=== PATIENT | female | born 1965 | race Caucasian/White ===

== ENCOUNTER 2020-06-07 08:11 | Emergency (ER) | payer OTHER, SELFPAY ==
[2020-06-07 08:18] VITALS: BP 163/93; PULSE 74; RESP 16; TEMP 36.6; O2SAT 97; BMI 28.4
--- NOTE | 2020-06-07 08:24 | ED_ITS ---
HPI - Back Pain/Injury General: Chief Complaint: Extremity Problem,Nontraumatic Stated Complaint: right leg, hip pain Time Seen by Provider: 06/07/20 08:18 History of Present Illness: HPI Narrative: Patient is a 54-year-old female comes to the ED with acute on chronic lower back pain with pain radiating down right leg. Patient says she has a history of chronic lower back pain and a lumbar disc bulge. Patient denies any acute injury or trauma to cause acute pain. Lower back pain started about 3 days ago. Pain got worse last night and she woke up this morning with more intense back pain with radiating pain down her right leg. Pain is rated a 10 out of 10. Associated symptoms: Deny abdominal pain, chills, dysuria, fatigue, fever(s), hematuria, nausea or vomiting Review of Systems Const: Denies: fever(s), chills or fatigue Eyes: Denies: change in vision or eye discomfort ENMT: Denies: throat pain, odynophagia, nasal discharge or nasal congestion Card: Denies: chest pain, palpitations, edema, swelling of feet/ankles, dyspnea on exertion or orthopnea Resp: Denies: dyspnea, productive cough or non-productive cough GI: Denies: abdominal pain, nausea, vomiting, diarrhea, constipation or hematochezia : Denies: flank pain, dysuria or hematuria Musc: Reports: back pain; Denies: neck pain or extremity swelling Skin/Breast: Denies: rash or new lesions Neuro: Denies: headache(s), numbness in extremities or weakness in extremities PFS ED PFSH: Social History Smoking and tobacco status: never smoked Alcohol intake: never Substance/Drug Use: current Substance/Drug use frequency: Special occassions/opportunity only Substance/Drug use type: Marijuana Physical Exam Const: COMMON NORMALS: patient oriented x3 and alert GENERAL APPEARANCE: cooperative and comfortable HENMT: COMMON NORMALS: normocephalic HEAD & SCALP: normocephalic MOUTH: Normal oral and palatal mucosa present THROAT: posterior oropharynx normal and uvula midline Neck/C-Spine: COMMON NORMALS: supple GENERAL: Yes normal visual inspection Resp: COMMON NORMALS: normal respiratory effort, No retractions, No use of accessory muscles and clear to auscultation bilaterally AUSCULTATION: clear to auscultation bilaterally Cardio: COMMON NORMALS: regular rate, regular rhythm, S1 normal heart sound present, S2 normal heart sound present, No gallops present (Cardio), No clicks present (Cardio), No murmurs present (Cardio) and Peripheral pulses 2+ throughout RATE: regular rate RHYTHM: regular rhythm HEART SOUNDS: S1 normal heart sound present and S2 normal heart sound present PERIPHERAL PULSES: Peripheral pulses 2+ throughout GI: COMMON NORMALS: Normal to inspection, nondistended, normoactive bowel sounds present, Soft to palpation, non-tender and no masses PALPATION: Yes Soft to palpation : COMMON NORMALS: Yes no CVA tenderness BLADDER/KIDNEY EXAM: Yes no CVA tenderness Back/Pelvis: COMMON NORMALS: no CVA tenderness LUMBAR SPINE/LOWER BACK: Yes pain with ROM, No lumbar spinal tenderness, Yes paraspinal muscle tenderness and Yes straight leg raise positive right Extremity: COMMON NORMALS: normal to inspection and no pedal edema Neuro: COMMON NORMALS: patient oriented x3 and moves all extremities SENSORIUM/ORIENTATION: Yes alert Skin: GENERAL SKIN EXAM: dry skin Course Vital Signs: Vital signs: Vital Signs Temperature 97.9 F 06/07/20 08:18 Pulse Rate 74 06/07/20 08:18 Respiratory Rate 20 H 06/07/20 09:24 Blood Pressure 163/93 06/07/20 08:18 Pulse Oximetry 97 06/07/20 08:18 MDM - Back Pain/Injury MDM Narrative: Medical decision making narrative: Patient is a 54-year-old f emale comes to the ED with acute on chronic lower back pain. Patient says pain is radiating down right leg. Patient was given a shot of Toradol while here in the ED along with solu-medrol. she was diagnosed with lumbar radiculopathy and sent home with a prescription for methocarbamol, ibuprofen 800 and Medrol Dosepak. Return to ED precautions given. Follow-up with PCP in 7 to 10 days. Patient understood and agreed with plan. Discharge Plan Discharge Patient Disposition: Home Clinical Impression: Lumbar radiculopathy Condition: Stable Prescriptions: New Medrol (Albert) 4 mg tablets,dose pack See Rx Instructions .ROUTE .COMPLEX Qty: 21 RF: 0 methocarbamol 750 mg tablet 750 mg PO Q8H Qty: 30 RF: 0 ibuprofen 800 mg tablet 800 mg PO Q8H PRN (Reason: pain) Qty: 30 RF: 0 No Action No Known Home Medications RF: 0 Discharge Orders: Discharge ED (Routine); Ordered 06/07/20 Ordered By: Fabrice Garcia Discharge Diet: Regular Discharge Activity: Increase activity as tolerated Patient Instructions: Lumbar Radiculopathy (ED) Activity Restrictions/Additional Instructions: Follow-up with medical provider as directed in 7-10 days. Take medications as prescribed. Methocarbamol is a muscle relaxer can cause drowsiness so take at night before bed. Use with caution during the day. Return to the ER or your medical provider if condition worsens. Please read and understand discharge instructions. If any questions, please ask. Coding Level of Care Code ED Bread Distributor for Alexandre Fwd Exam Comprehensive
[2020-06-07] MEDS: ketorolac 60 mg/2 mL INJ IM (08:59)
[2020-06-07 09:24] VITALS: RESP 20
== END 2020-06-07 09:24 | disposition home or self-care (01) ==
LOC: ER 09:37
PROVIDERS: Emergency Provider Physician Assistant
DX: M54.16 Radiculopathy, lumbar region (principal)
CPT/HCPCS: 12345; 96372; 99281; 99283; J1885; J2930

== ENCOUNTER 2020-07-12 13:02 | Outpatient (CLI) | payer OTHER, SELFPAY ==
--- NOTE | 2020-07-12 13:11 | MR_ITS ---
WS: [id number] MRI LUMBAR SPINE NONCONTRAST HISTORY: LUMBOSACRAL RADICULOPATHY COMPARISON: None available. TECHNIQUE: Sagittal and axial multisequence imaging is submitted. Mild S-shaped thoracolumbar scoliosis. No cord compression in the cervical and thoracic spine. Straightening and LEFT convex curvature the lumbar spine. Disc space narrowing and desiccation is mild. No vertebral body marrow edema or fracture. There is ma rrow edema noted within the L5 LEFT pedicle and lamina and facet joint. Conus terminates normally at L1. L1-L2: Very mild RIGHT foraminal narrowing due to scoliosis. L2-L3: Mild asymmetric disc bulging, greatest to the LEFT. No significant stenosis or disc protrusion s. L3-L4: Diffuse disc bulging. Small disc protrusion in the LEFT subarticular recess. There is mild kevon ateral foraminal narrowing. Slightly greater on the LEFT. L4-L5: Diffuse annular disc bulging and osteophytic ridging. There is a focal central disc protrusion contacting the ventral thecal sac. Mild facet joint arthritis. There is mild central and lateral rec ess stenosis and mild bilateral foraminal stenosis. Central disc protrusion is abutting but not signi ficantly displacing the L5 nerve root. L5-S1: Mild osteophytic ridging. Mild facet joint arthritis. No significant stenosis. Acute inflammat ory changes in the LEFT L5-S1 facet joint. There is marrow edema and a small amount of increased flui d. MR/MR lumbar spine wo con* [id number] IMPRESSION: 1. Acute inflammatory changes in the LEFT L5-S1 facet joint with marrow edema in the LEFT L5 pedicle and lamina. 2. Mild to moderate central and bilateral lateral recess and mild bilateral fo raminal stenosis at L4-5 due to combination of factors. There is an additional central disc protrusion with minimal encroachment upon the L5 nerve root on the LEFT. 3. Mild bilateral foraminal stenosis at L3-4 and a small LEFT subarticular dis c protrusion.
== END 2020-07-12 13:03 | disposition home or self-care (01) ==
LOC: RADSHAW 13:07
PROVIDERS: PCP Physician Assistant; Visit Provider Physician Assistant
DX: M54.17 Radiculopathy, lumbosacral region (principal); M48.061 Spinal stenosis, lumbar region without neurogenic claudication; M51.26 Other intervertebral disc displacement, lumbar region
CPT/HCPCS: 72148

== ENCOUNTER 2020-12-12 18:46 | Outpatient (CLI) | payer OTHER, SELFPAY ==
[2020-12-12 19:53] LABS: Basophils # 0.1 10^3/uL (0.0-0.1); Basophils % 0.4 %; Eosinophils # 0.2 10^3/uL (0.0-0.8); Eosinophils % 1.7 %; Hemoglobin 15.5 g/dL (11.5-15.3); Lymphocytes # 2.3 10^3/uL (0.8-4.8); Lymphocytes % 20.8 %; Mean Corpuscular HGB Conc 32.3 g/dL (30.0-36.0); Mean Corpuscular Hemoglobin 27.9 pg (28.0-34.0); Mean Corpuscular Volume 86.5 fL (81-99); Mean Platelet Volume 10.9 fL (7.4-10.4); Monocytes # 0.6 10^3/uL (0.2-0.9); Monocytes % 5.2 %; Neutrophils # 7.99 10^3/uL (1.8-7.7); Neutrophils % 71.5 %; Nucleated Red Blood Cells % 0 %; Platelet Count 264 10^3/cmm (130-400); Red Blood Count 5.55 10^6/uL (4.1-5.3); Red Cell Distribution Width 13.4 % (12.1-15.1); White Blood Count 11.2 10^3/uL (4.0-10.0)
[2020-12-12 20:19] LABS: Alanine Aminotransferase 14 U/L (0-33); Albumin Level 4.4 g/dL (3.5-5.2); Alkaline Phosphatase 112 IU/L (35-105); Aspartate Amino Transferase 16 U/L (0-32); Blood Urea Nitrogen 10 mg/dL (6-20); C Reactive Protein 3.5 mg/L (0.0-4.9); Calcium 9.1 mg/dL (8.5-10.5); Carbon Dioxide 27 mmol/L (22-29); Chloride 100 mmol/L (98-107); Globulin 2.4 g/dL (1.3-4.6); Glomerular Filtration Rate 104.2 mL/min (90-130); Glucose 87 mg/dL (65-115); Osmolality Calculated 288 mOsm/kg (285-295); Sodium 140 mmol/L (136-145); Total Bilirubin 0.3 mg/dL (0.15-1.2); Total Protein 6.8 g/dL (6.6-8.7)
== END 2020-12-12 18:47 | disposition home or self-care (01) ==
PROVIDERS: PCP Physician Assistant; Visit Provider General Practice
DX: M54.5 Low back pain (principal); M19.90 Unspecified osteoarthritis, unspecified site
CPT/HCPCS: 80053; 85025; 86140

== ENCOUNTER 2021-11-24 06:08 | Inpatient (IN) | payer BC, SELFPAY ==
[2021-11-24] VITALS (14 sets, daily range): BP systolic 105–147; BP diastolic 65–96; PULSE 53–96; RESP 16–22; TEMP 36.4–37.1; O2SAT 93–96; BMI 28.3; BMI 28.4
--- NOTE | 2021-11-24 06:11 | ECG_ITS ---
[facility] Test Date: 2021-11-24 Pat Name: Alberta Valdez Department: Room: Gender: Female Vp & General Counsel: : 1965 Requested By: Mc Briones Order Number: [id number] Hussein MD: Taiwo Rizo M.D. Measurements Intervals [place] Rate: 89 P: 24 ID: [id number] QRS: 63 QRSD: 165 T: 61 QT: 412 QTc: 503 Interpretive Statements SINUS RHYTHM Poor R wave progression, consider old anterior MA POSSIBLE LEFT ATRIAL ENLARGEMENT [-0.1mV P-WAVE IN V1/V2] INTRAVENTRICULAR CONDUCTION DELAY [130+ ms QRS DURATION] No previous ECG available for comparison Electronically Signed On 11-24-2021 16:23:09 CDT by Taiwo Rizo M.D. [email or web address]
--- NOTE | 2021-11-24 06:11 | XRR_ITS ---
PROCEDURE INFORMATION: Exam: XR Chest Exam date and time: 11/24/2021 6:31 AM Age: 56 years old Clinical indication: Shortness of breath; Additional info: Dyspnea/cough TECHNIQUE: Imaging protocol: XR of the chest. Views: 1 view. COMPARISON: No relevant prior studies available. FINDINGS: Lungs: Mildly increased ground-glass density in the peripheral right lower lung may be consistent with mild atelectasis versus pneumonia. The remainder of the lung parenchyma is clear. Pleural spaces: No pneumothorax. No pleural effusion. Heart/Mediastinum: The cardiomediastinal silhouette is within normal limits. Bones/joints: Unremarkable. XR/XR chest 1V portable [id number] IMPRESSION: Mildly increased ground-glass density in the peripheral right lower lung may be consistent with mild atelectasis versus pneumonia.
[2021-11-24 06:32] LABS: Basophils # 0.1 10^3/uL (0.0-0.1); Basophils % 0.6 %; Eosinophils # 0.4 10^3/uL (0.0-0.8); Eosinophils % 2.8 %; Hematocrit 48.7 % (37.0-47.0); Hemoglobin 14.9 g/dL (11.5-15.3); Lymphocytes # 3.9 10^3/uL (0.8-4.8); Lymphocytes % 29.5 %; Mean Corpuscular HGB Conc 30.6 g/dL (30.0-36.0); Mean Corpuscular Hemoglobin 28.3 pg (28.0-34.0); Mean Corpuscular Volume 92.6 fl (81-99); Mean Platelet Volume 10.9 fL (7.4-10.4); Monocytes # 0.8 10^3/uL (0.2-0.9); Neutrophils % 60.5 %; Nucleated Red Blood Cells % 0 %; Platelet Count 310 10^3/cmm (130-400); Red Blood Count 5.26 10^6/uL (4.1-5.3); Red Cell Distribution Width 14.7 % (12.1-15.1); White Blood Count 13.1 10^3/uL (4.0-10.0)
[2021-11-24 06:50] LABS: Alanine Aminotransferase 27 U/L (0-33); Albumin Level 4.4 g/dL (3.5-5.2); Alkaline Phosphatase 123 IU/L (35-105); Aspartate Amino Transferase 33 U/L (0-32); Blood Urea Nitrogen 14 mg/dL (6-20); Calcium 8.9 mg/dL (8.5-10.5); Carbon Dioxide 18 mmol/L (22-29); Chloride 102 mmol/L (98-107); Globulin 3.4 g/dL (1.3-4.6); Glomerular Filtration Rate 74.5 mL/min (90-130); Glucose 249 mg/dL (65-115); Osmolality Calculated 297 mOsm/kg (285-295); Sodium 139 mmol/L (136-145); Total Bilirubin 0.4 mg/dL (0.15-1.2); Total Protein 7.8 g/dL (6.6-8.7)
[2021-11-24 06:53] LABS: Anion Gap 22.9 (5-19); Potassium 3.9 mmol/L (3.5-5.1)
[2021-11-24 07:30] LABS: ABG PCO2 42.6 mmHg (35-45); Arterial Blood Gas Hematocrit 42.4 % (37-47); Base Excess ABG 0.9 mmol/L (-2.0-2.0); Blood Gas Operator Identificat AMH; Blood Gas Sample Site Brachial, right; Blood Gas Sample Type Arterial; Carboxyhemoglobin 1.2 %THgb (0.4-20.1); HCO3 ABG 26.1 mmol/L (22-26); HGB O2 Sat 92.3 % (95-100); Ionized Calcium Level - ABG 1.2 mmol/L (1.1-1.4); Methemoglobin 0.5 % (0.4-1.5); Oxygen Device NC; PO2 ABG 68.5 mmHg (80.0-100.0); Potassium Level - ABG 3.6 mmol/L (3.5-5.0); Total Hemoglobin 13.8 g/dL (12-16)
[2021-11-24] MEDS: ipratropium-albuterol 3 mL Neb INHALATION (07:45)
--- NOTE | 2021-11-24 07:48 | ED_ITS ---
HPI - SOB/Dyspnea General: Chief Complaint: Shortness of Breath/Dyspnea Stated Complaint: SOB Time Seen by Provider: 11/24/21 06:10 Source: patient Mode of arrival: ambulatory Limitations: no limitations History of Present Illness: HPI Narrative: 56-year-old female presents emergency room with complaints of shortness of breath and cough. She went to get up this morning became markedly short of breath. She has had this 2 other times this month. She denies any chest pain. No swelling lower extremities. Cough is minimally productive. She has not formally been diagnosed with COPD or asthma in the past she has been using albuterol inhaler she was given by a friend reports minimal relief of symptoms with that. MD elicited complaint: shortness of breath and cough Pertinent past history: COPD Onset (ago): minute(s) Timing: constant Severity: moderate Exacerbating factors: exertion and coughing Relieving factors: oxygen and rest Known history of: COPD Associated symptoms: Deny abdominal pain, chest congestion, chest pain, cough, diaphoresis, dizziness, extremity pain, fever(s), hemoptysis, lightheadedness, myalgias, nausea, orthopnea, palpitations, paresthesias, polydipsia, polyuria, rash, sense of impending doom, syncope or vomiting Treatment prior to arrival: bronchodilator Review of Systems Const: Denies: fever(s), chills, body aches, fatigue, malaise or diaphoresis Eyes: Denies: change in vision or blurry vision ENMT: Denies: throat pain, oral sores, dental pain, nasal discharge or nasal congestion Card: Denies: chest pain, palpitations, lightheadedness, syncope or orthopnea Resp: Reports: dyspnea, productive cough and wheezing; Denies: hemoptysis or chest congestion GI: Denies: abdominal pain, nausea or vomiting : Denies: flank pain, difficulty voiding, dysuria, urinary frequency or urinary urgency Musc: Denies: neck pain, back pain or extremity pain Skin/Breast: Denies: rash, pruritus or erythema Neuro: Denies: dizziness Psych: Denies: anxiety, depression, loss of interest, visual hallucinations, auditory hallucinations, suicidal ideation or homicidal ideation Endo: Denies: polyuria or polydipsia Sky/Lymph: Denies: easy bruising, easy bleeding, petechiae, enlarged lymph nodes or tender lymph nodes PFSH ED PFSH: Medical History (Updated 11/24/21 @ 08:22 by Mc Christensen DO) Chronic back pain Social History Smoking and tobacco status: former smoker Alcohol intake: never Physical Exam Const: GENERAL APPEARANCE: cooperative ORIENTATION/CONSCIOUSNESS: Yes awake, Yes oriented to person, Yes oriented to place and Yes oriented to time HENMT: COMMON NORMALS: normocephalic, atraumatic, hearing grossly normal bilaterally, external ears normal, EAC's normal, TM's normal bilaterally, Normal nasal mucous membranes and turbinates present, moist oral mucous membranes and oropharynx normal HEAD & SCALP: normocephalic and atraumatic NOSE: Normal nasal mucous membranes and turbinates present EXTERNAL EAR: Yes external ears normal EXTERNAL AUDITORY CANAL: EAC's normal TYMPANIC MEMBRANE: TM's normal bilaterally Resp: AUSCULTATION: rhonchi and wheezes Cardio: COMMON NORMALS: regular rate, regular rhythm and No murmurs present (Cardio) RATE: regular rate RHYTHM: regular rhythm GI: COMMON NORMALS: Soft to palpation and No hepatosplenomegaly present AUSCULTATION: Yes normoactive bowel sounds PALPATION: Yes Soft to palpation, No Tenderness to palpation present (GI), No Guarding due to palpation present (GI) and Yes No hepatosplenomegaly present Extremity: COMMON NORMALS: normal to inspection, capillary refill normal, no clubbing, cyanosis or edema, no calf tenderness and no pedal edema Neuro: SENSORIUM/ORIENTATION: Yes oriented to person, Yes oriented to place and Yes oriented to time Skin: COMMON NORMALS: no rashes or lesions noted GENERAL SKIN EXAM: no rash es or lesions noted Course Vital Signs: Vital signs: Vital Signs Temperature 98.8 F 11/24/21 06:11 Pulse Rate 90 11/24/21 07:52 Respiratory Rate 20 H 11/24/21 07:52 Blood Pressure 147/96 11/24/21 06:11 Pulse Oximetry 94 11/24/21 07:52 MDM - SOB/Dyspnea Medical Decision Making Right lower lobe pneumonia. Blood and sputum cultures ordered started on ceftriaxone and Zithromax. Also note patient has some hyperglycemia. No known history of diabetes mellitus. Discussed Dr. Lopez orders written. Medical Records I reviewed the patient's medical records. Lab Data I reviewed the patient's lab results. : 11/24/21 06:16 11/24/21 06:16 Labs/Radiology: Radiology Impressions Chest X-Ray 11/24/21 06:11 IMPRESSION: Mildly increased ground-glass density in the peripheral right lower lung may be consistent with mild atelectasis versus pneumonia. Laboratory Results WBC 13.1 10^3/uL (4.0-10.0) H 11/24/21 06:16 RBC 5.26 10^6/uL (4.1-5.3) 11/24/21 06:16 Hgb 14.9 g/dL (11.5-15.3) 11/24/21 06:16 Hct 48.7 % (37.0-47.0) H 11/24/21 06:16 MCV 92.6 fl (81-99) 11/24/21 06:16 MCH 28.3 pg (28.0-34.0) 11/24/21 06:16 MCHC 30.6 g/dL (30.0-36.0) 11/24/21 06:16 RDW 14.7 % (12.1-15.1) 11/24/21 06:16 Plt Count 310 10^3/cmm (130-400) 11/24/21 06:16 MPV 10.9 fL (7.4-10.4) H 11/24/21 06:16 Neut % (Auto) 60.5 % 11/24/21 06:16 Lymph % (Auto) 29.5 % 11/24/21 06:16 [place] % (Auto) 6.0 % 11/24/21 06:16 Eos % (Auto) 2.8 % 11/24/21 06:16 Baso % (Auto) 0.6 % 11/24/21 06:16 Neut # (Auto) 7.90 10^3/uL (1.8-7.7) H 11/24/21 06:16 Lymph # (Auto) 3.9 10^3/uL (0.8-4.8) 11/24/21 06:16 [place] # (Auto) 0.8 10^3/uL (0.2-0.9) 11/24/21 06:16 Eos # (Auto) 0.4 10^3/uL (0.0-0.8) 11/24/21 06:16 Baso # (Auto) 0.1 10^3/uL (0.0-0.1) 11/24/21 06:16 Nucleated RBC % (auto) 0 % 11/24/21 06:16 Nucleated RBCs # 0.0 /100WBC 11/24/21 06:16 Specimen Type Arterial 11/24/21 07:19 Sample Site Brachial, right 11/24/21 07:19 ABG pH 7.40 (7.35-7.45) 11/24/21 07:19 ABG pCO2 42.6 mmHg (35-45) 11/24/21 07:19 ABG pO2 68.5 mmHg (80.0-100.0) L 11/24/21 07:19 ABG HCO3 26.1 mmol/L (22-26) H 11/24/21 07:19 ABG O2 Saturation 94.0 11/24/21 07:19 ABG Base Excess 0.9 mmol/L (-2.0-2.0) 11/24/21 07:19 Joseph Test N/a 11/24/21 07:19 A-a O2 Gradient 10.0 mmHg (5-10) 11/24/21 07:19 Hematocrit 42.4 % (37-47) 11/24/21 07:19 Hgb O2 Saturation 92.3 % (95-100) L 11/24/21 07:19 Carboxyhemoglobin 1.2 %THgb (0.4-20.1) 11/24/21 07:19 Methemoglobin 0.5 % (0.4-1.5) 11/24/21 07:19 Total Hemoglobin 13.8 g/dL (12-16) 11/24/21 07:19 Sodium 144.0 mmol/L (131-143) H 11/24/21 07:19 Potassium 3.6 mmol/L (3.5-5.0) 11/24/21 07:19 Glucose 114.0 mg/dL (70-115) 11/24/21 07:19 Ionized Calcium 1.2 mmol/L (1.1-1.4) 11/24/21 07:19 O2 Delivery Device Nc 11/24/21 07:19 O2 Liters/Min 2.0 % 11/24/21 07:19 FiO2 28.0 % 11/24/21 07:19 Utility Sales Representative ID Amh 11/24/21 07:19 Sodium 139 mmol/L (136-145) 11/24/21 06:16 Potassium 3.9 mmol/L (3.5-5.1) 11/24/21 06:16 Chloride 102 mmol/L (98-107) 11/24/21 06:16 Carbon Dioxide 18 mmol/L (22-29) L 11/24/21 06:16 Anion Gap 22.9 (5-19) H 11/24/21 06:16 BUN 14 mg/dL (6-20) 11/24/21 06:16 Creatinine 0.8 mg/dL (0.5-0.9) 11/24/21 06:16 GFR Calculation 74.5 mL/min (90-130) L 11/24/21 06:16 Glucose 249 mg/dL (65-115) H 11/24/21 06:16 Calculated Osmolality 297 mOsm/kg (285-295) H 11/24/21 06:16 Calcium 8.9 mg/dL (8.5-10.5) 11/24/21 06:16 Total Bilirubin 0.4 mg/dL (0.15-1.2) 11/24/21 06:16 AST 33 U/L (0-32) H 11/24/21 06:16 ALT 27 U/L (0-33) 11/24/21 06:16 Alkaline Phosphatase 123 IU/L (35-105) H 11/24/21 06:16 Total Protein 7.8 g/dL (6.6-8.7) 11/24/21 06:16 Albumin 4.4 g/dL (3.5-5.2) 11/24/21 06:16 Globulin 3.4 g/dL (1.3-4.6) 11/24/21 06:16 Discharge Plan Discharge Patient Disposition: Admitted As Inpatient Clinical Impression: Community acquired pneumonia Condition: Stable Coding Level of Care Code ED Grounds Restoration Specialist for Alexandre Fwezequiel Exam Detailed
[2021-11-24] MEDS: cefTRIAXone 1,000 MG in sodium chloride 0.9% (plus) 50 ML 100 MG IV (08:20)
--- NOTE | 2021-11-24 08:26 | PC.PHAR ---
pt states she takes no rx or otc medications-ext med history shows no medications [facility] last filled meds in 2019
--- NOTE | 2021-11-24 08:43 | ECG_ITS ---
[facility] Test Date: 2021-11-24 Pat Name: Alberta Valdez Department: Room: Gender: Female Bit Tapper: MATT: 1965 Requested By: Daryl Hairston Order Number: [id number] Reading MD: Taiwo Rizo M.D. Measurements Intervals [place] Rate: 76 P: 30 OK: 152 QRS: 77 QRSD: 147 T: 72 QT: 427 QTc: 481 Interpretive Statements SINUS RHYTHM Poor R wave progression INTRAVENTRICULAR CONDUCTION DELAY [130+ ms QRS DURATION] Compared to ECG 11/24/2021 06:38:40 No significant changes Electronically Signed On 11-24-2021 16:23:36 CDT by Taiwo Rizo M.D. [id number]
[2021-11-24] MEDS: FUROsemide 10 mg/mL SDV 4mL 40 MG IVP ×2 (08:58→22:02)
[2021-11-24] MEDS: azithromycin 500 MG in sodium chloride 0.9% 250 ML 250 MG IV (08:58)
--- NOTE | 2021-11-24 08:59 | P.HP_ITS ---
Providers/Chief Complaint Primary Care Provider: [facility] Chief Complaint: SOB History of Present Illness Alberta Valdez is a 56 year old female who presented to the emergency department with complaints of shortness of breath. She reported it occurred when she got up this morning perhaps around 4 5 AM. She states she felt as if she was gurgling, and full of water. She reports over the last month she has had 2 of these episodes on previous occasions. She states they lasted just minutes, and went away. She denied any wheezing, cough, fever, vomiting, nausea, history of aspiration. She denied any chest discomfort but and when asked further she reported a squeezing sensation in her chest when the discomfort occurred. She denied any radiation of the discomfort. She denies any prior history of heart disease. She states she is already feeling better. In the emergency department oxygen was administered, and treatment for pneumonia was started with Rocephin and azithromycin. A blood culture was drawn. She received a dose of Solu-Medrol. She reports she does not have much family support in the area. She moved out here to be with her father, but then he . She has not sought any medical care in quite some time. Review of Systems General: Reports: 10 or more systems reviewed and unremarkable except in HPI and below Eyes: Denies: change in vision ENMT: Denies: throat pain Card: Denies: edema Resp: Reports: dyspnea; Denies: productive cough or non-productive cough GI: Denies: abdominal pain, nausea, vomiting, hematochezia or melena : Denies: flank pain Musc: Denies: neck pain Skin/Breast: Denies: rash Neuro: Denies: headache(s) Psych: Reports: depression; Denies: anxiety Endo: Denies: polyuria Sky/Lymph: Denies: easy bruising All/Imm: Denies: urticaria Medications/Allergies Home Medications Medication Instructions Recorded Confirmed Last Taken Type No Known Home Medications 06/07/20 11/24/21 Unknown History Allergies Allergy/AdvReac Type Severity Reaction Status Date / Time No Known Allergies Allergy Verified 11/24/21 08:27 PFSH Acute PFSH: Medical History (Updated 11/24/21 @ 09:08 by Daryl Lopez MD) Chronic back pain Surgical History (Updated 11/24/21 @ 09:03 by Daryl Lopez MD) History of hysterectomy Family History (Updated 11/24/21 @ 09:03 by Daryl Lopez MD) Other CAD (coronary artery disease) Diabetes Social History (Updated 11/24/21 @ 09:03 by Daryl Lopez MD) Smoking and tobacco status: former smoker Alcohol intake: never Substance/Drug Use: never Vitals/I&O/Wt Last Vital Signs Temp 98.8 F 11/24/21 06:11 Pulse 88 11/24/21 08:23 Resp 22 H 11/24/21 08:23 BP 128/90 11/24/21 08:23 Pulse Ox 94 11/24/21 08:23 Weight last 48 hrs Weight 77.196 kg Physical Exam Narrative: General exam demonstrates a white female, no distress, on 3 L of oxygen. HEENT: Pupils equally round. Oropharynx clear. Neck is supple no lymphadenopathy or thyromegaly Cardiovascular regular rate and rhythm without murmur, heart sounds distant. Lungs a few crackles right lower lobe. Otherwise clear without wheezing or crackles Abdomen is soft, positive bowel sounds. No obvious organomegaly. exam is deferred Extremities no cyanosis clubbing or edema, cap refill brisk Skin no rash Neuro no obvious focal deficits. Data : 11/24/21 06:16 11/24/21 06:16 Other Labs: EKG demonstrates sinus rhythm, normal axis, intraventricular conduction delay. Poor R wave progression is noted. ABG demonstrates a pH 7.4, PCO2 42, PO2 of 68 on 2 L Calcium 8.9, AST 33, ALT 27, alk phos 123 Troponin I have ordered and is pending Albumin 4.4 Coronavirus PCR pending I have ordered a hemoglobin A1c Chest x-ray with increased density right lung, question edema versus pneumonia A&P Assessment and plan (1) Dyspnea: Concern on admission was right lower lobe pneumonia. Patient complains of several up with her episodes of shortness of breath over the last month, bringing into question potential cardiac etiology. Her AST is slightly elevated, and EKG is abnormal. At this point we will proceed with treatment outlined by emergency department with Rocephin and azithromycin for potential pneumonia. White blood cell count is slightly elevated. Plan on checking sputum culture, nebs as needed, oxygen weaning as tolerated. Check procalcitonin. Coronavirus PCR pending. Secondary to concern of potential cardiac etiology of discomfort we will check serial troponin and EKG BNP. Check echocardiogram. Lasix 40 mg IV x1. If any significant positives will initiate appropriate treatment such as aspirin, anticoagulation, etc. Status: Acute Plan History of chronic back pain. Tylenol as needed Full code Lovenox will suffice for DVT prophylaxis Attestations Medical Necessity Statement*: Will need greater than 2 midnight stay for treatment of pneumonia with IV antibiotics, as well as exploration of dyspnea could be cardiac in etiology. Coding Level of Care Code Acute Roller Leveler Operator for Alexandre Webb Diagnoses Dyspnea R06.00
[2021-11-24 09:10] LABS: Estmated Average Glucose 105; Hemoglobin A1C 5.3 % (4.0-6.0)
[2021-11-24 09:13] LABS: Troponin(5th) Baseline 20 ng/L (0-10)
--- NOTE | 2021-11-24 09:18 | USCV_ITS ---
Alberta Valdez Age: 56 Gender: F : 1965 Exam Date: 11/24/2021 10:18 Ordering Phys: Daryl Lopez MD Technologist: Colette Reid [place] [facility] [place]: ELEVATED TROP BP: 123 / 87 HR: 84 Rhythm: Sinus Technical Quality: Adequate MEASUREMENTS (Male / Female) Normal Values 2D ECHO LV Diastolic Diameter PLAX 6.1 cm 4.2 - 5.9 / 3.9 - 5.3 cm LV Systolic Diameter PLAX 4.8 cm LV Chamber Size 4.5 cm IVS Diastolic Thickness 1.0 cm 0.6 - 1.0 / 0.6 - 0.9 cm IVS Systolic Thickness 1.3 cm LVPW Diastolic Thickness 1.3 cm 0.6 - 1.0 / 0.6 - 0.9 cm LVPW Systolic Thickness 1.6 cm RV Chamber Size 2.9 cm LVOT Diameter 2.0 cm LV Ejection Fraction 2D Teich 42.7 % LV Ejection Fraction MOD 2C 49.5 % LV Ejection Fraction 2C AL 48.3 % LA Diameter 3.2 cm LA Width 2.8 cm LA Height 3.8 cm RA Width 3.5 cm RA Height 4.2 cm Aorta at Sinotubular Diameter 2.5 cm IVC Diameter 1.5 cm M-MODE Aortic Annulus Diameter 3.4 cm LA Ao Ratio MM 1.0 MV E Point Septal Separation 2.4 cm DOPPLER AV Peak Velocity 120.0 cm/s LVOT Peak Velocity 63.0 cm/s AV Area Cont Eq vti 1.5 cm squared AV Area Cont Eq pk 1.7 cm squared MV Area PHT 5.6 cm squared Mitral E to A Ratio 1.2 MV E' Velocity 54.0 cm/s Mitral E to MV E' Ratio 22.4 Mitral E to LV E' Lateral Ratio 18.7 Mitral E to LV E' Septal Ratio 27.8 TV Peak E Velocity 59.0 cm/s PV Peak Velocity 70.0 cm/s RV Acceleration Time 0.1 s RV Ejection Time 0.2 s RV AcT/ET 0.5 FINDINGS Left Ventricle Left ventricle is moderately dilated. LV systolic function is mild to moderately reduced with EF of 40%. Moderate hypokinesis of apical, anterior, anteroseptal and inferoseptal sanchez are seen. Grade 2 diastolic dysfunction Right Ventricle The right ventricle is normal in size and function. Right Atrium The right atrium is normal in size. Left Atrium The left atrium is normal in size. Mitral Valve Structurally normal mitral valve without significant stenosis or prolapse. There is mild mitral regurgitation. Aortic Valve Structurally normal aortic valve without significant sclerosis or stenosis. There is no aortic regurgitation. Tricuspid Valve Structurally normal tricuspid valve without significant stenosis or regurgitation. Insufficient TR jet to calculate RVSP Pulmonic Valve Not well-visualized Pericardium Normal pericardium without effusion. Aorta Normal ascending aorta dimension. IVC CONCLUSIONS Left ventricle is moderately dilated. LV systolic function is mild to moderately reduced with EF of 40%. Regional wall motion abnormalities as mentioned above. Grade 2 diastolic dysfunction There is mild mitral regurgitation. No comparison studies are seen Niraj Bowman MD (Electronically Signed) Final Date: 24 November 2021 16:38 S
[2021-11-24 09:20] LABS: Troponin 5 2HR 34.48 ng/L (0-10)
[2021-11-24 09:20] LABS: NT Pro B Type Natriuretic Pept 2136 pg/mL (0-125)
[2021-11-24 09:32] LABS: Troponin 5 2HR Delta 14.48 ABS# (0-10)
[2021-11-24 10:14] LABS: Adenovirus Not Detected (NOT DETECT); Chlamydia Pneumoniae Not Detected (NOT DETECT); Coronavirus 229E,HKU1,NL63,OC4 Not Detected (NOT DETECT); Human Metapneumovirus Not Detected (NOT DETECT); Human Rhinovirus/Enterovirus Not Detected (NOT DETECT); Influenza A Not Detected (NOT DETECT); Influenza A H1 Not Detected (NOT DETECT); Influenza A H1-2009 Not Detected (NOT DETECT); Influenza A H3 Not Detected (NOT DETECT); Influenza B Not Detected (NOT DETECT); Mycoplasma Pneumoniae Not Detected (NOT DETECT); Parainfluenza Virus Type 1 Not Detected (NOT DETECT); Parainfluenza Virus Type 2 Not Detected (NOT DETECT); Parainfluenza Virus Type 3 Not Detected (NOT DETECT); Parainfluenza Virus Type 4 Not Detected (NOT DETECT); Respiratory Syncytial Virus A Not Detected (NOT DETECT); Respiratory Syncytial Virus B Not Detected (NOT DETECT); SARS-COV-2 Not Detected (NOT DETECT)
[2021-11-24] MEDS: aspirin 81 mg Chew Tablet 324 MG PO (10:14)
[2021-11-24] MEDS: enoxaparin 80 mg/0.8 mL Syringe SUBCUT ×2 (10:15→22:02)
[2021-11-24] MEDS: nitroglycerin 1 gm/inch oint Pkt 0.5 INCH TOPICAL ×3 (10:20→22:05)
[2021-11-24 10:21] LABS: Thyroid Stimulating Hormone 2.64 uIU/mL (0.27-4.20)
[2021-11-24 10:22] LABS: Procalcitonin 0.04 ng/mL (0-0.5)
--- NOTE | 2021-11-24 10:43 | ECG_ITS ---
[facility] Test Date: 2021-11-24 Pat Name: Alberta Valdez Department: Room: Gender: Female Frame Tender: MATT: 1965 Requested By: Daryl Hairston Order Number: [id number] Hussein MD: Taiwo Rizo M.D. Measurements Intervals [place] Rate: 71 P: 17 WV: 167 QRS: 93 QRSD: 158 T: 186 QT: 467 QTc: 510 Interpretive Statements SINUS RHYTHM Poor R wave progression POSSIBLE LEFT ATRIAL ENLARGEMENT [-0.1mV P-WAVE IN V1/V2] BORDERLINE RIGHT AXIS DEVIATION [QRS AXIS > 90] INTRAVENTRICULAR CONDUCTION DELAY [130+ ms QRS DURATION] Compared to ECG 11/24/2021 08:51:19 No significant changes Electronically Signed On 11-24-2021 16:34:06 CDT by Taiwo Rizo M.D. [id number]
[2021-11-24] MEDS: perflutren protein-a microsphr 0.22 mg/mL SDV 3 mL IV (11:01)
[2021-11-24 12:59] LABS: Troponin 5 6HR 29.79 ng/L (0-10)
[2021-11-24 13:11] LABS: Troponin 5 6HR Delta 9.79 ng/L (0-12)
--- NOTE | 2021-11-24 14:43 | ECG_ITS ---
[facility] Test Date: 2021-11-24 Pat Name: Alberta Valdez Department: Room: 277 Gender: Female Fitness Services Manager: MATT: 1965 Requested By: Daryl Hairston Order Number: [id number] Hussein MD: Taiwo Rizo M.D. Measurements Intervals [place] Rate: 59 P: 12 NE: 162 QRS: 69 QRSD: 152 T: 154 QT: 498 QTc: 495 Interpretive Statements SINUS BRADYCARDIA WITH MARKED SINUS ARRHYTHMIA POSSIBLE LEFT ATRIAL ENLARGEMENT [-0.1mV P-WAVE IN V1/V2] INDETERMINATE AXIS INTRAVENTRICULAR CONDUCTION DELAY [130+ ms QRS DURATION] Compared to ECG 11/24/2021 11:01:10 Indeterminate axis now present Sinus rhythm no longer present Electronically Signed On 11-24-2021 16:35:02 CDT by Taiwo Rizo M.D. [id number]
--- NOTE | 2021-11-24 15:06 | PM.CONSULT ---
Providers/Reason For Consult Consulting Physician/Specialty*: Niraj Bowman MD/ Cardiology Reason for Consult*: Pulmonary hypertension Requesting Physician: Dr Lopez Attending Physician: Daryl Lopez MD Primary Care Provider: [facility] History of Present Illness History of Present Illness Alberta Valdez is a 56 year old female with no significant prior cardiac history has been having on and off significant shortness of breath symptoms. Last 1 month she had 3 episodes when she woke up from sleep with a significant breathing difficulty. She felt like her lungs were filling with fluid. Denies chest pain however does have a squeezing sensation across her chest. Troponins were mildly elevated and went up from 20-34 and then trended down. Echocardiogram shows mild to moderately reduced LV systolic function with EF of 40% and moderate hypokinesis of anterior, anteroseptal, inferoseptal and apical sanchez. Patient also on antibiotics at this time. EKG shows intraventricular conduction delay. Review of Systems General: Reports: 10 or more systems reviewed and unremarkable except in HPI and below Eyes: Denies: change in vision ENMT: Denies: throat pain Card: Denies: edema Resp: Reports: dyspnea; Denies: productive cough or non-productive cough GI: Denies: abdominal pain, nausea, vomiting, hematochezia or melena : Denies: flank pain Musc: Denies: neck pain Skin/Breast: Denies: rash Neuro: Denies: headache(s) Psych: Reports: depression; Denies: anxiety Endo: Denies: polyuria Sky/Lymph: Denies: easy bruising All/Imm: Denies: urticaria Medications/Allergies Home Medications Medication Instructions Recorded Confirmed Last Taken Type No Known Home Medications 06/07/20 11/24/21 Unknown History Allergies Allergy/AdvReac Type Severity Reaction Status Date / Time No Known Allergies Allergy Verified 11/24/21 08:27 Current Medications Generic Name Dose Route Start Last Admin Trade Name Freq PRN Reason Stop Dose Admin Enoxaparin Sodium 80 mg 11/24/21 10:00 11/24/21 10:15 Enoxaparin 80 Mg/0.8 Ml Syringe SUBCUT 80 mg Q12H SHAUN Administration Nitroglycerin 0.5 inch 11/24/21 10:15 11/24/21 10:20 Nitroglycerin 1 Gm/Inch Oint Pkt TOPICAL 0.5 inch Q6H SHAUN Administration PFSH Acute PFSH: Medical History Chronic back pain Surgical History History of hysterectomy Family History Other CAD (coronary artery disease) Diabetes Social History Smoking and tobacco status: former smoker Alcohol intake: never Substance/Drug Use: never Vitals/I&O/Wt Last Vital Signs Temp 98 F 11/24/21 13:45 Pulse 79 11/24/21 14:56 Resp 17 11/24/21 14:56 BP 113/70 11/24/21 13:45 Pulse Ox 95 11/24/21 14:56 Weight last 48 hrs Weight 170 lb 14.4 oz Weight 170 lb 3 oz Physical Exam Narrative: GENERAL: Patient is alert, awake and oriented x3. [] NECK: No jugular vein distension. [] HEENT: No cyanosis. No icterus. No pallor. [] HEART: Regular S1 and S2. No murmur, rub or gallop. [] LUNGS: Clear to auscultate bilaterally. [] ABDOMEN: Soft, nontender and nondistended. Positive bowel sounds. No guarding, rebound or tenderness. [] CENTRAL NERVOUS SYSTEM: Grossly nonfocal. [] EXTREMITIES: Lower extremities with 1+ edema bilaterally. Pulses palpable in the lower extremities, both dorsalis pedis and posterior tibial. [] Data : 11/24/21 06:16 11/24/21 06:16 Micro: Microbiology 11/24/21 08:45 Blood Culture - Preliminary Blood SPECIMEN COLLECTED 11/24/21 08:45 Blood Culture - Preliminary Blood SPECIMEN COLLECTED A&P Assessment and plan (1) Congestive heart failure: Status: Acute (2) NSTEMI (non-ST elevated myocardial infarction): Status: Acute Plan Patient has presented with pulmonary edema. Her troponin also increased from 20-34 at 2 hours. She has LV dysfunction with regional wall motion normalities as mentioned before. We will plan on performing coronary angiogram with possible percutaneous coronary intervention. Risks and benefits of the procedure have been discussed with the patient who understands the risks and benefits and wants to proceed with the procedure. N.p.o. past midnight. Continue aspirin, Plavix and Lovenox. Thank you for involving us with care of this patient. We will continue to follow. Please call with questions. Consult Attestations Medical Necessity Statement: Care expected to cross 2 midnights Coding Level of Care Code Acute Staff Internist Office Based Only for Alexandre Webb Diagnoses Congestive heart failure I50.9 NSTEMI (non-ST elevated myocardial infarction) I21.4
[2021-11-24] MEDS: famotidine 20 mg/2 mL INJ IVP (15:26)
[2021-11-24] MEDS: clopidogrel 300 mg Tablet PO (17:54)
[2021-11-24] MEDS: metoprolol tartrate 25 mg Tablet 12.5 MG PO (20:30)
[2021-11-24] MEDS: atorvastatin 40 mg Tablet PO (20:30)
[2021-11-25] VITALS (53 sets, daily range): BP systolic 96–140; BP diastolic 67–95; PULSE 58–101; RESP 12–29; TEMP 36.3–36.9; O2SAT 85–99
[2021-11-25] MEDS: famotidine 20 mg/2 mL INJ IVP (01:25)
[2021-11-25 03:09] LABS: Basophils % 0.1 %; Hematocrit 39.4 % (37.0-47.0); Hemoglobin 12.7 g/dL (11.5-15.3); Lymphocytes # 1.1 10^3/uL (0.8-4.8); Lymphocytes % 6.9 %; Mean Corpuscular HGB Conc 32.2 g/dL (30.0-36.0); Mean Corpuscular Hemoglobin 27.7 pg (28.0-34.0); Monocytes # 0.9 10^3/uL (0.2-0.9); Monocytes % 5.7 %; Neutrophils # 14.13 10^3/uL (1.8-7.7); Neutrophils % 86.8 %; Nucleated Red Blood Cells % 0 %; Platelet Count 258 10^3/cmm (130-400); Red Blood Count 4.58 10^6/uL (4.1-5.3); Red Cell Distribution Width 14.4 % (12.1-15.1); White Blood Count 16.3 10^3/uL (4.0-10.0)
[2021-11-25 03:44] LABS: Anion Gap 13.6 (5-19); Blood Urea Nitrogen 18 mg/dL (6-20); Carbon Dioxide 27 mmol/L (22-29); Chloride 101 mmol/L (98-107); Chol HDL Ratio 3.65 mg/dL (0.0-4.40); Cholesterol 175 mg/dL (0-200); Glomerular Filtration Rate 103.8 mL/min (90-130); Glucose 126 mg/dL (65-115); HDL Cholesterol 48 mg/dL (60-100); LDL Cholesterol Calculated 103 mg/dL (50-129); LDL HDL Ratio 2.15 RATIO (0.00-3.22); Osmolality Calculated 289 mOsm/kg (285-295); Potassium 3.6 mmol/L (3.5-5.1); Sodium 138 mmol/L (136-145); Triglycerides 121 mg/dL (0-150)
[2021-11-25] MEDS: nitroglycerin 1 gm/inch oint Pkt 0.5 INCH TOPICAL (03:54)
[2021-11-25] MEDS: sodium chloride 0.9% 1,000 ML 50 ML IV (05:09)
[2021-11-25] MEDS: diphenhydrAMINE 50 mg Capsule PO (05:10)
--- NOTE | 2021-11-25 05:21 | XACV_ITS ---
Exam Room: 2 Ht: 165 cm Wt: 77 kg BSA: 1.90 m2 Gender: Female : 1965 Any Known Allergies: No known allergies Exam Priority: Routine Procedure(s): Procedure Description: Diagnostic procedure Procedure Description: Coronary Angiography Procedure Description: Left heart cath Procedure Description: LV ventriculogram Diagnostic Cath Status: Elective Diagnostic Findings * INDICATION: 56 year old female with no significant prior cardiac history has been having on and off significant shortness of breath symptoms. Last 1 month she had 3 episodes when she woke up from sleep with a significant breathing difficulty. She felt like her lungs were filling with fluid. Denies Troponins were mildly elevated and went up from 20-34 and then trended down. Echocardiogram shows mild to moderately reduced LV systolic function with EF of 40% and moderate hypokinesis of anterior, anteroseptal, inferoseptal and apical sanchez. * No disease noted in the Left Main, Left Anterior Descending, Right, or Circumflex coronary arteries. * Coronary angiography shows right dominance. Conclusions 1. Non ischemic cardiomyopathy. 2. No disease noted in the Left Main, Left Anterior Descending, Right, or Circumflex coronary arteries. 3. Moderate left ventricular systolic dysfunction. Ejection fraction of 35%. Recommendations * Aggressive risk factor modification. * Guideline directed heart failure medical therapy. * LV pressure is significantly elevated. Continue diuresis for now. * Outpatient cardiology follow up in 7-10 days. Interventional RX Recommendation: medical therapy and/or counseling Diagnostic RX Recommendation: medical therapy and/or counseling Ventriculography Ejection Fraction: 35.0 % Pressures Phase:Rest AO : 91 / 60 ( 72 ) @ 7:22:00 AM 134 / 84 ( 106 ) @ 7:36:00 AM 134 / 86 ( 107 ) @ 7:36:00 AM LV : 126 / 12 / 30 @ 7:34:00 AM 128 / 16 / 36 @ 7:36:00 AM 129 / 16 / 36 @ 7:36:00 AM Valves Phase:DefaultPhase AV : 0.0 @ 6:45:13 AM 0.0 @ 6:45:13 AM AV Mean Gradient: 0.0 @ 6:45:13 AM 0.0 @ 6:45:13 AM Clinical Evaluation EBL: 5mL-10mL Procedural Details Procedure Consent Obtained. Isis Garcia RN, VINICIO was relieved by Isis Garcia RN, VINICIO as monitoring person. Pre-Procedure Time Out. Identified patient by full name and date of as verbalized by the patient/guarantor. Does the consent match the physician's order: Yes. Accurate & Complete Informed Consent: Yes. Inpatient/Outpatient History & Physical on Chart: Yes. If H&P is completed, is and addenduem needed: No; If yes, is the addendum complete: N/A. Visualize and Verify Site with Patient/Guarantor: N/A. Relevant Radiology Images available: N/A. Pre-op teaching completed and patient verbalized understanding. The risks, benefits, and alternatives of sedation and/or procedure were discussed by physician. The patient agrees to continue. Procedure started. [facility] Clinical Fraility Score: 3: Managing Well. Fund Accounting Manager Indications: LV Dysfunction, NSTEMI. Chest Pain Symptom Assessment: Atypical Angina. Cardiovascular Instability: No. Correct patient, site and procedure confirmed by cath team. PERRLA. Strong, equal hand electric tape slitter bilaterally. Lungs clear x 5 lobes. IV Site on Arrival: 18 gauge in the left anticubital. IV Fluids: 0.9% NaCl at KVO. 0 mL infused prior to cheesemaking laborer. Oxygen started at 2liters/min via nasal canula. right groin was prepped with chloroprep then draped in the usual sterile fashion. right radial was prepped with chloroprep then draped in the usual sterile fashion. Baseline sample Acquired. HR: 63 BPM. Physician notified. Physician arrived. Equipment: 6F - Radial. Cardiac Cath Pack. ACIST Manifold Kit Model BT 2000. Heparinized Saline (2 units/mL), 1000 mL bag. Physician scrubbed in. Immediate Pre-Procedure Time Out. Correct Patient: Yes; Correct Procedure: Yes; Correct Site: Yes; Correct Patient Position: Yes; Correct Supplies: Yes; Dried Flammable Prep: Yes; Blood Products Available: N/A;. Lidocaine 1% infiltrated to the right radial. Arterial access obtained. A 5 urdu TIG catheter in over wire. Multiple views taken of left coronary artery. Catheter redirected to the RCA. Multiple views taken of right coronary artery. Catheter out. A 5 urdu Angled Pig catheter in over glidewire. EDP Sample taken: LV 126/12,30; HR: 81 BPM; SpO2: 96%. LV gram performed in ARGUELLO @ 10 mL/second for a total of 30 mL. EDP Sample taken: LV 128/16,36; HR: 76 BPM; SpO2: 96%. Pullback taken: LV 129/16,36; AO 134/84(106); Mean: 0mmHg, Peak to Peak: 0mmHg, SEP: 9sec/min; HR: 83 BPM; SpO2: 96%. Physician scrubbed out. A TR Band was successful obtaining hemostatsis at the Right Radial artery insertion site. TR band placed. Hemostasis obtained. Post Procedure: Pulses reassessed and unchanged. PERRLA. Strong, equal hand electric tape slitter bilaterally. No VTE prophylaxis required. Medication's Wasted: Nitro = 49.8 mg. Medication's Wasted: Heparin = 1000 mg. Medication's Wasted: Lidocaine 1% = 3 mL. Total IV fluids: 35 mL. Contrast type used: Omnipaque 300 mgI/mL, 500 mL bottle. Post-op diagnosis: non obstructive CAD. Complications: none. Estimated blood loss: 5mL-10mL. Responsiveness - Normal response to verbal stimuli; alert and oriented, PERRLA. Airway - Unaffected, no intervention required; spontaneous ventilation. Circulation: W/N/L, pulses unchanged. Nausea/Vomiting: No. Procedure completed. Patient transferred by wheelchair to 1st floor. Vital chart was stopped. Access Site Site: Right Radial artery Sheath Size: 6 Fr Hemostasis Method: TR Band Hemostasis Success: Successful Procedure Medications Start: 6:13 AM Stop: 6:13 AM Medication: Fentanyl Amount: 25 mcg Route: I.V. Start: 6:16 AM Stop: 6:16 AM Medication: Versed Amount: 1 mg Route: I.V. Start: 6:21 AM Stop: 6:21 AM Medication: Nitrogylcerin Amount: 200 mcg Route: I.A. Start: 6:22 AM Stop: 6:22 AM Medication: Heparin Amount: 5000 units Route: I.V. Start: 6:23 AM Stop: 6:23 AM Medication: Versed Amount: 1 mg Route: I.V. Start: 6:37 AM Stop: 6:37 AM Medication: Fentanyl Amount: 50 mcg Route: I.V. Start: 6:23 AM Stop: 6:23 AM Medication: Fentanyl Amount: 25 mcg Route: I.V. I, the attending physician, have reviewed and verified all procedure medications. Yes, all medications given per verbal order History/Risk Factors Hypertension: No Dyslipidemia: No Peripheral Arterial Disease (PAD): No Myocardial Infarction (MS): No Obesity: No Renal Disease: Yes Tobacco Use: Never Prior Interventions PCI: No CABG: No Valve Surgery: No Report Signatures Finalized by Niraj Bowman MD on 12/04/2021 10:14 AM
--- NOTE | 2021-11-25 06:16 | P.HPUD_ITS ---
Surgery/Procedure H&P Update DATE OF PROCEDURE: November 25, 2021 DATE H&P PERFORMED: 11/24/21 H&P UPDATE INFORMATION: I have reviewed H&P completed within last 30 days, I have examined patient prior to procedure and No changes to prior documentation PREOP DIAGNOSIS: LV dysfunction/NSTEMI PRIMARY INDICATION FOR PROCEDURE: LV dysfunction/ NSTEMI PLANNED PROCEDURE: Operation Date: 11/25/21 06:00 Proposed Procedures p Cardiac Catheterization(Not Applicable) - Niraj Bowman M.D Possible percutaneous coronary intervention PATIENT REASSESSED PRIOR TO SEDATION, WITH NO CHANGE NOTED: Yes PHYSICAL EXAM: alert, oriented x 3, clear to auscultation bilaterally and regul ar rate & rhythm AIRWAY EVAL/ANESTHESIA PLAN: ASA III, Local Anesthesia, Risks, benefits & alternatives of sedation and/or procedure discussed and Patient agrees to continue as planned ADDITIONAL INFORMATION: Moderate sedation
--- NOTE | 2021-11-25 07:12 | PM.PN ---
Subjective Subjective: Patient is doing well. No complaints of chest pain overnight. Coronary angiogram today showed non-obstructive CAD, EF is 35% on LV gram. Vitals/I&O/Wt Last Vital Signs Temp 97.4 F L 11/25/21 04:00 Pulse 72 11/25/21 06:45 Resp 18 11/25/21 06:45 BP 110/71 11/25/21 06:45 Pulse Ox 93 11/25/21 06:45 11/24/21 11/25/21 11/25/21 22:59 06:59 14:59 Intake Total 480 / 480 Output Total 1100 / 1100 Balance 480 / 480 -1100 / -620 Weight last 48 hrs Weight 170 lb 14.4 oz Weight 170 lb 3 oz Physical Exam Narrative: GENERAL: Patient is alert, awake and oriented x3. [] NECK: No jugular vein distension. [] HEENT: No cyanosis. No icterus. No pallor. [] HEART: Regular S1 and S2. No murmur, rub or gallop. [] LUNGS: Clear to auscultate bilaterally. [] ABDOMEN: Soft, nontender and nondistended. Positive bowel sounds. No guarding, rebound or tenderness. [] CENTRAL NERVOUS SYSTEM: Grossly nonfocal. [] EXTREMITIES: Lower extremities with 1+ edema bilaterally. Pulses palpable in the lower extremities, both dorsalis pedis and posterior tibial. [] Data : 11/25/21 02:27 11/25/21 02:27 Micro: Microbiology 11/24/21 08:45 Blood Culture - Preliminary Blood SPECIMEN COLLECTED 11/24/21 08:45 Blood Culture - Preliminary Blood SPECIMEN COLLECTED A&P Assessment and plan (1) Congestive heart failure: Status: Acute (2) NSTEMI (non-ST elevated myocardial infarction): Status: Acute Plan Patient presented with pulmonary edema and possible pneumonia. Her troponin also increased from 20-34 at 2 hours. She has LV dysfunction with regional wall motion normalities. Coronary angiogram demonstrated nonobstructive CAD and LV function of 35% on LV gram. She has nonischemic cardiomyopathy. Guideline directed medical therapy for heart failure. She is on low-dose metoprolol. Continue for now. Start lisinopril at low-dose. Will require lasix. LV pressure was elevated Antibiotic therapy for possible infection per primary team Thank you for involving us with care of this patient. We will continue to follow. Please call with questions. Attestations Medical Necessity Statement*: Care expected to cross 2 midnights. Coding Level of Care Code Acute Soil Conservation Teacher for Alexandre Webb Diagnoses Congestive heart failure I50.9 NSTEMI (non-ST elevated myocardial infarction) I21.4
--- NOTE | 2021-11-25 08:15 | PC.NURSE ---
received from cardiac laboratory administrative director at 0720 via w/c.report received.pt is alert and oriented x 4.sr on monitor.denies pain.right wrist with tr band on and inflated.the dorsal aspect of right hand has what appears to be an iv infiltrate (iv had been removed,prior to admission to this unit.)pressure drsg intact.right hand is warm to touch and with brisk capillary refill.no hematoma noted.palpable radial pulse noted distal to tr band.pt instructed in activity restrictions s/p radial artery procedure, and instructed to notify staff for any bleeding,pain,numbness,or for any concerns at all.pt verb understanding of instructions
--- NOTE | 2021-11-25 08:22 | PM.PN ---
Subjective Subjective: Alberta who reports she feels less short of breath. We discussed her angiogram results, showing nonobstructive coronary disease. She reports her cough is better. Medications: Reviewed: Yes Vitals/I&O/Wt Last Vital Signs Temp 97.4 F L 11/25/21 04:00 Pulse 72 11/25/21 06:45 Resp 18 11/25/21 06:45 BP 110/71 11/25/21 06:45 Pulse Ox 93 11/25/21 06:45 11/24/21 11/25/21 11/25/21 22:59 06:59 14:59 Intake Total 480 / 480 Output Total 1100 / 1100 Balance 480 / 480 -1100 / -620 Weight last 48 hrs Weight 77.519 kg Weight 77.196 kg Physical Exam Narrative: General exam demonstrates a white female, no distress Neck is supple no lymphadenopathy or thyromegaly Cardiovascular regular rate and rhythm without murmur, heart sounds distant. Lungs clear currently Abdomen is soft, positive bowel sounds. No obvious organomegaly. Extremities no cyanosis clubbing or edema, cap refill brisk. Band in place without bleeding Skin no rash Data : 11/25/21 02:27 11/25/21 02:27 Micro: Microbiology 11/24/21 08:45 Blood Culture - Preliminary Blood SPECIMEN COLLECTED 11/24/21 08:45 Blood Culture - Preliminary Blood SPECIMEN COLLECTED A&P Assessment and plan (1) Dyspnea: Concern on admission was right lower lobe pneumonia. Patient complains of several up with her episodes of shortness of breath over the last month, bringing into question potential cardiac etiology. Her AST is slightly elevated, and EKG is abnormal. At this point we will proceed with treatment outlined by emergency department with Rocephin and azithromycin for potential pneumonia. White blood cell count is slightly elevated. Plan on checking sputum culture, nebs as needed, oxygen weaning as tolerated. Check procalcitonin. Coronavirus PCR pending. Secondary to concern of potential cardiac etiology of discomfort we will check serial troponin and EKG BNP. Check echocardiogram. Lasix 40 mg IV x1. If any significant positives will initiate appropriate treatment such as aspirin, anticoagulation, etc. See below, problem has been clarified since admission. Status: Acute (2) Community acquired pneumonia: Concern of possible community-acquired pneumonia on admission. Continue Rocephin and azithromycin. No further steroids needed as was given in the emergency department. Expect white blood cell count to decrease by tomorrow. Will give short course of IV antibiotics. Status: Acute (3) Congestive heart failure: Presented with heart failure, systolic, acute. Found to have cardiomyopathy on echocardiogram as well as angiogram. Ejection fraction on angiogram 35%. Coronary disease was nonobstructive. Continue low-dose beta-gilson. Cardiology has intention on adding CATHY inhibitor, and diuretic at appropriate time. Likely can discharge tomorrow if remains stable, after medication adjustments. Status: Acute (4) NSTEMI (non-ST elevated myocardial infarction): Nonobstructive coronary disease noted, consistent with type II elevation. Continue aspirin, beta-gilson, statin Status: Acute Plan History of chronic back pain. Tylenol as needed Full code Lovenox will suffice for DVT prophylaxis Attestations Medical Necessity Statement*: Needs continued hospitalization for IV antibiotics secondary to pneumonia, adjustment of medicine secondary to cardiomyopathy Coding Level of Care Code Acute Microelectronics Engineer for [facility] Jon Diagnoses Dyspnea R06.00 Community acquired pneumonia J18.9 Congestive heart failure I50.9 NSTEMI (non-ST elevated myocardial infarction) I21.4
[2021-11-25] MEDS: cefTRIAXone 1,000 MG in sodium chloride 0.9% (plus) 50 ML 100 MG IV (09:12)
[2021-11-25] MEDS: azithromycin 500 MG in sodium chloride 0.9% 250 ML 250 MG IV (09:13)
[2021-11-25] MEDS: metoprolol tartrate 25 mg Tablet 12.5 MG PO ×2 (09:14→21:37)
[2021-11-25] MEDS: aspirin 325 mg EC Tablet PO (09:14)
[2021-11-25] MEDS: famotidine 20 mg Tablet PO ×2 (09:14→18:14)
--- NOTE | 2021-11-25 13:51 | PC.NURSE ---
air gradually removed from tr band and eventually removed at 1200.site dressed with 2x2 gauze.no hematoma formation noted.right hand remains warm to touch and with brisk capillary refill.palpable radial pulse noted.instructed in activity restrictions s/p tr band removal...and instructed to notify staff for any bleeding,pain,numbness,or for any concerns at all.pt verb understanding of instructions
[2021-11-25] MEDS: lisinopril 5 mg Tablet PO (16:25)
[2021-11-25] MEDS: FUROsemide 40 mg Tablet PO (16:25)
[2021-11-25] MEDS: enoxaparin 40 mg/0.4 mL Syringe SUBCUT (21:38)
[2021-11-25] MEDS: atorvastatin 40 mg Tablet PO (21:38)
[2021-11-26] VITALS: BP 117/69; PULSE 73; RESP 18; TEMP 36.6; O2SAT 96
[2021-11-26 04:00] VITALS: BP 114/77; PULSE 70; RESP 18; TEMP 36.7; O2SAT 93
[2021-11-26 06:00] VITALS: PULSE 70
[2021-11-26 07:36] LABS: Basophils # 0.1 10^3/uL (0.0-0.1); Basophils % 0.5 %; Eosinophils # 0.1 10^3/uL (0.0-0.8); Hematocrit 45.8 % (37.0-47.0); Lymphocytes # 2.3 10^3/uL (0.8-4.8); Lymphocytes % 23.4 %; Mean Corpuscular HGB Conc 30.6 g/dL (30.0-36.0); Mean Corpuscular Hemoglobin 28.1 pg (28.0-34.0); Mean Corpuscular Volume 91.8 fl (81-99); Mean Platelet Volume 10.5 fL (7.4-10.4); Monocytes # 0.5 10^3/uL (0.2-0.9); Monocytes % 5.6 %; Neutrophils # 6.72 10^3/uL (1.8-7.7); Neutrophils % 69.1 %; Nucleated Red Blood Cells % 0 %; Platelet Count 220 10^3/cmm (130-400); Red Blood Count 4.99 10^6/uL (4.1-5.3); Red Cell Distribution Width 14.9 % (12.1-15.1); White Blood Count 9.7 10^3/uL (4.0-10.0)
[2021-11-26 08:00] VITALS: BP 120/78; PULSE 81; RESP 16; TEMP 36.6; O2SAT 97
[2021-11-26 08:00] LABS: Anion Gap 12.5 (5-19); Blood Urea Nitrogen 16 mg/dL (6-20); Calcium 8.6 mg/dL (8.5-10.5); Carbon Dioxide 28 mmol/L (22-29); Chloride 102 mmol/L (98-107); Glomerular Filtration Rate 86.9 mL/min (90-130); Glucose 96 mg/dL (65-115); Osmolality Calculated 289 mOsm/kg (285-295); Potassium 3.5 mmol/L (3.5-5.1); Sodium 139 mmol/L (136-145)
[2021-11-26 08:45] VITALS: PULSE 79; RESP 17; O2SAT 98
--- NOTE | 2021-11-26 09:36 | P.PN_ITS ---
Subjective Subjective: Patient is doing better. No chest pain or shortness of breath at this time. Vitals/I&O/Wt Last Vital Signs Temp 97.9 F 11/26/21 08:00 Pulse 79 11/26/21 08:45 Resp 17 11/26/21 08:45 BP 120/78 11/26/21 08:00 Pulse Ox 98 11/26/21 08:45 11/25/21 11/26/21 11/26/21 22:59 06:59 14:59 Intake Total 832.5 / 1072.5 Balance 832.5 / 1072.5 Weight last 48 hrs Weight 170 lb 14.4 oz Physical Exam Narrative: GENERAL: Patient is alert, awake and oriented x3. [] NECK: No jugular vein distension. [] HEENT: No cyanosis. No icterus. No pallor. [] HEART: Regular S1 and S2. No murmur, rub or gallop. [] LUNGS: Clear to auscultate bilaterally. [] ABDOMEN: Soft, nontender and nondistended. Positive bowel sounds. No guarding, rebound or tenderness. [] CENTRAL NERVOUS SYSTEM: Grossly nonfocal. [] EXTREMITIES: Lower extremities with 1+ edema bilaterally. Pulses palpable in the lower extremities, both dorsalis pedis and posterior tibial. [] Data : 11/26/21 07:26 11/26/21 07:26 Micro: Microbiology 11/24/21 08:45 Blood Culture - Preliminary Blood NEGATIVE TO DATE 11/24/21 08:45 Blood Culture - Preliminary Blood NEGATIVE TO DATE A&P Assessment and plan (1) Congestive heart failure: Status: Acute (2) NSTEMI (non-ST elevated myocardial infarction): Plan Patient presented with pulmonary edema and possible pneumonia. Her troponin also increased from 20-34 at 2 hours. She has LV dysfunction. Coronary angiogram demonstrated non-obstructive CAD and LV function of 35% on LV gram. She has non-ischemic cardiomyopathy. Guideline directed medical therapy for heart failure. She is on low-dose metoprolol. Also started on Lisinopril Continue lasix 40mg BID Thank you for involving us with care of this patient. Patient is stable to be discharged from cardiology standpoint. Please call with questions. Attestations Medical Necessity Statement*: Care expected to cross 2 midnights. Coding Level of Care Code Acute [employer] for Alexandre Fwezequiel Diagnoses Congestive heart failure I50.9 NSTEMI (non-ST elevated myocardial infarction) I21.4
[2021-11-26] MEDS: FUROsemide 40 mg Tablet PO (09:59)
[2021-11-26] MEDS: famotidine 20 mg Tablet PO (09:59)
[2021-11-26] MEDS: lisinopril 5 mg Tablet PO (09:59)
[2021-11-26] MEDS: aspirin 325 mg EC Tablet PO (09:59)
[2021-11-26] MEDS: metoprolol tartrate 25 mg Tablet 12.5 MG PO (10:02)
[2021-11-26] MEDS: potassium chloride ER 20 mEq Tablet PO (10:03)
[2021-11-26 11:57] VITALS: BP 112/73; PULSE 75; RESP 16; TEMP 36.7; O2SAT 95
--- NOTE | 2021-11-26 12:23 | PM.DCS ---
Discharge Providers Date of Admission: 11/24/21 13:45 Date of Discharge: November 26, 2021 Attending Provider at Admission: Daryl Lopez MD Attending Provider at Discharge: Daryl Lopez MD Primary Care Provider: [facility] Diagnoses at Discharge Discharge Diagnosis (1) Dyspnea: Status: Acute (2) Community acquired pneumonia: Status: Acute (3) Congestive heart failure: Status: Acute (4) NSTEMI (non-ST elevated myocardial infarction): Status: Acute Reason for Visit Reason for Visit: SOB Hospital Course Hospital Course Alberta is a 56-year-old white female presenting to the emergency department with shortness of breath. She has had several episodes over the last month. There was concern of pneumonia, as well as pulmonary edema. Troponin was elevated consistent with non-ST elevation myocardial infarction. She was started on IV antibiotics, pulmonary toilet, diuresed. Full anticoagulation, low-dose beta-gilson, aspirin was initiated. She was loaded with Plavix. Cardiology was consulted and echocardiogram ordered. EKG demonstrated intraventricular conduction delay. Echo demonstrated moderately reduced ejection fraction at 40% with grade 2 diastolic dysfunction. Mild mitral regurgitation was noted. Angiogram was recommended and performed November 25. This demonstrated nonobstructive coronary disease with an EF of 35% on ventriculogram. Medical management was recommended. This was initiated with addition of CATHY inhibitor, oral Lasix. On November 26 it was thought she was stable to be discharged home. She will follow-up with cardiology clinic in 1 week with a BMP and her primary care provider 3 to 5 days. She will finish 7 days of Levaquin for pneumonia. Physical Exam Narrative: ExpiredGeneral exam no distress Neck is supple no lymphadenopathy or thyromegaly Cardiovascular regular in rhythm without murmur Lungs Tory wheeze heard on the left currently Abdomen is soft nontender positive bowel sounds Extremities no cyanosis clubbing or edema Discharge Data Studies Completed and Pending Completed Studies During Hospitalization Category Date Time Status XR chest 1V portable [id number] Stat Exams 11/24/21 06:11 Completed CV. 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 Laboratory Results WBC 9.7 10^3/uL (4.0-10.0) 11/26/21 07:26 RBC 4.99 10^6/uL (4.1-5.3) 11/26/21 07:26 Hgb 14.0 g/dL (11.5-15.3) 11/26/21 07:26 Hct 45.8 % (37.0-47.0) 11/26/21 07:26 MCV 91.8 fl (81-99) D 11/26/21 07:26 MCH 28.1 pg (28.0-34.0) 11/26/21 07:26 MCHC 30.6 g/dL (30.0-36.0) 11/26/21 07:26 RDW 14.9 % (12.1-15.1) 11/26/21 07:26 Plt Count 220 10^3/cmm (130-400) 11/26/21 07:26 MPV 10.5 fL (7.4-10.4) H 11/26/21 07:26 Neut % (Auto) 69.1 % 11/26/21 07:26 Lymph % (Auto) 23.4 % 11/26/21 07:26 Bates % (Auto) 5.6 % 11/26/21 07:26 Eos % (Auto) 1.0 % 11/26/21 07:26 Baso % (Auto) 0.5 % 11/26/21 07:26 Neut # (Auto) 6.72 10^3/uL (1.8-7.7) 11/26/21 07:26 Lymph # (Auto) 2.3 10^3/uL (0.8-4.8) 11/26/21 07:26 Bates # (Auto) 0.5 10^3/uL (0.2-0.9) 11/26/21 07:26 Eos # (Auto) 0.1 10^3/uL (0.0-0.8) 11/26/21 07:26 Baso # (Auto) 0.1 10^3/uL (0.0-0.1) 11/26/21 07:26 Nucleated RBC % (auto) 0 % 11/26/21 07:26 Nucleated RBCs # 0.0 /100WBC 11/26/21 07:26 Specimen Type Arterial 11/24/21 07:19 Sample Site Brachial, right 11/24/21 07:19 ABG pH 7.40 (7.35-7.45) 11/24/21 07:19 ABG pCO2 42.6 mmHg (35-45) 11/24/21 07:19 ABG pO2 68.5 mmHg (80.0-100.0) L 11/24/21 07:19 ABG HCO3 26.1 mmol/L (22-26) H 11/24/21 07:19 ABG O2 Saturation 94.0 11/24/21 07:19 ABG Base Excess 0.9 mmol/L (-2.0-2.0) 11/24/21 07:19 Joseph Test N/a 11/24/21 07:19 A-a O2 Gradient 10.0 mmHg (5-10) 11/24/21 07:19 Hematocrit 42.4 % (37-47) 11/24/21 07:19 Hgb O2 Saturation 92.3 % (95-100) L 11/24/21 07:19 Carboxyhemoglobin 1.2 %THgb (0.4-20.1) 11/24/21 07:19 Methemoglobin 0.5 % (0.4-1.5) 11/24/21 07:19 Total Hemoglobin 13.8 g/dL (12-16) 11/24/21 07:19 Sodium 144.0 mmol/L (131-143) H 11/24/21 07:19 Potassium 3.6 mmol/L (3.5-5.0) 11/24/21 07:19 Glucose 114.0 mg/dL (70-115) 11/24/21 07:19 Ionized Calcium 1.2 mmol/L (1.1-1.4) 11/24/21 07:19 O2 Delivery Device Nc 11/24/21 07:19 O2 Liters/Min 2.0 % 11/24/21 07:19 FiO2 28.0 % 11/24/21 07:19 [employer] Principal ID Amh 11/24/21 07:19 Sodium 139 mmol/L (136-145) 11/26/21 07:26 Potassium 3.5 mmol/L (3.5-5.1) 11/26/21 07:26 Chloride 102 mmol/L (98-107) 11/26/21 07:26 Carbon Dioxide 28 mmol/L (22-29) 11/26/21 07:26 Anion Gap 12.5 (5-19) 11/26/21 07:26 BUN 16 mg/dL (6-20) 11/26/21 07:26 Creatinine 0.7 mg/dL (0.5-0.9) 11/26/21 07:26 GFR Calculation 86.9 mL/min (90-130) L 11/26/21 07:26 Glucose 96 mg/dL (65-115) 11/26/21 07:26 Estimat Average Glucose 105 11/24/21 06:16 Hemoglobin A1c 5.3 % (4.0-6.0) 11/24/21 06:16 Calculated Osmolality 289 mOsm/kg (285-295) 11/26/21 07:26 Calcium 8.6 mg/dL (8.5-10.5) 11/26/21 07:26 Total Bilirubin 0.4 mg/dL (0.15-1.2) 11/24/21 06:16 AST 33 U/L (0-32) H 11/24/21 06:16 ALT 27 U/L (0-33) 11/24/21 06:16 Alkaline Phosphatase 123 IU/L (35-105) H 11/24/21 06:16 Troponin T Baseline 20 ng/L (0-10) H 11/24/21 06:16 Troponin T 120 Minute 34.48 ng/L (0-10) H 11/24/21 08:45 Delta Troponin T 14.48 ABS# (0-10) H* 11/24/21 08:45 Troponin T Hi Sens 6Hr 29.79 ng/L (0-10) H 11/24/21 12:19 Troponin T Hi Sens 6Hr Delta 9.79 ng/L (0-12) 11/24/21 12:19 NT-Pro-B Natriuret Pep 2136 pg/mL (0-125) H 11/24/21 06:16 Total Protein 7.8 g/dL (6.6-8.7) 11/24/21 06:16 Albumin 4.4 g/dL (3.5-5.2) 11/24/21 06:16 Globulin 3.4 g/dL (1.3-4.6) 11/24/21 06:16 Triglycerides 121 mg/dL (0-150) 11/25/21 02:27 Cholesterol 175 mg/dL (0-200) 11/25/21 02:27 LDL Cholesterol, Calc 103 mg/dL (50-129) 11/25/21 02:27 HDL Cholesterol 48 mg/dL (60-100) L 11/25/21 02:27 LDL/HDL Ratio 2.15 RATIO (0.00-3.22) 11/25/21 02:27 Cholesterol/HDL Ratio 3.65 mg/dL (0.0-4.40) 11/25/21 02:27 Procalcitonin 0.04 ng/mL (0-0.5) 11/24/21 06:16 TSH 2.64 uIU/mL (0.27-4.20) 11/24/21 06:16 Coronavirus 229E (PCR) Not detected (NOT DETECT) 11/24/21 08:26 SARS-CoV-2 (PCR) Not detected (NOT DETECT) 11/24/21 08:26 Vitals Last Vital Signs Temp 98.1 F 11/26/21 11:57 Pulse 75 11/26/21 11:57 Resp 16 11/26/21 11:57 BP 112/73 11/26/21 11:57 Pulse Ox 95 11/26/21 11:57 Discharge Plan Discharge Patient Disposition: Home Condition: Stable Prescriptions: New atorvastatin 40 mg Tablet 40 mg PO BEDTIME Qty: 30 0RF metoprolol tartrate 25 mg Tablet 12.5 mg PO BID@0900,2100 Qty: 30 0RF potassium chloride [Klor-Con M20] 20 mEq Tablet,Er Particles/Crystals 20 meq PO BID Qty: 60 0RF levofloxacin 750 mg Tablet 750 mg PO DAILY@0600 Qty: 6 0RF aspirin 325 mg Tablet,Delayed Release (Dr/Ec) 325 mg PO DAILY Qty: 30 0RF lisinopril 5 mg Tablet 5 mg PO DAILY Qty: 30 0RF furosemide 40 mg Tablet 40 mg PO BID Qty: 60 0RF albuterol sulfate 90 mcg/actuation HFA aerosol inhaler 1 inh inhalation Q6H PRN (Reason: shortness of breath or wheezing) Qty: 6.7 0RF No Action No Known Home Medications 0RF Discharge Orders: Discharge Order (Routine); Ordered 11/26/21 Ordered By: Daryl Lopez Referrals: Niraj Bowman M.D [Physician] - 1 week (BMP on follow-up) [facility] [Primary Care Provider] - 4-7 days Discharge Diet: Cardiac Discharge Activity: Increase activity as tolerated Patient Instructions: Opioid Safety Activity Restrictions/Additional Instructions: Take all medicine as prescribed. Follow-up with cardiology in 1 week, primary care provider 3 to 5 days. BMP in 1 week. Return for any concerns. Discharge Attestations Time Spent in Discharge Care*: greater than 30 min Quality Metrics Clinical Quality Measures [ Acute Myocardial Infaction { Clinical Trial Participant: No; Contraindication to aspirin: None; Aspirin prescribed; Contraindication to statin: None; Statin prescribed; Contraindication to PCI: Intervention not indicated;}] Coding Level of Care Code Acute [facility] FW DC note Diagnoses Dyspnea R06.00 Community acquired pneumonia J18.9 Congestive heart failure I50.9 NSTEMI (non-ST elevated myocardial infarction) I21.4
== END 2021-11-26 13:41 | disposition home or self-care (01) | DRG 280 ==
LOC: ER 08:41 → MEDSURG 15:03 → CSU 11-25 07:38 → MEDSURG 11-25 18:32
PROVIDERS: Internal Medicine; Admitting Provider Internal Medicine; Emergency Provider Family Medicine; PCP Physician Assistant; Visit Provider Internal Medicine
PROC: 4A023N7 Measurement of Cardiac Sampling and Pressure, Left Heart, Percutaneous Approach (ICD-10-PCS; principal; 2021-11-25 06:00)
DX: I21.4 Non-ST elevation (NSTEMI) myocardial infarction (principal); J18.9 Pneumonia, unspecified organism; I50.41 Acute combined systolic (congestive) and diastolic (congestive) heart failure; I42.8 Other cardiomyopathies; G89.29 Other chronic pain; M54.9 Dorsalgia, unspecified; Z87.891 Personal history of nicotine dependence; R73.9 Hyperglycemia, unspecified; I25.10 Atherosclerotic heart disease of native coronary artery without angina pectoris; I34.0 Nonrheumatic mitral (valve) insufficiency
CPT/HCPCS: 36415; 36600; 71045; 80048; 80051; 80053; 80061; 82330; 82805; 83036; 83880; 84145; 84443; 84484; 85025; 87040; 87635; 93005; 93452; 93458; 94640; 96360; 96365; 96367; 96372; 96375; 99152; 99153; 99285; C1769; C1887; C1894; C8929; J0456; J0696; J1644; J1650; J1940; J2250; J2930; J3010; J3490; J7030; J7050; Q0163; Q9956; Q9967

== ENCOUNTER → 2021-12-03 12:35 | Outpatient (BNVA) | payer BC, MEDICAID, SELFPAY | PROVIDERS: PCP Physician Assistant; Visit Provider Nurse Practitioner Family | DX: Z09 Encounter for follow-up examination after completed treatment for conditions other than malignant neoplasm (principal); I25.10 Atherosclerotic heart disease of native coronary artery without angina pectoris | CPT/HCPCS: 80048; 99214 ==

== ENCOUNTER 2021-12-09 14:04 | Outpatient (RCR) | payer BC, MEDICAID, SELFPAY | END 2021-12-18 23:59 | disposition home or self-care (01) | LOC: CR 14:04 | PROVIDERS: PCP Physician Assistant; Referring Provider Internal Medicine; Visit Provider Internal Medicine | DX: I50.9 Heart failure, unspecified (principal) | CPT/HCPCS: 93798 ==

== ENCOUNTER 2021-12-19 09:00 | Outpatient (RCR) | payer BC, MEDICAID, SELFPAY | END 2022-01-18 23:59 | disposition home or self-care (01) | LOC: CR 09:00 | PROVIDERS: PCP Physician Assistant; Referring Provider Internal Medicine; Visit Provider Internal Medicine | DX: I50.9 Heart failure, unspecified (principal) | CPT/HCPCS: 93798 ==

== ENCOUNTER 2022-01-04 05:35 | Emergency (ER) | payer BC, MEDICAID, SELFPAY ==
[2022-01-04 05:38] VITALS: BP 174/116; PULSE 113; RESP 30; TEMP 36.2; O2SAT 95; BMI 29.1
--- NOTE | 2022-01-04 06:03 | ECG_ITS ---
[facility] Test Date: 2022-01-04 Pat Name: Alberta Valdez Department: Room: Gender: Female Rn Wound: MATT: 1965 Requested By: Minh Middleton Order Number: [id number] Savage MD: Niraj oBwman M.D. Measurements Intervals [place] Rate: 103 P: 38 [place]: 144 QRS: 118 QRSD: 145 T: 47 QT: 364 QTc: 478 Interpretive Statements SINUS TACHYCARDIA RIGHT AXIS DEVIATION [QRS AXIS > 100] INTRAVENTRICULAR CONDUCTION DELAY [130+ ms QRS DURATION] Compared to ECG 11/24/2021 14:52:41 Right-axis deviation now present Sinus bradycardia no longer present Sinus arrhythmia no longer present Indeterminate axis no longer present Electronically Signed On 01-05-2022 18:14:55 CDT by Niraj Bowman M.D. [email or web address]
--- NOTE | 2022-01-04 06:03 | XRR_ITS ---
PROCEDURE INFORMATION: Exam: XR Chest Exam date and time: 01/04/2022 6:53 AM Age: 56 years old Clinical indication: Shortness of breath; TECHNIQUE: Imaging protocol: Radiologic exam of the chest. Views: 1 view. COMPARISON: CR (CHEST, ) 11/24/2021 6:31 AM FINDINGS: Lungs: There are normal lung volumes without confluent interstitial or airspace opacities. Unchanged minimal interstitial prominence is seen in bilateral peripheral lower lung zones. This may represent scarring. Pleural spaces: There are no pleural effusions or pneumothorax. Heart/Mediastinum: The heart size is normal. The mediastinal contour is normal. The trachea is in the midline. Bones/joints: No acute abnormalities. XR/XR chest 1V portable [id number] IMPRESSION: No confluent infiltrates in the lungs.
[2022-01-04 06:59] LABS: Basophils % 0.3 %; Eosinophils # 0.1 10^3/uL (0.0-0.8); Eosinophils % 0.9 %; Hematocrit 44.5 % (37.0-47.0); Hemoglobin 13.9 g/dL (11.5-15.3); Lymphocytes # 1.5 10^3/uL (0.8-4.8); Lymphocytes % 13.9 %; Mean Corpuscular HGB Conc 31.2 g/dL (30.0-36.0); Mean Corpuscular Hemoglobin 27.5 pg (28.0-34.0); Mean Corpuscular Volume 88.1 fl (81-99); Mean Platelet Volume 10.5 fL (7.4-10.4); Monocytes # 0.5 10^3/uL (0.2-0.9); Monocytes % 4.4 %; Neutrophils # 8.36 10^3/uL (1.8-7.7); Neutrophils % 79.9 %; Nucleated Red Blood Cells % 0 %; Platelet Count 209 10^3/cmm (130-400); Red Blood Count 5.05 10^6/uL (4.1-5.3); Red Cell Distribution Width 14.8 % (12.1-15.1); White Blood Count 10.5 10^3/uL (4.0-10.0)
--- NOTE | 2022-01-04 07:02 | W.ED.SOB ---
HPI - SOB/Dyspnea General: Chief Complaint: Shortness of Breath/Dyspnea Stated Complaint: SOB Time Seen by Provider: 01/04/22 06:41 Source: patient Mode of arrival: ambulatory Limitations: no limitations History of Present Illness: HPI Narrative: This patient presents to the emergency department by private vehicle from her home. She states that she has had episodes where she is felt short of breath last night. She states she did not sleep well last night because she felt those symptoms. She states they are episodic in nature and they seem to worsen if she gets up out of bed and ambulates about her home. She states she occasionally feels some tightness in her chest when these episodes occur. She was recently hospitalized at this facility last month for community-acquired pneumonia. She also relates that she was told she had a very minimal heart attack at the time. She states that prior to last month she really did not have any episodes of breathlessness or difficulty breathing that she is aware. She is a former smoker but has not smoked for 25 years. She lives alone here in [place] having moved here from [place] approximately 3 years ago to live with her father who apparently shortly after her arrival to this area. She denies fevers. She has not been exposed to any infectious disease that she is aware. She is taking medications prescribed for her and has had follow-up appointments since her hospitalization. She states that she feels anxious during these episodes but she is not sure that she has any underlying anxiety or that she is anxious because she feels breathless. elicited complaint: shortness of breath Timing: intermittent Exacerbating factors: exertion Associated symptoms: Deny abdominal pain, extremity pain, fever(s), hemoptysis, palpitations, polydipsia, polyuria, syncope or vomiting Related Data: Home oxygen amount: none Review of Systems Const: Denies: fever(s) or chills Eyes: Denies: change in vision ENMT: Denies: throat pain, odynophagia, nasal congestion or nasal obstruction Card: Reports: dyspnea on exertion; Denies: palpitations or syncope Resp: Reports: dyspnea and non-productive cough; Denies: hemoptysis GI: Denies: abdominal pain, vomiting or diarrhea : Denies: flank pain, urinary frequency, urinary urgency or urinary hesitancy Musc: Denies: neck pain, back pain, extremity pain or extremity swelling Skin/Breast: Denies: rash Neuro: Denies: headache(s), numbness in extremities or weakness in extremities Psych: Reports: anxiety and sleeping less; Denies: depression, mood swings or panic attacks Endo: Denies: polyuria or polydipsia Sky/Lymph: Denies: easy bruising or easy bleeding PFSH ED PFSH: Medical History Atherosclerosis of coronary artery Chronic back pain NSTEMI (non-ST elevated myocardial infarction) Surgical History History of hysterectomy Family History Other CAD (coronary artery disease) Diabetes Social History Smoking and tobacco status: former smoker (15 years ago) Alcohol intake: never Physical Exam Narrative: EXAM NARRATIVE: She appears comfortable. She answers questions in a goal-directed fashion. She talks in complete sentences. She makes good eye contact. Const: COMMON NORMALS: no acute distress, average body habitus, patient oriented x3, healthy appearing and alert GENERAL APPEARANCE: cooperative and comfortable HENMT: COMMON NORMALS: normocephalic, external ears normal, Normal external nose present, Normal nasal mucous membranes and turbinates present and moist oral mucous membranes HEAD & SCALP: normocephalic FACE & SINUS: normal facial exam NOSE: Normal external nose present and Normal nasal mucous membranes and turbinates present EXTERNAL EAR: Yes external ears normal Eye: COMMON NORMALS: Equal, round and reactive pupils present, EOMs intact bilaterally and no scleral icterus PUPIL: Yes Equal, round and reactive pupils present Neck/C-Spine: COMMON NORMALS: full ROM, no lymphadenopathy, no JVD, Thyroid normal and No carotid bruits THYROID: Thyroid normal Chest: COMMONS NORMALS: normal inspection of the chest and normal palpation of entire chest wall Resp: COMMON NORMALS: normal respiratory effort, No retractions and No use of accessory muscles EFFORT & INSPECTION: Yes able to speak in complete sentences AUSCULTATION: crackles (A few few scattered faint crackles at bases bilaterally), no rales, no rhonchi and no wheezes Cardio: COMMON NORMALS: no JVD, regular rate, regular rhythm, No murmurs present (Cardio) and Peripheral pulses 2+ throughout RATE: regular rate RHYTHM: regular rhythm PERIPHERAL PULSES: Peripheral pulses 2+ throughout GI: COMMON NORMALS: Normal to inspection, nondistended, normoactive bowel sounds present and Soft to palpation PALPATION: Yes Soft to palpation : COMMON NORMALS: Yes no CVA tenderness BLADDER/KIDNEY EXAM: Yes no CVA tenderness Back/Pelvis: COMMON NORMALS: no CVA tenderness, thoracic and lumbar spine normal to inspection, no thoracic nor lumbar tenderness, thoraco-lumbar ROM normal and straight leg raise negative bilaterally Extremity: COMMON NORMALS: normal to inspection, full ROM, capillary refill normal, no clubbing, cyanosis or edema, no calf tenderness and no pedal edema Neuro: COMMON NORMALS: patient oriented x3, moves all extremities, no focal motor deficits and no sensory deficits noted SENSORIUM/ORIENTATION: Yes alert Psych: COMMON NORMALS: mental status grossly normal and cooperative Skin: COMMON NORMALS: no rashes or lesions noted, turgor normal and no jaundice GENERAL SKIN EXAM: no rashes or lesions noted and turgor normal Course Reevaluation(s): Reevaluation #1: D-dimer is elevated over cut off. CXR clear. Because of her symptoms I think is reasonable for her to proceed with a CTPA. Time: 07:29 Reevaluation #2: Patient reexamined. Vital signs are noted. She is very comfortable. Repeat auscultation reveals clear lungs without any crackles wheezes or other adventitious sounds. Cardiovascular is regular without murmur. Peripheral pulses are palpable and equal. I reviewed current findings with her. Her repeat troponin while still elevated is not significantly elevated did not concerning in light of her current presentation. Certainly suggest that she is having some increased fluid retention contributing to her subjective symptoms. I also believe that there is some underlying anxiety as a contributing factor as well which she readily acknowledges. No evidence at this time of ongoing ischemia, thromboembolic issues, infection etc. Her COVID-19 antigen is negative and she does not have evidence of hypoxia or other concerning findings on evaluation today. Discussed treatment options to include increasing her Lasix to twice daily following her response versus continued observation in the hospital. She apparently was on twice daily Lasix before which was discontinued. We will ensure that she takes it earlier in the day to mitigate interruption in sleep. She acknowledges the risks and benefits but prefers the former rather than the latter. She has a follow-up appointment this coming week and notes ideal to reassess her response. We also discussed return for any worsening symptoms, sustained chest pain or any concerns. She acknowledged our discussion. Stable for discharge at this time. Time: 11:13 Vital Signs: Vital signs: Vital Signs Temperature 97.1 F L 01/04/22 05:38 Pulse Rate 92 01/04/22 10:00 Respiratory Rate 18 01/04/22 10:00 Blood Pressure 139/97 01/04/22 09:00 Pulse Oximetry 94 01/04/22 10:00 MDM - SOB/Dyspnea Medical Decision Making Patient with known decreased ejection fraction and nonobstructive coronary disease presents with episodes of dyspnea with exertion. Her work-up today is reassuring and that there is low risk for ongoing ACS, thromboembolic disease, infection etc. Feel that she would benefit from increased fluid mobilization with increased Lasix at least for the next several days and perhaps on a regular basis. He was offered prolonged observation versus home therapy and she is chosen home treatment. She has intact decision-making capacity and is acknowledges that risks and benefits and limitations of such course. Stable at this time. Medical Records I reviewed the patient's medical records. Previous echocardiogram and angiogram noted. Lab Data I reviewed the patient's lab results. : 01/04/22 06:55 01/04/22 06:55 Labs/Radiology: Radiology Impressions Chest X-Ray 01/04/22 06:03 IMPRESSION: No confluent infiltrates in the lungs. Chest CTA 01/04/22 07:29 IMPRESSION: 1. No segmental pulmonary embolism or thoracic aortic dissection. 2. Minimal bilateral upper lobe, right middle lobe and lower lobe peripheral small regions of scattered ground-glass opacity. These are nonspecific findings that can be seen with viral/COVID-19 pneumonia, nonspecific interstitial pneumonitis and other etiologies. Recommend correlation with clinical history and follow-up. 3. Enlarged right hilar and prevascular lymph nodes. Laboratory Results WBC 10.5 10^3/uL (4.0-10.0) H 01/04/22 06:55 RBC 5.05 10^6/uL (4.1-5.3) 01/04/22 06:55 Hgb 13.9 g/dL (11.5-15.3) 01/04/22 06:55 Hct 44.5 % (37.0-47.0) 01/04/22 06:55 MCV 88.1 fl (81-99) 01/04/22 06:55 MCH 27.5 pg (28.0-34.0) L 01/04/22 06:55 MCHC 31.2 g/dL (30.0-36.0) 01/04/22 06:55 RDW 14.8 % (12.1-15.1) 01/04/22 06:55 Plt Count 209 10^3/cmm (130-400) 01/04/22 06:55 MPV 10.5 fL (7.4-10.4) H 01/04/22 06:55 Neut % (Auto) 79.9 % 01/04/22 06:55 Lymph % (Auto) 13.9 % 01/04/22 06:55 [place] % (Auto) 4.4 % 01/04/22 06:55 Eos % (Auto) 0.9 % 01/04/22 06:55 Baso % (Auto) 0.3 % 01/04/22 06:55 Neut # (Auto) 8.36 10^3/uL (1.8-7.7) H 01/04/22 06:55 Lymph # (Auto) 1.5 10^3/uL (0.8-4.8) 01/04/22 06:55 [place] # (Auto) 0.5 10^3/uL (0.2-0.9) 01/04/22 06:55 Eos # (Auto) 0.1 10^3/uL (0.0-0.8) 01/04/22 06:55 Baso # (Auto) 0.0 10^3/uL (0.0-0.1) 01/04/22 06:55 Nucleated RBC % (auto) 0 % 01/04/22 06:55 Nucleated RBCs # 0.0 /100WBC 01/04/22 06:55 D-Dimer 0.76 ug/mIFEU (0-0.59) H 01/04/22 06:59 Sodium 139 mmol/L (136-145) 01/04/22 06:55 Potassium 3.8 mmol/L (3.5-5.1) 01/04/22 06:55 Chloride 102 mmol/L (98-107) 01/04/22 06:55 Carbon Dioxide 27 mmol/L (22-29) 01/04/22 06:55 Anion Gap 13.8 (5-19) 01/04/22 06:55 BUN 13 mg/dL (6-20) 01/04/22 06:55 Creatinine 0.6 mg/dL (0.5-0.9) 01/04/22 06:55 GFR Calculation 103.8 mL/min (90-130) 01/04/22 06:55 Glucose 127 mg/dL (65-115) H 01/04/22 06:55 Calculated Osmolality 290 mOsm/kg (285-295) 01/04/22 06:55 Calcium 9.4 mg/dL (8.5-10.5) 01/04/22 06:55 Total Bilirubin 0.5 mg/dL (0.15-1.2) 01/04/22 06:55 AST 16 U/L (0-32) 01/04/22 06:55 ALT 20 U/L (0-33) 01/04/22 06:55 Alkaline Phosphatase 98 IU/L (35-105) 01/04/22 06:55 Troponin T Gen 5 ng/L 18 ng/L (0-10) H 01/04/22 06:55 Troponin T Baseline 24 ng/L (0-10) H 01/04/22 09:48 NT-Pro-B Natriuret Pep 2624 pg/mL (0-125) H 01/04/22 06:55 Total Protein 7.1 g/dL (6.6-8.7) 01/04/22 06:55 Albumin 4.2 g/dL (3.5-5.2) 01/04/22 06:55 Globulin 2.9 g/dL (1.3-4.6) 01/04/22 06:55 SARS-CoV-2 Ag (Rapid) Negative (Negative) 01/04/22 09:05 EKG Data EKG 1: I personally reviewed and interpreted this EKG as follows: Interpretation: Patient's EKG shows a baseline sinus tachycardia 103 bpm. Is a widened QRS but no acute ST-T wave changes either concordant or discordant. She has evidence suggestive of left atrial enlargement. No acute changes and no change from prior tracings within the system. EKG 2: I personally reviewed and interpreted this EKG as follows: EKG interpretation time: 09:30 Interpretation: EKG shows a sinus rhythm 95 bpm. With normal intervals. Normal axis. Does have a widened QRS consistent with possible left bundle branch block. No acute ST-T wave changes or discordant or concordant changes noted at this time. Unchanged from prior tracing this date. Discharge Plan Discharge Patient Disposition: Home Clinical Impression: Congestive heart failure Condition: Stable Prescriptions: No Action losartan 25 mg tablet 25 mg PO DAILY Qty: 90 3RF aspirin 325 mg tablet,delayed release (DR/EC) 325 mg PO DAILY Qty: 90 3RF atorvastatin 40 mg tablet 40 mg PO BEDTIME Qty: 90 3RF furosemide 40 mg tablet 40 mg PO DAILY Qty: 90 3RF metoprolol tartrate 25 mg tablet 12.5 mg PO BID@0900,2100 Qty: 90 3RF Klor-Con M20 20 mEq tablet,ER particles/crystals 20 meq PO BID Qty: 180 3RF albuterol sulfate 90 mcg/actuation HFA aerosol inhaler 1 inh inhalation Q6H PRN (Reason: shortness of breath or wheezing) Qty: 6.7 0RF Discharge Orders: Discharge ED (Routine); Ordered 01/04/22 Ordered By: Minh Middleton Referrals: [facility] [Primary Care Provider] - Discharge Diet: Cardiac and Low Salt Discharge Activity: Increase activity as tolerated Patient Instructions: Opioid Safety Activity Restrictions/Additional Instructions: As we discussed we would like for you to increase your Lasix to 2 doses daily. We recommend taking her first dose in the morning as you usually do and the second dose in the early afternoon approximately 2?3 PM to get the benefit of the diuretic without interrupting her sleep. Follow-up with your regular clinician this week as scheduled. If you develop any increasing symptoms such as prolonged chest pain, increasing shortness of breath or other concerns at any time return to this emergency department. Coding Level of Care Code ED Professor Of Special Education for Alexandre Webb Exam Comprehensive
[2022-01-04 07:17] LABS: D Dimer 0.76 ug/mIFEU (0-0.59)
[2022-01-04 07:28] LABS: Troponin T (5th) Once 18 ng/L (0-10)
--- NOTE | 2022-01-04 07:29 | CTR_ITS ---
PROCEDURE INFORMATION: Exam: CTA Chest With Contrast Exam date and time: 01/04/2022 8:00 AM Age: 56 years old Clinical indication: Abnormal findings; Abnormal diagnostic tests; Elevated d-dimer; Shortness of breath; Additional info: SOB, elevated d-dimer TECHNIQUE: Imaging protocol: Computed tomographic angiography of the chest with contrast. 3D rendering (Not supervised by radiologist): MIP and/or 3D reconstructed images were created by the technologist. Radiation optimization: All CT scans at this facility use at least one of these dose optimization techniques: automated exposure control; mA and/or kV adjustment per patient size (includes targeted exams where dose is matched to clinical indication); or iterative reconstruction. Contrast material: OMNI 350; Contrast volume: 95 ml; Contrast route: INTRAVENOUS (IV); COMPARISON: CR (CHEST, ) 01/04/2022 6:53 AM RADIATION DOSE METRICS: Total DLP (mGy-cm): 584.95 FINDINGS: Pulmonary arteries: No CT evidence for segmental pulmonary emboli. The main pulmonary arteries and outflow trunk are unremarkable. Aorta: No thoracic aortic aneurysm. No thoracic aortic dissection. Trachea: The central airway is normal. Lungs: Minimal bilateral upper lobe, right middle lobe and lower lobe peripheral small regions of scattered ground-glass opacity are seen. These are nonspecific findings that can be seen with viral/COVID-19 pneumonia, nonspecific interstitial pneumonitis and other etiologies. Recommend correlation with clinical history and follow-up. There are no areas of consolidation or interlobular septal thickening seen. Pleural spaces: No pneumothorax. No pleural effusion. Heart: The heart size is within normal limits. The RV/LV ratio is normal (no CT evidence of RV strain). There is no pericardial effusion. Minimal left coronary arterial atherosclerotic vascular calcifications. Lymph nodes: Enlarged prevascular lymph nodes are seen, the largest measuring 0.9 x 1 cm. Enlarged right hilar 1 x 1.3 cm the lymph node is seen. Nonspecific subcentimeter right paratracheal, subcarinal and left hilar lymph nodes are seen. Bones/joints: No acute osseous abnormalities. Soft tissues: Unremarkable. CT/CT angio chest PE protcl [id number] IMPRESSION: 1. No segmental pulmonary embolism or thoracic aortic dissection. 2. Minimal bilateral upper lobe, right middle lobe and lower lobe peripheral small regions of scattered ground-glass opacity. These are nonspecific findings that can be seen with viral/COVID-19 pneumonia, nonspecific interstitial pneumonitis and other etiologies. Recommend correlation with clinical history and follow-up. 3. Enlarged right hilar and prevascular lymph nodes.
[2022-01-04 07:37] LABS: Alanine Aminotransferase 20 U/L (0-33); Albumin Level 4.2 g/dL (3.5-5.2); Alkaline Phosphatase 98 IU/L (35-105); Anion Gap 13.8 (5-19); Aspartate Amino Transferase 16 U/L (0-32); Blood Urea Nitrogen 13 mg/dL (6-20); Calcium 9.4 mg/dL (8.5-10.5); Carbon Dioxide 27 mmol/L (22-29); Chloride 102 mmol/L (98-107); Globulin 2.9 g/dL (1.3-4.6); Glomerular Filtration Rate 103.8 mL/min (90-130); Glucose 127 mg/dL (65-115); NT Pro B Type Natriuretic Pept 2624 pg/mL (0-125); Osmolality Calculated 290 mOsm/kg (285-295); Potassium 3.8 mmol/L (3.5-5.1); Sodium 139 mmol/L (136-145); Total Bilirubin 0.5 mg/dL (0.15-1.2); Total Protein 7.1 g/dL (6.6-8.7)
[2022-01-04 07:43] VITALS: BP 135/94; PULSE 91; RESP 20; O2SAT 96
[2022-01-04 08:00] VITALS: BP 138/98; PULSE 90; RESP 18; O2SAT 96
[2022-01-04] MEDS: iohexol 350 mg/mL 100 mL Btl 95 ML IV (08:06)
[2022-01-04 09:00] VITALS: BP 139/97; PULSE 90; O2SAT 95
[2022-01-04] MEDS: FUROsemide 10 mg/mL SDV 4mL 40 MG IVP (09:10)
[2022-01-04 10:00] VITALS: PULSE 92; RESP 18; O2SAT 94
[2022-01-04 10:06] LABS: SARS Covid-2 Antigen Negative (Negative)
[2022-01-04 10:49] LABS: Troponin(5th) Baseline 24 ng/L (0-10)
--- NOTE | 2022-01-04 11:17 | ECG_ITS ---
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 Measurements Intervals [place] Rate: 95 P: 31 MD: 146 QRS: 67 QRSD: 146 T: 48 QT: 372 QTc: 469 Interpretive Statements SINUS RHYTHM POSSIBLE LEFT ATRIAL ENLARGEMENT [-0.1mV P-WAVE IN V1/V2] INTRAVENTRICULAR CONDUCTION DELAY [130+ ms QRS DURATION] Compared to ECG 01/04/2022 05:43:07 Sinus tachycardia no longer present Right-axis deviation no longer present Electronically Signed On 01-05-2022 18:14:46 CDT by Niraj Bowman M.D. [id number]
[2022-01-04 11:34] VITALS: BP 118/82; PULSE 88; O2SAT 92
== END 2022-01-04 11:36 | disposition home or self-care (01) ==
PROVIDERS: Emergency Provider Emergency Medicine; PCP Physician Assistant
DX: I11.0 Hypertensive heart disease with heart failure (principal); I50.9 Heart failure, unspecified; Z79.82 Long term (current) use of aspirin; I25.10 Atherosclerotic heart disease of native coronary artery without angina pectoris; I25.2 Old myocardial infarction; Z87.891 Personal history of nicotine dependence; Z20.822 Contact with and (suspected) exposure to COVID-19
CPT/HCPCS: 71045; 71275; 80053; 83880; 84484; 85025; 85378; 87426; 93005; 96374; 99285; J1940; Q9967

== ENCOUNTER → 2022-01-13 11:15 | Outpatient (BNVA) | payer BC, MEDICAID, SELFPAY | PROVIDERS: PCP Physician Assistant; Visit Provider Internal Medicine Cardiovascular Disease | DX: I50.9 Heart failure, unspecified (principal); I42.9 Cardiomyopathy, unspecified | CPT/HCPCS: 99213 ==

== ENCOUNTER 2022-01-21 08:00 | Outpatient (RCR) | payer BC, MEDICAID, SELFPAY | END 2022-02-18 23:59 | disposition home or self-care (01) | LOC: CR 08:00 | PROVIDERS: PCP Physician Assistant; Referring Provider Internal Medicine; Visit Provider Internal Medicine | DX: I50.9 Heart failure, unspecified (principal) | CPT/HCPCS: 93798 ==

== ENCOUNTER 2022-02-12 14:54 | Outpatient (CLI) | payer BC, MEDICAID, SELFPAY ==
--- NOTE | 2022-02-12 15:15 | USCV_ITS ---
Alberta Valdez Age: 56 Gender: F : 1965 Exam Date: 02/12/2022 15:24 Ordering Phys: Taiwo Rizo MD ([email or web address]) Technologist: [employer] Exam Location: [facility] [place] Indication: cardiomyopathy BP: 126 / 82 HR: 54 Rhythm: Sinus Technical Quality: Adequate MEASUREMENTS (Male / Female) Normal Values 2D ECHO LV Diastolic Diameter PLAX 6.0 cm 4.2 - 5.9 / 3.9 - 5.3 cm LV Systolic Diameter PLAX 5.0 cm IVS Diastolic Thickness 0.7 cm 0.6 - 1.0 / 0.6 - 0.9 cm IVS Systolic Thickness 0.9 cm LVPW Diastolic Thickness 1.3 cm 0.6 - 1.0 / 0.6 - 0.9 cm LVPW Systolic Thickness 1.6 cm LVOT Diameter 2.0 cm LV Ejection Fraction 2D Teich 34.5 % LV Ejection Fraction MOD 2C 28.7 % LV Ejection Fraction 2C AL 27.8 % LA Diameter 3.4 cm LA Width 3.4 cm LA Height 4.6 cm RA Width 3.1 cm RA Height 4.0 cm Aorta at Sinotubular Diameter 2.7 cm IVC Diameter 1.8 cm M-MODE Aortic Annulus Diameter 2.9 cm LA Ao Ratio MM 1.1 MV E Point Septal Separation 2.1 cm DOPPLER AV Peak Velocity 141.8 cm/s LVOT Peak Velocity 69.0 cm/s AV Area Cont Eq vti 1.4 cm squared AV Area Cont Eq pk 1.5 cm squared MV Peak Velocity 150.0 cm/s MV Area PHT 5.6 cm squared Mitral E to A Ratio 1.5 MV E' Velocity 64.5 cm/s Mitral E to MV E' Ratio 14.1 Mitral E to LV E' Lateral Ratio 11.6 Mitral E to LV E' Septal Ratio 18.2 TR Peak Velocity 287.4 cm/s TR Peak Gradient 33.1 mmHg TR Mean Velocity 229.8 cm/s TR Mean Gradient 21.8 mmHg TR Velocity Time Integral 87.6 cm Right Atrial Pressure 3.0 mmHg Pulmonary Artery Systolic Pressu 36.1 mmHg RV Acceleration Time 0.1 s RV Ejection Time 0.3 s RV AcT/ET 0.3 FINDINGS Left Ventricle Moderately increased left ventricular cavity size. Normal left ventricular wall thickness. Severely decreased left ventricular systolic function. Global left ventricular hypokinesis. Grade I/IV diastolic dysfunction (abnormal relaxation filling pattern), normal to mildly elevated filling pressures. Left ventricular ejection fraction is estimated at 25-30 %. Right Ventricle Normal right ventricular size and systolic function. Normal right ventricular systolic pressure. Right Atrium The right atrium is normal in size. Left Atrium The left atrium is normal in size. Mitral Valve Structurally normal mitral valve. Moderate mitral valve regurgitation. Aortic Valve Structurally normal trileaflet aortic valve. Mild aortic valve calcification. Mild aortic valve stenosis, mean gradient 4.7 mmHg, TAY 1.4 cm squared. Tricuspid Valve Structurally normal tricuspid valve. Mild tricuspid valve regurgitation. Pulmonic Valve Pulmonic valve not well visualized. Pericardium Normal pericardium without effusion. Aorta Normal ascending aorta dimension. IVC The inferior vena cava pulmonary and hepatic veins appear normal. CONCLUSIONS Moderately increased left ventricular cavity size. Normal left ventricular wall thickness. Severely decreased left ventricular systolic function. Global left ventricular hypokinesis. Grade I/IV diastolic dysfunction (abnormal relaxation filling pattern), normal to mildly elevated filling pressures. Left ventricular ejection fraction is estimated at 25-30 %. Structurally normal mitral valve. Moderate mitral valve regurgitation. Structurally normal trileaflet aortic valve. Mild aortic valve calcification. Mild aortic valve stenosis, mean gradient 4.7 mmHg, TAY 1.4 cm squared. Study compared to prior echocardiogram of 11/24/21, LV unchanged to slightly worse. Dr. Taiwo Rizo MD (Electronically Signed) Final Date: 13 February 2022 13:23 S
== END 2022-02-12 14:55 | disposition home or self-care (01) ==
PROVIDERS: PCP Physician Assistant; Visit Provider Internal Medicine Cardiovascular Disease
DX: I25.10 Atherosclerotic heart disease of native coronary artery without angina pectoris (principal); I42.9 Cardiomyopathy, unspecified; I50.9 Heart failure, unspecified; I35.0 Nonrheumatic aortic (valve) stenosis; I34.0 Nonrheumatic mitral (valve) insufficiency
CPT/HCPCS: 93306

== ENCOUNTER 2022-02-16 09:10 | Emergency (ER) | payer OTHER, BC, MEDICAID, SELFPAY ==
[2022-02-16 09:11] VITALS: BP 139/85; PULSE 92; RESP 17; TEMP 36.6; O2SAT 96; BMI 29.6
--- NOTE | 2022-02-16 09:31 | PC.PHAR ---
pt state she takes care of her own medications-rx written for zoloft 50mg daily on 02/06/22-pt states filled but not started taking yet-ext med history doesnt show when filled-pt states she takes trazodone 100mg hs prn rx written 02/06/22 ext med history doesnt show when last filled-pt states she takes kcl 20meq qam rx filled on 02/01/22 30d/s for 20meq bid-notes are made in the pharmacy comments
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
[2022-02-16 09:48] LABS: Basophils % 0.5 %; Eosinophils # 0.1 10^3/uL (0.0-0.8); Eosinophils % 1.6 %; Hematocrit 41.6 % (37.0-47.0); Hemoglobin 13.1 g/dL (11.5-15.3); Lymphocytes # 1.9 10^3/uL (0.8-4.8); Lymphocytes % 22.1 %; Mean Corpuscular HGB Conc 31.5 g/dL (30.0-36.0); Mean Corpuscular Hemoglobin 26.8 pg (28.0-34.0); Mean Corpuscular Volume 85.2 fl (81-99); Mean Platelet Volume 10.9 fL (7.4-10.4); Monocytes # 0.7 10^3/uL (0.2-0.9); Monocytes % 8.7 %; Neutrophils % 66.9 %; Nucleated Red Blood Cells % 0 %; Platelet Count 228 10^3/cmm (130-400); Red Blood Count 4.88 10^6/uL (4.1-5.3); Red Cell Distribution Width 15.2 % (12.1-15.1); White Blood Count 8.4 10^3/uL (4.0-10.0)
[2022-02-16] MEDS: iohexol 350 mg/mL 100 mL Btl IV (10:00)
[2022-02-16 10:15] VITALS: BP 132/90; PULSE 80
[2022-02-16 10:16] LABS: Blood Urea Nitrogen 9 mg/dL (6-20); Calcium 9.1 mg/dL (8.5-10.5); Carbon Dioxide 24 mmol/L (22-29); Chloride 105 mmol/L (98-107); Glomerular Filtration Rate 103.8 mL/min (90-130); Glucose 111 mg/dL (65-115); Osmolality Calculated 293 mOsm/kg (285-295); Sodium 142 mmol/L (136-145)
--- NOTE | 2022-02-16 10:29 | CT_ITS ---
WS: [id number] CT CERVICAL SPINE HISTORY: Radiographic evaluation C3 lamina suspicious finding. Post trauma. TECHNIQUE: Contiguous 2.5 mm axial imaging performed through the entire cervical spine. Sagittal and coronal reformats also performed. All CT scans at [facility] use at least one of these dose o ptimization techniques: automated exposure control; mA and/or kV adjustment per patient size (include s targeted exams where dose is matched to clinical indication); or iterative reconstruction. DLP: 220.83 mGy.cm COMPARISON: Radiographs 02/16/2022 Normal cervical alignment. Craniocervical junction, atlantodental interval and C1-C2 alignment is nor mal. Moderate degenerative disc disease at C6-7. Facet joints are normally aligned. C2-C3: Small central disc protrusion. C3-C4: No fractures. No destructive bone process. Mild facet joint arthritis. C4-C5: Osteophytic ridging and small central disc protrusion. Mild central and foraminal stenosis. C5-C6: Moderate osteophytic ridging encroaching upon the ventral thecal sac. Moderate to severe dewayne inal stenosis. Small central disc protrusion. C6-C7: Osteophytic ridging. Facet joint arthritis and mild foraminal stenosis. Mild asymmetric wideni ng of the RIGHT facet joint. C7-T1: Normal. Lung apices are clear. Soft tissues are normal. CT/CT cervical spin wo con* [id number] IMPRESSION: 1. No acute cervical spine fractures are identified. No abnormality involving the lamina of C3. 2. Very slight asymmetry involving the facet joint on the RIGHT at C6-7. This may be normal variation for this patient. If patient is experiencing neck pain consider follow-up by MRI.
[2022-02-16 10:51] LABS: Anion Gap 17.1 (5-19); Potassium 4.1 mmol/L (3.5-5.1)
[2022-02-16 11:30] VITALS: BP 138/99; PULSE 80
[2022-02-16 12:30] VITALS: BP 133/87; PULSE 84
== END 2022-02-16 12:38 | disposition home or self-care (01) ==
PROVIDERS: Emergency Provider Family Medicine; PCP Physician Assistant
DX: Z04.1 Encounter for examination and observation following transport accident (principal); Z79.82 Long term (current) use of aspirin; I25.10 Atherosclerotic heart disease of native coronary artery without angina pectoris; I25.2 Old myocardial infarction; Z87.891 Personal history of nicotine dependence; V89.2XXA Person injured in unspecified motor-vehicle accident, traffic, initial encounter
CPT/HCPCS: 70450; 72040; 72125; 74177; 80048; 85025; 99285; Q9967

== ENCOUNTER 2022-03-04 02:19 | Inpatient (IN) | payer BC, SELFPAY ==
[2022-03-04] VITALS (151 sets, daily range): BP systolic 98–160; BP diastolic 58–135; PULSE 65–138; RESP 12–33; TEMP 36.7–37.1; O2SAT 84–100; BMI 29.9; BMI 31.9
--- NOTE | 2022-03-04 02:20 | W.ED.SOB ---
HPI - SOB/Dyspnea General: Chief Complaint: Shortness of Breath/Dyspnea Stated Complaint: Shortness of Breath Time Seen by Provider: 03/04/22 02:19 Limitations: other (Respiratory distress) History of Present Illness: HPI Narrative: Ms. 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 The onset of symptoms is somewhat unclear though has been worsening lately. EMS noted the patient to be tachypneic though did have an adequate oxygen saturation. Overall intensity symptoms is moderate to severe. History is otherwise limited by degree of respiratory distress. Severity: severe Exacerbating factors: exertion Known history of: congestive heart failure Review of Systems General: Reports: ROS unobtainable due to medical condition (Severe respiratory distress) [facility] ED PFSH: Medical History Atherosclerosis of coronary artery Cardiomyopathy Chronic back pain NSTEMI (non-ST elevated myocardial infarction) Psychiatric care Surgical History History of hysterectomy Family History Other CAD (coronary artery disease) Diabetes Social History Smoking and tobacco status: former smoker (15 years ago) Quit status (tobacco): has quit using tobacco Year quit tobacco: 1993 Second hand smoke exposure: No Smoking risk assessment/counseling performed?: No Alcohol intake: former Year of sobriety/quit date alcohol: 2001 Desire information about alcohol rehabilitation?: No Counseling given: No Desire information about substance/drug rehabilitation?: No Counseling given: No Physical Exam Const: COMMON NORMALS: alert GENERAL APPEARANCE: well developed, in distress and ill appearing HENMT: COMMON NORMALS: normocephalic and atraumatic HEAD & SCALP: normocephalic and atraumatic Eye: COMMON NORMALS: conjunctivae normal CONJUNCTIVA: Yes conjunctivae normal SCLERA: sclerae normal Neck/C-Spine: COMMON NORMALS: supple GENERAL: Yes trachea midline Resp: EFFORT & INSPECTION: Yes tachypneic, Yes respiratory distress and Yes labored Cardio: COMMON NORMALS: regular rhythm RATE: tachycardic RHYTHM: regular rhythm GI: COMMON NORMALS: Soft to palpation PALPATION: Yes Soft to palpation and No Tenderness to palpation present (GI) Extremity: GENERAL: Yes normal exam except as noted and No edema Neuro: COMMON NORMALS: moves all extremities SENSORIUM/ORIENTATION: Yes alert and No Orientation impaired Psych: COMMON NORMALS: mental status grossly normal and Normal thought process present THOUGHT PROCESS: Normal thought process present Skin: NARRATIVE SKIN EXAM: Mildly mottled appearance Course ED course: - Patient was seen and evaluated by me at bedside - Patient placed on cardiac monitors, IV access obtained - Initial evaluation notable for ill appearance, respiratory distress, mottled - BiPAP ordered, RT treatment and ABG ordered. - ABG 7.19/46.5/198. - Labs and xrays personally interpreted by me - Labs notable for leukocytosis, normal hemoglobin. Metabolic panel with some evidence of intravascular dehydration compared to prior. Lactic acid is markedly elevated. BNP similar to prior though is elevated. Ketones negative. COVID pending. - Imaging notable for bibasilar opacities noted on chest x-ray concerning for pneumonia. Given severity of illness and somewhat atypical infectious appearance on x-ray with other infectious etiologies as a consideration given patient's reported history of abdominal pain CT imaging felt to be warranted. Radiology report pending at time of admission. - Vancomycin, Zosyn, and 30 cc/kg ideal body weight fluid bolus ordered. Patient serially reexamined after 500 cc aliquots given history of heart failure with reduced ejection fraction. - Upon serial reexamination after treatment the patient was somewhat improved though remains significantly ill. - Based on patient history, evaluation, and testing as interpreted the most likely cause of the patient's condition is severe sepsis likely secondary to pneumonia - The results of ED evaluation were discussed with the patient including plan for admission due to requirement for level of care not available if discharged to prevent significant worsening/deterioration. - Admitting service was contacted and Dr Michelle with the hospitalist service agreed to admit the patient - Patient was admitted without further deterioration or significant events. Note: Click bubbles or prepopulated dee in note writing are used for assistance with data collection and billing and are inherently more limited than narrative and other text portions of this note. Please use narrative for additional clinical history and defer to narrative/free test for any case of contradictory information. If information appears in only free text or click bubble it should be considered present or absent as reported. Please contact note documentation writer for clarifications of clinical information or contradictory information. MDM is a brief summary, contradictory or erroneous seeming information should be clarified and full note should be reviewed. Vital Signs: Vital signs: Vital Signs Temperature 98.8 F 03/04/22 02:23 Pulse Rate 85 03/04/22 04:45 Respiratory Rate 17 03/04/22 04:45 Blood Pressure 121/82 03/04/22 04:45 Pulse Oximetry 100 03/04/22 04:45 Oxygen Delivery Me thod 03/04/22 04:45 Oxygen Flow Rate 5 03/04/22 02:31 Fraction of Inspir ed Oxygen 40 03/04/22 02:47 MDM - SOB/Dyspnea Medical Decision Making 56-year-old lady with complex past medical history presenting with respiratory distress. Patient placed on BiPAP and has evidence of severe sepsis with likely etiology of pneumonia. Admitted for further management. Medical Records I reviewed the patient's medical records. Lab Data I reviewed the patient's lab results. : 03/04/22 02:28 03/04/22 02:57 Labs/Radiology: Radiology Impressions Chest/Abdomen/Pelvis CT 03/04/22 03:16 IMPRESSION: Findings consistent with pulmonary edema. IMPRESSION: 1. No acute abdominopelvic abnormality identified. 2. Colonic diverticulosis without signs of acute diverticulitis. Laboratory Results WBC 22.0 10^3/uL (4.0-10.0) H 03/04/22 02:28 RBC 4.79 10^6/uL (4.1-5.3) 03/04/22 02:28 Hgb 13.0 g/dL (11.5-15.3) 03/04/22 02:28 Hct 43.6 % (37.0-47.0) 03/04/22 02:28 MCV 91.0 fl (81-99) 03/04/22 02:28 MCH 27.1 pg (28.0-34.0) L 03/04/22 02:28 MCHC 29.8 g/dL (30.0-36.0) L 03/04/22 02:28 RDW 16.0 % (12.1-15.1) H 03/04/22 02:28 Plt Count 391 10^3/cmm (130-400) 03/04/22 02:28 MPV 10.0 fL (7.4-10.4) 03/04/22 02:28 Neut % (Auto) 58.1 % 03/04/22 02:28 Lymph % (Auto) 31.8 % 03/04/22 02:28 [place] % (Auto) 4.9 % 03/04/22 02:28 Eos % (Auto) 2.1 % 03/04/22 02:28 Baso % (Auto) 0.7 % 03/04/22 02:28 Neut # (Auto) 12.76 10^3/uL (1.8-7.7) H 03/04/22 02:28 Lymph # (Auto) 7.0 10^3/uL (0.8-4.8) H 03/04/22 02:28 [place] # (Auto) 1.1 10^3/uL (0.2-0.9) H 03/04/22 02:28 Eos # (Auto) 0.5 10^3/uL (0.0-0.8) 03/04/22 02:28 Baso # (Auto) 0.2 10^3/uL (0.0-0.1) H 03/04/22 02:28 Nucleated RBC % (auto) 0 % 03/04/22 02:28 Nucleated RBCs # 0.0 /100WBC 03/04/22 02:28 Specimen Type Arterial 03/04/22 02:24 Sample Site Radial, left 03/04/22 02:24 ABG pH 7.19 (7.35-7.45) L 03/04/22 02:24 ABG pCO2 46.5 mmHg (35-45) H 03/04/22 02:24 ABG pO2 198.0 mmHg (80.0-100.0) H 03/04/22 02:24 ABG HCO3 17.8 mmol/L (22-26) L 03/04/22 02:24 ABG O2 Saturation > 100.0 03/04/22 02:24 ABG Base Excess -10.2 mmol/L (-2.0-2.0) L 03/04/22 02:24 Joseph Test Pos 03/04/22 02:24 A-a O2 Gradient Not Reportable 03/04/22 02:24 Hematocrit 39.9 % (37-47) 03/04/22 02:24 Hgb O2 Saturation 98.1 % (95-100) 03/04/22 02:24 Carboxyhemoglobin 1.5 %THgb (0.4-20.1) 03/04/22 02:24 Methemoglobin 0.6 % (0.4-1.5) 03/04/22 02:24 Total Hemoglobin 13.0 g/dL (12-16) 03/04/22 02:24 Sodium 139.0 mmol/L (131-143) 03/04/22 02:24 Potassium 4.3 mmol/L (3.5-5.0) 03/04/22 02:24 Glucose 330.0 mg/dL (70-115) H 03/04/22 02:24 Ionized Calcium 1.3 mmol/L (1.1-1.4) 03/04/22 02:24 O2 Delivery Device Nc 03/04/22 02:24 O2 Liters/Min 6.0 % 03/04/22 02:24 Cardiopulmonary Technologist ID [place] 03/04/22 02:24 Sodium 137 mmol/L (136-145) 03/04/22 02:57 Potassium 3.9 mmol/L (3.5-5.1) 03/04/22 02:57 Chloride 103 mmol/L (98-107) 03/04/22 02:57 Carbon Dioxide 19 mmol/L (22-29) L 03/04/22 02:57 Anion Gap 18.9 (5-19) 03/04/22 02:57 BUN 17 mg/dL (6-20) 03/04/22 02:57 Creatinine 1.0 mg/dL (0.5-0.9) H 03/04/22 02:57 GFR Calculation 57.6 mL/min (90-130) L 03/04/22 02:57 Glucose 287 mg/dL (65-115) H 03/04/22 02:57 Calculated Osmolality 296 mOsm/kg (285-295) H 03/04/22 02:57 Lactic Acid 7.8 mmol/L (0.5-2.2) H* 03/04/22 02:28 Calcium 9.2 mg/dL (8.5-10.5) 03/04/22 02:57 Total Bilirubin 0.3 mg/dL (0.15-1.2) 03/04/22 02:57 AST 35 U/L (0-32) H 03/04/22 02:57 ALT 26 U/L (0-33) 03/04/22 02:57 Alkaline Phosphatase 110 U/L (35-105) H 03/04/22 02:57 Troponin T Baseline 17 ng/L (0-10) H 03/04/22 02:28 NT-Pro-B Natriuret Pep 2587 pg/mL (0-125) H 03/04/22 02:57 Total Protein 6.5 g/dL (6.6-8.7) L 03/04/22 02:57 Albumin 3.7 g/dL (3.5-5.2) 03/04/22 02:57 Globulin 2.8 g/dL (1.3-4.6) 03/04/22 02:57 Serum Ketones Negative (Negative) 03/04/22 02:57 Critical Care Time Critical Care Time: Critical Care Time: Yes Total Critical Care Time: 60 Attestation: Due to a high probability of clinically significant, possibly life threatening deterioration, the patient required my highest level of attention and preparedness to intervene emergently and I personally spent this critical care time directly and personally managing the patient. This critical care time included obtaining a history; examining the patient; pulse oximetry; ordering and review of laboratory and imaging studies; arranging urgent treatment with development of a management plan; evaluation of patient's response to treatment; frequent reassessment; and, discussions with other providers as applicable. It was exclusive of separately billable procedures. System is involved include cardiopulmonary and infectious Discharge Plan Discharge Patient Disposition: Admitted As Inpatient Clinical Impression: Acute respiratory distress, Acute on chronic respiratory failure with hypoxia and hypercapnia, Acidosis, lactic, Pneumonia, Severe sepsis Condition: Stable Coding Level of Care Code ED Change Management Specialist for Alexandre Webb Exam Comprehensive
--- NOTE | 2022-03-04 02:23 | XRR_ITS ---
PROCEDURE INFORMATION: Exam: XR Chest Exam date and time: 03/04/2022 2:34 AM Age: 56 years old Clinical indication: Dyspnea and shortness of breath; Patient HX: SOB with dyspnea. On bipap. TECHNIQUE: Imaging protocol: Radiologic exam of the chest. Views: 1 view. COMPARISON: CR XR chest 1V portable [id number] 01/04/2022 6:53 AM FINDINGS: Lungs: The lung parenchyma is clear. Pleural spaces: No pneumothorax. No pleural effusion. Heart/Mediastinum: The cardiac silhouette is at the upper limits of normal. Bones/joints: Unremarkable. XR/XR chest 1V portable [id number] IMPRESSION: 1. The cardiac silhouette is at the upper limits of normal. 2. No significant airspace consolidation.
--- NOTE | 2022-03-04 02:24 | ECG_ITS ---
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 Measurements Intervals Odin Rate: 136 P: 60 MS: 130 QRS: 100 QRSD: 146 T: 10 QT: 314 QTc: 473 Interpretive Statements SINUS TACHYCARDIA BORDERLINE RIGHT AXIS DEVIATION [QRS AXIS > 90] INTRAVENTRICULAR CONDUCTION DELAY [130+ ms QRS DURATION] Compared to ECG 01/04/2022 09:25:12 Sinus rhythm no longer present Electronically Signed On 03-05-2022 10:36:55 CDT by Niraj Bowman M.D. [id number] f
[2022-03-04] MEDS: ipratropium-albuterol 3 mL Neb INHALATION ×5 (02:30→20:47)
[2022-03-04 02:36] LABS: ABG PCO2 46.5 mmHg (35-45); ABG PH Result 7.19 (7.35-7.45); Arterial Blood Gas Hematocrit 39.9 % (37-47); Base Excess ABG -10.2 mmol/L (-2.0-2.0); Blood Gas Allen Test Pos; Blood Gas Operator Identificat WALCI; Blood Gas Sample Site Radial, left; Blood Gas Sample Type Arterial; Carboxyhemoglobin 1.5 %THgb (0.4-20.1); HCO3 ABG 17.8 mmol/L (22-26); HGB O2 Sat 98.1 % (95-100); Ionized Calcium Level - ABG 1.3 mmol/L (1.1-1.4); Methemoglobin 0.6 % (0.4-1.5); Oxygen Device NC; Oxygen Saturation ABG > 100.0; Potassium Level - ABG 4.3 mmol/L (3.5-5.0)
[2022-03-04] MEDS: morphine 4 mg/mL SDV 1 mL 2 MG IVP (02:36)
[2022-03-04] MEDS: ondansetron 2 mg/ML SDV 2 mL 4 MG IVP (02:36)
[2022-03-04 02:41] LABS: Basophils # 0.2 10^3/uL (0.0-0.1); Basophils % 0.7 %; Eosinophils # 0.5 10^3/uL (0.0-0.8); Eosinophils % 2.1 %; Hematocrit 43.6 % (37.0-47.0); Lymphocytes % 31.8 %; Mean Corpuscular HGB Conc 29.8 g/dL (30.0-36.0); Mean Corpuscular Hemoglobin 27.1 pg (28.0-34.0); Monocytes # 1.1 10^3/uL (0.2-0.9); Monocytes % 4.9 %; Neutrophils # 12.76 10^3/uL (1.8-7.7); Neutrophils % 58.1 %; Nucleated Red Blood Cells % 0 %; Platelet Count 391 10^3/cmm (130-400); Red Blood Count 4.79 10^6/uL (4.1-5.3)
[2022-03-04 03:08] LABS: Troponin(5th) Baseline 17 ng/L (0-10)
--- NOTE | 2022-03-04 03:09 | PC.RESP ---
all critical abg values reported to dr. sidhu at 0225.
[2022-03-04 03:14] LABS: Lactic Sepsis W/Reflex 7.8 mmol/L (0.5-2.2)
[2022-03-04 03:14] LABS: Ketone (Acetest) Serum Negative (Negative)
--- NOTE | 2022-03-04 03:16 | CTR_ITS ---
PROCEDURE INFORMATION: Exam: CTA Chest With Contrast Exam date and time: 03/04/2022 3:49 AM Age: 56 years old Clinical indication: Abnormal findings; Abnormal lab test; Elevated wbc; Abnormal diagnostic tests; Abnormal ekg; Dyspnea and shortness of breath; Prior surgery; Surgery type: Hysterectomy; Patient HX: SOB with dyspnea. Wbc of 22k with lactic acid of 7.8. History of chf. On bipap. ; Additional info: SOB, sepsis, abd pain TECHNIQUE: Imaging protocol: Computed tomographic angiography of the chest with contrast. 3D rendering (Not supervised by radiologist): MIP and/or 3D reconstructed images were created by the technologist. Radiation optimization: All CT scans at this facility use at least one of these dose optimization techniques: automated exposure control; mA and/or kV adjustment per patient size (includes targeted exams where dose is matched to clinical indication); or iterative reconstruction. Contrast material: OMNI 350; Contrast volume: 95 ml; Contrast route: INTRAVENOUS (IV); COMPARISON: CT angio chest PE protcl [id number] 01/04/2022 8:00 AM RADIATION DOSE METRICS: Total DLP (mGy-cm): 1373.37 FINDINGS: Pulmonary arteries: No central or segmental filling pulmonary artery filling defects are identified. Aorta: The aorta is normal in course and caliber. Lungs: Smooth interlobular septal thickening. Mild peribronchial thickening noted. Minimal ground-glass densities in the in the dependent portion of the lower lobes. Pleural spaces: No pneumothorax. No pleural effusion. Heart: Coronary artery calcifications noted. Lymph nodes: The visualized supraclavicular region appears normal. No mediastinal or hilar adenopathy is identified. Bones/joints: Multilevel degenerative changes in the spine. Soft tissues: Unremarkable. PROCEDURE INFORMATION: Exam: CT Abdomen And Pelvis With Contrast Exam date and time: 03/04/2022 3:49 AM Age: 56 years old Clinical indication: Abnormal findings; Abnormal lab test; Elevated wbc; Abnormal diagnostic tests; Abnormal ekg; Dyspnea and shortness of breath; Prior surgery; Surgery type: Hysterectomy; Patient HX: SOB with dyspnea. Wbc of 22k with lactic acid of 7.8. History of chf. On bipap. ; Additional info: SOB, sepsis, abd pain TECHNIQUE: Imaging protocol: Computed tomography of the abdomen and pelvis with contrast. Radiation optimization: All CT scans at this facility use at least one of these dose optimization techniques: automated exposure control; mA and/or kV adjustment per patient size (includes targeted exams where dose is matched to clinical indication); or iterative reconstruction. Contrast material: OMNI 350; Contrast volume: 95 ml; Contrast route: INTRAVENOUS (IV); COMPARISON: CT abdomen pelvis w con* [id number] 02/16/2022 9:54 AM RADIATION DOSE METRICS: Total DLP (mGy-cm): 1373.37 FINDINGS: Liver: The liver is normal in size and contour. Gallbladder and bile ducts: The gallbladder is distended with normal wall thickness and does not demonstrate calcified gallstones. No intra- or extra-hepatic biliary ductal dilatation. Pancreas: The pancreas appears normal. Spleen: The spleen appears normal. Adrenal glands: The adrenals appear normal. Kidneys and ureters: The kidneys enhance symmetrically and empty into non-dilated ureters. Stomach and bowel: The stomach appears unremarkable. The small bowel loops are not abnormally dilated. The large bowel loops are not abnormally dilated. Colonic diverticulosis without signs of acute diverticulitis. Appendix: The appendix appears normal. Intraperitoneal space: No ascites or significant fluid collection. Vasculature: The aorta is nonaneurysmal. The IVC appears normal. Lymph nodes: There are no enlarged lymph nodes. Urinary bladder: The bladder is distended and demonstrates no focal contour abnormality. Reproductive: The uterus is surgically absent. Bones/joints: Prominent degenerative changes in the hip joints. Soft tissues: Unremarkable. CT/CT angio chest w abd pel w con IMPRESSION: Findings consistent with pulmonary edema. IMPRESSION: 1. No acute abdominopelvic abnormality identified. 2. Colonic diverticulosis without signs of acute diverticulitis.
[2022-03-04 03:28] LABS: Reflex Lactate Order REFLEX LACTIC ORDERD
[2022-03-04 03:31] LABS: Alanine Aminotransferase 26 U/L (0-33); Albumin Level 3.7 g/dL (3.5-5.2); Anion Gap 18.9 (5-19); Blood Urea Nitrogen 17 mg/dL (6-20); Calcium 9.2 mg/dL (8.5-10.5); Chloride 103 mmol/L (98-107); Globulin 2.8 g/dL (1.3-4.6); Potassium 3.9 mmol/L (3.5-5.1); Sodium 137 mmol/L (136-145); Total Bilirubin 0.3 mg/dL (0.15-1.2)
[2022-03-04 03:32] LABS: Alkaline Phosphatase 110 U/L (35-105); Aspartate Amino Transferase 35 U/L (0-32); Carbon Dioxide 19 mmol/L (22-29); Creatinine Clr Calc Pharmacy 67.0909; Glomerular Filtration Rate 57.6 mL/min (90-130); Glucose 287 mg/dL (65-115); NT Pro B Type Natriuretic Pept 2587 pg/mL (0-125); Osmolality Calculated 296 mOsm/kg (285-295); Total Protein 6.5 g/dL (6.6-8.7)
[2022-03-04] MEDS: sodium chloride 0.9% 1,710 ML 1710 ML IV (03:33)
[2022-03-04] MEDS: piperacillin-tazobactam 4.5 GM in sodium chloride 0.9% (plus) 50 ML IV (03:33)
[2022-03-04] MEDS: iohexol 350 mg/mL 100 mL Btl IV (03:50)
--- NOTE | 2022-03-04 04:52 | PM.HP ---
Providers/Chief Complaint Primary Care Provider: [facility] Chief Complaint: Shortness of Breath History of Present Illness Alberta Valdez is a 56 year old female with a past medical history of nonischemic cardiomyopathy, EF of 40%, nonobstructive CAD, depression, chronic back pain, who presents [facility] for shortness of breath. Currently patient is on BiPAP, she is resting comfortably, she tells me she feels a lot better after being placed on BiPAP. She tells me that she been feeling increasingly short of breath for the last few days, no fevers, no chills, but has had increased productive cough, yellow sputum. Denies any chest pain, no palpitations. Denies any sick contacts, has not received COVID-19 vaccinations. Denies any COVID-19 exposure. Does report right calf pain, no calf swelling, no tenderness. Denies denies lower extremity edema. Review of Systems Const: Reports: fatigue and malaise; Denies: fever(s) or chills Eyes: Denies: change in vision ENMT: Denies: throat pain Card: Denies: chest pain Resp: Reports: dyspnea and non-productive cough GI: Denies: abdominal pain, nausea or vomiting : Denies: flank pain, difficulty voiding or dysuria Musc: Reports: extremity swelling Skin/Breast: Denies: rash Neuro: Denies: headache(s) Medications/Allergies Home Medications Medication Instructions Recorded Confirmed Last Taken Type atorvastatin 40 mg tablet 40 mg PO BEDTIME #90 tabs 12/12/21 02/16/22 02/15/22 Rx metoprolol tartrate 25 mg tablet 12.5 mg PO BID@0900,2100 #90 tabs 12/12/21 02/16/22 02/15/22 Rx sertraline 50 mg tablet (Zoloft) 50 mg PO DAILY #30 tabs 02/06/22 02/16/22 Unknown Rx albuterol sulfate 90 mcg/actuation 1 puff inhalation Q6H PRN 02/16/22 02/16/22 Unknown History aerosol inhaler shortness of breath or wheezing aspirin 325 mg tablet,delayed 325 mg PO DAILY@10 02/16/22 02/16/22 02/15/22 History release diclofenac sodium 75 mg 75 mg PO Q12H PRN pain #20 tabs 02/16/22 Unknown Rx tablet,delayed release furosemide 40 mg tablet 40 mg PO QAM 02/16/22 02/16/22 02/15/22 History losartan 25 mg tablet 25 mg PO QAM 02/16/22 02/16/22 02/15/22 History potassium chloride 20 mEq 20 meq PO QAM 02/16/22 02/16/22 02/15/22 History tablet,extended release(part/cryst) (Klor-Con M) tizanidine 4 mg capsule 4 mg PO Q6H PRN muscle spasticity 02/16/22 Unknown Rx #20 caps trazodone 50 mg tablet 100 mg PO BEDTIME PRN insomnia 02/16/22 02/16/22 02/13/22 History Allergies Allergy/AdvReac Type Severity Reaction Status Date / Time No Known Allergies Allergy Verified 02/16/22 09:26 PFSH Acute PFSH: Medical History Atherosclerosis of coronary artery Cardiomyopathy Chronic back pain NSTEMI (non-ST elevated myocardial infarction) Psychiatric care Surgical History History of hysterectomy Family History Other CAD (coronary artery disease) Diabetes Social History Smoking and tobacco status: former smoker (15 years ago) Quit status (tobacco): has quit using tobacco Year quit tobacco: 1993 Second hand smoke exposure: No Smoking risk assessment/counseling performed?: No Alcohol intake: former Year of sobriety/quit date alcohol: 2001 Desire information about alcohol rehabilitation?: No Counseling given: No Desire information about substance/drug rehabilitation?: No Counseling given: No Vitals/I&O/Wt Last Vital Signs Temp 98.8 F 03/04/22 02:23 Pulse 85 03/04/22 04:45 Resp 17 03/04/22 04:45 BP 121/82 03/04/22 04:45 Pulse Ox 100 03/04/22 04:45 O2 Del Method 03/04/22 04:45 O2 Flow Rate 5 03/04/22 02:31 FiO2 40 03/04/22 02:47 03/03/22 03/03/22 03/04/22 14:59 22:59 06:59 Intake Total 187.5 / 187.5 Balance 187.5 / 187.5 Weight last 48 hrs Weight 81.647 kg Physical Exam Const: COMMON NORMALS: no acute distress and patient oriented x3 HENMT: COMMON NORMALS: normocephalic HEAD & SCALP: normocephalic Eye: COMMON NORMALS: Equal, round and reactive pupils present and EOMs intact bilaterally Lymph: LYMPHATIC: no lymphadenopathy noted Resp: COMMON NORMALS: normal respiratory effort, No retractions and No use of accessory muscles AUSCULTATION: wheezes Cardio: COMMON NORMALS: no JVD, regular rate, regular rhythm, S1 normal heart sound present and S2 normal heart sound present RATE: regular rate RHYTHM: regular rhythm HEART SOUNDS: S1 normal heart sound present and S2 normal heart sound present GI: COMMON NORMALS: Normal to inspection, nondistended, normoactive bowel sounds present, Soft to palpation, non-tender, No hepatosplenomegaly present, no masses and no bruits PALPATION: Yes Soft to palpation and Yes No hepatosplenomegaly present Extremity: COMMON NORMALS: capillary refill normal, no clubbing, cyanosis or edema, no calf tenderness and no pedal edema Neuro: COMMON NORMALS: patient oriented x3, CN's II-XII intact bilaterally and moves all extremities Psych: COMMON NORMALS: mental status grossly normal Urinary Catheter Management: Conway: Cath Placed During This Visit: yes Urinary Catheter Date of Insertion: 03/04/22 Urinary Catheter Time of Insertion: 04:44 Data : 03/04/22 02:28 03/04/22 02:57 A&P Assessment and plan (1) Acute respiratory distress: Status: Acute (2) Acute on chronic respiratory failure with hypoxia and hypercapnia: Status: Acute (3) Acidosis, lactic: Status: Acute (4) Pneumonia: Status: Acute (5) Severe sepsis: Status: Acute (6) Cardiomyopathy: Status: Acute Plan Acute hypoxic respiratory failure, lactic acidosis, pneumonia, sepsis Plan -Will admit to ICU -Awaiting official CT of the chest read, but does have bilateral basilar infiltrates, less likely pneumonia -COVID PCR pending -Continue broad-spectrum antibiotic therapy vancomycin, Zosyn -Blood cultures, sputum cultures -Monitor respiratory status closely, continue BiPAP -Repeat lactic acid -Has received fluid, avoid further fluid therapy given history of cardiomyopathy -Creatinine 1.0, Place Conway catheter monitor urine output -TSH, cortisol ordered -Pro-Jhonny, CRP ordered -Blood sugar elevated to 287, prior A1c was 5.5, monitor blood sugars 3 times daily, repeat A1c -We will hold off on Lasix therapy, no lower extremity edema -Does complain of right calf pain, will do venous ultrasound -Continue aspirin, statin, serial EKGs, serial troponins, telemetry monitoring -Full code -Lovenox for DVT prophylaxis Attestations Medical Necessity Statement*: Patient requires hospitalization, inpatient, greater than 2 midnights, for acute hypoxic respiratory failure, lactic acidosis Coding Level of Care Code Acute Province Archivist for [facility] Fwd Diagnoses Acute respiratory distress R06.03 Acute on chronic respiratory failure with hypoxia and hypercapnia J96.21; J96.22 Acidosis, lactic E87.2 Pneumonia J18.9 Severe sepsis A41.9; R65.20 Cardiomyopathy I42.9
--- NOTE | 2022-03-04 04:59 | USCV_ITS ---
Alberta Valdez Age: 56 Gender: F : 1965 Exam Date: 03/04/2022 07:43 Ordering Phys: Hammad Michelle MD Technologist: Shahbaz Herman Exam Location: [facility] [place]_ Indication: Rt leg swelling PROCEDURES: Venous duplex imaging was performed in only the right lower extremity. The following venous structures were evaluated: common femoral vein, profunda vein, proximal portion of the greater saphenous vein, superficial femoral vein, and the popliteal vein. In addition, the posterior tibial and peroneal trunk were evaluated. FINDINGS: Normal 2-D Doppler and augmentation and compressibility throughout the lower extremity venous structures. Additional imaging through the proximal calf veins also reveals no thrombus. Limited evaluation of the greater saphenous vein is patent with no thrombus. CONCLUSIONS No DVT right lower extremity. Dr. Kimberly Gusman DO (Electronically Signed) Final Date: 04 March 2022 11:48 S
[2022-03-04 05:30] LABS: Erythrocyte Sedimentation Rate 20 mm/hr (0-15)
[2022-03-04 05:31] LABS: Adenovirus Not Detected (NOT DETECT); Chlamydia Pneumoniae Not Detected (NOT DETECT); Coronavirus 229E,HKU1,NL63,OC4 Not Detected (NOT DETECT); Human Metapneumovirus Not Detected (NOT DETECT); Human Rhinovirus/Enterovirus Not Detected (NOT DETECT); Influenza A Not Detected (NOT DETECT); Influenza A H1 Not Detected (NOT DETECT); Influenza A H1-2009 Not Detected (NOT DETECT); Influenza A H3 Not Detected (NOT DETECT); Influenza B Not Detected (NOT DETECT); Mycoplasma Pneumoniae Not Detected (NOT DETECT); Parainfluenza Virus Type 1 Not Detected (NOT DETECT); Parainfluenza Virus Type 2 Not Detected (NOT DETECT); Parainfluenza Virus Type 3 Not Detected (NOT DETECT); Parainfluenza Virus Type 4 Not Detected (NOT DETECT); Respiratory Syncytial Virus A Not Detected (NOT DETECT); Respiratory Syncytial Virus B Not Detected (NOT DETECT); SARS-COV-2 Not Detected (NOT DETECT)
[2022-03-04 06:00] LABS: Estmated Average Glucose 105; Hemoglobin A1C 5.3 % (4.0-6.0)
[2022-03-04 06:03] LABS: Lactic Acid level (Lactate) 1.8 mmol/L (0.5-2.2)
[2022-03-04 06:08] LABS: Troponin 5 2HR 73.09 ng/L (0-10)
[2022-03-04 06:09] LABS: Procalcitonin 0.04 ng/mL (0-0.5); Thyroid Stimulating Hormone 2.84 uIU/mL (0.27-4.20)
[2022-03-04 06:15] LABS: Troponin 5 2HR Delta 56.09 ABS# (0-10)
--- NOTE | 2022-03-04 06:16 | ECG_ITS ---
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 Measurements Intervals [place] Rate: 76 P: 25 NE: 158 QRS: 64 QRSD: 158 T: 27 QT: 431 QTc: 488 Interpretive Statements SINUS RHYTHM INTRAVENTRICULAR CONDUCTION DELAY [130+ ms QRS DURATION] Compared to ECG 03/04/2022 02:24:03 Sinus tachycardia no longer present Electronically Signed On 03-05-2022 10:43:44 CDT by Niraj Bowman M.D. [id number]
[2022-03-04 06:20] LABS: C Reactive Protein 7.4 mg/L (0.0-4.9); Magnesium 2.1 mg/dL (1.7-2.3); Phosphorus 7.3 mg/dL (2.5-4.5)
[2022-03-04 07:15] LABS: Cortisol Random 50.41 ug/dL (2.47-19.5)
--- NOTE | 2022-03-04 07:43 | PC.PHAR ---
pt states she takes care of her own medications-pt states she filled the zoloft 50mg daily and takes prn rx written 02/06/22 but ext med history doesnt show when last filled-pt states she filled tizanidine 4mg q6h prn max 3 tabs per day (written 02/16/22)and diclofenac sodium 75mg q12h prn (written 01/27/22) ext med history doesnt show when last filled-pt states her kcl was decreased to 20meq qam ext med history shows filled 02/01/22 30d/s for 20meq bid-
[2022-03-04] MEDS: metoprolol tartrate 25 mg Tablet 12.5 MG PO ×2 (08:24→20:44)
[2022-03-04] MEDS: enoxaparin 40 mg/0.4 mL Syringe SUBCUT (08:24)
[2022-03-04] MEDS: pantoprazole 40 mg SDV IVP (08:24)
[2022-03-04] MEDS: sertraline 50 mg Tablet PO (08:25)
[2022-03-04] MEDS: piperacillin-tazobactam 3.375 GM in sodium chloride 0.9% (plus) 50 ML IV ×2 (08:30→16:55)
[2022-03-04 08:32] LABS: Add Urine Culture? No; Add Urine Microscopic? YES; Bacteria Urine TRACE /hpf; Bilirubin Urine Neg (Negative); Blood Urine Neg (Negative); Glucose Urine UA Norm (Normal); Ketones Urine Negative (Negative); Leukocyte Esterase Urine Negative (Negative); Nitrate Urine Negative (Negative); Protein Urine Trace (Negative); RBC Urine 0-4 /hpf (0-2); Squamous Epithelial Cell Urine 0-4 /hpf (0-5); Urine Appearance Clear (CLEAR); Urine Color Yellow (Yellow); Urobilinogen Urine Norm (Negative); WBC Urine 0-4 /hpf (0-5); pH Urine 5 (5-7)
[2022-03-04 08:54] LABS: Troponin 5 6HR 59.26 ng/L (0-10)
[2022-03-04 08:55] LABS: Lactic Sepsis W/Reflex 1.6 mmol/L (0.5-2.2)
[2022-03-04 08:56] LABS: Troponin 5 6HR Delta 42.26 ng/L (0-12)
[2022-03-04] MEDS: aspirin 325 mg EC Tablet PO (09:06)
--- NOTE | 2022-03-04 09:10 | ECG_ITS ---
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 Measurements Intervals [place] Rate: 76 P: 13 VA: 161 QRS: 73 QRSD: 151 T: 29 QT: 434 QTc: 490 Interpretive Statements SINUS RHYTHM INTRAVENTRICULAR CONDUCTION DELAY [130+ ms QRS DURATION] INTERPRETATION BASED ON A DEFAULT AGE OF 40 YEARS Compared to ECG 03/04/2022 06:16:10 No significant changes Electronically Signed On 03-05-2022 10:43:31 CDT by Niraj Bowman M.D. [id number] f
--- NOTE | 2022-03-04 10:34 | PC.CHAP ---
Pastoral Care Encounter/Spiritual Assessment Type of Contact [] Declined poultry vaccinator visit [] Patient/Family/Request visit [] Outpatient visit [] Follow-up visit [] Physician referral [] Code/Alert [x] Routine visit [] Staff referral [] Actively dying [x] Patient sleeping [] Family support [] [] Out of room [] Palliative care [] [] Receiving care in room [] Pre-surgical visit [] Trauma [] Long length of stay [x] ICU visit [] Other: Relational/Emotional Strength [] Patient feels connected with others/family/visitors/staff [] Distress [] Loneliness/isolation [] Abandonment Spirituality of Patient [] Person of Shirin [] Attends Mandaeism of their Shirin [] Believes in Prayer [] Reads Bible or Moravian materials [] There are Spiritual issues to be addressed Shipyard Painter Interventions [x] Prayer [] Active listening [] Non-anxious presence [] Spiritual/emotional support [] Crisis/trauma care [] Spiritual counseling [] Bereavement support [] Provided bereavement packet [] Provided Bible/devotional materials [] Provided toy/stuffed animal, coloring book to patient or family member [] Provided Communion [] Anointing/[place] [] Salvation [x] Completed spiritual assessment [] Other: Impact on Illness or Injury [] Angry [] Fearful [] Anxious [] Often cries [] Exhaustion [] Unable to work [] Unable to attend christian [] Unable to walk/stand [] Unable to read [] Unable to drive [] Unable to eat/drink [] Unable to sleep [] Unable to be with family [] Patient intubated [] Other: Summary Time spent with patient
--- NOTE | 2022-03-04 10:42 | PC.NURSE ---
Dr. Cooney rounddeyvi discussing POC with patient. Plans to transfer to [facility] if all needs are met and patients stable.
--- NOTE | 2022-03-04 12:28 | PM.MISC ---
Miscellaneous Note Note: Seen today Troponin elevation most likely 2/2 to demand ischemia in setting of sepsis. Most recent echo jan 2022, most recent cath 12/10. Asymptomatic at this time.. Pt currently on 2L NC doing a lot better. Did discuss with Dr. Bowman however and he will see pt in consult due to delta trop being quite high. Will check limited echo. Continue planned mgmt as per HnP document. Will re-assess in AM or sooner if needed.
--- NOTE | 2022-03-04 12:36 | USCV_ITS ---
Alberta Valdez Age: 56 Gender: F : 1965 Exam Date: 03/04/2022 13:32 Ordering Phys: Estefania Seals MD Technologist: SOWMYA [place] [facility] [place]ication: ASSESS EF ONLY BP: 122 / 72 HR: 82 Rhythm: Sinus Technical Quality: Adequate MEASUREMENTS (Male / Female) Normal Values 2D ECHO LV Diastolic Diameter PLAX 6.2 cm 4.2 - 5.9 / 3.9 - 5.3 cm LV Systolic Diameter PLAX 5.0 cm IVS Diastolic Thickness 1.0 cm 0.6 - 1.0 / 0.6 - 0.9 cm IVS Systolic Thickness 1.3 cm LVPW Diastolic Thickness 1.3 cm 0.6 - 1.0 / 0.6 - 0.9 cm LVPW Systolic Thickness 1.7 cm LV Ejection Fraction 2D Teich 40.1 % LV Ejection Fraction MOD 2C 40.5 % LV Ejection Fraction 2C AL 40.6 % LA Diameter 3.3 cm LA Width 4.0 cm LA Height 4.7 cm RA Width 2.7 cm RA Height 4.8 cm IVC Diameter 1.2 cm M-MODE Aortic Annulus Diameter 3.7 cm LA Ao Ratio MM 0.9 MV E Point Septal Separation 2.6 cm DOPPLER Right Atrial Pressure 3.0 mmHg FINDINGS Left Ventricle Right Ventricle Right Atrium Left Atrium Mitral Valve Aortic Valve Tricuspid Valve Pulmonic Valve Pericardium Aorta IVC CONCLUSIONS This is a limited echocardiogram performed to assess LV systolic function. Left ventricle is dilated. LV systolic function is severely reduced with EF 25 to 30%. Severe global hypokinesis seen. This is unchanged from prior echocardiogram from 02/12/2022 Niraj Bowman MD (Electronically Signed) Final Date: 04 March 2022 19:04 S
[2022-03-04] MEDS: perflutren protein-a microsphr 0.22 mg/mL SDV 3 mL IV (14:26)
--- NOTE | 2022-03-04 16:46 | PM.CONSULT ---
Providers/Reason For Consult Consulting Physician/Specialty*: Niraj Bowman MD/Cardiology Reason for Consult*: Troponin elevation Attending Physician: Estefania Seals MD Primary Care Provider: [facility] History of Present Illness History of Present Illness Alberta Valdez is a 56 year old female with past medical history of nonischemic cardiomyopathy, EF of 25 to 30% who presented to the hospital with shortness of breath. Her WBC count was also elevated. She is not able to lay down flat recently. Cardiology was consulted as her troponins trended up significantly. She denies any chest pain. EKG shows sinus rhythm with intraventricular conduction delay. Review of Systems Const: Reports: fatigue and malaise; Denies: fever(s) or chills Eyes: Denies: change in vision ENMT: Denies: throat pain Card: Denies: chest pain Resp: Reports: dyspnea and non-productive cough GI: Denies: abdominal pain, nausea or vomiting : Denies: flank pain, difficulty voiding or dysuria Musc: Reports: extremity swelling Skin/Breast: Denies: rash Neuro: Denies: headache(s) Medications/Allergies Home Medications Medication Instructions Recorded Confirmed Last Taken Type atorvastatin 40 mg tablet 40 mg PO BEDTIME #90 tabs 12/12/21 03/04/22 02/15/22 Rx metoprolol tartrate 25 mg tablet 12.5 mg PO BID@0900,2100 #90 tabs 12/12/21 03/04/22 02/15/22 Rx albuterol sulfate 90 mcg/actuation 1 puff inhalation Q6H PRN 02/16/22 03/04/22 Unknown History aerosol inhaler shortness of breath or wheezing aspirin 325 mg tablet,delayed 325 mg PO DAILY@10 02/16/22 03/04/22 02/15/22 History release diclofenac sodium 75 mg 75 mg PO Q12H PRN pain #20 tabs 02/16/22 03/04/22 Unknown Rx tablet,delayed release furosemide 40 mg tablet 40 mg PO QAM 02/16/22 03/04/22 02/15/22 History losartan 25 mg tablet 25 mg PO QAM 02/16/22 03/04/22 02/15/22 History potassium chloride 20 mEq 20 meq PO QAM 02/16/22 03/04/22 02/15/22 History tablet,extended release(part/cryst) (Klor-Con M) tizanidine 4 mg capsule 4 mg PO Q6H PRN muscle spasticity 02/16/22 03/04/22 Unknown Rx #20 caps trazodone 50 mg tablet 100 mg PO BEDTIME PRN insomnia 02/16/22 03/04/22 02/13/22 History sertraline 50 mg tablet (Zoloft) 50 mg PO DAILY PRN unknown 03/04/22 03/04/22 Unknown History Allergies Allergy/AdvReac Type Severity Reaction Status Date / Time No Known Allergies Allergy Verified 03/04/22 07:38 Current Medications Generic Name Dose Route Start Last Admin Trade Name Freq PRN Reason Stop Dose Admin Albuterol/Ipratropium 3 ml 03/04/22 08:00 03/04/22 16:42 Ipratropium-Albuterol 3 Ml Neb INHALATION 3 ml QID.RESPIRATORY SHAUN Administration Aspirin 325 mg 03/04/22 10:00 03/04/22 09:06 Aspirin 325 Mg Ec Tablet PO 325 mg DAILY@10 SHAUN Administration Enoxaparin Sodium 40 mg 03/04/22 08:00 03/04/22 08:24 Enoxaparin 40 Mg/0.4 Ml Syringe SUBCUT 40 mg Q24H SHAUN Administration Piperacillin Sod/Tazobactam 50 mls @ 12.5 mls/hr 03/04/22 09:30 03/04/22 12:44 Sod 3.375 gm/ Sodium Chloride IV Infused Q8H SHAUN Infusion Protocol As Directed Metoprolol Tartrate 12.5 mg 03/04/22 09:00 03/04/22 08:24 Metoprolol Tartrate 25 Mg Tablet PO 12.5 mg BID@0900,2100 SHAUN Administration Pantoprazole Sodium 40 mg 03/04/22 08:00 03/04/22 08:24 Pantoprazole 40 Mg Sdv IVP 40 mg Q24H SHAUN Administration Sertraline HCl 50 mg 03/04/22 09:00 03/04/22 08:25 Sertraline 50 Mg Tablet PO 50 mg DAILY SHAUN Administration PFSH Acute PFSH: Medical History Atherosclerosis of coronary artery Cardiomyopathy Chronic back pain NSTEMI (non-ST elevated myocardial infarction) Psychiatric care Surgical History History of hysterectomy Family History Other CAD (coronary artery disease) Diabetes Social History Smoking and tobacco status: former smoker (15 years ago) Quit status (tobacco): has quit using tobacco Year quit tobacco: 1993 Second hand smoke exposure: No Smoking risk assessment/counseling performed?: No Alcohol intake: former Year of sobriety/quit date alcohol: 2001 Desire information about alcohol rehabilitation?: No Counseling given: No Desire information about substance/drug rehabilitation?: No Counseling given: No Vitals/I&O/Wt Last Vital Signs Temp 98.1 F 03/04/22 06:00 Pulse 75 03/04/22 16:43 Resp 18 03/04/22 16:43 BP 122/72 03/04/22 13:30 Pulse Ox 97 03/04/22 16:43 O2 Del Method 03/04/22 16:43 O2 Flow Rate 2 03/04/22 16:43 FiO2 40 03/04/22 02:47 03/04/22 03/04/22 03/04/22 06:59 14:59 22:59 Intake Total 1897.5 / 1897.5 772.5 / 772.5 Balance 1897.5 / 1897.5 772.5 / 772.5 Weight last 48 hrs Weight 192 lb Weight 180 lb Physical Exam Narrative: GENERAL: Patient is alert, awake and oriented x3. [] NECK: No jugular vein distension. [] HEENT: No cyanosis. No icterus. No pallor. [] HEART: Regular S1 and S2. No murmur, rub or gallop. [] LUNGS: Clear to auscultate bilaterally. [] ABDOMEN: Soft, nontender and nondistended. Positive bowel sounds. No guarding, rebound or tenderness. [] CENTRAL NERVOUS SYSTEM: Grossly nonfocal. [] EXTREMITIES: Lower extremities with 1+ edema bilaterally. Pulses palpable in the lower extremities, both dorsalis pedis and posterior tibial. [] Urinary Catheter Management: Conway: Cath Placed During This Visit: yes, but has since been removed by the nurse Reason for Continuing Indwelling Catheter: Accurate Measurement of Urinary Output in Critically Ill Patients Urinary Catheter Date of Insertion: 03/04/22 Urinary Catheter Time of Insertion: 04:44 Date Urinary Catheter Removed: 03/04/22 Time Urinary Catheter Discontinued: 13:31 Data : 03/05/22 03:00 03/05/22 03:00 Micro: Microbiology 03/04/22 05:18 Blood Culture - Preliminary Blood SPECIMEN COLLECTED 03/04/22 05:08 Blood Culture - Preliminary Blood SPECIMEN COLLECTED A&P Assessment and plan (1) Acute on chronic respiratory failure with hypoxia and hypercapnia: Status: Acute (2) Severe sepsis: Status: Acute (3) Congestive heart failure: Status: Acute Plan Patient's respiratory failure is multifactorial. She is volume overloaded. Will recommend initiating IV Lasix 40 mg twice daily. Troponin elevation is secondary to demand ischemia. Recent cardiac catheter did not show significant CAD. Repeat echocardiogram now shows systolic function is low with EF of 25 to 30%. Antibiotics per primary team. Given her EF is staying low, we will need to arrange for LifeVest before her discharge. Thank you for involving us with care of this patient. We will continue to follow. Please call with questions. Consult Attestations Medical Necessity Statement: Care expected to cross 2 midnights. Coding Level of Care Code Acute Transfer And Pumphouse Operator for Alexandre Webb Diagnoses Acute on chronic respiratory failure with hypoxia and hypercapnia J96.21; J96.22 Severe sepsis A41.9; R65.20 Congestive heart failure I50.9
[2022-03-04] MEDS: FUROsemide 10 mg/mL SDV 4mL 40 MG IVP (20:37)
[2022-03-04] MEDS: atorvastatin 40 mg Tablet PO (20:37)
[2022-03-04] MEDS: acetaminophen 325 mg Tablet 650 MG PO (20:43)
[2022-03-04 22:01] LABS: Influenza A by IFA Negative (Negative); Influenza B by IFA Negative (Negative)
[2022-03-04] MEDS: vancomycin 1,250 MG/250 ML PIGGYBACK 200 MG IV (22:13)
[2022-03-04 22:22] LABS: Glucose Point of Care 157 mg/dL (70-110)
[2022-03-05] VITALS (27 sets, daily range): BP systolic 98–127; BP diastolic 58–93; PULSE 68–93; RESP 14–31; TEMP 36.8; O2SAT 93–100
[2022-03-05] MEDS: piperacillin-tazobactam 3.375 GM in sodium chloride 0.9% (plus) 50 ML IV ×3 (01:08→17:03)
[2022-03-05 03:52] LABS: Basophils % 0.2 %; Eosinophils % 0.1 %; Hematocrit 36.7 % (37.0-47.0); Hemoglobin 10.8 g/dL (11.5-15.3); Lymphocytes # 1.5 10^3/uL (0.8-4.8); Lymphocytes % 9.2 %; Mean Corpuscular HGB Conc 29.4 g/dL (30.0-36.0); Mean Corpuscular Hemoglobin 27.2 pg (28.0-34.0); Mean Corpuscular Volume 92.4 fl (81-99); Mean Platelet Volume 10.6 fL (7.4-10.4); Monocytes # 0.7 10^3/uL (0.2-0.9); Monocytes % 4.6 %; Neutrophils # 13.68 10^3/uL (1.8-7.7); Neutrophils % 85.1 %; Nucleated Red Blood Cells % 0 %; Platelet Count 228 10^3/cmm (130-400); Red Blood Count 3.97 10^6/uL (4.1-5.3); Red Cell Distribution Width 15.9 % (12.1-15.1); White Blood Count 16.1 10^3/uL (4.0-10.0)
[2022-03-05 04:27] LABS: Alanine Aminotransferase 21 U/L (0-33); Albumin Level 3.6 g/dL (3.5-5.2); Alkaline Phosphatase 84 U/L (35-105); Aspartate Amino Transferase 19 U/L (0-32); Blood Urea Nitrogen 17 mg/dL (6-20); Calcium 8.9 mg/dL (8.5-10.5); Carbon Dioxide 23 mmol/L (22-29); Chloride 103 mmol/L (98-107); Globulin 2.5 g/dL (1.3-4.6); Glomerular Filtration Rate 74.5 mL/min (90-130); Glucose 116 mg/dL (65-115); Magnesium 2.1 mg/dL (1.7-2.3); Osmolality Calculated 289 mOsm/kg (285-295); Sodium 138 mmol/L (136-145); Total Bilirubin 0.3 mg/dL (0.15-1.2); Total Protein 6.1 g/dL (6.6-8.7)
--- NOTE | 2022-03-05 07:52 | PM.PN ---
Subjective Subjective: Patient is doing better. Vitals/I&O/Wt Last Vital Signs Temp 98.2 F 03/04/22 20:44 Pulse 79 03/05/22 05:47 Resp 14 03/05/22 03:00 BP 127/80 03/05/22 05:00 Pulse Ox 98 03/05/22 05:00 O2 Del Method 03/04/22 20:44 O2 Flow Rate 2 03/04/22 20:44 FiO2 40 03/04/22 02:47 03/04/22 03/05/22 03/05/22 22:59 06:59 14:59 Intake Total 410 / 1182.5 780 / 1962.5 Output Total 775 / 775 1200 / 1975 Balance -365 / 407.5 -420 / -12.5 Weight last 48 hrs Weight 192 lb Weight 180 lb Physical Exam Narrative: GENERAL: Patient is alert, awake and oriented x3. [] NECK: No jugular vein distension. [] HEENT: No cyanosis. No icterus. No pallor. [] HEART: Regular S1 and S2. No murmur, rub or gallop. [] LUNGS:Has expiratory wheezing ABDOMEN: Soft, nontender and nondistended. Positive bowel sounds. No guarding, rebound or tenderness. [] CENTRAL NERVOUS SYSTEM: Grossly nonfocal. [] EXTREMITIES: Lower extremities with 1+ edema bilaterally. Pulses palpable in the lower extremities, both dorsalis pedis and posterior tibial. [] Urinary Catheter Management: Conway: Cath Placed During This Visit: yes, but has since been removed by the nurse Reason for Continuing Indwelling Catheter: Decision to DC Catheter Urinary Catheter Date of Insertion: 03/04/22 Urinary Catheter Time of Insertion: 04:44 Date Urinary Catheter Removed: 03/04/22 Time Urinary Catheter Discontinued: 13:31 Data : 03/05/22 03:00 03/05/22 03:00 Micro: Microbiology 03/04/22 05:18 Blood Culture - Preliminary Blood NEGATIVE TO DATE 03/04/22 05:08 Blood Culture - Preliminary Blood NEGATIVE TO DATE A&P Assessment and plan (1) Acute on chronic respiratory failure with hypoxia and hypercapnia: Status: Acute (2) Severe sepsis: Status: Acute (3) Congestive heart failure: Status: Acute Plan Continue IV diuretics. We have ordered to 40 mg IV twice daily. Monitor renal function. Given her EF is staying low, we will need to arrange for LifeVest before her discharge. Thank you for involving us with care of this patient. Please call with questions. Attestations Medical Necessity Statement*: Care expected to cross 2 midnights. Coding Level of Care Code Acute Pig Machine Operator Helper for Alexandre Fwd Diagnoses Acute on chronic respiratory failure with hypoxia and hypercapnia J96.21; J96.22 Severe sepsis A41.9; R65.20 Congestive heart failure I50.9
[2022-03-05 08:23] LABS: Glucose Point of Care 115 mg/dL (70-110)
[2022-03-05] MEDS: enoxaparin 40 mg/0.4 mL Syringe SUBCUT (08:56)
[2022-03-05] MEDS: pantoprazole 40 mg SDV IVP (08:57)
[2022-03-05] MEDS: FUROsemide 10 mg/mL SDV 4mL 40 MG IVP ×2 (08:57→20:05)
[2022-03-05] MEDS: metoprolol tartrate 25 mg Tablet 12.5 MG PO ×2 (08:57→20:05)
[2022-03-05] MEDS: sertraline 50 mg Tablet PO (09:00)
[2022-03-05] MEDS: aspirin 325 mg EC Tablet PO (09:01)
[2022-03-05] MEDS: ipratropium-albuterol 3 mL Neb INHALATION ×4 (09:12→20:56)
--- NOTE | 2022-03-05 13:26 | P.PN_ITS ---
Subjective Subjective: Seen this morning. She is experiencing diarrhea. She states she is going every hour to the bedside commode and having completely watery diarrhea. She is also experiencing a little bit of abdominal cramping. She is now on 2 L nasal cannula. Negative balance 135 cc. Urine output 1400 overnight . WBC count trending down Vitals/I&O/Wt Last Vital Signs Temp 98.2 F 03/04/22 20:44 Pulse 78 03/05/22 13:22 Resp 16 03/05/22 13:22 BP 120/79 03/05/22 12:00 Pulse Ox 96 03/05/22 13:22 O2 Del Method 03/05/22 13:22 O2 Flow Rate 2 03/05/22 13:22 FiO2 40 03/04/22 02:47 03/04/22 03/05/22 03/05/22 22:59 06:59 14:59 Intake Total 410 / 1182.5 780 / 1962.5 650 / 650 Output Total 775 / 775 1200 / 1975 Balance -365 / 407.5 -420 / -12.5 650 / 650 Weight last 48 hrs Weight 87.09 kg Weight 81.647 kg Physical Exam Narrative: General: Alert oriented x3, patient seen sitting up in bed getting ready to head to the bedside commode. HEENT: Normocephalic, atraumatic, EOMI, breathing comfortably on 2 L nasal cannula. Saturating 96%. Cardio: Regular rate rhythm, normal S1-S2, Respiratory: Clear to auscultation bilaterally, no wheezes no rhonchi today, very mild bibasilar crackles GI: Abdomen soft, nontender, nondistended, bowel sounds + Behavior: Appropriate and cooperative Extremities: 1+ edema bilateral lower extremities up to thighs Urinary Catheter Management: [place]: Cath Placed During This Visit: yes, but has since been removed by the nurse Reason for Continuing Indwelling Catheter: Decision to DC Catheter Urinary Catheter Date of Insertion: 03/04/22 Urinary Catheter Time of Insertion: 04:44 Date Urinary Catheter Removed: 03/04/22 Time Urinary Catheter Discontinued: 13:31 Data : 03/05/22 03:00 03/05/22 03:00 Micro: Microbiology 03/04/22 05:18 Blood Culture - Preliminary Blood NEGATIVE TO DATE 03/04/22 05:08 Blood Culture - Preliminary Blood NEGATIVE TO DATE A&P Assessment and plan (1) Acute respiratory distress: Status: Acute (2) Acute on chronic respiratory failure with hypoxia and hypercapnia: Status: Acute (3) Acidosis, lactic: Status: Acute (4) Pneumonia: Status: Acute (5) Severe sepsis: Status: Acute (6) Cardiomyopathy: Status: Acute Plan #Acute hypoxic respiratory failure, lactic acidosis, pneumonia, sepsis #Watery diarrhea #History of nonobstructive CAD #Acute on chronic congestive systolic heart failure, reduced EF 25% #Type II NSTEMI -CT chest abdomen pelvis done on admission showed pulmonary edema. No clear pneumonia. -COVID PCR negative -Continue broad-spectrum antibiotic therapy vancomycin, Zosyn -blood culture negative to date, sputum culture pending -Monitor respiratory status closely, continue nasal cannula. Wean down as able. -Lactic acid normalized. -Creatinine normalized. Continue Conway catheter for now. Monitor urine output. -TSH 2.84. Cortisol 50 -Procalcitonin negative -Blood sugar elevated to 287, prior A1c was 5.5, monitor blood sugars 3 times daily, repeat A1c -Continue on Lasix 40 IV twice daily -Venous ultrasound lower extremity negative for DVT -Continue aspirin, statin, serial EKGs, serial troponins, telemetry monitoring ? Cardiology evaluated patient. We will continue to diurese. We will set up patient with LifeVest at discharge as per their recommendations. -Trop elevation most likely secondary to demand ischemia at this time in setting of sepsis -Overall patient is better and improving. White count also trending down. 16,000 today. However now having diarrhea. -We will check stool culture for bacteria ova parasite screen, C. difficile ? Continue to monitor electrolytes and replete as needed -Full code -Lovenox for DVT prophylaxis Patient may be able to move to the floor today out of the ICU. Attestations Medical Necessity Statement*: Patient requires continued hospitalization for IV diuresis and IV antibiotics at this time. Coding Level of Care Code Acute Marine Electronics Repairer for Alexandre Webb Diagnoses Acute respiratory distress R06.03 Acute on chronic respiratory failure with hypoxia and hypercapnia J96.21; J96.22 Acidosis, lactic E87.2 Pneumonia J18.9 Severe sepsis A41.9; R65.20 Cardiomyopathy I42.9
[2022-03-05] MEDS: vancomycin 1,250 MG/250 ML PIGGYBACK 200 MG IV (16:01)
[2022-03-05 16:57] LABS: Procalcitonin 0.23 ng/mL (0-0.5)
[2022-03-05] MEDS: atorvastatin 40 mg Tablet PO (20:05)
[2022-03-05 20:50] LABS: Glucose Point of Care 118 mg/dL (70-110)
[2022-03-06] VITALS (17 sets, daily range): BP systolic 112–117; BP diastolic 75–80; PULSE 69–83; RESP 17–25; TEMP 36.5–36.8; O2SAT 93–99
[2022-03-06] MEDS: piperacillin-tazobactam 3.375 GM in sodium chloride 0.9% (plus) 50 ML IV ×2 (01:09→09:05)
[2022-03-06 04:12] LABS: Basophils % 0.4 %; Eosinophils # 0.1 10^3/uL (0.0-0.8); Eosinophils % 1.2 %; Hematocrit 39.1 % (37.0-47.0); Hemoglobin 11.9 g/dL (11.5-15.3); Lymphocytes % 18.8 %; Mean Corpuscular HGB Conc 30.4 g/dL (30.0-36.0); Mean Corpuscular Hemoglobin 27.2 pg (28.0-34.0); Mean Corpuscular Volume 89.5 fl (81-99); Mean Platelet Volume 10.1 fL (7.4-10.4); Monocytes # 0.6 10^3/uL (0.2-0.9); Monocytes % 5.3 %; Neutrophils % 73.7 %; Nucleated Red Blood Cells % 0 %; Platelet Count 236 10^3/cmm (130-400); Red Blood Count 4.37 10^6/uL (4.1-5.3); Red Cell Distribution Width 16.5 % (12.1-15.1); White Blood Count 10.6 10^3/uL (4.0-10.0)
[2022-03-06 04:41] LABS: Anion Gap 13.2 (5-19); Blood Urea Nitrogen 19 mg/dL (6-20); Calcium 8.9 mg/dL (8.5-10.5); Carbon Dioxide 27 mmol/L (22-29); Chloride 100 mmol/L (98-107); Glomerular Filtration Rate 86.9 mL/min (90-130); Glucose 108 mg/dL (65-115); Magnesium 2.1 mg/dL (1.7-2.3); Osmolality Calculated 285 mOsm/kg (285-295); Potassium 4.2 mmol/L (3.5-5.1); Sodium 136 mmol/L (136-145)
[2022-03-06] MEDS: ipratropium-albuterol 3 mL Neb INHALATION ×2 (07:53→12:14)
[2022-03-06 08:06] LABS: Glucose Point of Care 116 mg/dL (70-110)
[2022-03-06] MEDS: aspirin 325 mg EC Tablet PO (09:02)
[2022-03-06] MEDS: sertraline 50 mg Tablet PO (09:02)
[2022-03-06] MEDS: metoprolol tartrate 25 mg Tablet 12.5 MG PO (09:02)
[2022-03-06] MEDS: pantoprazole 40 mg SDV IVP (09:03)
[2022-03-06] MEDS: FUROsemide 10 mg/mL SDV 4mL 40 MG IVP (09:04)
[2022-03-06] MEDS: enoxaparin 40 mg/0.4 mL Syringe SUBCUT (09:05)
[2022-03-06] MEDS: vancomycin 1,250 MG/250 ML PIGGYBACK 200 MG IV (09:05)
[2022-03-06 11:04] LABS: Glucose Point of Care 105 mg/dL (70-110)
--- NOTE | 2022-03-06 13:17 | PC.CHAP ---
Pastoral Care Encounter/Spiritual Assessment Type of Contact [] Declined transportation dispatch manager visit [] Patient/Family/Request visit [] Outpatient visit [] Follow-up visit [] Physician referral [] Code/Alert [x] Routine visit [] Staff referral [] Actively dying [x] Patient sleeping [] Family support [] [] Out of room [] Palliative care [] [] Receiving care in room [] Pre-surgical visit [] Trauma [] Long length of stay [x] ICU visit [] Other: Relational/Emotional Strength [] Patient feels connected with others/family/visitors/staff [] Distress [] Loneliness/isolation [] Abandonment Spirituality of Patient [] Person of Shirin [] Attends Rastafarian of their Shirin [] Believes in Prayer [] Reads Bible or Islam materials [] There are Spiritual issues to be addressed Information Services Manager Interventions [x] Prayer [] Active listening [] Non-anxious presence [] Spiritual/emotional support [] Crisis/trauma care [] Spiritual counseling [] Bereavement support [] Provided bereavement packet [] Provided Bible/devotional materials [] Provided toy/stuffed animal, coloring book to patient or family member [] Provided Communion [] Anointing/[place] [] Salvation [x] Completed spiritual assessment [] Other: Impact on Illness or Injury [] Angry [] Fearful [] Anxious [] Often cries [] Exhaustion [] Unable to work [] Unable to attend evangelical [] Unable to walk/stand [] Unable to read [] Unable to drive [] Unable to eat/drink [] Unable to sleep [] Unable to be with family [] Patient intubated [] Other: Summary Time spent with patient
--- NOTE | 2022-03-06 15:00 | P.DS_ITS ---
Discharge Providers Date of Admission: 03/04/22 06:00 Date of Discharge: March 06, 2022 Attending Provider at Admission: Hammad Michelle MD Attending Provider at Discharge: Estefania Seals MD Primary Care Provider: [facility] Diagnoses at Discharge Discharge Diagnosis (1) Acute on chronic respiratory failure with hypoxia and hypercapnia: Status: Acute (2) Severe sepsis: Status: Acute (3) Congestive heart failure: Status: Acute Reason for Visit Reason for Visit: Shortness of Breath Brief History: Alberta Valdez is a 56 year old female with a past medical history of nonischemic cardiomyopathy, EF of 40%, nonobstructive CAD, depression, chronic back pain, who presents [facility] for shortness of breath.? Currently patient is on BiPAP, she is resting comfortably, she tells me she feels a lot better after being placed on BiPAP.? She tells me that she been feeling increasingly short of breath for the last few days, no fevers, no chills, but has had increased productive cough, yellow sputum.? Denies any chest pain, no palpitations.? Denies any sick contacts, has not received COVID-19 vaccinations.? Denies any COVID-19 exposure.? Does report right calf pain, no calf swelling, no tenderness.? Denies denies lower extremity edema. Hospital Course Hospital Course Patient was admitted with shortness of breath. She was also noted to be fluid overloaded and had a troponin elevation with delta +50. Cardiology was consulted. Patient was diuresed aggressively with Lasix 40 IV twice daily. Eventually she was also able to come off of oxygen. During hospital stay she was also treated for abscess secondary to pneumonia. She was also given sepsis normal saline bolus initially on admission. Lactic acid was also positive on admission. It was 7.8 and resolved after fluids. Her troponin elevation was attributed to demand ischemia secondary to sepsis. Patient's limited echo was repeated which showed an EF of 25 to 30%. Cardiology advised to start her on a LifeVest at discharge. LifeVest was set up. From pneumonia aspect patient is better and did not qualify for home oxygen. Her cough also resolved. During hospitalization she also had a few episodes of diarrhea. C. difficile was negative, diarrhea improved on its own. Count has trended down as well. She was kept on IV antibiotics Vanco Zosyn during hospital stay. At discharge I placed her on Augmentin for 8 more days along with Levaquin for 8 more days. She is to follow-up with her primary care doctor and cardiology after discharge. She will be discharged on Lasix 40 twice daily and follow-up with cardiology within 2 weeks. All questions were answered to patient satisfaction and she is being discharged home in very stable condition. I did stop her losartan 50 mg daily that she was on at home due to blood pressures being normal and on the softer side. Of note patient did tell me that she has had pneumonia before but never completed her antibiotic course after she left the hospital. Physical Exam Narrative: General: Alert oriented x3, patient seen sitting up in bed. Comfortable and in no acute distress. HEENT: Normocephalic, atraumatic, EOMI, breathing comfortably on 2 L nasal cannula. Saturating 99% on room air. Cardio: Regular rate rhythm, normal S1-S2, Respiratory: Clear to auscultation bilaterally, no wheezes no rhonchi today, GI: Abdomen soft, nontender, nondistended, bowel sounds + Behavior: Appropriate and cooperative Extremities: Trace edema bilateral lower extremities up to thighs Urinary Catheter Management: [place]: Cath Placed During This Visit: yes, but has since been removed by the nurse Reason for Continuing Indwelling Catheter: Decision to DC Catheter Urinary Catheter Date of Insertion: 03/04/22 Urinary Catheter Time of Insertion: 04:44 Date Urinary Catheter Removed: 03/04/22 Time Urinary Catheter Discontinued: 13:31 Discharge Data Studies Completed and Pending Completed Studies During Hospitalization Category Date Time Status CTA chest CT abdomen pelvis [CT angio chest w abd pel w Cat Scan 03/04/22 03:16 Completed con] Stat XR chest 1V portable [id number] Stat Exams 03/04/22 02:23 Completed CV. echo lmt w/w contras [id number] Routine Ultrasound 03/04/22 12:36 Completed US venous duplex lower extremity RT [CV venous duplex Ultrasound 03/04/22 04:59 [place] [id number]] Stat Pending at discharge Category Date Time Status Blood Culture Stat Lab 03/04/22 05:18 Results Sputum Culture and Gram Stain Stat Lab 03/04/22 04:48 Results Urine Culture Stat Lab 03/04/22 05:10 Results Vancomycin Trough Timed Lab 03/07/22 03:00 Ordered Radiology Impressions Chest X-Ray 03/04/22 02:23 IMPRESSION: 1. The cardiac silhouette is at the upper limits of normal. 2. No significant airspace consolidation. Chest/Abdomen/Pelvis CT 03/04/22 03:16 IMPRESSION: Findings consistent with pulmonary edema. IMPRESSION: 1. No acute abdominopelvic abnormality identified. 2. Colonic diverticulosis without signs of acute diverticulitis. Laboratory Results WBC 10.6 10^3/uL (4.0-10.0) H 03/06/22 03:55 RBC 4.37 10^6/uL (4.1-5.3) 03/06/22 03:55 Hgb 11.9 g/dL (11.5-15.3) 03/06/22 03:55 Hct 39.1 % (37.0-47.0) 03/06/22 03:55 MCV 89.5 fl (81-99) 03/06/22 03:55 MCH 27.2 pg (28.0-34.0) L 03/06/22 03:55 MCHC 30.4 g/dL (30.0-36.0) 03/06/22 03:55 RDW 16.5 % (12.1-15.1) H 03/06/22 03:55 Plt Count 236 10^3/cmm (130-400) 03/06/22 03:55 MPV 10.1 fL (7.4-10.4) 03/06/22 03:55 Neut % (Auto) 73.7 % 03/06/22 03:55 Lymph % (Auto) 18.8 % 03/06/22 03:55 [place] % (Auto) 5.3 % 03/06/22 03:55 Eos % (Auto) 1.2 % 03/06/22 03:55 Baso % (Auto) 0.4 % 03/06/22 03:55 Neut # (Auto) 7.80 10^3/uL (1.8-7.7) H 03/06/22 03:55 Lymph # (Auto) 2.0 10^3/uL (0.8-4.8) 03/06/22 03:55 Valencia # (Auto) 0.6 10^3/uL (0.2-0.9) 03/06/22 03:55 Eos # (Auto) 0.1 10^3/uL (0.0-0.8) 03/06/22 03:55 Baso # (Auto) 0.0 10^3/uL (0.0-0.1) 03/06/22 03:55 Nucleated RBC % (auto) 0 % 03/06/22 03:55 Nucleated RBCs # 0.0 /100WBC 03/06/22 03:55 ESR 20 mm/hr (0-15) H 03/04/22 02:48 Specimen Type Arterial 03/04/22 02:24 Sample Site Radial, left 03/04/22 02:24 ABG pH 7.19 (7.35-7.45) L 03/04/22 02:24 ABG pCO2 46.5 mmHg (35-45) H 03/04/22 02:24 ABG pO2 198.0 mmHg (80.0-100.0) H 03/04/22 02:24 ABG HCO3 17.8 mmol/L (22-26) L 03/04/22 02:24 ABG O2 Saturation > 100.0 03/04/22 02:24 ABG Base Excess -10.2 mmol/L (-2.0-2.0) L 03/04/22 02:24 Joseph Test Pos 03/04/22 02:24 A-a O2 Gradient Not Reportable 03/04/22 02:24 Hematocrit 39.9 % (37-47) 03/04/22 02:24 Hgb O2 Saturation 98.1 % (95-100) 03/04/22 02:24 Carboxyhemoglobin 1.5 %THgb (0.4-20.1) 03/04/22 02:24 Methemoglobin 0.6 % (0.4-1.5) 03/04/22 02:24 Total Hemoglobin 13.0 g/dL (12-16) 03/04/22 02:24 Sodium 139.0 mmol/L (131-143) 03/04/22 02:24 Potassium 4.3 mmol/L (3.5-5.0) 03/04/22 02:24 Glucose 330.0 mg/dL (70-115) H 03/04/22 02:24 Ionized Calcium 1.3 mmol/L (1.1-1.4) 03/04/22 02:24 O2 Delivery Device Nc 03/04/22 02:24 O2 Liters/Min 6.0 % 03/04/22 02:24 Foster Care Therapist ID Rafael 03/04/22 02:24 Sodium 136 mmol/L (136-145) 03/06/22 03:55 Potassium 4.2 mmol/L (3.5-5.1) 03/06/22 03:55 Chloride 100 mmol/L (98-107) 03/06/22 03:55 Carbon Dioxide 27 mmol/L (22-29) 03/06/22 03:55 Anion Gap 13.2 (5-19) 03/06/22 03:55 BUN 19 mg/dL (6-20) 03/06/22 03:55 Creatinine 0.7 mg/dL (0.5-0.9) 03/06/22 03:55 GFR Calculation 86.9 mL/min (90-130) L 03/06/22 03:55 Glucose 108 mg/dL (65-115) 03/06/22 03:55 POC Glucose 105 mg/dL (70-110) 03/06/22 11:00 Estimat Average Glucose 105 03/04/22 02:48 Hemoglobin A1c 5.3 % (4.0-6.0) 03/04/22 02:48 Calculated Osmolality 285 mOsm/kg (285-295) 03/06/22 03:55 Lactic Acid 1.6 mmol/L (0.5-2.2) 03/04/22 08:25 Lactic Acid (Sepsis) 1.8 mmol/L (0.5-2.2) 03/04/22 05:29 Calcium 8.9 mg/dL (8.5-10.5) 03/06/22 03:55 Phosphorus 7.3 mg/dL (2.5-4.5) H 03/04/22 02:48 Magnesium 2.1 mg/dL (1.7-2.3) 03/06/22 03:55 Total Bilirubin 0.3 mg/dL (0.15-1.2) 03/05/22 03:00 AST 19 U/L (0-32) 03/05/22 03:00 ALT 21 U/L (0-33) 03/05/22 03:00 Alkaline Phosphatase 84 U/L (35-105) 03/05/22 03:00 Troponin T Baseline 17 ng/L (0-10) H 03/04/22 02:28 Troponin T 120 Minute 73.09 ng/L (0-10) H 03/04/22 05:29 Delta Troponin T 56.09 ABS# (0-10) H* 03/04/22 05:29 Troponin T Hi Sens 6Hr 59.26 ng/L (0-10) H 03/04/22 08:16 Troponin T Hi Sens 6Hr Delta 42.26 ng/L (0-12) H* 03/04/22 08:16 C-Reactive Protein 7.4 mg/L (0.0-4.9) H 03/04/22 02:48 NT-Pro-B Natriuret Pep 2587 pg/mL (0-125) H 03/04/22 02:57 Total Protein 6.1 g/dL (6.6-8.7) L 03/05/22 03:00 Albumin 3.6 g/dL (3.5-5.2) 03/05/22 03:00 Globulin 2.5 g/dL (1.3-4.6) 03/05/22 03:00 Procalcitonin 0.23 ng/mL (0-0.5) 03/05/22 16:05 TSH 2.84 uIU/mL (0.27-4.20) 03/04/22 02:48 Random Cortisol 50.41 ug/dL (2.47-19.5) H 03/04/22 02:48 Urine Color Yellow (Yellow) 03/04/22 05:10 Urine Appearance Clear (CLEAR) 03/04/22 05:10 Urine pH 5 (5-7) 03/04/22 05:10 Ur Specific [place] 1.010 (1.005-1.030) 03/04/22 05:10 Urine Protein Trace (Negative) 03/04/22 05:10 Urine Glucose (UA) Norm (Normal) 03/04/22 05:10 Urine Ketones Negative (Negative) 03/04/22 05:10 Urine Blood Neg (Negative) 03/04/22 05:10 Urine Nitrate Negative (Negative) 03/04/22 05:10 Urine Bilirubin Neg (Negative) 03/04/22 05:10 Urine Urobilinogen Norm mg/dL (Negative) 03/04/22 05:10 Ur Leukocyte Esterase Negative (Negative) 03/04/22 05:10 Urine RBC 0-4 /hpf (0-2) H 03/04/22 05:10 Urine WBC 0-4 /hpf (0-5) H 03/04/22 05:10 Ur Squamous Epith Cells 0-4 /hpf (0-5) H 03/04/22 05:10 Amorphous Sediment Not Reportable 03/04/22 05:10 Urine Bacteria Trace /hpf (NONE) 03/04/22 05:10 Serum Ketones Negative (Negative) 03/04/22 02:57 Coronavirus 229E (PCR) Not detected (NOT DETECT) 03/04/22 03:30 Influenza Type A Ag Negative (Negative) 03/04/22 19:09 Influenza Type B Ag Negative (Negative) 03/04/22 19:09 SARS-CoV-2 (PCR) Not detected (NOT DETECT) 03/04/22 03:30 Vitals Last Vital Signs Temp 98.1 F 03/06/22 10:00 Pulse 69 03/06/22 12:21 Resp 17 03/06/22 12:14 BP 117/80 03/06/22 12:00 Pulse Ox 97 03/06/22 12:14 O2 Del Method 03/06/22 12:14 O2 Flow Rate 2 03/06/22 00:14 FiO2 40 03/04/22 02:47 Discharge Plan Discharge Patient Disposition: Home Condition: Stable Prescriptions: New sertraline 50 mg Tablet 50 mg PO DAILY 30 Days Qty: 30 0RF amoxicillin-pot clavulanate 875-125 mg tablet 1 tab PO BID 8 Days Qty: 16 0RF levofloxacin 750 mg tablet 750 mg PO DAILY 7 Days Qty: 7 0RF Continued atorvastatin 40 mg tablet 40 mg PO BEDTIME Qty: 90 3RF metoprolol tartrate 25 mg tablet 12.5 mg PO BID@0900,2100 Qty: 90 3RF trazodone 50 mg tablet 100 mg PO BEDTIME PRN (Reason: insomnia) potassium chloride [Klor-Con M20] 20 mEq tablet,ER particles/crystals 20 meq PO QAM aspirin 325 mg tablet,delayed release (DR/EC) 325 mg PO DAILY@10 albuterol sulfate 90 mcg/actuation HFA aerosol inhaler 1 puff inhalation Q6H PRN (Reason: shortness of breath or wheezing) diclofenac sodium 75 mg tablet,delayed release (DR/EC) 75 mg PO Q12H PRN (Reason: pain) Qty: 20 0RF tizanidine 4 mg capsule 4 mg PO Q6H PRN (Reason: muscle spasticity) Qty: 20 0RF Rx Instructions: do not exceed 3 doses per 24 hrs Zoloft 50 mg Tablet 50 mg PO DAILY PRN (Reason: unknown) Changed furosemide 40 mg tablet 40 mg PO BID 30 Days Qty: 60 0RF Discontinued losartan 25 mg tablet 25 mg PO QAM Discharge Orders: Discharge Order (Routine); Ordered 03/06/22 Ordered By: Estefania Seals Other Ambulatory Orders: Basic Metabolic Panel (Routine) Timeframe: 10 Day Facility: [facility] - Location: Lab - Main Lab Ordered By: Estefania Seals Referrals: Niraj Bowman M.D [Physician] - 2 weeks (you will need to call [facility] [phone] to scheduled this appointment. please) [facility] PA [Primary Care Provider] - 4-7 days (February at time of 2:45 pm ) Discharge Diet: Cardiac and Low Salt Discharge Activity: Increase activity as tolerated Patient Instructions: Furosemide (By mouth) (Lasix), Amoxicillin/Clavulanate Potassium (By mouth) (Augmentin, Augmentin..., Amoxicillin (By mouth), Sertraline (By mouth) (Zoloft), Sertraline (By mouth), Levofloxacin (By mouth), Restrictive Cardiomyopathy (DC), Sepsis (DC), Low-Sodium Diet (DC), Fluid Restriction (DC), Wearable Cardioverter Defibrillator (DC), CHF Stoplight, Opioid Safety Activity Restrictions/Additional Instructions: Please ensure you wear your LifeVest as directed Ensure you complete your antibiotics as prescribed Please have your labs rechecked in 10 days Please follow-up with the interactive web developer as advised as an outpatient Please follow-up with your primary care doctor within 4 to 7 days of discharge Please return to the ER should he have any worsening of your symptoms or development of any new symptoms. Discharge Attestations Time Spent in Discharge Care*: greater than 30 min Quality Metrics Clinical Quality Measures [ No reported AMI, CVA or VTE this stay] Coding Level of Care Code Acute Chg FW DC note Diagnoses Acute on chronic respiratory failure with hypoxia and hypercapnia J96.21; J96.22 Severe sepsis A41.9; R65.20 Congestive heart failure I50.9
== END 2022-03-06 16:00 | disposition home or self-care (01) | DRG 871 ==
LOC: ER 05:17 → ICU 05:19
PROVIDERS: Admitting Provider Family Medicine; Emergency Provider Emergency Medicine; PCP Physician Assistant; Visit Provider Internal Medicine
DX: A41.9 Sepsis, unspecified organism (principal); I50.23 Acute on chronic systolic (congestive) heart failure; J18.9 Pneumonia, unspecified organism; J96.21 Acute and chronic respiratory failure with hypoxia; J96.22 Acute and chronic respiratory failure with hypercapnia; I42.8 Other cardiomyopathies; E87.2 Acidosis; I24.8 Other forms of acute ischemic heart disease; Z87.891 Personal history of nicotine dependence; I25.10 Atherosclerotic heart disease of native coronary artery without angina pectoris; Z79.52 Long term (current) use of systemic steroids; R19.7 Diarrhea, unspecified; R65.20 Severe sepsis without septic shock
CPT/HCPCS: 36415; 36416; 36600; 51702; 71045; 71275; 74177; 80048; 80051; 80053; 81001; 82009; 82330; 82533; 82805; 82962; 83036; 83605; 83735; 83880; 84100; 84145; 84443; 84484; 85025; 85651; 86140; 86403; 87040; 87070; 87086; 87205; 87449; 87493; 87506; 87635; 87641; 87804; 93005; 93971; 94640; 94660; 94760; 96365; 96367; 96372; 96375; 99291; C8924; C9113; J1650; J1940; J2270; J2405; J2543; J2930; J3370; J7030; J7040; Q9956; Q9967

== ENCOUNTER → 2022-04-16 11:15 | Outpatient (BNVA) | payer BC, MEDICAID, SELFPAY | PROVIDERS: PCP Physician Assistant; Visit Provider Nurse Practitioner Family | DX: I42.8 Other cardiomyopathies (principal) | CPT/HCPCS: 80048; 83880 ==

== ENCOUNTER 2022-06-03 07:24 | Day surgery (SDC) | payer MEDICARE, BC, MEDICAID, SELFPAY ==
[2022-06-01 13:42] VITALS: BMI 28.6
[2022-06-03 07:39] VITALS: BP 136/83; PULSE 76; RESP 18; TEMP 36.2; O2SAT 96
[2022-06-03] MEDS: sodium chloride 0.9% 1,000 ML 30 ML IV (07:49)
--- NOTE | 2022-06-03 07:52 | ANES.PREANE2 ---
Pre-Anesthetic Assessment Height/Weight: Height 1.65 m Weight 78.018 kg Temp Pulse Resp BP Pulse Ox O2 Del Method 97.2 F L 76 18 136/83 96 06/03/22 07:39 06/03/22 07:39 06/03/22 07:39 06/03/22 07:39 06/03/22 07:39 06/03/22 07:39 Preop Diagnosis: Nausea and vomiting, history of colon cancer and change in bowel habit Operation Date: 06/03/22 09:00 Proposed Procedures p 08079 EGD 70443 Colonoscopy R11.2(Not Applicable) - Milton Trujillo MD s Colonoscopy(Not Applicable) - Milton Trujillo MD Familial anesthetic complications: None Was Beta Elizabeth taken within 24 hours: Yes Was Clonidine taken within 24 hours: N/A Last intake: Intake Last Liquid Date 06/02/22 Last Liquid Time 21:00 Last Solid Date 06/01/22 Last Solid Time 22:00 Social No alcohol and No tobacco Exam alert, oriented x 3, clear to auscultation bilaterally and regular rate & rhythm Airway Mallampati: Class II Dentition: caps Pulmonary hx pneumonia CV/HEM Coronary Artery Disease, Congestive Heart Failure (EF 25-305, hypokinesis, dilated LV) and Hypertension Anesthetic Plan ASA status: 4 Anesthesia: MAC Risk of > 500 ml blood loss (7ml/kg in children): No Medications/Allergies Home Medications Medication Instructions Recorded Confirmed Last Taken Type atorvastatin 40 mg tablet 40 mg PO BEDTIME #90 tabs 12/12/21 06/03/22 06/01/22 Rx metoprolol tartrate 25 mg tablet 12.5 mg PO BID@0900,2100 #90 tabs 12/12/21 06/03/22 06/01/22 Rx albuterol sulfate 90 mcg/actuation 1 puff inhalation Q6H PRN 02/16/22 06/03/22 Unknown History aerosol inhaler shortness of breath or wheezing aspirin 325 mg tablet,delayed 325 mg PO DAILY@10 02/16/22 06/03/22 06/01/22 History release potassium chloride 20 mEq 20 meq PO QAM 02/16/22 06/03/22 06/01/22 History tablet,extended release(part/cryst) (Klor-Con M) trazodone 50 mg tablet 100 mg PO BEDTIME PRN insomnia 02/16/22 06/03/22 02/13/22 History sertraline 50 mg tablet (Zoloft) 50 mg PO DAILY PRN unknown 03/04/22 06/03/22 Unknown History furosemide 40 mg tablet 40 mg PO BID #90 tabs 04/16/22 06/03/22 06/01/22 Rx Allergies Allergy/AdvReac Type Severity Reaction Status Date / Time No Known Allergies Allergy Verified 06/03/22 07:37 Current Medications Generic Name Dose Route Start Last Admin Trade Name Fifi PRN Reason Stop Dose Admin Sodium Chloride 1,000 mls @ 30 mls/hr 06/03/22 07:30 06/03/22 07:49 Sodium Chloride 0.9% IV 30 mls/hr .Q24H SHAUN Administration PFSH Anesthesia Medical History Atherosclerosis of coronary artery Avascular necrosis of femur Cardiomyopathy Chronic back pain NSTEMI (non-ST elevated myocardial infarction) Psychiatric care Radiculopathy, site unspecified Surgical History History of hysterectomy Family History Other CAD (coronary artery disease) Diabetes Social History Smoking and tobacco status: former smoker Quit status (tobacco): has quit using tobacco Year quit tobacco: 1993 Second hand smoke exposure: No Smoking risk assessment/counseling performed?: No Alcohol intake: former Year of sobriety/quit date alcohol: 2001 Desire information about alcohol rehabilitation?: No Counseling given: No Desire information about substance/drug rehabilitation?: No Counseling given: No Data Anesthesia Cardiac Studies: Echocardiogram 03/04/22
--- NOTE | 2022-06-03 08:17 | W.PM.OPSFHP ---
Same Day Surgery H&P Indication for Procedure/HPI DATE OF PROCEDURE: June 03, 2022 CHIEF COMPLAINT/INDICATIONFOR SURGICAL PROCEDURE: Nausea and vomiting and diarrhea PREOP DIAGNOSIS: Nausea and vomiting, history of colon cancer and change in bowel habit PLANNED PROCEDURE: Operation Date: 06/03/22 09:00 Proposed Procedures p 51122 EGD 36756 Colonoscopy R11.2(Not Applicable) - Milton Trujillo MD s Colonoscopy(Not Applicable) - Milton Trujillo MD 04/16/2022 This is a pleasant 56 years old female patient reports history of getting full easily associated nausea and vomiting and diarrhea since November 2021. Patient reports history of diarrhea, nonbloody in nature, has been going on for quite some time.? Patient denies history of recent travels, antibiotics, change in medications, questionable source of water, no history of sick contacts, no history of thyroid disorder. Patient reports that her sister at age of 54 developed colon cancer.? Patient still have her gallbladder. Recent CT of the chest abdomen pelvis did show no acute findings and patient does have colonic diverticulosis without signs of diverticulitis. 06/03/2022 Patient comes today for EGD and colonoscopy and she did undergo ultrasound of the liver and gallbladder that showed 1.? Very tiny gallbladder polyps versus adherent stones. No evidence for acute cholecystitis. 2.? No bile duct dilatation. 3.? Normal liver. ? ROS All systems have been reviewed negative except as for the above or per problem list. Medications/Allergies* Home Medications Medication Instructions Recorded Confirmed Type albuterol sulfate 90 mcg/actuation 1 puff inhalation Q6H PRN 02/16/22 06/03/22 History aerosol inhaler shortness of breath or wheezing aspirin 325 mg tablet,delayed 325 mg PO DAILY@10 02/16/22 06/03/22 History release potassium chloride 20 mEq 20 meq PO QAM 02/16/22 06/03/22 History tablet,extended release(part/cryst) (Klor-Con M) trazodone 50 mg tablet 100 mg PO BEDTIME PRN insomnia 02/16/22 06/03/22 History sertraline 50 mg tablet (Zoloft) 50 mg PO DAILY PRN unknown 03/04/22 06/03/22 History Allergies/Adverse Reactions Allergy/AdvReac Type Severity Reaction Status Date / Time No Known Allergies Allergy Verified 06/03/22 08:18 Current Medications: Generic Name Dose Route Start Last Admin Trade Name Fifi PRN Reason Stop Dose Admin Sodium Chloride 1,000 mls @ 30 mls/hr 06/03/22 07:30 06/03/22 07:49 Sodium Chloride 0.9% IV 30 mls/hr .Q24H SHAUN Administration Pertinent History/Comorbid Conditions* Medical History (Updated 04/19/22 @ 08:11 by Milton Trujillo MD) Atherosclerosis of coronary artery Avascular necrosis of femur Cardiomyopathy Chronic back pain NSTEMI (non-ST elevated myocardial infarction) Psychiatric care Radiculopathy, site unspecified Surgical History (Updated 11/24/21 @ 09:03 by Daryl Lopez MD) History of hysterectomy Family History (Updated 11/24/21 @ 09:03 by Daryl Lopez MD) Diabetes CAD (coronary artery disease) Social History Smoking and tobacco status: former smoker Quit status (tobacco): has quit using tobacco Year quit tobacco: 1993 Second hand smoke exposure: No Smoking risk assessment/counseling performed?: No Alcohol intake: former Year of sobriety/quit date alcohol: 2001 Desire information about alcohol rehabilitation?: No Counseling given: No Desire information about substance/drug rehabilitation?: No Counseling given: No Pertinent Exam Findings alert, oriented x 3, regular rate & rhythm and procedure specific exam findings (Abdominal exam nontender nondistended soft) Recommendations Surgery/Procedure today (EGD and colonoscopy with possible biopsy) Other Plans: On the other hand patient decided to proceed with gallbladder surgery on elective basis Coding Level of Care Code Acute Database Programmer Analyst for Alexandre Webb
[2022-06-03 09:43] VITALS: BP 115/79; PULSE 71; RESP 18; TEMP 36.1; O2SAT 97
[2022-06-03 09:48] VITALS: BP 90/51; PULSE 68; RESP 18; O2SAT 95
--- NOTE | 2022-06-03 09:53 | PC.NURSE ---
patient scheduled to have left hip surgery in july. c/o left hip pain, rates 10, states she hasn't found anything to help with the pain. repositioned to get patient off of left hip. states that helped some
[2022-06-03 10:10] VITALS: BP 99/60; PULSE 63; RESP 18; O2SAT 98
--- NOTE | 2022-06-03 10:12 | PC.NURSE ---
1005 patient appears to not be grimacing as much, still rates left hip pain at a 10, states it's throbbing but always throbs. 1010 cmp drawn as ordered per dr day, lab taken to lab by norberto, labeled with date, time and neumonic
--- NOTE | 2022-06-03 10:25 | PC.NURSE ---
assisted patient up to bathroom, states she uses a rolling walker at home. patient very unsteady on her feet and assistance needed.
[2022-06-03 10:41] LABS: Alanine Aminotransferase 17 U/L (0-33); Albumin Level 3.5 g/dL (3.5-5.2); Alkaline Phosphatase 86 U/L (35-105); Anion Gap 10.7 (5-19); Blood Urea Nitrogen 8 mg/dL (6-20); Calcium 8.1 mg/dL (8.5-10.5); Carbon Dioxide 27 mmol/L (22-29); Chloride 106 mmol/L (98-107); Globulin 1.8 g/dL (1.3-4.6); Glomerular Filtration Rate 165.7 mL/min (90-130); Glucose 105 mg/dL (65-115); Osmolality Calculated 289 mOsm/kg (285-295); Potassium 3.7 mmol/L (3.5-5.1); Sodium 140 mmol/L (136-145); Total Bilirubin 0.5 mg/dL (0.15-1.2); Total Protein 5.3 g/dL (6.6-8.7)
[2022-06-03 10:51] LABS: Aspartate Amino Transferase 16 U/L (0-32)
--- NOTE | 2022-06-03 15:57 | ANE.PACU2 ---
Inpatient post-anesthesia follow up: Airway intact: Yes Vital signs: Temperature 97.0 F Pulse Rate 63 Respiratory Rate 18 Blood Pressure 99/60 Pulse Oximetry 98 Oxygen Delivery Me thod Room Air Oxygen Flow Rate Fraction of Inspir ed Oxygen Hydration adequate: Yes Nausea and vomiting: No Pain level: 1 Mental status: Baseline
== END 2022-06-03 10:45 | disposition home or self-care (01) ==
PROVIDERS: PCP Physician Assistant; Visit Provider Surgery
PROC: 0DJ08ZZ Inspection of Upper Intestinal Tract, Via Natural or Artificial Opening Endoscopic (ICD-10-PCS; CPT 43235; principal; 2022-06-03 09:00)
PROC: 0DJD8ZZ Inspection of Lower Intestinal Tract, Via Natural or Artificial Opening Endoscopic (ICD-10-PCS; CPT 45378; 2022-06-03 09:00)
DX: R11.2 Nausea with vomiting, unspecified (principal); K21.00 Gastro-esophageal reflux disease with esophagitis, without bleeding; K29.80 Duodenitis without bleeding; D12.8 Benign neoplasm of rectum; K29.70 Gastritis, unspecified, without bleeding; Z80.0 Family history of malignant neoplasm of digestive organs; R19.7 Diarrhea, unspecified; I25.10 Atherosclerotic heart disease of native coronary artery without angina pectoris; I11.0 Hypertensive heart disease with heart failure; I50.9 Heart failure, unspecified; Z79.82 Long term (current) use of aspirin; I25.2 Old myocardial infarction; Z87.891 Personal history of nicotine dependence
CPT/HCPCS: 43239; 45385; 80053; 82274; 83630; 87493; 87506; 88305; 88342; J2704; J7030

== ENCOUNTER 2022-06-09 08:18 | Day surgery (SDC) | payer MEDICARE, BC, MEDICAID, SELFPAY ==
[2022-06-08 11:40] VITALS: BMI 28.3
[2022-06-09] VITALS (17 sets, daily range): BP systolic 108–139; BP diastolic 65–93; PULSE 63–82; RESP 16–25; TEMP 36.2–36.7; O2SAT 92–98
--- NOTE | 2022-06-09 08:47 | W.PM.OPSUD ---
Surgery/Procedure H&P Update DATE OF PROCEDURE: June 09, 2022 DATE H&P PERFORMED: 06/03/22 H&P UPDATE INFORMATION: I have reviewed H&P completed within last 30 days, I have examined patient prior to procedure and No changes to prior documentation PREOP DIAGNOSIS: Gallbladder polyps/stones PRIMARY INDICATION FOR PROCEDURE: The same PLANNED PROCEDURE: Operation Date: 06/09/22 10:15 Pro[place] Procedures p 78520 lap jorge possible open K82.4(Not Applicable) - Milton Trujillo MD
[2022-06-09] MEDS: sodium chloride 0.9% 1,000 ML 30 ML IV (08:52)
[2022-06-09] MEDS: acetaminophen 1,000 MG/100 ML PIGGYBACK 400 MG IV (08:52)
[2022-06-09] MEDS: heparin 5,000 unit/mL INJ 1 mL 2000 UNIT SUBCUT (08:53)
[2022-06-09] MEDS: ampicillin-sulbactam 3 GM in sodium chloride 0.9% (plus) 50 ML IV (09:05)
--- NOTE | 2022-06-09 09:26 | ANES.PREANE2 ---
Pre-Anesthetic Assessment Height/Weight: Height 1.65 m Weight 77.111 kg Temp Pulse Resp BP Pulse Ox O2 Del Method 98.1 F 82 18 119/76 98 06/09/22 08:37 06/09/22 08:37 06/09/22 08:37 06/09/22 08:37 06/09/22 08:37 06/09/22 08:37 Preop Diagnosis: Gallbladder polyps/stones Operation Date: 06/09/22 10:15 [place] Procedures [place] 62654 lap jorge possible open K82.4(Not Applicable) - Milton Trujillo MD Familial anesthetic complications: none Was Beta Elizabeth taken within 24 hours: Yes Was Clonidine taken within 24 hours: N/A Last intake: Intake Last Liquid Date 06/08/22 Last Liquid Time 22:00 Last Solid Date 06/08/22 Last Solid Time 22:00 Social No alcohol and No tobacco Exam alert, oriented x 3, clear to auscultation bilaterally and regular rate & rhythm Airway Submandibular: within normal limits Cervical ROM: within normal limits Mallampati: Class II Dentition: full CV/HEM Coronary Artery Disease, Congestive Heart Failure (EF 25%) and Hypertension Suggested to wear Life Vest b/c of low EF, no arrhythmias of note GI Gastroesophageal Reflux Disease Metabolic Hyperlipidemia Neuropsych Anxiety and Depression Anesthetic Plan ASA status: 3 Anesthesia: General Medications/Allergies Home Medications Medication Instructions Recorded Confirmed Last Taken Type atorvastatin 40 mg tablet 40 mg PO BEDTIME #90 tabs 12/12/21 06/08/22 06/08/22 Rx metoprolol tartrate 25 mg tablet 12.5 mg PO BID@0900,2100 #90 tabs 12/12/21 06/08/22 06/08/22 Rx albuterol sulfate 90 mcg/actuation 1 puff inhalation Q6H PRN 02/16/22 06/08/22 03/10/22 History aerosol inhaler shortness of breath or wheezing aspirin 325 mg tablet,delayed 325 mg PO DAILY@10 02/16/22 06/08/22 06/02/22 History release potassium chloride 20 mEq 20 meq PO QAM 02/16/22 06/08/22 06/08/22 History tablet,extended release(part/cryst) (Klor-Con M) pantoprazole 40 mg tablet,delayed 40 mg PO DAILY 30 days #30 tabs 1206/08/22 06/08/22 Rx release (Protonix) furosemide 40 mg tablet 40 mg PO DAILY 06/08/22 06/08/22 06/08/22 History losartan 25 mg tablet 25 mg PO DAILY 06/08/22 06/08/22 06/08/22 History Allergies Allergy/AdvReac Type Severity Reaction Status Date / Time No Known Allergies Allergy Verified 06/03/22 08:18 Current Medications Generic Name Dose Route Start Last Admin Trade Name Fifi PRN Reason Stop Dose Admin Sodium Chloride 1,000 mls @ 30 mls/hr 06/09/22 08:45 06/09/22 08:52 Sodium Chloride 0.9% IV 06/10/22 08:44 30 mls/hr .Q24H SHAUN Administration PFSH Anesthesia Medical History Atherosclerosis of coronary artery Avascular necrosis of femur Cardiomyopathy Chronic back pain NSTEMI (non-ST elevated myocardial infarction) Psychiatric care Radiculopathy, site unspecified Surgical History History of hysterectomy Family History Other CAD (coronary artery disease) Diabetes Social History Smoking and tobacco status: former smoker Quit status (tobacco): has quit using tobacco Year quit tobacco: 1993 Second hand smoke exposure: No Smoking risk assessment/counseling performed?: No Alcohol intake: former Year of sobriety/quit date alcohol: 2001 Desire information about alcohol rehabilitation?: No Counseling given: No Desire information about substance/drug rehabilitation?: No Counseling given: No Data Anesthesia Cardiac Studies: Echocardiogram 03/04/22
[2022-06-09] MEDS: lidocaine 2% INJ 20 mL INJECTION (09:28)
--- NOTE | 2022-06-09 10:00 | P.OP_ITS ---
Operative Report Date of procedure: June 09, 2022 Pre-op diagnosis: Preop Diagnosis Gallbladder polyps/stones Procedure done: Laparoscopic cholecystectomy Specimens removed/disposition: Gallbladder and contents Surgeon: Milton Trujillo MD Sleeping Bag Filler: Surgical kelly San and Zahida Circulating nurses Lynette and Raquel Anesthesia: General (DIRECT RESPONSE CONSULTANT Sobeida) Estimated blood loss (mL): 5 IV fluids (mL): 200 Procedure: Patient was identified in the holding area and taken back to the operative suite, placed in supine position intubated by anesthesia . Time-out was done verifying the patient's name/date of /planned procedure and destination after the procedure, all were in agreement. SCDs confirmed to be functioning, preoperative antibiotics administered per protocol, and beta gilson protocol was confirmed. Patient was appropriately secured to the table, footboard was applied to the OR table, before prep and drape anesthesia was asked to tilt the table back and forth to make sure that the patient is appropriately secured and she was. Prep and drape of the abdomen was done under the usual sterile technique, followed by that umbilical skin incision,skin incision was done by a 15 blade knife, and stay sutures were applied to the fascia and Styles trocar technique was used to enter the abdominal without injuring any abdominal viscera, started by low flow gas insufflation followed by a high flow, started with a 10 mm laparoscope and under direct vision there was no evidence of any injuries, the scope then switched to a 30? ,10 millimeter scope and under direct visualization 5 millimeter trocar was inserted in the epigastric region followed by two 5 mm trocars were inserted in the right upper quadrant that was done after injection of local lidocaine 2% at all incision sites. We started with low flow gas followed by higher flow, it all the way to 30 L/min and pressure was maintained at 12 mmHg. Gallbladder showed chronic cholecystitis and Fatty Liver. Patient was then positioned in the head up and tilted to the left. Ratcheted forceps were introduced into the lateral most 5mm port and was applied unto the fundus of the gallbladder cephalad and using Bullet forceps the infundibulum of the gallbladder was retracted laterally. Using [place] forceps then L-hook cautery to dissect the peritoneum overlying the Calot's triangle which was then opened medially and laterally until the cystic duct and the cystic artery were skeletonized. Dissection was carried along the body of the gallbladder and after ensuring critical view of safety was identfied. Cystic duct and cystic artery where seen connected to the gallbladder. Clips were applied on the cystic duct towards the common bile duct 1 towards the gallbladder then divided is in sharp scissors, 2 clips were then applied onto the cystic artery and 1 towards the gallbladder and divided by sharp scissors. Dissection was then carried along of the gallbladder from the gallbladder fossa using cautery as well as sharp dissection with heat energy. The gallbladder then was dissected out from the gallbladder fossa totally , cholecystectomy was then achieved and was placed in an Endo Catch bag and then retrieved from the Styles trocar site under direct visualization using a 5 mm 30? scope through the epigastric trocar, specimen was then passed to the circulating nurse to go for permanent pathology,irrigation and hemostasis was done to the gallbladder fossa after hemostasis was secured, final survey laparoscopy was done that showed no injuries. Suction irrigation was obtained The umbilical fascial defect was then closed using interrupted number one PDS sutures using a fascial closure device ;Rashaun Solomon under direct visualization following that Gas was allowed to deflate,Trocars were then taken out under direct vision there was no evidence of bleeding. Specimen was passed to the circulating nurse for permanent pathology. No drains were placed and the umbilical incision as well as all trocar sites were closed by 3/0 Vicryl followed by 4-0 Monocryl to approximate the skin edges of the incisions , dressing was applied in the form of surical glue and the patient patient got extubated and was taken to recovery area in a stable condition. Count of sponges,needles and instruments were completed at the end of the procedure I was present for the whole entire procedure.
[2022-06-09] MEDS: fentaNYL 50 mcg/mL INJ 2mL IVP (10:43)
[2022-06-09] MEDS: HYDROcodone-acetaminophen 5-325 mg Tablet 1 TAB PO (12:12)
--- NOTE | 2022-06-09 14:42 | ANE.PACU2 ---
Inpatient post-anesthesia follow up: Airway intact: Yes Vital signs: Temperature 98.0 F Pulse Rate 73 Respiratory Rate 16 Blood Pressure 116/89 Pulse Oximetry 95 Oxygen Delivery Me thod Room Air Oxygen Flow Rate 3 Fraction of Inspir ed Oxygen Hydration adequate: Yes Nausea and vomiting: No Pain level: 3 Mental status: Baseline
== END 2022-06-09 14:50 | disposition home or self-care (01) ==
PROVIDERS: PCP Physician Assistant; Visit Provider Surgery
PROC: 0FT44ZZ Resection of Gallbladder, Percutaneous Endoscopic Approach (ICD-10-PCS; CPT 47562; principal; 2022-06-09 10:05)
DX: K80.10 Calculus of gallbladder with chronic cholecystitis without obstruction (principal); I25.10 Atherosclerotic heart disease of native coronary artery without angina pectoris; I11.0 Hypertensive heart disease with heart failure; I50.9 Heart failure, unspecified; K21.9 Gastro-esophageal reflux disease without esophagitis; E78.5 Hyperlipidemia, unspecified; F41.9 Anxiety disorder, unspecified; F32.A Depression, unspecified; Z79.82 Long term (current) use of aspirin; I25.2 Old myocardial infarction; Z87.891 Personal history of nicotine dependence
CPT/HCPCS: 47562; 88304; J0131; J0295; J1100; J1200; J1644; J2370; J2405; J2704; J2710; J3010; J3490; J7030

== ENCOUNTER → 2022-06-18 08:04 | Outpatient (BNVA) | payer MEDICARE, BC, MEDICAID, SELFPAY | PROVIDERS: PCP Physician Assistant; Visit Provider Surgery | DX: Z09 Encounter for follow-up examination after completed treatment for conditions other than malignant neoplasm (principal); K21.9 Gastro-esophageal reflux disease without esophagitis; K63.5 Polyp of colon | CPT/HCPCS: 99024 ==

== ENCOUNTER → 2022-07-06 08:48 | Outpatient (BNVA) | payer MEDICARE, BC, MEDICAID, SELFPAY | PROVIDERS: PCP Physician Assistant; Visit Provider Specialist | DX: M87.052 Idiopathic aseptic necrosis of left femur (principal); M25.552 Pain in left hip; M79.605 Pain in left leg | CPT/HCPCS: 72170; 73552; 99204 ==

== ENCOUNTER 2022-10-13 06:02 | Outpatient (CLI) | payer MEDICARE, BC, MEDICAID, SELFPAY ==
--- NOTE | 2022-10-13 06:15 | USCV_ITS ---
Alberta Valdez Age: 56 Gender: F : 1965 Exam Date: 10/13/2022 06:30 Ordering Phys: Niraj Bowman M.D ([email or web address]) Technologist: Exam Location: [facility] [place] Indication: LOW EF BP: 122 / 72 HR: 72 Rhythm: Sinus Technical Quality: Adequate MEASUREMENTS (Male / Female) Normal Values 2D ECHO LV Diastolic Diameter PLAX 6.7 cm 4.2 - 5.9 / 3.9 - 5.3 cm LV Systolic Diameter PLAX 6.2 cm IVS Diastolic Thickness 0.9 cm 0.6 - 1.0 / 0.6 - 0.9 cm IVS Systolic Thickness 0.9 cm LVPW Diastolic Thickness 1.0 cm 0.6 - 1.0 / 0.6 - 0.9 cm LVPW Systolic Thickness 1.2 cm LVOT Diameter 2.0 cm LV Ejection Fraction 2D Teich 14.4 % LV Ejection Fraction MOD 2C 40.4 % LV Ejection Fraction 2C AL 38.9 % LA Diameter 3.5 cm Aorta at Sinotubular Diameter 2.9 cm M-MODE Aortic Annulus Diameter 3.9 cm LA Ao Ratio MM 0.9 MV E Point Septal Separation 3.7 cm FINDINGS Left Ventricle Right Ventricle Right Atrium Left Atrium Mitral Valve Aortic Valve Tricuspid Valve Pulmonic Valve Pericardium Aorta IVC CONCLUSIONS There is a limited echocardiogram performed to assess LV systolic function. LV systolic function is moderately reduced with EF of 35 to 40%. Moderate global hypokinesis seen. Compared to prior echocardiogram with normal 03/04/2022, LV systolic function has improved. Niraj Bowman MD (Electronically Signed) Final Date: 23 Oct 2022 14:23 S
[2022-10-13] MEDS: perflutren protein-a microsphr 0.22 mg/mL SDV 3 mL IV (06:48)
== END 2022-10-13 06:03 | disposition home or self-care (01) ==
LOC: RAD 06:04
PROVIDERS: PCP Physician Assistant; Visit Provider Internal Medicine
DX: I42.8 Other cardiomyopathies (principal); I42.9 Cardiomyopathy, unspecified; I50.9 Heart failure, unspecified
CPT/HCPCS: 99214; C8924; Q9956

== ENCOUNTER 2023-02-05 17:46 | Emergency (ER) | payer MEDICARE, MEDICAID, SELFPAY ==
[2023-02-05 18:06] VITALS: BP 138/87; PULSE 81; RESP 16; TEMP 36.8; O2SAT 96; BMI 33.3
--- NOTE | 2023-02-05 18:15 | ECG_ITS ---
[facility] Test Date: 2023-02-05 Pat Name: Alberta Valdez Department: Room: Gender: Female Tower Hand: MATT: 1965 Requested By: Mc Briones Order Number: [id number] Hussein MD: Niraj Bowman M.D. Measurements Intervals [place] Rate: 72 P: 21 NC: 156 QRS: 74 QRSD: 170 T: -53 QT: 428 QTc: 469 Interpretive Statements SINUS RHYTHM INTRAVENTRICULAR CONDUCTION DELAY [130+ ms QRS DURATION] Compared to ECG 03/04/2022 09:10:16 No significant changes Electronically Signed On 02-05-2023 22:43:13 CDT by Niraj Bowman M.D. [id number]
--- NOTE | 2023-02-05 18:21 | XRR_ITS ---
PROCEDURE INFORMATION: Exam: XR Chest Exam date and time: 02/05/2023 6:41 PM Age: 57 years old Clinical indication: Cough and shortness of breath and wheezing; Additional info: Dyspnea TECHNIQUE: Imaging protocol: Radiologic exam of the chest. Views: 1 view. COMPARISON: CR XR chest 1V portable [id number] 03/04/2022 2:34 AM FINDINGS: Lungs: Unremarkable. No consolidation. Pleural spaces: Unremarkable. No pleural effusion. No pneumothorax. Heart/Mediastinum: Unremarkable. No cardiomegaly. Bones/joints: Unremarkable. XR/XR chest 1V portable [id number] IMPRESSION: No acute findings.
[2023-02-05 18:46] LABS: Basophils % 0.3 %; Eosinophils # 0.2 10^3/uL (0.0-0.8); Eosinophils % 2.5 %; Hematocrit 37.4 % (37.0-47.0); Hemoglobin 11.9 g/dL (11.5-15.3); Lymphocytes # 2.1 10^3/uL (0.8-4.8); Lymphocytes % 22.6 %; Mean Corpuscular HGB Conc 31.8 g/dL (30.0-36.0); Mean Corpuscular Hemoglobin 27.7 pg (28.0-34.0); Mean Platelet Volume 9.9 fL (7.4-10.4); Monocytes # 0.6 10^3/uL (0.2-0.9); Monocytes % 5.9 %; Neutrophils # 6.45 10^3/uL (1.8-7.7); Nucleated Red Blood Cells % 0 %; Platelet Count 229 10^3/cmm (130-400); Red Cell Distribution Width 15.3 % (12.1-15.1); White Blood Count 9.5 10^3/uL (4.0-10.0)
[2023-02-05 19:04] LABS: Alanine Aminotransferase 19 U/L (0-33); Albumin Level 3.7 g/dL (3.5-5.2); Alkaline Phosphatase 100 U/L (35-105); Aspartate Amino Transferase 14 U/L (0-32); Blood Urea Nitrogen 10 mg/dL (6-20); Calcium 8.5 mg/dL (8.5-10.5); Carbon Dioxide 27 mmol/L (22-29); Chloride 104 mmol/L (98-107); Creatinine Clr Calc Pharmacy 99.8569; Globulin 2.8 g/dL (1.3-4.6); Glomerular Filtration Rate 86.6 mL/min (90-130); Glucose 127 mg/dL (65-115); Magnesium 2.2 mg/dL (1.7-2.3); Osmolality Calculated 289 mOsm/kg (285-295); Sodium 139 mmol/L (136-145); Total Bilirubin 0.2 mg/dL (0.15-1.2); Total Protein 6.5 g/dL (6.6-8.7)
[2023-02-05 19:06] LABS: Lactic Sepsis W/Reflex 1.7 mmol/L (0.5-2.2)
[2023-02-05] MEDS: FUROsemide 10 mg/mL SDV 10mL 80 MG IVP (19:29)
[2023-02-05 19:30] VITALS: BP 124/80; PULSE 78
[2023-02-05] MEDS: nitroglycerin 1 gm/inch oint Pkt 1 INCH TOPICAL (19:30)
[2023-02-05 19:37] LABS: NT Pro B Type Natriuretic Pept 1052 pg/mL (0-125)
--- NOTE | 2023-02-05 20:20 | ED_ITS ---
HPI - SOB/Dyspnea General: Chief Complaint: Shortness of Breath/Dyspnea Stated Complaint: sob, swelling bilatetal ankle and hands Time Seen by Provider: 02/05/23 18:21 History of Present Illness: HPI Narrative: 57-year-old female with a history of nonischemic cardiomyopathy. She presents with increasing shortness of breath, water weight gain, and lower extremity swelling. She has a mild nonproductive cough. No fever. She feels wheezy at times. No significant chest pain. Associated symptoms: Reports nausea; Deny abdominal pain, chest pain, fever(s), palpitations or vomiting Review of Systems Const: Denies: fever(s) Eyes: Denies: change in vision ENMT: Denies: throat pain Card: Denies: chest pain or palpitations Resp: Reports: dyspnea and non-productive cough GI: Reports: nausea; Denies: abdominal pain or vomiting Skin/Breast: Denies: rash Neuro: Reports: headache(s) PFSH ED PFSH: Medical History Atherosclerosis of coronary artery Avascular necrosis of femur Cardiomyopathy Chronic back pain Diarrhea NSTEMI (non-ST elevated myocardial infarction) Psychiatric care Radiculopathy, site unspecified Surgical History History of hysterectomy Family History Other CAD (coronary artery disease) Diabetes Social History Smoking and tobacco status: former smoker Quit status (tobacco): has quit using tobacco Year quit tobacco: 1993 Second hand smoke exposure: No Smoking risk assessment/counseling performed?: No Alcohol intake: former Year of sobriety/quit date alcohol: 2001 Desire information about alcohol rehabilitation?: No Counseling given: No Substance/Drug Use: current Substance/Drug use frequency: daily Desire information about substance/drug rehabilitation?: No Counseling given: No Physical Exam Const: COMMON NORMALS: no acute distress GENERAL APPEARANCE: cooperative; not ill appearing and not frail appearing HENMT: COMMON NORMALS: normocephalic, atraumatic and Normal external nose present HEAD & SCALP: normocephalic and atraumatic FACE & SINUS: normal facial exam and face symmetric NOSE: Normal external nose present Eye: COMMON NORMALS: Equal, round and reactive pupils present and EOMs intact bilaterally PUPIL: Yes Equal, round and reactive pupils present Neck/C-Spine: GENERAL: Yes trachea midline Chest: CHEST: Yes Symmetrical chest wall rise Resp: COMMON NORMALS: normal respiratory effort, No retractions, No use of accessory muscles and clear to auscultation bilaterally AUSCULTATION: clear to auscultation bilaterally Cardio: COMMON NORMALS: regular rate and regular rhythm RATE: regular rate RHYTHM: regular rhythm GI: COMMON NORMALS: Normal to inspection, nondistended, normoactive bowel sounds present Extremity: GENERAL: Yes edema (1-2+) Neuro: OLI COMA SCALE: document GCS findings [place] coma scale eye opening: Spontaneous [place] coma scale verbal response: Orientated [place] coma scale motor response: Obey commands [place] coma scale total score: 15 SENSORY EXAM: Yes extremities (intact) Psych: COMMON NORMALS: speech normal SPEECH: Yes normal speech Skin: COMMON NORMALS: no rashes or lesions noted GENERAL SKIN EXAM: no rashes or lesions noted Course Vital Signs: Vital signs: Vital Signs Temperature 98.2 F 02/05/23 18:06 Pulse Rate 86 02/05/23 21:53 Respiratory Rate 18 02/05/23 21:53 Blood Pressure 146/75 02/05/23 21:53 Pulse Oximetry 96 02/05/23 21:53 Oxygen Delivery Me thod Room Air 02/05/23 18:06 MDM - SOB/Dyspnea Medical Decision Making The patient was given 80 mg of Lasix IV. She is urinated several times. Chest x-ray is nonacute. She is breathing room air, saturations are 96%. CBC is normal. BMP is not remarkable. Urinalysis is negative. BNP is elevated, but significantly lower than in prior episodes. She will double her diuretic dosage for the next 3 days. She will be placed on isosorbide for afterload reduction. Close outpatient follow-up. Return for any worsening symptoms. Lab Data 02/05/23 18:36 02/05/23 18:36 Labs/Radiology: Radiology Impressions Chest X-Ray 02/05/23 18:21 IMPRESSION: No acute findings. Laboratory Results WBC 9.5 10^3/uL (4.0-10.0) 02/05/23 18:36 RBC 4.30 10^6/uL (4.1-5.3) 02/05/23 18:36 Hgb 11.9 g/dL (11.5-15.3) 02/05/23 18:36 Hct 37.4 % (37.0-47.0) 02/05/23 18:36 MCV 87.0 fl (81-99) 02/05/23 18:36 MCH 27.7 pg (28.0-34.0) L 02/05/23 18:36 MCHC 31.8 g/dL (30.0-36.0) 02/05/23 18:36 RDW 15.3 % (12.1-15.1) H 02/05/23 18:36 Plt Count 229 10^3/cmm (130-400) 02/05/23 18:36 MPV 9.9 fL (7.4-10.4) 02/05/23 18:36 Neut % (Auto) 68.0 % 02/05/23 18:36 Lymph % (Auto) 22.6 % 02/05/23 18:36 [place] % (Auto) 5.9 % 02/05/23 18:36 Eos % (Auto) 2.5 % 02/05/23 18:36 Baso % (Auto) 0.3 % 02/05/23 18:36 Neut # (Auto) 6.45 10^3/uL (1.8-7.7) 02/05/23 18:36 Lymph # (Auto) 2.1 10^3/uL (0.8-4.8) 02/05/23 18:36 [place] # (Auto) 0.6 10^3/uL (0.2-0.9) 02/05/23 18:36 Eos # (Auto) 0.2 10^3/uL (0.0-0.8) 02/05/23 18:36 Baso # (Auto) 0.0 10^3/uL (0.0-0.1) 02/05/23 18:36 Nucleated RBC % (auto) 0 % 02/05/23 18:36 Nucleated RBCs # 0.0 /100WBC 02/05/23 18:36 Sodium 139 mmol/L (136-145) 02/05/23 18:36 Potassium 4.0 mmol/L (3.5-5.1) 02/05/23 18:36 Chloride 104 mmol/L (98-107) 02/05/23 18:36 Carbon Dioxide 27 mmol/L (22-29) 02/05/23 18:36 Anion Gap 12.0 (5-19) 02/05/23 18:36 BUN 10 mg/dL (6-20) 02/05/23 18:36 Creatinine 0.7 mg/dL (0.5-0.9) 02/05/23 18:36 GFR Calculation 86.6 mL/min (90-130) L 02/05/23 18:36 Glucose 127 mg/dL (65-115) H 02/05/23 18:36 Calculated Osmolality 289 mOsm/kg (285-295) 02/05/23 18:36 Lactic Acid 1.7 mmol/L (0.5-2.2) 02/05/23 18:36 Calcium 8.5 mg/dL (8.5-10.5) 02/05/23 18:36 Magnesium 2.2 mg/dL (1.7-2.3) 02/05/23 18:36 Total Bilirubin 0.2 mg/dL (0.15-1.2) 02/05/23 18:36 AST 14 U/L (0-32) 02/05/23 18:36 ALT 19 U/L (0-33) 02/05/23 18:36 Alkaline Phosphatase 100 U/L (35-105) 02/05/23 18:36 NT-Pro-B Natriuret Pep 1052 pg/mL (0-125) H 02/05/23 18:36 Total Protein 6.5 g/dL (6.6-8.7) L 02/05/23 18:36 Albumin 3.7 g/dL (3.5-5.2) 02/05/23 18:36 Globulin 2.8 g/dL (1.3-4.6) 02/05/23 18:36 Urine Color Colorless (Yellow) 02/05/23 19:43 Urine Appearance Clear (CLEAR) 02/05/23 19:43 Urine pH 6 (5-7) 02/05/23 19:43 Ur Specific [place] 1.015 (1.005-1.030) 02/05/23 19:43 Urine Protein Neg (Negative) 02/05/23 19:43 Urine Glucose (UA) Norm (Normal) 02/05/23 19:43 Urine Ketones Negative (Negative) 02/05/23 19:43 Urine Blood Neg (Negative) 02/05/23 19:43 Urine Nitrate Negative (Negative) 02/05/23 19:43 Urine Bilirubin Neg (Negative) 02/05/23 19:43 Urine Urobilinogen Norm mg/dL (Negative) 02/05/23 19:43 Ur Leukocyte Esterase Negative (Negative) 02/05/23 19:43 Discharge Plan Discharge Patient Disposition: Home Clinical Impression: Congestive heart failure Condition: Stable Prescriptions: New isosorbide mononitrate 30 mg tablet extended release 24 hr 30 mg PO DAILY Qty: 30 0RF No Action atorvastatin 40 mg tablet 40 mg PO BEDTIME Qty: 90 3RF furosemide 40 mg tablet 40 mg PO DAILY Qty: 90 3RF losartan 25 mg tablet 25 mg PO DAILY Qty: 90 3RF metoprolol tartrate 25 mg tablet 12.5 mg PO BID@0900,2100 Qty: 90 3RF potassium chloride [Klor-Con M20] 20 mEq tablet,ER particles/crystals 20 meq PO QAM Qty: 90 3RF aspirin 325 mg tablet,delayed release (DR/EC) 325 mg PO DAILY@10 Hold Instructions: Resume on 06/10/22. albuterol sulfate 90 mcg/actuation HFA aerosol inhaler 1 puff inhalation Q6H PRN (Reason: shortness of breath or wheezing) Discharge Orders: Discharge ED (Routine); Ordered 02/05/23 Ordered By: Bruno Oreilly Referrals: [facility] [Primary Care Provider] - 1-3 days Patient Instructions: Heart Failure (ED) Activity Restrictions/Additional Instructions: Increase your Lasix dosage to 80 mg daily (2 pills) for the next 3 days, then back to your normal dosage. Other medication as prescribed. Return for worsening chest discomfort or shortness of breath despite treatment, any other concerning symptoms. Coding Level of Care Code ED Travel Money Advisor for Alexandre Webb
[2023-02-05 21:05] LABS: Add Urine Microscopic? NO; Charge for UA Resulting for Rev
[2023-02-05 21:10] LABS: Bilirubin Urine Neg (Negative); Blood Urine Neg (Negative); Glucose Urine UA Norm (Normal); Ketones Urine Negative (Negative); Leukocyte Esterase Urine Negative (Negative); Nitrate Urine Negative (Negative); Protein Urine Neg (Negative); Specific Gravity, Urine 1.015 (1.005-1.030); Urine Appearance Clear (CLEAR); Urine Color Colorless (Yellow); Urobilinogen Urine Norm (Negative); pH Urine 6 (5-7)
--- NOTE | 2023-02-05 21:26 | PC.NURSE ---
ASSUMED CARE OF PATIENT AT 2124 FROM KRISTY ABDULLAHI.
[2023-02-05 21:53] VITALS: BP 146/75; PULSE 86; RESP 18; O2SAT 96
== END 2023-02-05 21:59 | disposition home or self-care (01) ==
PROVIDERS: Emergency Medicine; Emergency Provider Emergency Medicine; PCP Physician Assistant
DX: I50.9 Heart failure, unspecified (principal); I25.10 Atherosclerotic heart disease of native coronary artery without angina pectoris; I25.2 Old myocardial infarction
CPT/HCPCS: 71045; 80053; 81003; 83605; 83735; 83880; 85025; 87040; 93005; 96374; 99285; J1940

== ENCOUNTER 2023-02-24 11:25 | Outpatient (CLI) | payer MEDICARE, MEDICAID, SELFPAY ==
--- NOTE | 2023-02-24 11:37 | MR_ITS ---
WS: [id number] MRI RIGHT WRIST WITHOUT CONTRAST. COMPARISON: RIGHT wrist radiograph 10/02/2022. Multiplanar, multisequence imaging is performed with out contrast. Large amount of T2 signal surrounding the wrist. Increased T2 signal consistent with edema. Widening of the scapholunate distance to 8 mm. Consistent with scapholunate ligament tear. There is i ncreased fluid within the distal radial ulnar joint which is seen with triquetral tear. There is incr eased signal in the ulnar attachment of the TFCC. Marked narrowing of the radial ulnar articulation w ith the carpal rows. There is bone upon bone. Mild proximal displacement of the capitate through the scapholunate interval widening. Increased T2 signal and soft tissue thickening adjacent to the scaphoid. There is a 5 mm cystic area which is probably a ganglion distal to the radial styloid. Edema throughout the scaphoid with loss of the normal cortical surface distally. There is increased T2 signal adjacent to the extensor pollicis brevis tendon and the abductor pollicis longus tendon along the lateral wrist but the tendons themse lves appear to be intact. Marrow edema in the distal radius extending greatest into the ulnar styloid . Loss of the normal articular surface of the distal radius with loss of cartilage. IMPRESSION: 1. Multiple abnormalities associated with the RIGHT wrist. 2. Widening of the scapholunate distance to 8 mm. Torn scapholunate ligament. 3. Fluid in the distal radial ulnar joint which is often seen with TFCC tear. Increased T2 signal in the ulnar portion of the TFCC, most suspicious for tear. 4. Moderate narrowing of the radiocarpal and ulnocarpal joints with near bone upon bone and marrow ed ace. Loss of the normal cartilage along the articular surface of the radius. 5. Increased marrow edema signal throughout the scaphoid with an adjacent cyst which is probably a ga nglion. Evaluation for possible osteonecrosis of the scaphoid should be considered. There is a large amount of edema adjacent to the scaphoid also. 6. Tenosynovitis along the lateral wrist but no tendon tear. 7. Slight proximal migration of the capitate. Patient should be evaluated for instability of the carp al bones.
== END 2023-02-24 11:26 | disposition home or self-care (01) ==
PROVIDERS: PCP Physician Assistant; Visit Provider Physician Assistant
DX: S63.8X1A Sprain of other part of right wrist and hand, initial encounter (principal); X58.XXXA Exposure to other specified factors, initial encounter; M65.9 Synovitis and tenosynovitis, unspecified
CPT/HCPCS: 73221

== ENCOUNTER → 2023-03-01 15:22 | Outpatient (BNVA) | payer MEDICARE, MEDICAID, SELFPAY | PROVIDERS: PCP Physician Assistant; Visit Provider Nurse Practitioner Family | DX: L81.4 Other melanin hyperpigmentation (principal); D22.5 Melanocytic nevi of trunk; L85.3 Xerosis cutis; L57.8 Other skin changes due to chronic exposure to nonionizing radiation; L57.0 Actinic keratosis; L82.1 Other seborrheic keratosis; Z80.8 Family history of malignant neoplasm of other organs or systems; Z85.828 Personal history of other malignant neoplasm of skin; Z87.891 Personal history of nicotine dependence | CPT/HCPCS: 17000; 99203 ==

== ENCOUNTER → 2023-03-15 09:50 | Outpatient (BNVA) | payer MEDICARE, MEDICAID, SELFPAY | PROVIDERS: PCP Physician Assistant; Visit Provider Nurse Practitioner Family | DX: I50.9 Heart failure, unspecified (principal); Z87.891 Personal history of nicotine dependence | CPT/HCPCS: 99214 ==

== ENCOUNTER 2023-04-07 03:11 | Emergency (ER) | payer MEDICARE, MEDICAID, SELFPAY ==
[2023-04-07 03:12] VITALS: BP 144/80; PULSE 87; RESP 24; TEMP 36.8; O2SAT 95
--- NOTE | 2023-04-07 03:15 | XRR_ITS ---
PROCEDURE INFORMATION: Exam: XR Chest Exam date and time: 04/07/2023 3:19 AM Age: 57 years old Clinical indication: Shortness of breath; Additional info: SOB TECHNIQUE: Imaging protocol: Radiologic exam of the chest. Views: 1 view. COMPARISON: CR XR chest 1V portable [id number] 02/05/2023 6:41 PM FINDINGS: Lungs: Unremarkable. No consolidation. Pleural spaces: Unremarkable. No pleural effusion. No pneumothorax. Heart/Mediastinum: Mild cardiomegaly. Bones/joints: Unremarkable. XR/XR chest 1V portable [id number] IMPRESSION: 1. No acute findings. 2. Mild cardiomegaly.
--- NOTE | 2023-04-07 03:15 | ECG_ITS ---
[facility] Test Date: 2023-04-07 Pat Name: Alberta Valdez Department: Room: Gender: Female Intelligent Systems Engineer: MATT: 1965 Requested By: Maria E Murray Order Number: [id number] Hussein MD: Marvin Newby M.D. Measurements Intervals [place] Rate: 61 P: 21 WI: 157 QRS: 35 QRSD: 184 T: 49 QT: 447 QTc: 450 Interpretive Statements SINUS RHYTHM WITH SINUS ARRHYTHMIA INTRAVENTRICULAR CONDUCTION DELAY [130+ ms QRS DURATION] Compared to ECG 02/05/2023 18:15:04 No significant changes Electronically Signed On 04-07-2023 19:35:27 CDT by Marvin Newby M.D. [id number]
--- NOTE | 2023-04-07 03:16 | ED_ITS ---
HPI - Chest Pain General: Chief Complaint: Shortness of Breath/Dyspnea Stated Complaint: respiratory distress Time Seen by Provider: 04/07/23 03:15 Source: patient and EMS Mode of arrival: EMS Limitations: no limitations History of Present Illness: 57-year-old female has a history of CHF states that tonight started having increasing shortness of breath along with chest pain EMS arrived states she was in respiratory distress placed on oxygen gave an albuterol treatment along with nitro aspirin and 80 of Lasix states she is feeling improved but still feels short of breath no cough no fever Associated symptoms: Reports dyspnea; Deny abdominal pain, fever(s), nausea or vomiting Review of Systems Const: Denies: fever(s), chills, body aches or change in appetite Eyes: Denies: blurry vision or eye discomfort ENMT: Denies: throat pain or dental pain Card: Reports: chest pain Resp: Reports: dyspnea GI: Denies: abdominal pain, nausea, vomiting or diarrhea : Denies: dysuria Musc: Denies: neck pain or back pain Skin/Breast: Denies: rash Neuro: Denies: headache(s) PFSH ED PFSH: Medical History Atherosclerosis of coronary artery Avascular necrosis of femur Cardiomyopathy Chronic back pain Diarrhea NSTEMI (non-ST elevated myocardial infarction) Radiculopathy, site unspecified Surgical History History of hysterectomy Family History Other CAD (coronary artery disease) Diabetes Social History Smoking and tobacco/nicotine status: former use of tobacco/nicotine Quit status (tobacco/nicotine): has quit using Year quit tobacco: 1993 Second hand smoke exposure: No Alcohol intake: former Year of sobriety/quit date alcohol: 2001 Substance/Drug Use: current Substance/Drug use frequency: daily Physical Exam Const: COMMON NORMALS: patient oriented x3 HENMT: COMMON NORMALS: normocephalic and atraumatic HEAD & SCALP: normocephalic and atraumatic Eye: COMMON NORMALS: Equal, round and reactive pupils present and EOMs intact bilaterally PUPIL: Yes Equal, round and reactive pupils present Neck/C-Spine: COMMON NORMALS: full ROM and supple Chest: COMMONS NORMALS: normal inspection of the chest and normal palpation of entire chest wall Resp: COMMON NORMALS: normal respiratory effort, No retractions, No use of accessory muscles and clear to auscultation bilaterally AUSCULTATION: clear to auscultation bilaterally Cardio: COMMON NORMALS: regular rate, regular rhythm and No murmurs present (Cardio) RATE: regular rate RHYTHM: regular rhythm GI: COMMON NORMALS: Normal to inspection, nondistended, normoactive bowel sounds present, Soft to palpation, non-tender and no masses PALPATION: Yes Soft to palpation Extremity: COMMON NORMALS: normal to inspection and full ROM Neuro: COMMON NORMALS: patient oriented x3, moves all extremities and no focal motor deficits Psych: COMMON NORMALS: mental status grossly normal, Normal thought process present and cooperative THOUGHT PROCESS: Normal thought process present Skin: COMMON NORMALS: no rashes or lesions noted and no wounds GENERAL SKIN EXAM: no rashes or lesions noted Course Vital Signs: Vital signs: Vital Signs Temperature 98.3 F 04/07/23 03:12 Pulse Rate 73 04/07/23 05:01 Respiratory Rate 16 04/07/23 05:01 Blood Pressure 142/71 04/07/23 05:01 Pulse Oximetry 94 04/07/23 05:01 Oxygen Delivery Me thod Room Air 04/07/23 03:12 MDM - Chest Pain Medical Decision Making Patient presents here with dyspnea likely her CHF she did have some anxiety when she arrived as well she is much improved currently she is 95% here on room air no signs of pulmonary edema CTA is normal she is stable for discharge she is follow-up with PCP and return if worsening. Medical Records I reviewed the patient's medical records. Lab Data I reviewed the patient's lab results. 04/07/23 03:27 04/07/23 03:27 Radiology Impressions Chest X-Ray 04/07/23 03:15 IMPRESSION: 1. No acute findings. 2. Mild cardiomegaly. Chest CTA 04/07/23 03:57 IMPRESSION: 1. No PE. No focal pneumonia or evidence of CHF. 2. Large heart and a few other chronic findings above. Laboratory Results WBC 10.92 10^3/uL (3.29-11.43) 04/07/23 03:27 RBC 3.61 10^6/uL (3.85-5.65) L 04/07/23 03:27 Hgb 9.80 g/dL (11.27-16.99) L 04/07/23 03:27 Hct 32.1 % (36-47) L 04/07/23 03:27 MCV 88.9 fl (85-98) 04/07/23 03:27 MCH 27.1 pg (27-33) 04/07/23 03:27 MCHC 30.5 g/dL (30-55) 04/07/23 03:27 RDW 17.8 % (12.1-15.1) H 04/07/23 03:27 Plt Count 360 10^3/cmm (157-399) 04/07/23 03:27 MPV 9.0 fL (7.4-10.4) 04/07/23 03:27 Neut % (Auto) 80.5 % 04/07/23 03:27 Lymph % (Auto) 12.2 % 04/07/23 03:27 [place] % (Auto) 4.9 % 04/07/23 03:27 Eos % (Auto) 1.1 % 04/07/23 03:27 Baso % (Auto) 0.4 % 04/07/23 03:27 Neut # (Auto) 8.79 10^3/uL (1.8-7.7) H 04/07/23 03:27 Lymph # (Auto) 1.3 10^3/uL (0.8-4.8) 04/07/23 03:27 [place] # (Auto) 0.5 10^3/uL (0.2-0.9) 04/07/23 03:27 Eos # (Auto) 0.1 10^3/uL (0.0-0.8) 04/07/23 03:27 Baso # (Auto) 0.0 10^3/uL (0.0-0.1) 04/07/23 03:27 Nucleated RBC % (auto) 0 % 04/07/23 03:27 Nucleated RBCs # 0.0 /100WBC 04/07/23 03:27 D-Dimer 5.08 ug/mLFEU (0-0.59) H 04/07/23 03:27 Sodium 139 mmol/L (136-145) 04/07/23 03:27 Potassium 3.9 mmol/L (3.5-5.1) 04/07/23 03:27 Chloride 99 mmol/L (98-107) 04/07/23 03:27 Carbon Dioxide 29 mmol/L (22-29) 04/07/23 03:27 Anion Gap 14.9 (5-19) 04/07/23 03:27 BUN 9 mg/dL (6-20) 04/07/23 03:27 Creatinine 0.8 mg/dL (0.5-0.9) 04/07/23 03:27 GFR Calculation 74.2 mL/min (90-130) L 04/07/23 03:27 Glucose 146 mg/dL (65-115) H 04/07/23 03:27 Calculated Osmolality 289 mOsm/kg (285-295) 04/07/23 03:27 Calcium 8.9 mg/dL (8.5-10.5) 04/07/23 03:27 Total Bilirubin 0.4 mg/dL (0.15-1.2) 04/07/23 03:27 AST 14 U/L (0-32) 04/07/23 03:27 ALT 11 U/L (0-33) 04/07/23 03:27 Alkaline Phosphatase 104 U/L (35-105) 04/07/23 03:27 Troponin T Baseline 19 ng/L (0-10) H 04/07/23 03:27 Troponin T 120 Minute 21.71 ng/L (0-10) H 04/07/23 04:57 Delta Troponin T 2.71 ABS# (0-10) 04/07/23 04:57 NT-Pro-B Natriuret Pep 1325 pg/mL (0-125) H 04/07/23 03:27 Total Protein 7.0 g/dL (6.6-8.7) 04/07/23 03:27 Albumin 4.2 g/dL (3.5-5.2) 04/07/23 03:27 Globulin 2.8 g/dL (1.3-4.6) 04/07/23 03:27 SARS-CoV-2 Ag (Rapid) negative (Negative) 04/07/23 03:27 All radiology interpretation(s) finalized by discharge Discharge Plan Discharge Patient Disposition: Home Clinical Impression: CHF (congestive heart failure), Dyspnea Condition: Stable Prescriptions: No Action isosorbide mononitrate 30 mg tablet extended release 24 hr 30 mg PO DAILY Qty: 90 3RF metoprolol tartrate 25 mg tablet 12.5 mg PO BID@0900,2100 Qty: 90 3RF potassium chloride [Klor-Con M20] 20 mEq tablet,ER particles/crystals 20 meq PO QAM Qty: 90 3RF furosemide 40 mg tablet 40 mg PO DAILY Qty: 90 3RF atorvastatin 40 mg tablet 40 mg PO BEDTIME Qty: 90 3RF losartan 25 mg tablet 25 mg PO DAILY Qty: 90 3RF aspirin 325 mg tablet,delayed release (DR/EC) 325 mg PO DAILY@10 Hold Instructions: Resume on 06/11/22. albuterol sulfate 90 mcg/actuation HFA aerosol inhaler 1 puff inhalation Q6H PRN (Reason: shortness of breath or wheezing) Discharge Orders: Discharge ED (Routine); Ordered 04/07/23 Ordered By: Maria E Murray Referrals: [facility] [Primary Care Provider] - 1-3 days Discharge Diet: Advance as tolerated Discharge Activity: Resume usual activity Patient Instructions: Heart Failure (ED) Coding Level of Care Code ED Posting Machine Operator for Alexandre Webb
[2023-04-07 03:30] LABS: Basophils % 0.4 %; Eosinophils # 0.1 10^3/uL (0.0-0.8); Eosinophils % 1.1 %; Hematocrit 32.1 % (36-47); Lymphocytes # 1.3 10^3/uL (0.8-4.8); Lymphocytes % 12.2 %; Mean Corpuscular HGB Conc 30.5 g/dL (30-55); Mean Corpuscular Hemoglobin 27.1 pg (27-33); Mean Corpuscular Volume 88.9 fl (85-98); Monocytes # 0.5 10^3/uL (0.2-0.9); Monocytes % 4.9 %; Neutrophils # 8.79 10^3/uL (1.8-7.7); Neutrophils % 80.5 %; Nucleated Red Blood Cells % 0 %; Platelet Count 360 10^3/cmm (157-399); Red Blood Count 3.61 10^6/uL (3.85-5.65); Red Cell Distribution Width 17.8 % (12.1-15.1); White Blood Count 10.92 10^3/uL (3.29-11.43)
--- NOTE | 2023-04-07 03:42 | PC.NURSE ---
pt up to [facility]SC at this time
[2023-04-07 03:46] LABS: SARS Covid-2 Antigen negative (Negative)
[2023-04-07 03:53] LABS: D Dimer 5.08 ug/mLFEU (0-0.59); Troponin(5th) Baseline 19 ng/L (0-10)
--- NOTE | 2023-04-07 03:57 | CTR_ITS ---
PROCEDURE INFORMATION: Exam: CTA Chest With Contrast Exam date and time: 04/07/2023 4:19 AM Age: 57 years old Clinical indication: Shortness of breath; Patient HX: Recent hip surgery 2 weeks ago; Additional info: SOB TECHNIQUE: Imaging protocol: Computed tomographic angiography of the chest with contrast. Exam focused on the arteries. 3D rendering (Not supervised by radiologist): MIP and/or 3D reconstructed images were created by the technologist. Radiation optimization: All CT scans at this facility use at least one of these dose optimization techniques: automated exposure control; mA and/or kV adjustment per patient size (includes targeted exams where dose is matched to clinical indication); or iterative reconstruction. Contrast material: OMNI 350; Contrast volume: 100 ml; Contrast route: INTRAVENOUS (IV); REPORTING DATA: Count of CT and Cardiac NM exams in prior 12 months: This patient has received 0 known CTs and 0 known cardiac nuclear medicine studies in the 12 months prior to the current study. COMPARISON: CT angio chest w abd pel w con 03/04/2022 3:49 AM RADIATION DOSE METRICS: Total DLP (mGy-cm): 550.42 FINDINGS: Pulmonary arteries: No main, lobar, or segmental PE identified. Aorta: Unremarkable. No aortic aneurysm. No aortic dissection. Lungs: Minimal lung base atelectasis or scarring. No consolidation. No dominant lung mass or spiculated nodule. Pleural spaces: No pneumothorax. No pleural effusion noted. Heart: The heart is large. No pericardial effusion. Lymph nodes: No bulky hilar or mediastinal lymphadenopathy noted. Diaphragm: Tiny hiatal hernia. Gallbladder and bile ducts: Absent gallbladder. Bones/joints: Mild spine DJD. Soft tissues: Unremarkable. Other findings: Partially assessed hepatosplenomegaly. CT/CT angio chest PE protcl [id number] IMPRESSION: 1. No PE. No focal pneumonia or evidence of CHF. 2. Large heart and a few other chronic findings above.
[2023-04-07 04:02] VITALS: PULSE 104; RESP 16; O2SAT 95
[2023-04-07 04:05] LABS: Alanine Aminotransferase 11 U/L (0-33); Albumin Level 4.2 g/dL (3.5-5.2); Alkaline Phosphatase 104 U/L (35-105); Anion Gap 14.9 (5-19); Aspartate Amino Transferase 14 U/L (0-32); Blood Urea Nitrogen 9 mg/dL (6-20); Calcium 8.9 mg/dL (8.5-10.5); Carbon Dioxide 29 mmol/L (22-29); Chloride 99 mmol/L (98-107); Globulin 2.8 g/dL (1.3-4.6); Glomerular Filtration Rate 74.2 mL/min (90-130); Glucose 146 mg/dL (65-115); NT Pro B Type Natriuretic Pept 1325 pg/mL (0-125); Osmolality Calculated 289 mOsm/kg (285-295); Potassium 3.9 mmol/L (3.5-5.1); Sodium 139 mmol/L (136-145); Total Bilirubin 0.4 mg/dL (0.15-1.2)
[2023-04-07 04:33] VITALS: BP 148/77; PULSE 78; RESP 16; O2SAT 96
[2023-04-07 05:01] VITALS: BP 142/71; PULSE 73; RESP 16; O2SAT 94
--- NOTE | 2023-04-07 05:15 | ECG_ITS ---
[facility] Test Date: 2023-04-07 Pat Name: Alberta Valdez Department: Room: Gender: Female Disabilities Services Officer: MATT: 1965 Requested By: Maria E Murray Order Number: [id number] Hussein MD: Marvin Newby M.D. Measurements Intervals [place] Rate: 84 P: 62 [place]: 161 QRS: 84 QRSD: 165 T: 58 QT: 408 QTc: 485 Interpretive Statements SINUS RHYTHM WITH OCCASIONAL VENTRICULAR PREMATURE COMPLEXES INTRAVENTRICULAR CONDUCTION DELAY [130+ ms QRS DURATION] Compared to ECG 02/05/2023 18:15:04 Ventricular premature complex(es) now present Electronically Signed On 04-07-2023 19:44:09 CDT by Marvin Newby M.D. [id number] f
[2023-04-07 05:20] LABS: Troponin 5 2HR 21.71 ng/L (0-10)
[2023-04-07 05:21] LABS: Troponin 5 2HR Delta 2.71 ABS# (0-10)
[2023-04-07 05:44] VITALS: BP 142/71; PULSE 73; RESP 16; TEMP 36.8; O2SAT 94
[2023-04-07] MEDS: iohexol 350 mg/mL 500 mL Btl (per mL) IV (08:15)
== END 2023-04-07 05:46 | disposition home or self-care (01) ==
PROVIDERS: Emergency Provider Emergency Medicine; PCP Physician Assistant
DX: I50.9 Heart failure, unspecified (principal); R06.00 Dyspnea, unspecified; Z79.82 Long term (current) use of aspirin; Z11.52 Encounter for screening for COVID-19; Z87.891 Personal history of nicotine dependence; I25.10 Atherosclerotic heart disease of native coronary artery without angina pectoris; I25.2 Old myocardial infarction
CPT/HCPCS: 71045; 71275; 80053; 83880; 84484; 85025; 85378; 87426; 93005; 99285; Q9967

== ENCOUNTER 2023-08-11 11:40 | Emergency (ER) | payer MEDICARE, MEDICAID, SELFPAY ==
[2023-08-11 11:43] VITALS: BP 149/92; PULSE 96; RESP 16; TEMP 36.9; O2SAT 98; BMI 29.4
--- NOTE | 2023-08-11 11:53 | ED_ITS ---
HPI - Anxiety 2 General: Chief Complaint: Anxiety Stated Complaint: MHE Time Seen by Provider: 08/11/23 11:51 Source: patient Mode of arrival: ambulatory History of Present Illness: 57-year-old female presents emergency ro om with complaint of anxiety rapid heart rate generalized unwell feeling some extremely anxious she recently had some friends that had come to see her they left after they left she found herself increasingly anxious having difficult time sleeping she denies any homicidal or suicidal ideation. She is extremely restless and fidgety when seen to have difficult time making eye contact. MD complaint: anxiety Associated symptoms: Deny chest pain, chills or fever(s) Review of Systems 2 Const: Denies: fever(s) or chills Card: Denies: chest pain Resp: Denies: dyspnea GI: Denies: abdominal pain : Denies: dysuria, urinary frequency or urinary urgency Musc: Denies: neck pain or back pain Skin/Breast: Denies: rash PFSH ED 2 PFSH: Medical History Diarrhea Avascular necrosis of femur Radiculopathy, site unspecified Cardiomyopathy Atherosclerosis of coronary artery NSTEMI (non-ST elevated myocardial infarction) Chronic back pain Surgical History History of hysterectomy Family History Other CAD (coronary artery disease) Diabetes Social History Smoking and tobacco/nicotine status: former use of tobacco/nicotine Quit status (tobacco/nicotine): has quit using Year quit tobacco: 1993 Second hand smoke exposure: No Alcohol intake: former Year of sobriety/quit date alcohol: 2001 Substance/Drug Use: current Substance/Drug use frequency: daily Physical Exam 2 Const: COMMON NORMALS: no acute distress GENERAL APPEARANCE: cooperative and comfortable ORIENTATION/CONSCIOUSNESS: Yes awake, Yes oriented to person, Yes oriented to place and Yes oriented to time HENMT: COMMON NORMALS: normocephalic, atraumatic and hearing grossly normal bilaterally HEAD & SCALP: normocephalic and atraumatic Resp: COMMON NORMALS: normal respiratory effort, No retractions, No use of accessory muscles and clear to auscultation bilaterally AUSCULTATION: clear to auscultation bilaterally Cardio: COMMON NORMALS: regular rate, regular rhythm and No murmurs present (Cardio) RATE: regular rate RHYTHM: regular rhythm GI: COMMON NORMALS: Soft to palpation and No hepatosplenomegaly present A USCULTATION: Yes normoactive bowel sounds PALPATION: Yes Soft to palpation, No Tenderness to palpation present (GI), No Guarding due to palpation present (GI) and Yes No hepatosplenomegaly present Extremity: COMMON NORMALS: normal to inspection, capillary refill normal, no clubbing, cyanosis or edema, no calf tenderness and no pedal edema Neuro: SENSORIUM/ORIENTATION: Yes oriented to person, Yes oriented to place and Yes oriented to time Skin: COMMON NORMALS: no rashes or lesions noted GENERAL SKIN EXAM: no rashes or lesions noted Course 2 Vital Signs: Vital signs: Vital Signs Temperature 98.5 F 08/11/23 11:43 Pulse Rate 96 08/11/23 11:43 Respiratory Rate 16 08/11/23 11:43 Blood Pressure 149/92 08/11/23 11:43 Pulse Oximetry 98 08/11/23 11:43 Oxygen Delivery Me thod Room Air 08/11/23 11:43 MDM - Anxiety Medical Decision Making EKG shows normal sinus rhythm no acute ST changes. Cardiac enzymes negative. Patient improved with Ativan. Will discharge patient home started on Wellbutrin 150 mg 1 p.o. twice daily recommend she follow-up with her primary care for further adjustments. Medical Records I reviewed the patient's medical records. Lab Data I reviewed the patient's lab results. 08/11/23 12:14 08/11/23 12:14 Laboratory Results WBC 9.85 10^3/uL (3.29-11.43) 08/11/23 12:14 RBC 5.28 10^6/uL (3.85-5.65) 08/11/23 12:14 Hgb 14.00 g/dL (11.27-16.99) 08/11/23 12:14 Hct 43.4 % (36-47) 08/11/23 12:14 MCV 82.2 fl (85-98) L 08/11/23 12:14 MCH 26.5 pg (27-33) L 08/11/23 12:14 MCHC 32.3 g/dL (30-55) 08/11/23 12:14 RDW 16.3 % (12.1-15.1) H 08/11/23 12:14 Plt Count 250 10^3/cmm (157-399) 08/11/23 12:14 MPV 10.0 fL (7.4-10.4) 08/11/23 12:14 Neut % (Auto) 83.4 % 08/11/23 12:14 Lymph % (Auto) 10.2 % 08/11/23 12:14 [place] % (Auto) 5.6 % 08/11/23 12:14 Eos % (Auto) 0.2 % 08/11/23 12:14 Baso % (Auto) 0.3 % 08/11/23 12:14 Neut # (Auto) 8.22 10^3/uL (1.8-7.7) H 08/11/23 12:14 Lymph # (Auto) 1.0 10^3/uL (0.8-4.8) 08/11/23 12:14 [place] # (Auto) 0.6 10^3/uL (0.2-0.9) 08/11/23 12:14 Eos # (Auto) 0.0 10^3/uL (0.0-0.8) 08/11/23 12:14 Baso # (Auto) 0.0 10^3/uL (0.0-0.1) 08/11/23 12:14 Nucleated RBC % (auto) 0 % 08/11/23 12:14 Nucleated RBCs # 0.0 /100WBC 08/11/23 12:14 Sodium 135 mmol/L (136-145) L 08/11/23 12:14 Potassium 3.1 mmol/L (3.5-5.1) L 08/11/23 12:14 Chloride 98 mmol/L (98-107) 08/11/23 12:14 Carbon Dioxide 23 mmol/L (22-29) 08/11/23 12:14 Anion Gap 17.1 (5-19) 08/11/23 12:14 BUN 9 mg/dL (6-20) 08/11/23 12:14 Creatinine 0.7 mg/dL (0.5-0.9) 08/11/23 12:14 GFR Calculation 86.6 mL/min (90-130) L 08/11/23 12:14 Glucose 128 mg/dL (65-115) H 08/11/23 12:14 Calculated Osmolality 280 mOsm/kg (285-295) L 08/11/23 12:14 Calcium 9.0 mg/dL (8.5-10.5) 08/11/23 12:14 Total Bilirubin 0.9 mg/dL (0.15-1.2) 08/11/23 12:14 AST 16 U/L (0-32) 08/11/23 12:14 ALT 19 U/L (0-33) 08/11/23 12:14 Alkaline Phosphatase 101 U/L (35-105) 08/11/23 12:14 Troponin T Baseline 29 ng/L (0-10) H 08/11/23 12:14 Troponin T 120 Minute 29.84 ng/L (0-10) H 08/11/23 14:05 Delta Troponin T 0.84 ABS# (0-10) 08/11/23 14:05 Total Protein 7.1 g/dL (6.6-8.7) 08/11/23 12:14 Albumin 4.4 g/dL (3.5-5.2) 08/11/23 12:14 Globulin 2.7 g/dL (1.3-4.6) 08/11/23 12:14 Urine Color Yellow (Yellow) 08/11/23 12:38 Urine Appearance Sl hazy (CLEAR) A 08/11/23 12:38 Urine pH 6 (5-7) 08/11/23 12:38 Ur Specific [place] 1.015 (1.005-1.030) 08/11/23 12:38 Urine Protein 1+ (Negative) H 08/11/23 12:38 Urine Glucose (UA) Norm (Normal) 08/11/23 12:38 Urine Ketones 2+ (Negative) H 08/11/23 12:38 Urine Blood Neg (Negative) 08/11/23 12:38 Urine Nitrate Negative (Negative) 08/11/23 12:38 Urine Bilirubin 1+ (Negative) H 08/11/23 12:38 Urine Urobilinogen 4 mg/dL (Negative) H 08/11/23 12:38 Ur Leukocyte Esterase 1+ (Negative) H 08/11/23 12:38 Urine RBC 0-4 /hpf (0-2) H 08/11/23 12:38 Urine WBC 5-10 /hpf (0-5) H 08/11/23 12:38 Ur Squamous Epith Cells 5-10 /hpf (0-5) H 08/11/23 12:38 Ur Transition Epith Cell 0-4 /hpf 08/11/23 12:38 Ur Renal Epithelial Cell 0-4 /hpf 08/11/23 12:38 Amorphous Sediment Not Reportable 08/11/23 12:38 Urine Bacteria Trace /hpf (NONE) 08/11/23 12:38 Urine Mucus 3+ /hpf 08/11/23 12:38 All radiology interpretation(s) finalized by discharge Discharge Plan Discharge Patient Disposition: Home Clinical Impression: Acute anxiety, Atypical chest pain Condition: Stable Prescriptions: New bupropion HCl 150 mg tablet sustained-release 12 hr 150 mg PO BID Qty: 60 0RF No Action metoprolol tartrate 25 mg tablet 12.5 mg PO BID@0900,2100 Qty: 90 3RF potassium chloride [Klor-Con M20] 20 mEq tablet,ER particles/crystals 20 meq PO QAM Qty: 90 3RF atorvastatin 40 mg tablet 40 mg PO BEDTIME Qty: 90 3RF losartan 25 mg tablet 25 mg PO DAILY Qty: 90 3RF furosemide 40 mg tablet 40 mg PO QAM Discharge Orders: Discharge ED (Routine); Ordered 08/11/23 Ordered By: Mc Christensen Referrals: [facility] [Primary Care Provider] - Discharge Diet: Usual diet Discharge Activity: Increase activity as tolerated Patient Instructions: Anxiety (ED), Opioid Safety, Pain Management Activity Restrictions/Additional Instructions: Thank you for choosing [facility] for your healthcare needs today. Please realize this is an emergency room and that we are providing you with a medical screening exam and this may not be complete and all inclusive of all the testing and or work up that you may need to determine your ailment or severity of your illness. It is very important that you follow up as instructed or that you return to the Emergency Department should you have concerns or if your condition changes or worsens in any way. Coding Level of Care Code ED Bar Pilot for Alexandre Webb
--- NOTE | 2023-08-11 12:02 | XR_ITS ---
WS: [id number] EXAM: Chest 1 view. INDICATION: Shortness of breath. Exam date: 08/11/2023. COMPARISON: 04/07/2023. FINDINGS: The cardiomediastinal silhouette is within normal limits. There is no edema or effusion. There is no consolidation. IMPRESSION: No acute lung process is seen.
--- NOTE | 2023-08-11 12:07 | ECG_ITS ---
[facility] Test Date: 2023-08-11 Pat Name: Alberta Valdez Department: Room: Gender: Female Maintenance Fitter: MATT: 1965 Requested By: Mc Briones Order Number: [id number] Hussein MD: Mavrin Newby M.D. Measurements Intervals [place] Rate: 73 P: 27 ME: 162 QRS: 20 QRSD: 180 T: 44 QT: 432 QTc: 479 Interpretive Statements SINUS RHYTHM WITH SINUS ARRHYTHMIA LEFT BUNDLE BRANCH BLOCK [120+ ms QRS DURATION, 80+ ms Q/S IN V1/V2, 85+ ms R IN I/aVL/V5/V6] Compared to ECG 04/07/2023 03:24:03 Left bundle-branch block now present Intraventricular conduction delay no longer present Electronically Signed On 08-12-2023 10:48:35 PRINCIPAL SCIENTIST by Marvin Newby M.D. [email or web address] [email or web address]/store/OM/[id number]
[2023-08-11] MEDS: LORazepam 2 mg Tablet PO (12:17)
[2023-08-11 12:19] LABS: Basophils % 0.3 %; Eosinophils % 0.2 %; Hematocrit 43.4 % (36-47); Lymphocytes % 10.2 %; Mean Corpuscular HGB Conc 32.3 g/dL (30-55); Mean Corpuscular Hemoglobin 26.5 pg (27-33); Mean Corpuscular Volume 82.2 fl (85-98); Monocytes # 0.6 10^3/uL (0.2-0.9); Monocytes % 5.6 %; Neutrophils # 8.22 10^3/uL (1.8-7.7); Neutrophils % 83.4 %; Nucleated Red Blood Cells % 0 %; Platelet Count 250 10^3/cmm (157-399); Red Blood Count 5.28 10^6/uL (3.85-5.65); Red Cell Distribution Width 16.3 % (12.1-15.1); White Blood Count 9.85 10^3/uL (3.29-11.43)
[2023-08-11 12:35] LABS: Troponin(5th) Baseline 29 ng/L (0-10)
[2023-08-11 12:40] LABS: Alanine Aminotransferase 19 U/L (0-33); Albumin Level 4.4 g/dL (3.5-5.2); Alkaline Phosphatase 101 U/L (35-105); Anion Gap 17.1 (5-19); Aspartate Amino Transferase 16 U/L (0-32); Blood Urea Nitrogen 9 mg/dL (6-20); Carbon Dioxide 23 mmol/L (22-29); Chloride 98 mmol/L (98-107); Globulin 2.7 g/dL (1.3-4.6); Glomerular Filtration Rate 86.6 mL/min (90-130); Glucose 128 mg/dL (65-115); Osmolality Calculated 280 mOsm/kg (285-295); Potassium 3.1 mmol/L (3.5-5.1); Sodium 135 mmol/L (136-145); Total Bilirubin 0.9 mg/dL (0.15-1.2); Total Protein 7.1 g/dL (6.6-8.7)
[2023-08-11 12:56] LABS: Bilirubin Urine 1+ (Negative); Blood Urine Neg (Negative); Glucose Urine UA Norm (Normal); Ketones Urine 2+ (Negative); Nitrate Urine Negative (Negative); Protein Urine 1+ (Negative); Specific Gravity, Urine 1.015 (1.005-1.030); Urine Appearance SL Hazy (CLEAR); Urine Color Yellow (Yellow); pH Urine 6 (5-7)
[2023-08-11 12:57] LABS: Add Urine Microscopic? YES; Leukocyte Esterase Urine 1+ (Negative); Urobilinogen Urine 4 mg/dL (Negative)
[2023-08-11 13:04] LABS: Add Urine Culture? No; Bacteria Urine TRACE /hpf; Mucus Urine 3+ /hpf; RBC Urine 0-4 /hpf (0-2); Renal Epithelial Cells Urine 0-4 /hpf; Transitional Epi Cells Urine 0-4 /hpf
--- NOTE | 2023-08-11 14:01 | ECG_ITS ---
[facility] Test Date: 2023-08-11 Pat Name: Alberta Valdez Department: Room: Gender: Female Event Sales Manager: : 1965 Requested By: Mc Briones Order Number: [id number] Hussein MD: Marvin Newby M.D. Measurements Intervals [place] Rate: 88 P: 8 [place]: 150 QRS: -10 QRSD: 178 T: 5 QT: 409 QTc: 495 Interpretive Statements SINUS RHYTHM LEFT BUNDLE BRANCH BLOCK [120+ ms QRS DURATION, 80+ ms Q/S IN V1/V2, 85+ ms R IN I/aVL/V5/V6] Compared to ECG 08/11/2023 12:07:21 Sinus arrhythmia no longer present Electronically Signed On 08-12-2023 20:10:06 MICROMATIC HONE OPERATOR by Marvin Newby M.D. [id number]
[2023-08-11 14:26] LABS: Troponin 5 2HR 29.84 ng/L (0-10); Troponin 5 2HR Delta 0.84 ABS# (0-10)
--- NOTE | 2023-08-11 14:26 | PC.PHAR ---
PT STATES NOT TAKING ISOSORBIDE MONITRATE 30 MG.
== END 2023-08-11 14:57 | disposition home or self-care (01) ==
PROVIDERS: Emergency Provider Family Medicine; PCP Physician Assistant
DX: F41.9 Anxiety disorder, unspecified (principal); R07.89 Other chest pain; I42.9 Cardiomyopathy, unspecified; I25.10 Atherosclerotic heart disease of native coronary artery without angina pectoris; I25.2 Old myocardial infarction; Z87.891 Personal history of nicotine dependence
CPT/HCPCS: 36415; 71045; 80053; 81001; 84484; 85025; 93005; 99285

== ENCOUNTER 2023-12-14 08:39 | Emergency (ER) | payer MEDICARE, MEDICAID, SELFPAY ==
[2023-12-14] VITALS (10 sets, daily range): BP systolic 106–137; BP diastolic 65–93; PULSE 82–99; RESP 16–26; TEMP 36.6; O2SAT 91–99; BMI 31.4
--- NOTE | 2023-12-14 08:43 | XR_ITS ---
WS: [id number] Exam: XR chest 1V portable [id number] Date/Time of Exam: 12/14/2023 8:46 AM Reason For Exam: Shortness of breath Comparison 08/11/2023. The lungs are fully expanded. Prominent septal lines in the lateral lung zones noted. Cardiomediastin al structures are unremarkable. No pleural effusions. Bony structures are intact. XR/XR chest 1V portable [id number] IMPRESSION: 1. Prominent septal lines in the lateral lung zones. This might indicate some d egree of mild vascular congestion. This is a change since the last study. 2. The chest is otherwise unremarkable.
[2023-12-14] MEDS: albuterol 2.5 mg/3 mL Neb INHALATION (08:57)
[2023-12-14] MEDS: ipratropium-albuterol 3 mL Neb INHALATION (08:58)
--- NOTE | 2023-12-14 08:58 | ED_ITS ---
HPI - SOB/Dyspnea 2 General: Chief Complaint: Shortness of Breath/Dyspnea Stated Complaint: Resp Distress Time Seen by Provider: 12/14/23 08:39 History of Present Illness: HPI Narrative: 58-year-old female with history of COPD, coronary artery disease, hypertension and hyperlipidemia who presents to the emergency room with shortness of breath. She says she woke up this morning feeling very short of breath. She has known COPD but does not require oxygen. And route she received breathing treatment and Solu-Medrol. She denies chest pain. No fevers. She has had some cough. No abdominal pain. No nausea or vomiting. Review of Systems 2 Narrative: Constitutional symptoms: Negative except as documented in HPI. Skin symptoms: Negative except as documented in HPI. Eye symptoms: Negative except as documented in HPI. ENMT symptoms: Negative except as documented in HPI. Respiratory symptoms: Negative except as documented in HPI. Cardiovascular symptoms: Negative except as documented in HPI. Gastrointestinal symptoms: Negative except as documented in HPI. Genitourinary symptoms: Negative except as documented in HPI. Musculoskeletal symptoms: Negative except as documented in HPI. Neurologic symptoms: Negative except as documented in HPI. Psychiatric symptoms: Negative except as documented in HPI. Endocrine symptoms: Negative except as documented in HPI. PFSH ED 2 PFSH: Medical History (Updated 12/14/23 @ 11:52 by Ysabel Vo MD) Psychiatric care Diarrhea Avascular necrosis of femur Radiculopathy, site unspecified Cardiomyopathy Atherosclerosis of coronary artery NSTEMI (non-ST elevated myocardial infarction) Chronic back pain Surgical History History of hysterectomy Family History Other CAD (coronary artery disease) Diabetes Social History Smoking and tobacco/nicotine status: former use of tobacco/nicotine Quit status (tobacco/nicotine): has quit using Year quit tobacco: 1993 Second hand smoke exposure: No Alcohol intake: former Year of sobriety/quit date alcohol: 2001 Substance/Drug Use: current Substance/Drug use frequency: daily Physical Exam 2 Narrative: EXAM NARRATIVE: General: Alert, moderate distress. Skin: Warm, dry. Head: Normocephalic, atraumatic. Neck: Supple, trachea midline. Eye: Extraocular movements are intact. Ears, nose, mouth and throat: Oral mucosa moist. Cardiovascular: Regular rate and rhythm, Normal peripheral perfusion. Respiratory: coarse, scattered wheeze, moderate increased wob. tachypnea, prolonged expiratory phase. breath sounds are equal, Symmetrical chest wall expansion. Gastrointestinal: Soft, Nontender, Non distended, Normal bowel sounds. Musculoskeletal: Normal ROM, no deformity. Neurological: Alert and oriented to person, place, time, and situation, No focal neurological deficit observed. Psychiatric: Cooperative, appropriate mood & affect. Course 2 Vital Signs: Vital signs: Vital Signs Temperature 97.8 F 12/14/23 08:42 Pulse Rate 85 12/14/23 12:19 Respiratory Rate 26 H 12/14/23 12:19 Blood Pressure 123/73 12/14/23 12:19 Pulse Oximetry 97 12/14/23 12:19 Oxygen Delivery Me thod Room Air 12/14/23 08:58 MDM - SOB/Dyspnea Medical Decision Making Differential diagnosis for patient with shortness of breath includes but is not limited to and based on the above HPI, review of systems and physical exam: Pneumonia. Bronchitis. Asthma or COPD with acute exacerbation. Acute coronary syndrome / AK. Pulmonary embolism. Anxiety. Congestive heart failure. Viral infections including influenza and Covid-19. Atrial fibrillation. Anxiety. Pleural effusion. Pneumothorax. Workup: Lab work, chest X-ray and EKG ordered to evaluate, rule in and rule out above pathologies EKG: Time 8:40 AM. Rate 85. Wide-complex, normal sinus rhythm, No ST-T changes, no ectopy, normal IA & QRS intervals, This was reviewed and interpreted by myself the ER physician at 8:45 AM Chest x-ray: Pulmonary congestion suggestive of early congestive heart failure. No infiltrate. No pneumothorax. This was reviewed and interpreted by myself the ER physician. Lab Review: Laboratory results were reviewed and interpreted by myself the emergency room physician. White count is 12. Hemoglobin is 11. BUN and creatinine are 15 and 0.8. Her proBNP is around 2500 which is [address] for what her previous has been it has been higher but it has been lower. Chest x-ray showed some mild early heart failure some chronic treat her with some diuretic. She also reports improvement with inhalers someone to treat her for COPD exacerbation as well I reviewed the patient's medical record. Reexamination: Wheezing has basically resolved. No increased work of breathing. She is not requiring oxygen any longer. No altered mental status. No focal motor deficits. The patient is excited to go home Assessment and plan: Asthma exacerbation Congestive heart failure with acute exacerbation ?40 mg IV Lasix, IV Solu-Medrol, updrafts. Patient much improved. - Discharged home - Discussed findings and plan with patient. Answered any questions. - All laboratory values were reviewed and interpreted personally by myself, the ER physician - All imaging was reviewed and interpreted personally by myself, the ER physician. - Evaluation and treatment of this problem were appropriate in the emergency setting Lab Data 12/14/23 09:15 12/14/23 09:15 Labs/Radiology: Radiology Impressions Chest X-Ray 12/14/23 08:43 IMPRESSION: 1. Prominent septal lines in the lateral lung zones. This might indicate some degree of mild vascular congestion. This is a change since the last study. 2. The chest is otherwise unremarkable. Laboratory Results WBC 12.08 10^3/uL (3.29-11.43) H 12/14/23 09:15 RBC 4.38 10^6/uL (3.85-5.65) 12/14/23 09:15 Hgb 11.00 g/dL (11.27-16.99) L 12/14/23 09:15 Hct 36.7 % (36-47) 12/14/23 09:15 MCV 83.8 fl (85-98) L 12/14/23 09:15 MCH 25.1 pg (27-33) L 12/14/23 09:15 MCHC 30.0 g/dL (30-55) 12/14/23 09:15 RDW 16.6 % (12.1-15.1) H 12/14/23 09:15 Plt Count 249 10^3/cmm (157-399) 12/14/23 09:15 MPV 10.2 fL (7.4-10.4) 12/14/23 09:15 Neut % (Auto) 86.6 % 12/14/23 09:15 Lymph % (Auto) 8.4 % 12/14/23 09:15 [place] % (Auto) 2.8 % 12/14/23 09:15 Eos % (Auto) 1.3 % 12/14/23 09:15 Baso % (Auto) 0.3 % 12/14/23 09:15 Neut # (Auto) 10.46 10^3/uL (1.8-7.7) H 12/14/23 09:15 Lymph # (Auto) 1.0 10^3/uL (0.8-4.8) 12/14/23 09:15 [place] # (Auto) 0.3 10^3/uL (0.2-0.9) 12/14/23 09:15 Eos # (Auto) 0.2 10^3/uL (0.0-0.8) 12/14/23 09:15 Baso # (Auto) 0.0 10^3/uL (0.0-0.1) 12/14/23 09:15 Nucleated RBC % (auto) 0 % 12/14/23 09:15 Nucleated RBCs # 0.0 /100WBC 12/14/23 09:15 Specimen Type Arterial 12/14/23 08:58 Sample Site Radial, left 12/14/23 08:58 ABG pH 7.40 (7.35-7.45) 12/14/23 08:58 ABG pCO2 44.5 mmHg (35-45) 12/14/23 08:58 ABG pO2 56.3 mmHg (80.0-100.0) L 12/14/23 08:58 ABG PO2/FiO2 Ratio 0 12/14/23 08:58 ABG HCO3 27.4 mmol/L (22-26) H 12/14/23 08:58 ABG O2 Saturation 89.0 12/14/23 08:58 ABG Base Excess 2.1 mmol/L (-2.0-2.0) H 12/14/23 08:58 Joseph Test Pos 12/14/23 08:58 A-a O2 Gradient 5.0 mmHg (5-10) 12/14/23 08:58 Hematocrit 33.4 % (37-47) L 12/14/23 08:58 Hgb O2 Saturation 86.8 % (95-100) L 12/14/23 08:58 Carboxyhemoglobin 2.1 %THgb (0.4-20.1) 12/14/23 08:58 Methemoglobin 0.3 % (0.4-1.5) L 12/14/23 08:58 Total Hemoglobin 10.9 g/dL (12-16) L 12/14/23 08:58 Sodium 143.0 mmol/L (131-143) 12/14/23 08:58 Potassium 3.7 mmol/L (3.5-5.0) 12/14/23 08:58 Glucose 186.0 mg/dL (70-115) H 12/14/23 08:58 Ionized Calcium 1.2 mmol/L (1.1-1.4) 12/14/23 08:58 O2 Delivery Device Room air 12/14/23 08:58 FiO2 21.0 % 12/14/23 08:58 Corporate Real Estate Manager ID Cak 12/14/23 08:58 Sodium 141 mmol/L (136-145) 12/14/23 09:15 Potassium 3.7 mmol/L (3.5-5.1) 12/14/23 09:15 Chloride 102 mmol/L (98-107) 12/14/23 09:15 Carbon Dioxide 26 mmol/L (22-29) 12/14/23 09:15 Anion Gap 16.7 (5-19) 12/14/23 09:15 BUN 15 mg/dL (6-20) 12/14/23 09:15 Creatinine 0.8 mg/dL (0.5-0.9) 12/14/23 09:15 GFR Calculation 73.9 mL/min (90-130) L 12/14/23 09:15 Glucose 188 mg/dL (65-115) H 12/14/23 09:15 Calculated Osmolality 298 mOsm/kg (285-295) H 12/14/23 09:15 Calcium 8.9 mg/dL (8.5-10.5) 12/14/23 09:15 Total Bilirubin 0.4 mg/dL (0.15-1.2) 12/14/23 09:15 AST 16 U/L (0-32) 12/14/23 09:15 ALT 13 U/L (0-33) 12/14/23 09:15 Alkaline Phosphatase 118 U/L (35-105) H 12/14/23 09:15 Troponin T Baseline 24 ng/L (0-10) H 12/14/23 09:15 C-Reactive Protein 9.1 mg/L (0.0-4.9) H 12/14/23 09:15 NT-Pro-B Natriuret Pep 2317 pg/mL (0-125) H 12/14/23 09:15 Total Protein 6.7 g/dL (6.6-8.7) 12/14/23 09:15 Albumin 3.8 g/dL (3.5-5.2) 12/14/23 09:15 Globulin 2.9 g/dL (1.3-4.6) 12/14/23 09:15 All radiology interpretation(s) finalized by discharge Discharge Plan Discharge Patient Disposition: Home Clinical Impression: Asthma with exacerbation Qualifiers: Asthma severity: mild Asthma persistence: intermittent Qualified Code(s): J 45.21 - Mild intermittent asthma with (acute) exacerbation Congestive heart failure Qualifiers: Heart failure type: unspecified Heart failure chronicity: acute on chronic Q ualified Code(s): I50.9 - Heart failure, unspecified Condition: Stable Prescriptions: New dexamethasone 6 mg tablet 6 mg PO DAILY 5 Days Qty: 5 0RF albuterol sulfate 90 mcg/actuation HFA aerosol inhaler 2 inh inhalation Q4H PRN (Reason: shortness of breath or wheezing) Qty: 6.7 0RF Rx Instructions: Please provide patient with a spacer Lasix 40 mg tablet 40 mg PO QAM 5 Days Qty: 5 0RF No Action metoprolol tartrate 25 mg tablet 12.5 mg PO BID@0900,2100 Qty: 90 3RF potassium chloride [Klor-Con M20] 20 mEq tablet,ER particles/crystals 20 meq PO QAM Qty: 90 3RF atorvastatin 40 mg tablet 40 mg PO BEDTIME Qty: 90 3RF losartan 25 mg tablet 25 mg PO DAILY Qty: 90 3RF furosemide 40 mg tablet 40 mg PO QAM Wellbutrin SR 150 mg tablet sustained-release 12 hr 150 mg PO QPM Qty: 60 0RF Discharge Orders: Discharge ED (Routine); Ordered 12/14/23 Ordered By: Ysabel Vo Referrals: [facility] [Primary Care Provider] - 4-7 days Discharge Diet: Usual diet Discharge Activity: Increase activity as tolerated Patient Instructions: How to Use a Metered-Dose Inhaler and a Spacer (ED) Activity Restrictions/Additional Instructions: Thank you for choosing [facility] for your healthcare needs today. Please realize this is an emergency room and that we are providing you with a medical screening exam and this may not be complete and all inclusive of all the testing and or work up that you may need to determine your ailment or severity of your illness. You have been screened and evaluated and felt safe for discharge. Health conditions do change or evolve sometimes and as such it is important that you follow up with your Primary Doctor to be re checked, 3-5 days is a general good time frame for follow up. You are always welcome to return to the ED for re assessment if your symptoms are worsening or you have new concerns Coding Level of Care Code ED Hospital Product Specialist for Alexandre Webb
[2023-12-14 09:11] LABS: ABG PCO2 44.5 mmHg (35-45); Arterial Blood Gas Hematocrit 33.4 % (37-47); Base Excess ABG 2.1 mmol/L (-2.0-2.0); Blood Gas Allen Test Pos; Blood Gas Operator Identificat CAK; Blood Gas Sample Site Radial, left; Blood Gas Sample Type Arterial; Carboxyhemoglobin 2.1 %THgb (0.4-20.1); HCO3 ABG 27.4 mmol/L (22-26); HGB O2 Sat 86.8 % (95-100); Ionized Calcium Level - ABG 1.2 mmol/L (1.1-1.4); Methemoglobin 0.3 % (0.4-1.5); Oxygen Device ROOM AIR; PO2 ABG 56.3 mmHg (80.0-100.0); PO2 FiO2 Ratio Arterial Blood 0; Potassium Level - ABG 3.7 mmol/L (3.5-5.0); Total Hemoglobin 10.9 g/dL (12-16)
[2023-12-14 09:41] LABS: Basophils % 0.3 %; Eosinophils # 0.2 10^3/uL (0.0-0.8); Eosinophils % 1.3 %; Hematocrit 36.7 % (36-47); Lymphocytes % 8.4 %; Mean Corpuscular Hemoglobin 25.1 pg (27-33); Mean Corpuscular Volume 83.8 fl (85-98); Mean Platelet Volume 10.2 fL (7.4-10.4); Monocytes # 0.3 10^3/uL (0.2-0.9); Monocytes % 2.8 %; Neutrophils # 10.46 10^3/uL (1.8-7.7); Neutrophils % 86.6 %; Nucleated Red Blood Cells % 0 %; Platelet Count 249 10^3/cmm (157-399); Red Blood Count 4.38 10^6/uL (3.85-5.65); Red Cell Distribution Width 16.6 % (12.1-15.1); White Blood Count 12.08 10^3/uL (3.29-11.43)
[2023-12-14 10:10] LABS: Alanine Aminotransferase 13 U/L (0-33); Albumin Level 3.8 g/dL (3.5-5.2); Alkaline Phosphatase 118 U/L (35-105); Anion Gap 16.7 (5-19); Aspartate Amino Transferase 16 U/L (0-32); Blood Urea Nitrogen 15 mg/dL (6-20); C Reactive Protein 9.1 mg/L (0.0-4.9); Calcium 8.9 mg/dL (8.5-10.5); Carbon Dioxide 26 mmol/L (22-29); Chloride 102 mmol/L (98-107); Creatinine Clr Calc Pharmacy 69.2164; Globulin 2.9 g/dL (1.3-4.6); Glomerular Filtration Rate 73.9 mL/min (90-130); Glucose 188 mg/dL (65-115); NT Pro B Type Natriuretic Pept 2317 pg/mL (0-125); Osmolality Calculated 298 mOsm/kg (285-295); Potassium 3.7 mmol/L (3.5-5.1); Sodium 141 mmol/L (136-145); Total Bilirubin 0.4 mg/dL (0.15-1.2); Total Protein 6.7 g/dL (6.6-8.7)
[2023-12-14] MEDS: FUROsemide 10 mg/mL SDV 4mL 40 MG IVP (11:55)
--- NOTE | 2023-12-14 11:57 | ECG_ITS ---
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 Measurements Intervals [place] Rate: 85 P: 27 FL: 159 QRS: 37 QRSD: 170 T: 55 QT: 427 QTc: 508 Interpretive Statements SINUS RHYTHM with occasional aberrantly conducted beats POSSIBLE LEFT ATRIAL ENLARGEMENT [-0.1mV P-WAVE IN V1/V2] INDETERMINATE AXIS INTRAVENTRICULAR CONDUCTION DELAY [130+ ms QRS DURATION] Compared to ECG 08/11/2023 13:45:02 Indeterminate axis now present Intraventricular conduction delay now present Left bundle-branch block no longer present Electronically Signed On 12-14-2023 23:46:07 CDT by Marvin Newby M.D. [id number]
[2023-12-14 12:37] LABS: Troponin(5th) Baseline 24 ng/L (0-10)
== END 2023-12-14 12:20 | disposition home or self-care (01) ==
PROVIDERS: Emergency Provider Emergency Medicine; PCP Physician Assistant
DX: J45.21 Mild intermittent asthma with (acute) exacerbation (principal); I50.9 Heart failure, unspecified; I42.9 Cardiomyopathy, unspecified; I25.10 Atherosclerotic heart disease of native coronary artery without angina pectoris; I25.2 Old myocardial infarction; Z87.891 Personal history of nicotine dependence
CPT/HCPCS: 36415; 36600; 71045; 80051; 80053; 82330; 82805; 83880; 84484; 85025; 86140; 87040; 93005; 94640; 96374; 99285; J1940; J7613

== ENCOUNTER 2023-12-26 02:08 | Inpatient (IN) | payer MEDICARE, MEDICAID, SELFPAY ==
[2023-12-26] VITALS (110 sets, daily range): BP systolic 100–154; BP diastolic 58–112; PULSE 68–110; RESP 14–33; TEMP 36.4–36.8; O2SAT 80–100; BMI 31.2; BMI 26.2
--- NOTE | 2023-12-26 02:13 | XRR_ITS ---
PROCEDURE INFORMATION: Exam: XR Chest Exam date and time: 12/26/2023 2:14 AM Age: 58 years old Clinical indication: Shortness of breath; Patient HX: C/O SOB. History of chf. TECHNIQUE: Imaging protocol: Radiologic exam of the chest. Views: 1 view. COMPARISON: CR XR chest 1V portable [id number] 12/14/2023 8:49 AM FINDINGS: Lungs: There linear opacities again seen in the right lower hemithorax and, to a lesser extent, within the left lower hemithorax, findings may represent mild pulmonary edema. Pleural spaces: Unremarkable. No pleural effusion. No pneumothorax. Heart/Mediastinum: The cardiac silhouette is mildly prominent. Bones/joints: Unremarkable. XR/XR chest 1V portable [id number] IMPRESSION: Linear opacities are again seen in the lower annette thoraces bilaterally, findings that could represent mild pulmonary edema.
[2023-12-26] MEDS: ipratropium-albuterol 3 mL Neb INHALATION ×5 (02:20→21:07)
[2023-12-26 02:26] LABS: ABG PCO2 46.3 mmHg (35-45); ABG PH Result 7.38 (7.35-7.45); Arterial Blood Gas Hematocrit 33.9 % (37-47); Base Excess ABG 1.5 mmol/L (-2.0-2.0); Blood Gas Allen Test Pos; Blood Gas Sample Site Radial, right; Blood Gas Sample Type Arterial; Carboxyhemoglobin 1.7 %THgb (0.4-20.1); HCO3 ABG 27.1 mmol/L (22-26); Methemoglobin 0.3 % (0.4-1.5); Oxygen Device NC; Total Hemoglobin 11.1 g/dL (12-16)
[2023-12-26 02:26] LABS: Basophils # 0.1 10^3/uL (0.0-0.1); Basophils % 0.5 %; Eosinophils # 0.2 10^3/uL (0.0-0.8); Eosinophils % 1.9 %; Hematocrit 42.5 % (36-47); Lymphocytes # 2.3 10^3/uL (0.8-4.8); Lymphocytes % 18.2 %; Mean Corpuscular HGB Conc 29.6 g/dL (30-55); Mean Corpuscular Hemoglobin 24.5 pg (27-33); Mean Corpuscular Volume 82.7 fl (85-98); Mean Platelet Volume 10.4 fL (7.4-10.4); Monocytes # 0.5 10^3/uL (0.2-0.9); Monocytes % 4.1 %; Neutrophils # 9.21 10^3/uL (1.8-7.7); Neutrophils % 74.6 %; Nucleated Red Blood Cells % 0 %; Platelet Count 313 10^3/cmm (157-399); Red Blood Count 5.14 10^6/uL (3.85-5.65); Red Cell Distribution Width 17.2 % (12.1-15.1); White Blood Count 12.34 10^3/uL (3.29-11.43)
[2023-12-26 02:46] LABS: Troponin(5th) Baseline 19 ng/L (0-10)
[2023-12-26 02:55] LABS: Anion Gap 13.1 (5-19); Blood Urea Nitrogen 14 mg/dL (6-20); Calcium 8.8 mg/dL (8.5-10.5); Carbon Dioxide 27 mmol/L (22-29); Chloride 102 mmol/L (98-107); Creatinine Clr Calc Pharmacy 91.9926; Glucose 127 mg/dL (65-115); NT Pro B Type Natriuretic Pept 3368 pg/mL (0-125); Osmolality Calculated 288 mOsm/kg (285-295); Potassium 4.1 mmol/L (3.5-5.1); Sodium 138 mmol/L (136-145)
[2023-12-26] MEDS: FUROsemide 10 mg/mL SDV 10mL 60 MG IVP (03:40)
--- NOTE | 2023-12-26 03:56 | W.ED.SOB ---
HPI - SOB/Dyspnea General: Chief Complaint: Shortness of Breath/Dyspnea Stated Complaint: CHF, SOB Time Seen by Provider: 12/26/23 02:12 History of Present Illness: HPI Narrative: 58-year-old female with a history of significant heart failure. She had a prior EF of 25 to 30% noted on echo a couple of years ago. She presents with worsening shortness of breath over several days. She was seen last week for similar symptoms. She has a mild cough, with no sputum production. No fever. No increase in leg swelling. No significant chest pain. She does not use oxygen at home. Associated symptoms: Reports chest pain; Deny fever(s), palpitations or vomiting Review of Systems Const: Denies: fever(s) ENMT: Denies: throat pain Card: Reports: chest pain; Denies: palpitations Resp: Reports: dyspnea and non-productive cough GI: Denies: vomiting Neuro: Reports: confusion and behavioral changes PFSH ED PFSH: Medical History Psychiatric care Diarrhea Avascular necrosis of femur Radiculopathy, site unspecified Cardiomyopathy Atherosclerosis of coronary artery NSTEMI (non-ST elevated myocardial infarction) Chronic back pain Surgical History History of hysterectomy Family History Other CAD (coronary artery disease) Diabetes Social History Smoking and tobacco/nicotine status: former use of tobacco/nicotine Quit status (tobacco/nicotine): has quit using Year quit tobacco: 1993 Second hand smoke exposure: No Alcohol intake: former Year of sobriety/quit date alcohol: 2001 Substance/Drug Use: current Substance/Drug use frequency: daily Physical Exam Const: EXAM LIMITATIONS: altered mental status GENERAL APPEARANCE: cooperative and ill appearing HENMT: COMMON NORMALS: normocephalic, atraumatic and Normal external nose present HEAD & SCALP: normocephalic and atraumatic FACE & SINUS: normal facial exam and face symmetric NOSE: Normal external nose present Eye: COMMON NORMALS: Equal, round and reactive pupils present and EOMs intact bilaterally PUPIL: Yes Equal, round and reactive pupils present Neck/C-Spine: GENERAL: Yes trachea midline Chest: CHEST: Yes Symmetrical chest wall rise Resp: EFFORT & INSPECTION: Yes tachypneic and Yes labored AUSCULTATION: diminished lung sounds Cardio: COMMON NORMALS: regular rate and regular rhythm RATE: regular rate RHYTHM: regular rhythm GI: COMMON NORMALS: Soft to palpation PALPATION: Yes Soft to palpation Extremity: COMMON NORMALS: no pedal edema Neuro: DEBI COMA SCALE: document GCS findings Deib coma scale eye opening: Spontaneous Debi coma scale verbal response: Confused Debi coma scale motor response: Obey commands [place] coma scale total score: 14 Course Vital Signs: Vital signs: Vital Signs Temperature 98.2 F 12/26/23 12:00 Pulse Rate 83 12/26/23 15:27 Respiratory Rate 16 12/26/23 15:20 Blood Pressure 131/84 12/26/23 14:25 Pulse Oximetry 94 12/26/23 15:20 Oxygen Delivery Me thod Room Air 12/26/23 15:20 Oxygen Flow Rate 2 12/26/23 07:42 MDM - SOB/Dyspnea Medical Decision Making 58-year-old female with a history of CHF. She presents with shortness of breath, that is significant. She does not use oxygen at home. She is struggling with increased work of breathing on arrival. Improved after breathing treatment and oxygen here. She was given 60 mg of IV Lasix with some improvement as well. Her mental status seems to be affected, likely by hypoxia. It was noticed that she is on hydrocodone, and was given 2 doses of Narcan with minimal improvement in her mental status. Original pH is 7.38 with a pCO2 of 46. This is being repeated currently. Troponin did not change at 2 hours, but BNP is significantly elevated at 3400. She has pulmonary vascular congestion/edema on chest x-ray. She was treated for heart failure. She will go to the [facility]. Lab Data 12/26/23 10:03 12/26/23 02:00 Labs/Radiology: Radiology Impressions Chest X-Ray 12/26/23 02:13 IMPRESSION: Linear opacities are again seen in the lower annette thoraces bilaterally, findings that could represent mild pulmonary edema. Laboratory Results WBC 12.34 10^3/uL (3.29-11.43) H 12/26/23 02:00 RBC 5.14 10^6/uL (3.85-5.65) 12/26/23 02:00 Hgb 12.60 g/dL (11.27-16.99) 12/26/23 02:00 Hct 42.5 % (36-47) 12/26/23 02:00 MCV 82.7 fl (85-98) L 12/26/23 02:00 MCH 24.5 pg (27-33) L 12/26/23 02:00 MCHC 29.6 g/dL (30-55) L 12/26/23 02:00 RDW 17.2 % (12.1-15.1) H 12/26/23 02:00 Plt Count 313 10^3/cmm (157-399) 12/26/23 02:00 MPV 10.4 fL (7.4-10.4) 12/26/23 02:00 Neut % (Auto) 74.6 % 12/26/23 02:00 Lymph % (Auto) 18.2 % 12/26/23 02:00 [place] % (Auto) 4.1 % 12/26/23 02:00 Eos % (Auto) 1.9 % 12/26/23 02:00 Baso % (Auto) 0.5 % 12/26/23 02:00 Neut # (Auto) 9.21 10^3/uL (1.8-7.7) H 12/26/23 02:00 Lymph # (Auto) 2.3 10^3/uL (0.8-4.8) 12/26/23 02:00 [place] # (Auto) 0.5 10^3/uL (0.2-0.9) 12/26/23 02:00 Eos # (Auto) 0.2 10^3/uL (0.0-0.8) 12/26/23 02:00 Baso # (Auto) 0.1 10^3/uL (0.0-0.1) 12/26/23 02:00 Nucleated RBC % (auto) 0 % 12/26/23 02:00 Nucleated RBCs # 0.0 /100WBC 12/26/23 02:00 Specimen Type Arterial 12/26/23 05:34 Sample Site Brachial, right 12/26/23 05:34 ABG pH 7.42 (7.35-7.45) 12/26/23 05:34 ABG pCO2 46.3 mmHg (35-45) H 12/26/23 05:34 ABG pO2 86.6 mmHg (80.0-100.0) 12/26/23 05:34 ABG HCO3 30.0 mmol/L (22-26) H 12/26/23 05:34 ABG Base Excess 4.7 mmol/L (-2.0-2.0) H 12/26/23 05:34 Joseph Test N/a 12/26/23 05:34 Hematocrit 37.0 % (37-47) 12/26/23 05:34 Hgb O2 Saturation 96.0 % (95-100) 12/26/23 02:15 Carboxyhemoglobin 1.7 %THgb (0.4-20.1) 12/26/23 02:15 Methemoglobin 0.3 % (0.4-1.5) L 12/26/23 02:15 Total Hemoglobin 11.1 g/dL (12-16) L 12/26/23 02:15 O2 Delivery Device Nc 12/26/23 05:34 O2 Liters/Min 2.0 % 12/26/23 05:34 Frame Sample And Pattern Supervisor ID [email or web address] 12/26/23 05:34 Sodium 138 mmol/L (136-145) 12/26/23 02:00 Potassium 4.1 mmol/L (3.5-5.1) 12/26/23 02:00 Chloride 102 mmol/L (98-107) 12/26/23 02:00 Carbon Dioxide 27 mmol/L (22-29) 12/26/23 02:00 Anion Gap 13.1 (5-19) 12/26/23 02:00 BUN 14 mg/dL (6-20) 12/26/23 02:00 Creatinine 0.6 mg/dL (0.5-0.9) 12/26/23 02:00 GFR Calculation 103.0 mL/min (90-130) 12/26/23 02:00 Glucose 127 mg/dL (65-115) H 12/26/23 02:00 Calculated Osmolality 288 mOsm/kg (285-295) 12/26/23 02:00 Calcium 8.8 mg/dL (8.5-10.5) 12/26/23 02:00 Troponin T Baseline 19 ng/L (0-10) H 12/26/23 02:00 Troponin T 120 Minute 19.58 ng/L (0-10) H 12/26/23 04:40 Delta Troponin T 0.58 ABS# (0-10) 12/26/23 04:40 NT-Pro-B Natriuret Pep 3368 pg/mL (0-125) H 12/26/23 02:00 Procalcitonin 0.04 ng/mL (0-0.5) 12/26/23 04:40 All radiology interpretation(s) finalized by discharge Discharge Plan Discharge Patient Disposition: Admitted As Inpatient Admit Provider: Estefania Seals Clinical Impression: Non-ischemic cardiomyopathy, Acute hypoxemic respiratory failure Condition: Serious Coding Level of Care Code ED Catering Sales Manager for Alexandre Webb
[2023-12-26] MEDS: naloxone 0.4 mg/ml SDV 0.2 MG IVP (04:09)
--- NOTE | 2023-12-26 04:13 | ECG_ITS ---
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 Measurements Intervals [place] Rate: 83 P: -23 ID: [id number] QRS: -38 QRSD: 169 T: 74 QT: 417 QTc: 492 Interpretive Statements SINUS RHYTHM WITH SHORT ID INTERVAL WITH OCCASIONAL VENTRICULAR PREMATURE COMPLEXES POSSIBLE LEFT ATRIAL ENLARGEMENT [-0.1mV P-WAVE IN V1/V2] LEFT AXIS DEVIATION [QRS AXIS < -30] LEFT BUNDLE BRANCH BLOCK [120+ ms QRS DURATION, 80+ ms Q/S IN V1/V2, 85+ ms R IN I/aVL/V5/V6] Compared to ECG 12/14/2023 08:38:59 Ventricular premature complex(es) now present Short ID interval now present Left-axis deviation now present Left bundle-branch block now present Indeterminate axis no longer present Intraventricular conduction delay no longer present Electronically Signed On 12-26-2023 19:27:54 CDT by Niraj Bowman M.D. [id number]
[2023-12-26] MEDS: naloxone 0.4 mg/ml SDV IVP (04:28)
[2023-12-26 05:08] LABS: Troponin 5 2HR 19.58 ng/L (0-10); Troponin 5 2HR Delta 0.58 ABS# (0-10)
--- NOTE | 2023-12-26 05:40 | PC.RESP ---
dr. choe said okay to cancel 0213 ekg and 0813 am ekg
[2023-12-26 05:45] LABS: ABG PCO2 46.3 mmHg (35-45); ABG PH Result 7.42 (7.35-7.45); Base Excess ABG 4.7 mmol/L (-2.0-2.0); Blood Gas Sample Site Brachial, right; Blood Gas Sample Type Arterial; Oxygen Device NC; PO2 ABG 86.6 mmHg (80.0-100.0)
--- NOTE | 2023-12-26 06:16 | USCV_ITS ---
Alberta Valdez Age: 58 Gender: F : 1965 Exam Date: 12/26/2023 08:55 Ordering Phys: Estefania Seals MD Technologist: [employer] Exam Location: [facility] [place] Indication: chf BP: 125 / 90 HR: 75 Rhythm: Sinus Technical Quality: Adequate MEASUREMENTS (Male / Female) Normal Values 2D ECHO LV Diastolic Diameter PLAX 7.0 cm 4.2 - 5.9 / 3.9 - 5.3 cm IVS Diastolic Thickness 1.1 cm 0.6 - 1.0 / 0.6 - 0.9 cm IVS Systolic Thickness 0.9 cm LVPW Diastolic Thickness 1.4 cm 0.6 - 1.0 / 0.6 - 0.9 cm LVPW Systolic Thickness 1.8 cm LVOT Diameter 2.0 cm LV Ejection Fraction 2D Teich 24.2 % LV Ejection Fraction MOD 2C 46.3 % LV Ejection Fraction 2C AL 45.6 % LA Diameter 3.5 cm RA Systolic Volume 4C AL 40.1 ml RA Systolic Volume 4C MOD 34.8 ml LA Sys Volume AL 58.6 cm cubed LA Sys Volume Index AL 32.2 cm cubed/m squared Aorta at Sinotubular Diameter 2.3 cm IVC Diameter 1.8 cm M-MODE LA Ao Ratio MM 1.3 AV Cusp Separation MM 2.0 cm DOPPLER AV Peak Velocity 225.3 cm/s LVOT Peak Velocity 88.0 cm/s AV Area Cont Eq vti 1.0 cm squared AV Area Cont Eq pk 1.3 cm squared MV Peak Velocity 126.0 cm/s MV Area PHT 6.9 cm squared Mitral E to A Ratio 1.4 PV Peak Velocity 102.7 cm/s RV Ejection Time 0.2 s FINDINGS Left Ventricle Left venticle is severely dilated. LV systolic function is severely reduced with EF of 20-25%. Severe global hypokinesis. Right Ventricle Normal in size and function Right Atrium Normal in size Left Atrium Normal in size Mitral Valve Structurally normal mitral valve. Moderate mitral regurgitation. Aortic Valve Structurally normal aortic valve. Moderate aortic stenosis with mean gradient of 24 mmHg with mean gradient of 1 cm2. Tricuspid Valve Insufficient TR jet to calculate RVSP Pulmonic Valve Not well visualized Pericardium Normal Aorta Normal in size IVC Appears to be normal CONCLUSIONS LV systolic function is severely reduced with EF of 20-25% Moderate mitral regurgitation Moderate aortic stenosis. Compared to prior echocardiogram from 09/2022, LV systolic function has decreased and aortic stenosis has progressed further. Niraj Bowman MD (Electronically Signed) Final Date: 26 December 2023 18:53 S
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
--- NOTE | 2023-12-26 06:30 | PC.NURSE ---
Arrival to ICU Pt arrived to ICU 4 @0623, continuos cardiac monitoring continued.
[2023-12-26 06:49] LABS: Procalcitonin 0.04 ng/mL (0-0.5)
[2023-12-26 07:06] LABS: Add Urine Microscopic? NO; Charge for UA Resulting for Rev
[2023-12-26 07:10] LABS: ABG PCO2 44.1 mmHg (35-45); ABG PH Result 7.45 (7.35-7.45); Alveolar-Arterial Oxygen Gradi 7.3 mmHg (5-10); Arterial Blood Gas Hematocrit 35.7 % (37-47); Base Excess ABG 5.5 mmol/L (-2.0-2.0); Blood Gas Allen Test Pos; Blood Gas Operator Identificat CAK; Blood Gas Sample Site Radial, left; Blood Gas Sample Type Arterial; Carboxyhemoglobin 1.7 %THgb (0.4-20.1); HCO3 ABG 30.3 mmol/L (22-26); HGB O2 Sat 96.2 % (95-100); Ionized Calcium Level - ABG 1.1 mmol/L (1.1-1.4); Methemoglobin 0.2 % (0.4-1.5); Oxygen Device NC; Oxygen Saturation ABG 98.2; PO2 ABG 88.8 mmHg (80.0-100.0); PO2 FiO2 Ratio Arterial Blood 317; Potassium Level - ABG 3.6 mmol/L (3.5-5.0); Total Hemoglobin 11.6 g/dL (12-16)
[2023-12-26] MEDS: heparin 5,000 unit/mL INJ 1 mL 5000 UNIT SUBCUT ×2 (07:10→18:42)
[2023-12-26] MEDS: FUROsemide 10 mg/mL SDV 4mL 40 MG IVP (07:12)
[2023-12-26 07:13] LABS: Bilirubin Urine Neg (Negative); Blood Urine Neg (Negative); Glucose Urine UA Norm (Normal); Ketones Urine Negative (Negative); Leukocyte Esterase Urine Negative (Negative); Nitrate Urine Negative (Negative); Protein Urine Neg (Negative); Urine Appearance Clear (CLEAR); Urine Color Yellow (Yellow); Urobilinogen Urine Norm (Negative); pH Urine 7 (5-7)
[2023-12-26 07:21] LABS: Amphetamines Screen Urine Positive (Negative); Barbiturates Screen Urine Negative (Negative); Benzodiazepines Screen Urine Negative (Negative); Cocaine Screen Urine Negative (Negative); Opiate Screen Urine Negative (Negative); PCP Screen Urine Negative (Negative); THC Screen Urine Positive (Negative)
[2023-12-26] MEDS: magnesium lactate 84 mg Tablet PO (09:07)
[2023-12-26] MEDS: aspirin 81 mg EC Tablet PO (09:07)
[2023-12-26] MEDS: potassium chloride ER 20 mEq Tablet 40 MEQ PO (09:07)
[2023-12-26] MEDS: cyclobenzaprine 10 mg Tablet PO (09:07)
[2023-12-26 09:40] LABS: Troponin 5 6HR 18.74 ng/L (0-10)
--- OUTSIDE RECORDS SUMMARY | 2023-12-26 09:53 | XMS_ITS | Patient Health Record ---
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 Reactive for anti-HBs and individual is considered immune to HBV infection. Grayzone- James zone for anti-HBs and the immune status of the individual should be further assessed by considering other factors such as clinical status, follow-up testing, associated risk factors,and the use of additional diagnostic information. Nonreactive- <8mlU/ml anti-HBs. Nonreactive for anti-HBs and individual is considered not immune to HBV infection. NR=Nonreactive. Performed on Room n House. Hepatitis B DNA-NAAT PCR [id number] Reviewed date:03/11/2023 11:11:31 AM Interpretation: Performing Lab: Notes/Report: Diagnosis Description: Chronic viral hepatitis C HBV Qnt by PCR(IU/mL) Not Detected HBV Qnt by PCR(LogIU/mL) Not Detected Performed By: [email or web address] [address] [place] [address] [employer] Mate: Skinny Cedeño MD, PhD CLIA Number: [id number] HBV Qnt by PCR Interp Not Detected Not Detected INTERPRETIVE INFORMATION: HBV by Quantitative NAAT Normal range for this assay is Not Detected . The quantitative range of this assay is 1.00-9.00 log IU/mL (10-1,000,000,000 IU/mL). An interpretation of Not Detected does not rule out the presence of inhibitors in the patient specimen or HBV DNA concentration below the level of detection of the test. Care should be taken when interpreting any single viral load determination. This assay should not be used for blood donor screening, associated re-entry protocols, or for screening Human Cell, Tissues and Cellular Tissue-Based Products (HCT/P). WBC Auto Diff--[id number] Reviewed date:02/11/2023 04:21:15 PM Interpretation: Performing Lab: Notes/Report: Added by Discern Rules Neutro Auto% 70.6 42.0-75.0 % Lymph Auto% 18.8 20.0-51.0 % Maries Auto% 6.6 1.7-9.3 % Eos Auto% 2.4 .0-6.0 % Baso Auto% 0.5 0.0-1.0 % NRBC% .00 .00-.20 /100 int act WBC's Neutro Abs 8.00 .80-7.70 Absolute Neutrophil Count 8000 Lymph Abs 2.13 .10-4.10 Maries Abs .75 .20-1.00 Eos Abs .27 .00-.40 Baso Abs .06 .00-.10 NRBC# .00 .00-.20 X10'3 Imm Gran Abs .13 .00-.10 Imm Gran% 1.1 .0-.4 % US Abdomen Limited-[id number] Reviewed date:02/02/2023 02:37:05 PM Interpretation: Performing Lab: Notes/Report: HIV 1/2 Ag/Ab Screen--92224, [id number] Reviewed date:02/11/2023 04:22:12 PM Interpretation: Performing Lab: Notes/Report: HIV 1/2 Ag/Ab Combo Non-Reactive Screenin g test only. Reactive samples will be sent out for confirmation. CBC Reflex Man Diff [id number], 8 1359 Reviewed date:02/11/2023 04:21:58 PM Interpretation: Performing Lab: Notes/Report: WBC 11.3 4.5-11.0 X10'3 RBC 4.46 4.00-5.20 X10'6 Hgb 12.6 12.0-16.0 G/DL Hct 40.4 36.0-46.0 % MCV 90.6 80.0-100.0 FL MCH 28.3 27.0-31.0 PG MCHC 31.2 31.0-37.0 G/DL Platelet 226 150-400 X10'3 RDW-SD 50.5 35.0-49.0 FL RDW-CV 15.2 12.2-15.6 % MPV 10.8 9.2-12.0 FL Review Auto Diff Conf Comprehensive Metabolic Pane l [id number] Reviewed date:02/11/2023 04:21:53 PM Interpretation: Performing Lab: Notes/Report: Glucose Serum 102 71-110 MG/DL Testing perfor med at [facility], [address] [place] [address] [place] [address]. CLIA ID#: [id number] BUN 15 7-21 MG/DL Creat .64 .51-1.17 MG/DL S-eftqag-d-benzoquinone imine (NAPQI) is a metabolite of acetaminophen, NAPQI concentrations of apparoximately 10 mg/L correlation to toxic levels of acetaminophen demonstrates a greater than or equil to 10% change in results. NAPQI concentrations greater than this may lead to falsely depressed results for patient samples. Use of this assay is not recommended for patients undergoing treatment with phenindione, due to the potential for falsely depressed results. GFR 103.3 Calculation per formed from GFR calculator provided by the [employer]. Glomerular Filtration rate(GRF) is the best overall index of kidney function. Normal GFR varies according to age,sex, body size, and declines with age. The National [employer] recommends using the CKD-EPI Creatinine Equation(2009) to estimate GFR. BUN/Creat Ratio 23.4 12.0-20.0 % Total Protein 6.6 5.8-8.0 G/DL Albumin 4.0 3.2-4.8 G/DL Globulin 2.6 2.3-3.5 G/DL Alb/Glob 1.5 0.8-2.2 Calcium 8.8 8.7-10.4 MG/DL Sodium 140 136-145 MMOL/L Potassium 4.1 3.5-5.1 MMOL/L Chloride 106 98-107 MMOL/L CO2 26.7 20.0-31.0 MMOL/L Anion Gap 11 5-15 Alk Phos 93 46-116 Bili Total .4 .3-1.2 MG/DL Use of this ass ay is not recommended for patients undergoing treatment with eltrombopag due to the potential for falsely elevated results. AST/SGOT 20 15-37 UNIT/L ALT/SGPT 22 12-78 UNIT/L Osmo Serum,Calculated 291 280-300 MOSM/[place] [id number] Reviewed date:02/11/2023 04:22:03 PM Interpretation: Performing Lab: Notes/Report: Alpha Feto Prot <2.2 2.2-8.1 ng/mL Performed o n Siemens Atellica Solution IM Reason For Referral Reason CHRONIC HEPATITIS C Diagnosis 1 Chronic hepatitis C without hepatic coma (B18.2) Referring Provider First Name [place] Referring Provider Last Name Sly Referring Provider Speciality Physician Jumpbasting Collar Baster [facility] Organization [facility] Referred Provider Justin Diaz Referred Address [address] [place] [id number], Referred Provider Specialty Internal Med icine General Notes Kamala Gong 023 01:12:57 PM >LEFT A VOICEMAIL, Kamala Gong 01/21/2023 03:36:51 PM >LEFT A VOICEMAIL Referral Priority Routine Medications Medication SIG (Take, Route, Frequency, Duration) Notes Start Date End Date Status Atorvastatin Calcium 10 MG 1 tablet Oral ly Once a day Active Potassium Chloride 40 MEQ/100ML as directed Intravenous Acti ve Aspirin 81 MG 1 tablet Orally Once a day Active Lasix 20 MG 1 tablet Orally Once a day Active Social History Tobacco Use: Social History Observation Description Date Details (start date - stop date) Never Smoker NA - NA xTobacco Use/Smoking Question Answer Notes Are you a nonsmoker Alcohol Screen (Audit-C) Question Answer Notes Did you have a drink contain ing alcohol in the past year? Yes How often did you have a dri nk containing alcohol in the past year? Monthly or less (1 point) Points 1 Interpretation Negative Problems Problem Type SNOMED Code ICD Code Onset Dates Problem Status W/U Status Risk Notes Problem [id number] Chronic hepatitis C without hepatic coma (B18.2) Active confirmed Vital Signs Heart Rate 84 /min 02/01/2023 Temperature 97.9 degrees Fahrenheit 02/01/2023 Height-cm 165.1 cm 02/01/2023 Oximetry 96 % 02/01/2023 Blood pressure diastolic 76 mm Hg 02/01/2023 Weight-kg 90.72 kg 02/01/2023 Height 65 in 02/01/2023 Blood pressure systolic 140 mm Hg 02/01/2023 Weight 200 lbs 02/01/2023 BMI 33.28 kg/m2 02/01/2023 Encounters Encounter Location Date Provider Diagnosis [facility] [address] [place] [id number] 02/01/2023 Christopher Diaz Chronic hepatitis C without hepatic coma B18.2 [facility] [address] [place] [phone] 03/03/2023 Christopher Diaz Chronic hepatitis C without hepatic coma B18.2 [facility] [address] [place] [id number] 02/02/2023 Christopher Diaz Chronic hepatitis C without hepatic coma B18.2 [facility] [address] [place] [phone] 02/16/2023 Christopher Diaz Chronic hepatitis C without hepatic coma B18.2 [facility] [address] [place] [phone] 09/07/2023 Christopher Diaz Chronic hepatitis C without hepatic coma B18.2 Assessments Encounter Date Diagnosis (ICD Code) Assessment Notes Treatment Notes Treatment Clinical Notes 02/01/2023 Chronic hepatitis C without hepatic coma (ICD-10 - B18.2) 02/02/2023 Chronic hepatitis C without hepatic coma (ICD-10 - B18.2) 02/16/2023 Chronic hepatitis C without hepatic coma (ICD-10 - B18.2) 03/03/2023 Chronic hepatitis C without hepatic coma (ICD-10 - B18.2) 09/07/2023 Chronic hepatitis C without hepatic coma (ICD-10 - B18.2) 02/01/2023 Other Venipuncture performed by Kelly Sheikh. Right arm/hand. One attempt. Pt tolerated well, bleeding controlled with light dressing. Lab sent to [facility] via sign language interpreter. 03/03/2023 Other Venipuncture performed by Kelly Sheikh. Left arm/hand. One attempt. Pt tolerated well, bleeding controlled with light dressing. Lab sent to [facility] via sign language interpreter. Plan Of Treatment No Information Insurance Providers Payer Name Payer Address Payer Phone Subscriber Number Group Number Insured Name Patient Relationship to Insured Coverage Start Date Coverage End Date [employer] Medicare Replacement [address] [address] [place] [address] [id number] NAINA MAI Self - patient is the insured ID Medicaid [address] [place] [address] [id number] NAINA MAI Self - patient is the insured ID Medicare [address] [address] [place] [address] [id number] NAINA MAI Self - patient is the insured Medical (General) History Medical History History ICD Code CHF hepatitis C Surgical History Surgery Date(Month/Year) R knee surgery 2017 colectomy 2021 partial hysterectomy 2001 Hospitalization History Reason Date(Month/Year) heart attack 12/10 & 03/12
--- OUTSIDE RECORDS SUMMARY | 2023-12-26 09:53 | XMS_ITS ---
Author Name Unknown Organization [facility] ALLERGIES AND ADVERSE REACTIONS No information ASSESSMENT No information CHIEF COMPLAINT No information Vital Signs Bpsitting Date Temperature Weight Height Spo2 Respiration Bmi Ti merecorded Pulse 130/70 2021 00:00: 00 98.7 182,0.00 5,5 97 null 30.28 01:42 78 108/68 2023 00:00: 00 98.4 130,0.00 4,12 97 null 25.39 15:46 92 120/76 2021 00:00: 00 98.2 176,0.00 5,5 97 null 29.28 01:42 76 154/100 2023 00:00: 00 97.4 215,0.00 5,6 null null 34.7 14:24 66 128/78 2022 00:00: 00 98 177,16.0 0 5,5 94 20 29.6 13:31 72 130/78 2021 00:00: 00 98.2 167,0.00 5,5 97 null 27.79 01:42 76 126/70 2023 00:00: 00 97.2 247,0.00 null null null null 19:57 64 120/80 2022 00:00: 00 98.7 189,16.0 0 5,5 98 20 31.6 13:52 73 140/80 2021 00:00: 00 97.9 175,0.00 5,5 96 null 29.12 01:42 88 158/98 2023 00:00: 00 97.9 177,9.60 5,5 96 26 29.6 10:40 96 140/70 2022 00:00: 00 98.7 195,16.0 0 5,5 97 20 32.6 14:04 78 142/74 2022 00:00: 00 98.3 198,8.00 5,5 99 20 33.54 11:45 76 OBJECTIVE DATA No information PHYSICAL EXAMINATION No information TREATMENT PLAN No information PROBLEMS No information RESULTS No information REVIEW OF SYSTEMS No information SUBJECTIVE DATA No information MEDICATIONS No information
--- OUTSIDE RECORDS SUMMARY | 2023-12-26 09:53 | XMS_ITS ---
Author Name Kameron Fountain Address [address] [place] [address] Organization Unknown Address [address] [place] [address] ALLERGIES AND ADVERSE REACTIONS No information ASSESSMENT No information CHIEF COMPLAINT No information MEDICATIONS No information OBJECTIVE DATA No information PHYSICAL EXAMINATION No information TREATMENT PLAN Planned Care Start Date Provider Encounter for Check-up [id number] [facility] PROBLEMS No information RESULTS No information REVIEW OF SYSTEMS No information SUBJECTIVE DATA No information VITAL SIGNS No information
--- OUTSIDE RECORDS SUMMARY | 2023-12-26 09:53 | XMS_ITS ---
Author Name Unknown Organization [facility] ALLERGIES AND ADVERSE REACTIONS No information ASSESSMENT No information CHIEF COMPLAINT No information Medications Date Medication Dosage Dosageunit Startdate Stopdate Active Dispens e Refills Ndccode Isprescription Srcstatus 05/04 00:00 :00 Aspirin 81 MG Tablet Chewable null null 1 [id number] 836 Taking 03/03 00:00 :00 Aspirin 81 MG Tablet Chewable null null 1 [id number] 836 Taking 02/01 00:00 :00 Aspirin 81 MG Tablet Chewable null null 1 [id number] 836 Taking 05/04 00:00 :00 Atorvastati n Calcium 10 MG Tablet null null 1 [id number] 610 Taking 03/03 00:00 :00 Atorvastati n Calcium 10 MG Tablet null null 1 [id number] 610 Taking 02/01 00:00 :00 Atorvastati n Calcium 10 MG Tablet null null 1 [id number] 610 Taking 05/04 00:00 :00 Epclusa 400-100 MG Tablet 02/01/2023 00:00:00 3 00:00:00 0 84 Tablet 0 [id number] 101 P Taking 03/03 00:00 :00 Epclusa 400-100 MG Tablet 02/01/2023 00:00:00 3 00:00:00 0 84 Tablet 0 [id number] 101 P Taking 02/16 00:00 :00 Epclusa 400-100 MG Tablet 02/01/2023 00:00:00 3 00:00:00 0 84 Tablet 0 [id number] 101 P Refill 02/02 00:00 :00 Epclusa 400-100 MG Tablet 02/01/2023 00:00:00 3 00:00:00 0 84 Tablet 0 [id number] 101 P Refill 02/01 00:00 :00 Epclusa 400-100 MG Tablet 02/01/2023 00:00:00 00:00:00 0 84 Tablet 0 [id number] 101 P Start 05/04 00:00 :00 Lasix 20 MG Tablet null null 1 [id number] 701 Taking 03/03 00:00 :00 Lasix 20 MG Tablet null null 1 [id number] 701 Taking 02/01 00:00 :00 Lasix 20 MG Tablet null null 1 [id number] 701 Taking 05/04 00:00 :00 Potassium Chloride 40 MEQ/100 ML Solution null null 1 [id number] 348 Taking 03/03 00:00 :00 Potassium Chloride 40 MEQ/100 ML Solution null null 1 [id number] 348 Taking 02/01 00:00 :00 Potassium Chloride 40 MEQ/100 ML Solution null null 1 [id number] 348 Taking OBJECTIVE DATA No information PHYSICAL EXAMINATION No information TREATMENT PLAN No information PROBLEMS No information RESULTS No information REVIEW OF SYSTEMS No information SUBJECTIVE DATA No information VITAL SIGNS No information
[2023-12-26 10:02] LABS: Troponin 5 6HR Delta -0.26 ng/L (0-12)
[2023-12-26 10:22] LABS: Basophils # 0.1 10^3/uL (0.0-0.1); Basophils % 0.4 %; Eosinophils # 0.1 10^3/uL (0.0-0.8); Eosinophils % 0.6 %; Hematocrit 39.6 % (36-47); Lymphocytes # 1.3 10^3/uL (0.8-4.8); Lymphocytes % 11.2 %; Mean Corpuscular HGB Conc 30.1 g/dL (30-55); Mean Corpuscular Hemoglobin 24.4 pg (27-33); Mean Corpuscular Volume 81.1 fl (85-98); Monocytes # 0.6 10^3/uL (0.2-0.9); Monocytes % 5.1 %; Neutrophils # 9.71 10^3/uL (1.8-7.7); Neutrophils % 82.3 %; Nucleated Red Blood Cells % 0 %; Platelet Count 270 10^3/cmm (157-399); Red Blood Count 4.88 10^6/uL (3.85-5.65); Red Cell Distribution Width 17.2 % (12.1-15.1)
--- NOTE | 2023-12-26 12:17 | P.PN_ITS ---
Subjective 2 Subjective: Patient was seen this morning, she is snoring loudly, but I was able to wake her up, she tells me that she has been having muscle spasms this morning, denies any fevers, no chills, no cough, Vitals/I&O/Wt Last Vital Signs Temp 98.2 F 12/26/23 06:35 Pulse 83 12/26/23 11:36 Resp 16 12/26/23 11:36 BP 127/84 12/26/23 11:20 Pulse Ox 95 12/26/23 11:36 O2 Del Method Room Air 12/26/23 11:36 O2 Flow Rate 2 12/26/23 07:42 Weight last 48 hrs Weight 71.35 kg Weight 72.575 kg Physical Exam 2 Const: COMMON NORMALS: no acute distress ORIENTATION/CONSCIOUSNESS: Yes awake, Yes oriented to person and Yes oriented to place; not oriented to time Resp: COMMON NORMALS: normal respiratory effort, No retractions and No use of accessory muscles AUSCULTATION: crackles and wheezes Cardio: COMMON NORMALS: regular rate, regular rhythm, S1 normal heart sound present and S2 normal heart sound present RATE: regular rate RHYTHM: r egular rhythm HEART SOUNDS: S1 normal heart sound present and S2 normal heart sound present GI: COMMON NORMALS: Normal to inspection, nondistended, normoactive bowel sounds present and non-tender Extremity: COMMON NORMALS: no pedal edema Neuro: SENSORIUM/ORIENTATION: Yes oriented to person, Yes oriented to place and No oriented to time Psych: COMMON NORMALS: mental status grossly normal Urinary Catheter Management: Conway: Cath Placed During This Visit: yes Urinary Catheter Date of Insertion: 12/26/23 Urinary Catheter Time of Insertion: 06:54 Data 12/26/23 10:03 12/26/23 02:00 A&P Assessment and plan (1) Major depressive disorder, recurrent severe without psychotic features: (2) Congestive heart failure: Qualifiers: Heart failure chronicity: acute on chronic Heart failure type: u nspecified Qualified Code(s): I50.9 - Heart failure, unspecified (3) Non-ischemic cardiomyopathy: (4) Atherosclerosis of coronary artery: (5) Shortness of breath: (6) Oxygen dependent: (7) Somnolence: Plan #Acute on chronic congestive heart failure, last echo shows EF 25-30% #Somnolence/drowsiness #CAD #History of depression #mEthamphetamine abuse ? Check urine drug screen, positive for methamphetamine, marijuana ? Check sputum Gram stain culture ? Patient requiring treatment nasal cannula at this time. Not on any home oxygen. ? Did receive 60 IV Lasix in ER. Will place on Lasix 40 IV daily ? Patient did receive Narcan x 2 with mild improvement. ? ER doctor found that she was recently prescribed an opioid. Unsure if she accidentally took too much? ? BNP 3500 ? First and second troponin delta 0.58. ? EKG initially without any acute ischemic changes. ? Repeat echo. Last 1 was 1 year ago. ? Cardiology notes do note that patient apparently was on LifeVest. It also states that her EF may have improved. I do not have any records to support that at this time. ? Will need to confirm home medications ? Order losartan 25 daily, atorvastatin ? Continue metoprolol -Strict I's and O's, daily weights. -Patient's electrolytes/BMP will need to be monitored daily since patient is on high risk medication Lasix. - urine drug screen positive for meth She says she did not go to her cardiology appointment on purpose. She is unable to list her home medications to me Full code DVT prophylaxis: Heparin SQ twice daily Plan for today, IV Lasix, monitor respiratory status closely, Attestations 2 Medical Necessity Statement*: Patient requires hospitalization for CHF exacerbation, requiring IV diuresis Diagnoses Major depressive disorder, recurrent severe without psychotic features F33.2 Congestive heart failure I50.9 Heart failure chronicity: acute on chronic Heart failure type: unspecified Non-ischemic cardiomyopathy I42.8 Atherosclerosis of coronary artery I25.10 Shortness of breath R06.02 Oxygen dependent Z99.81 Somnolence R40.0
--- NOTE | 2023-12-26 14:25 | PC.NURSE ---
Called report to Celio Bush RN in Med surg.
--- NOTE | 2023-12-26 14:53 | PC.NURSE ---
Transferred pt to room 277-1 via wheelchair without incident. Pt tolerated well.
[2023-12-26] MEDS: buPROPion SR (12 HR) 150 mg Tablet PO (18:42)
[2023-12-26] MEDS: metoprolol tartrate 25 mg Tablet 12.5 MG PO (20:23)
[2023-12-26] MEDS: atorvastatin 40 mg Tablet PO (20:24)
[2023-12-27] VITALS (10 sets, daily range): BP systolic 103–123; BP diastolic 68–87; PULSE 69–77; RESP 16–18; TEMP 36.5–36.6; O2SAT 94–99
[2023-12-27 05:25] LABS: Basophils # 0.1 10^3/uL (0.0-0.1); Basophils % 0.5 %; Eosinophils # 0.1 10^3/uL (0.0-0.8); Eosinophils % 1.4 %; Hematocrit 46.7 % (36-47); Lymphocytes # 1.9 10^3/uL (0.8-4.8); Mean Corpuscular HGB Conc 29.3 g/dL (30-55); Mean Corpuscular Hemoglobin 24.3 pg (27-33); Mean Corpuscular Volume 82.8 fl (85-98); Mean Platelet Volume 9.6 fL (7.4-10.4); Monocytes # 0.5 10^3/uL (0.2-0.9); Monocytes % 5.4 %; Neutrophils # 7.16 10^3/uL (1.8-7.7); Neutrophils % 73.4 %; Nucleated Red Blood Cells % 0 %; Platelet Count 262 10^3/cmm (157-399); Red Blood Count 5.64 10^6/uL (3.85-5.65); Red Cell Distribution Width 17.3 % (12.1-15.1); White Blood Count 9.77 10^3/uL (3.29-11.43)
[2023-12-27 05:47] LABS: Anion Gap 12.4 (5-19); Blood Urea Nitrogen 11 mg/dL (6-20); Calcium 9.3 mg/dL (8.5-10.5); Carbon Dioxide 29 mmol/L (22-29); Chloride 101 mmol/L (98-107); Creatinine Clr Calc Pharmacy 102.8462; Glucose 112 mg/dL (65-115); Magnesium 2.5 mg/dL (1.7-2.3); Osmolality Calculated 286 mOsm/kg (285-295); Potassium 4.4 mmol/L (3.5-5.1); Sodium 138 mmol/L (136-145)
[2023-12-27] MEDS: FUROsemide 10 mg/mL SDV 4mL 40 MG IVP (06:03)
[2023-12-27] MEDS: potassium chloride ER 20 mEq Tablet PO (06:03)
[2023-12-27] MEDS: heparin 5,000 unit/mL INJ 1 mL 5000 UNIT SUBCUT (06:04)
[2023-12-27] MEDS: ipratropium-albuterol 3 mL Neb INHALATION ×2 (08:43→11:26)
[2023-12-27] MEDS: losartan 50 mg Tablet 25 MG PO (09:35)
[2023-12-27] MEDS: aspirin 81 mg EC Tablet PO (09:35)
[2023-12-27] MEDS: magnesium lactate 84 mg Tablet PO (09:35)
[2023-12-27] MEDS: metoprolol tartrate 25 mg Tablet 12.5 MG PO (10:29)
--- NOTE | 2023-12-27 11:13 | PC.NURSE ---
Catheter everett removed. Patient tolerated well.
--- NOTE | 2023-12-27 11:48 | PM.DCS ---
Discharge Providers Date of Admission: 12/26/23 06:03 Date of Discharge: December 27, 2023 Attending Provider at Admission: Estefania Seals MD Attending Provider at Discharge: Hammad Michelle MD Primary Care Provider: [facility] Diagnoses at Discharge Discharge Diagnosis (1) Major depressive disorder, recurrent severe without psychotic features: Status: Acute (2) Congestive heart failure: Status: Acute Qualifiers: Heart failure chronicity: acute on chronic Heart failure type: unspecified Qualified Code(s): I50.9 - Heart failure, unspecified (3) Non-ischemic cardiomyopathy: Status: Acute (4) Atherosclerosis of coronary artery: Status: Acute (5) Shortness of breath: Status: Acute (6) Oxygen dependent: Status: Acute (7) Somnolence: Status: Acute Reason for Visit Reason for Visit: CHF, SOB Hospital Course Hospital Course Alberta Valdez is a 58 year old female with history of NSTEMI, coronary disease, congestive heart failure, former smoker presented to the hospital today with worsening shortness of breath that has been going on for the last few days. She was at the hospital last week as well for similar symptoms and was sent home from the ER. She endorses a mild cough. She is not expectorating any sputum. Denies any fever denies lower extremity edema, denies chest pain. Patient is not on home oxygen. However in the ER she is requiring 3 L nasal cannula. Patient was somewhat obtunded and received Narcan x 2. Clinically she has significant shortness of breath and had increased work of breathing on arrival. She was given a DuoNeb and oxygen and thereafter 60 mg of IV Lasix. After Narcan she did not show much improvement in her mental status however does wake up on command. Gas showed pH 7.38/46. Baseline and 2-hour troponin had a delta of 0.58. BNP 3400. Previously BNP's have been 2500 range. Chest x-ray does show mild pulmonary vascular congestion. WBC count 12.34 today, creatinine 0.6. Patient evaluated in ICU room 4. Appears to be drowsy. Second ABG has been ordered which is pending. She does open her eyes and answers but falls back asleep. i do see a cancelled cardiology appointment in jul 2023. Patient was admitted to [facility] a for acute on chronic CHF exacerbation, requiring IV diuresis, overall patient clinically improved, will be discharged on her home Lasix therapy with potassium replacement therapy with magnesium therapy with close follow-up with cardiology as outpatient. Patient's echocardiogram shows EF down to 20 to 25%, she has a history of nonischemic cardiomyopathy, coronary angiogram was in 2021, I have strongly advised for patient to abstain from any methamphetamine use, as she was positive for methamphetamines. He denies any chest pain, but if she does develop any chest pain she should immediately go to the emergency room, continue aspirin, statin, beta-gilson, losartan with close follow-up with cardiology as outpatient. In terms of her LifeVest, she was given a LifeVest, however it was returned due to noncompliance. I discussed her diminished ejection fraction, and the risk of cardiac dysrhythmias, morbidity and mortality associated, advised her to follow-up with cardiology for consideration of LifeVest therapy. Discussed morbidity mortality associate with continued drug use, with her diminished ejection fraction, he voiced understanding, all questions answered. There was concerns for somnolence during hospitalization initially, during my examination she is alert oriented x 4, following all commands, I have advised her to abstain from any drug use, and abstain from any type of narcotic she was given by the emergency room, discussed morbidity and mortality associated, she voiced understanding, all questions answered. Physical Exam Const: COMMON NORMALS: no acute distress and patient oriented x3 Resp: COMMON NORMALS: normal respiratory effort, No retractions, No use of accessory muscles and clear to auscultation bilaterally AUSCULTATION: clear to auscultation bilaterally Cardio: COMMON NORMALS: regular rate, regular rhythm, S1 normal heart sound present and S2 normal heart sound present RATE: regular rate RHYTHM: regular rhythm HEART SOUNDS: S1 normal heart sound present and S2 normal heart sound present GI: COMMON NORMALS: Normal to inspection, nondistended, normoactive bowel sounds present, Soft to palpation and non-tender PALPATION: Yes Soft to palpation Extremity: COMMON NORMALS: no pedal edema Neuro: COMMON NORMALS: patient oriented x3 Psych: COMMON NORMALS: mental status grossly normal Urinary Catheter Management: Conway: Cath Placed During This Visit: yes Reason for Continuing Indwelling Catheter: Other Urinary Catheter Date of Insertion: 12/26/23 Urinary Catheter Time of Insertion: 06:54 Discharge Data Studies Completed and Pending Completed Studies During Hospitalization Category Date Time Status XR chest 1V portable [id number] Stat Exams 12/26/23 02:13 Completed CV. echo complete* [id number] Stat Ultrasound 12/26/23 06:16 Completed Pending at discharge Category Date Time Status Basic Metabolic Panel AM LABS Lab 12/28/23 04:00 Ordered Basic Metabolic Panel AM LABS Lab 12/29/23 04:00 Ordered Complete Blood Count w/Auto DAILY Lab 12/28/23 10:00 Ordered Sputum Culture and Gram Stain Stat Lab 12/26/23 06:16 Uncollected Radiology Impressions Chest X-Ray 12/26/23 02:13 IMPRESSION: Linear opacities are again seen in the lower annette thoraces bilaterally, findings that could represent mild pulmonary edema. Laboratory Results WBC 9.77 10^3/uL (3.29-11.43) 12/27/23 05:09 RBC 5.64 10^6/uL (3.85-5.65) 12/27/23 05:09 Hgb 13.70 g/dL (11.27-16.99) 12/27/23 05:09 Hct 46.7 % (36-47) 12/27/23 05:09 MCV 82.8 fl (85-98) L 12/27/23 05:09 MCH 24.3 pg (27-33) L 12/27/23 05:09 MCHC 29.3 g/dL (30-55) L 12/27/23 05:09 RDW 17.3 % (12.1-15.1) H 12/27/23 05:09 Plt Count 262 10^3/cmm (157-399) 12/27/23 05:09 MPV 9.6 fL (7.4-10.4) 12/27/23 05:09 Neut % (Auto) 73.4 % 12/27/23 05:09 Lymph % (Auto) 19.0 % 12/27/23 05:09 Cowley % (Auto) 5.4 % 12/27/23 05:09 Eos % (Auto) 1.4 % 12/27/23 05:09 Baso % (Auto) 0.5 % 12/27/23 05:09 Neut # (Auto) 7.16 10^3/uL (1.8-7.7) 12/27/23 05:09 Lymph # (Auto) 1.9 10^3/uL (0.8-4.8) 12/27/23 05:09 Cowley # (Auto) 0.5 10^3/uL (0.2-0.9) 12/27/23 05:09 Eos # (Auto) 0.1 10^3/uL (0.0-0.8) 12/27/23 05:09 Baso # (Auto) 0.1 10^3/uL (0.0-0.1) 12/27/23 05:09 Nucleated RBC % (auto) 0 % 12/27/23 05:09 Nucleated RBCs # 0.0 /100WBC 12/27/23 05:09 D-Dimer 1.10 ug/mLFEU (0-0.59) H 12/26/23 08:24 Specimen Type Arterial 12/26/23 06:58 Sample Site Radial, left 12/26/23 06:58 ABG pH 7.45 (7.35-7.45) 12/26/23 06:58 ABG pCO2 44.1 mmHg (35-45) 12/26/23 06:58 ABG pO2 88.8 mmHg (80.0-100.0) 12/26/23 06:58 ABG PO2/FiO2 Ratio 317 12/26/23 06:58 ABG HCO3 30.3 mmol/L (22-26) H 12/26/23 06:58 ABG O2 Saturation 98.2 12/26/23 06:58 ABG Base Excess 5.5 mmol/L (-2.0-2.0) H 12/26/23 06:58 Joseph Test Pos 12/26/23 06:58 A-a O2 Gradient 7.3 mmHg (5-10) 12/26/23 06:58 Hematocrit 35.7 % (37-47) L 12/26/23 06:58 Hgb O2 Saturation 96.2 % (95-100) 12/26/23 06:58 Carboxyhemoglobin 1.7 %THgb (0.4-20.1) 12/26/23 06:58 Methemoglobin 0.2 % (0.4-1.5) L 12/26/23 06:58 Total Hemoglobin 11.6 g/dL (12-16) L 12/26/23 06:58 Sodium 144.0 mmol/L (131-143) H 12/26/23 06:58 Potassium 3.6 mmol/L (3.5-5.0) 12/26/23 06:58 Glucose 118.0 mg/dL (70-115) H 12/26/23 06:58 Ionized Calcium 1.1 mmol/L (1.1-1.4) 12/26/23 06:58 O2 Delivery Device Nc 12/26/23 06:58 O2 Liters/Min 2.0 % 12/26/23 06:58 FiO2 28.0 % 12/26/23 06:58 Supervisor Sample ID Cak 12/26/23 06:58 Sodium 138 mmol/L (136-145) 12/27/23 05:09 Potassium 4.4 mmol/L (3.5-5.1) 12/27/23 05:09 Chloride 101 mmol/L (98-107) 12/27/23 05:09 Carbon Dioxide 29 mmol/L (22-29) 12/27/23 05:09 Anion Gap 12.4 (5-19) 12/27/23 05:09 BUN 11 mg/dL (6-20) 12/27/23 05:09 Creatinine 0.6 mg/dL (0.5-0.9) 12/27/23 05:09 GFR Calculation 103.0 mL/min (90-130) 12/27/23 05:09 Glucose 112 mg/dL (65-115) 12/27/23 05:09 Calculated Osmolality 286 mOsm/kg (285-295) 12/27/23 05:09 Calcium 9.3 mg/dL (8.5-10.5) 12/27/23 05:09 Magnesium 2.5 mg/dL (1.7-2.3) H 12/27/23 05:09 Troponin T Baseline 19 ng/L (0-10) H 12/26/23 02:00 Troponin T 120 Minute 19.58 ng/L (0-10) H 12/26/23 04:40 Delta Troponin T 0.58 ABS# (0-10) 12/26/23 04:40 Troponin T Hi Sens 6Hr 18.74 ng/L (0-10) H 12/26/23 08:24 Troponin T Hi Sens 6Hr Delta -0.26 ng/L (0-12) L 12/26/23 08:24 NT-Pro-B Natriuret Pep 3368 pg/mL (0-125) H 12/26/23 02:00 Procalcitonin 0.04 ng/mL (0-0.5) 12/26/23 04:40 Urine Color Yellow (Yellow) 12/26/23 06:58 Urine Appearance Clear (CLEAR) 12/26/23 06:58 Urine pH 7 (5-7) 12/26/23 06:58 Ur Specific Harper 1.010 (1.005-1.030) 12/26/23 06:58 Urine Protein Neg (Negative) 12/26/23 06:58 Urine Glucose (UA) Norm (Normal) 12/26/23 06:58 Urine Ketones Negative (Negative) 12/26/23 06:58 Urine Blood Neg (Negative) 12/26/23 06:58 Urine Nitrate Negative (Negative) 12/26/23 06:58 Urine Bilirubin Neg (Negative) 12/26/23 06:58 Urine Urobilinogen Norm mg/dL (Negative) 12/26/23 06:58 Ur Leukocyte Esterase Negative (Negative) 12/26/23 06:58 Urine Opiates Screen Negative ng/mL (Negative) 12/26/23 06:58 Ur Barbiturates Screen Negative ng/mL (Negative) 12/26/23 06:58 Ur Phencyclidine Scrn Negative ng/mL (Negative) 12/26/23 06:58 Ur Amphetamines Screen Positive ng/mL (Negative) H 12/26/23 06:58 U Benzodiazepines Scrn Negative ng/mL (Negative) 12/26/23 06:58 Urine Cocaine Screen Negative ng/mL (Negative) 12/26/23 06:58 U Marijuana (THC) Screen Positive ng/mL (Negative) H 12/26/23 06:58 Vitals Last Vital Signs Temp 97.8 F 12/27/23 11:03 Pulse 70 12/27/23 11:34 Resp 16 12/27/23 11:26 BP 103/70 12/27/23 11:03 Pulse Ox 99 12/27/23 11:26 O2 Del Method Room Air 12/27/23 11:26 O2 Flow Rate 2 12/26/23 07:42 Discharge Plan Discharge Patient Disposition: Home Condition: Serious Prescriptions: New naloxone [Narcan] 4 mg/actuation spray,non-aerosol 4 mg intranasal Q2M PRN (Reason: opioid overdose) Qty: 2 0RF Rx Instructions: 1 dose into ONE nostril, alternate nostrils w each dose until help arrives aspirin 81 mg Tablet,Delayed Release (Dr/Ec) 81 mg PO DAILY 30 Days Qty: 30 0RF magnesium L-lactate [Magtab] 84 mg Tablet Extended Release 84 mg PO DAILY 30 Days Qty: 30 0RF Continued metoprolol tartrate 25 mg tablet 12.5 mg PO BID@0900,2100 Qty: 90 3RF potassium chloride [Klor-Con M20] 20 mEq tablet,ER particles/crystals 20 meq PO QAM Qty: 90 3RF atorvastatin 40 mg tablet 40 mg PO BEDTIME Qty: 90 3RF losartan 25 mg tablet 25 mg PO DAILY Qty: 90 3RF albuterol sulfate 90 mcg/actuation HFA aerosol inhaler 2 inh inhalation Q4H PRN (Reason: shortness of breath or wheezing) Qty: 6.7 0RF furosemide 40 mg tablet 40 mg PO QAM bupropion HCl [Wellbutrin SR] 150 mg tablet sustained-release 12 hr 150 mg PO QPM Qty: 60 0RF Discharge Orders: Discharge Order (Routine); Ordered 12/27/23 Ordered By: Hammad Michelle Referrals: Niraj Bowman M.D [Physician] - 1-3 days [facility] [Primary Care Provider] - 01/04/24 10:40 am Discharge Diet: Cardiac Discharge Activity: Resume usual activity Patient Instructions: Opioid Safety Activity Restrictions/Additional Instructions: - Your ejection fraction down to 20 to 25%, if you have any chest pain or palpitations go to the emergency room ? If you have any worsening shortness of breath go to emergency room, ? Please follow-up with cardiology for consideration of LifeVest ? Please abstain from drug use Discharge Attestations Time Spent in Discharge Care*: greater than 30 min Quality Metrics Clinical Quality Measures [ No reported AMI, CVA or VTE this stay] Coding Level of Care Code 26227 Total time (in minutes) for Discharge: 45 Diagnoses Major depressive disorder, recurrent severe without psychotic features F33.2 Congestive heart failure I50.9 Heart failure chronicity: acute on chronic Heart failure type: unspecified Non-ischemic cardiomyopathy I42.8 Atherosclerosis of coronary artery I25.10 Shortness of breath R06.02 Oxygen dependent Z99.81 Somnolence R40.0
== END 2023-12-27 13:25 | disposition home or self-care (01) | DRG 292 ==
LOC: ER 02:41 → ICU 06:11 → MEDSURG 14:51
PROVIDERS: Admitting Provider Internal Medicine; Emergency Provider Emergency Medicine; PCP Physician Assistant; Visit Provider Family Medicine
DX: I50.9 Heart failure, unspecified (principal); F33.2 Major depressive disorder, recurrent severe without psychotic features; I42.8 Other cardiomyopathies; I25.10 Atherosclerotic heart disease of native coronary artery without angina pectoris; Z99.81 Dependence on supplemental oxygen; Z87.891 Personal history of nicotine dependence; R40.0 Somnolence; F15.10 Other stimulant abuse, uncomplicated; Z91.199 Patient's noncompliance with other medical treatment and regimen due to unspecified reason; M54.9 Dorsalgia, unspecified; G89.29 Other chronic pain
CPT/HCPCS: 36415; 36600; 51702; 71045; 80048; 80051; 80306; 81003; 82330; 82803; 82805; 83735; 83880; 84145; 84484; 85025; 85378; 93005; 93306; 94640; 96372; 96374; 96375; 99285; J1644; J1940; J2310

== ENCOUNTER → 2024-01-03 13:58 | Outpatient (BNVA) | payer MEDICARE, MEDICAID, SELFPAY | PROVIDERS: PCP Physician Assistant; Visit Provider Internal Medicine | DX: I42.8 Other cardiomyopathies (principal); I50.9 Heart failure, unspecified; Z87.891 Personal history of nicotine dependence | CPT/HCPCS: 99214 ==

== ENCOUNTER → 2024-03-23 11:53 | Outpatient (BNVA) | payer MEDICARE, MEDICAID, SELFPAY | PROVIDERS: PCP Physician Assistant | DX: Z76.89 Persons encountering health services in other specified circumstances (principal); I25.10 Atherosclerotic heart disease of native coronary artery without angina pectoris; M19.031 Primary osteoarthritis, right wrist; M12.841 Other specific arthropathies, not elsewhere classified, right hand | CPT/HCPCS: 73110; 80053; 80061 ==

== ENCOUNTER → 2024-03-27 10:05 | Outpatient (BNVA) | payer MEDICARE, MEDICAID, SELFPAY | PROVIDERS: PCP Physician Assistant; Visit Provider Specialist | DX: M25.331 Other instability, right wrist (principal); M87.08 Idiopathic aseptic necrosis of bone, other site | CPT/HCPCS: 73110; 99205 ==

== ENCOUNTER 2024-06-16 20:25 | Observation (INO) | payer MEDICARE, MEDICAID, SELFPAY ==
[2024-06-16] VITALS (7 sets, daily range): BP systolic 100–125; BP diastolic 72–82; PULSE 75–85; RESP 16–22; TEMP 36.3; O2SAT 94–99; BMI 29.4
--- NOTE | 2024-06-16 20:29 | XRR_ITS ---
PROCEDURE INFORMATION: Exam: XR Chest Exam date and time: 06/16/2024 9:08 PM Age: 58 years old Clinical indication: Cough and shortness of breath; Patient HX: Cough with SOB. History of chf. ; Additional info: Sb TECHNIQUE: Imaging protocol: Radiologic exam of the chest. Views: 1 view. COMPARISON: CR (CHEST, ) 12/26/2023 2:14 AM FINDINGS: Tubes, catheters and devices: None. Lungs: Left-sided pulmonary linear interstitial opacities identified within lower lung. The lungs appear otherwise clear. Pleural spaces: No pleural effusion. No pneumothorax. Heart/Mediastinum: Cardiac silhouette appears moderately enlarged. Bones/joints: Mild to moderate generalized bony degenerative changes. Bony structures appear otherwise unremarkable. XR/XR chest 1V portable [id number] IMPRESSION: 1. Moderate enlarged cardiac silhouette. 2. Pulmonary atelectasis or acute infiltrates within left lower chest.
--- NOTE | 2024-06-16 20:37 | ECG_ITS ---
[facility] Date[facility] 2024-06-16 Pat Name: Alberta Valdez Department: Room: Gender: Female Manager Custom: MATT: 1965 Requested By: Maria E Murray Order Number: [id number] Hussein MD: Niraj Bowman M.D. Measurements Intervals [place] Rate: 82 P: 33 MO: 162 QRS: 228 QRSD: 159 T: 15 QT: 415 QTc: 487 Interpretive Statements SINUS RHYTHM POSSIBLE LEFT ATRIAL ENLARGEMENT [-0.1mV P-WAVE IN V1/V2] RIGHT AXIS DEVIATION [QRS AXIS > 100] INTRAVENTRICULAR CONDUCTION DELAY [130+ ms QRS DURATION] Compared to ECG 12/26/2023 05:27:07 Right-axis deviation now present Intraventricular conduction delay now present Short MO interval no longer present Left-axis deviation no longer present Left bundle-branch block no longer present Electronically Signed On 06-18-2024 20:10:08 FIELD CLERK by Niraj Bowman M.D. [email or web address]
[2024-06-16 21:25] LABS: Covid PCR NEGATIVE (Negative); Influenza A NEGATIVE (Negative); Influenza B NEGATIVE (Negative); Respiratory Syncytial Virus Ce NEGATIVE (Negative)
[2024-06-16] MEDS: FUROsemide 10 mg/mL SDV 2mL 20 MG IVP ×2 (21:49→23:24)
[2024-06-16 21:55] LABS: Basophils # 0.1 10^3/uL (0.0-0.1); Basophils % 0.4 %; Eosinophils # 0.1 10^3/uL (0.0-0.8); Eosinophils % 1.2 %; Hematocrit 39.1 % (36-47); Lymphocytes # 1.8 10^3/uL (0.8-4.8); Lymphocytes % 14.6 %; Mean Corpuscular HGB Conc 29.7 g/dL (30-55); Mean Corpuscular Hemoglobin 24.4 pg (27-33); Mean Corpuscular Volume 82.1 fl (85-98); Mean Platelet Volume 10.2 fL (7.4-10.4); Monocytes # 0.6 10^3/uL (0.2-0.9); Monocytes % 4.6 %; Neutrophils # 9.45 10^3/uL (1.8-7.7); Neutrophils % 78.8 %; Nucleated Red Blood Cells % 0 %; Platelet Count 238 10^3/cmm (157-399); Red Blood Count 4.76 10^6/uL (3.85-5.65); Red Cell Distribution Width 18.8 % (12.1-15.1); White Blood Count 11.99 10^3/uL (3.29-11.43)
[2024-06-16] MEDS: ipratropium-albuterol 3 mL Neb INHALATION (22:01)
[2024-06-16 22:19] LABS: Troponin(5th) Baseline 24 ng/L (0-10)
[2024-06-16 22:29] LABS: Alanine Aminotransferase 13 U/L (0-33); Alkaline Phosphatase 80 U/L (35-105); Anion Gap 14.2 (5-19); Aspartate Amino Transferase 17 U/L (0-32); Blood Urea Nitrogen 17 mg/dL (6-20); Calcium 8.9 mg/dL (8.5-10.5); Carbon Dioxide 29 mmol/L (22-29); Chloride 102 mmol/L (98-107); Creatinine Clr Calc Pharmacy 64.9789; Globulin 2.5 g/dL (1.3-4.6); Glomerular Filtration Rate 57.1 mL/min (90-130); Glucose 127 mg/dL (65-115); NT Pro B Type Natriuretic Pept 10473 pg/mL (0-125); Osmolality Calculated 295 mOsm/kg (285-295); Potassium 4.2 mmol/L (3.5-5.1); Sodium 141 mmol/L (136-145); Total Bilirubin 0.6 mg/dL (0.15-1.2); Total Protein 6.5 g/dL (6.6-8.7)
--- NOTE | 2024-06-16 22:57 | ED_ITS ---
HPI - SOB/Dyspnea 2 General: Chief Complaint: Shortness of Breath/Dyspnea Stated Complaint: SOB Time Seen by Provider: 06/16/24 21:02 History of Present Illness: HPI Narrative: Alberta Valdez is a 58-year-old female that presents to the emergency department with shortness of breath. Onset of symptoms 5 days ago. She reports that she believes she had a upper respiratory infection but feels her heart failure is worsening. Patient has increased work of breathing, mild distress, but maintains an oxygen saturation in the 90s on room air. Patient denies fever or chills. She did have sternal chest pain yesterday that is resolved She has a dry cough. Associated symptoms: Reports chest pain; Deny fever(s), palpitations or vomiting Related Data Home Medications Medication Instructions Recorded Confirmed furosemide 40 mg tablet 40 mg PO QAM 08/11/23 05/15/24 Previous Rx's Medication Instructions Recorded albuterol sulfate 90 mcg/actuation 2 inh inhalation Q4H PRN shortness 12/14/23 aerosol inhaler of breath or wheezing #6.7 grams naloxone 4 mg/actuation nasal 4 mg intranasal Q2M PRN opioid 12/27/23 spray (Narcan) overdose #2 ea losartan 25 mg tablet 25 mg PO DAILY #90 tabs 03/10/24 metoprolol tartrate 25 mg tablet 12.5 mg (1/2 x 25 mg) PO 03/10/24 BID@0900,2100 #90 tabs potassium chloride 20 mEq 20 meq PO QAM #90 tabs 03/10/24 tablet,extended release(part/cryst) (Klor-Con M) gabapentin 300 mg capsule 300 mg PO BID #60 caps 03/23/24 meloxicam 7.5 mg tablet 7.5 mg PO DAILY #30 tabs 03/23/24 Allergies Allergy/AdvReac Type Severity Reaction Status Date / Time No Known Allergies Allergy Verified 05/15/24 18:23 Review of Systems 2 Const: Denies: fever(s) ENMT: Denies: throat pain Card: Reports: chest pain; Denies: palpitations Resp: Reports: dyspnea and non-productive cough GI: Denies: vomiting Neuro: Reports: confusion and behavioral changes PFSH ED 2 PFSH: Medical History 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 Encounter to establish care Arthritis Sciatic nerve pain Neuropathy Psychiatric care Diarrhea Avascular necrosis of femur Radiculopathy, site unspecified Cardiomyopathy Atherosclerosis of coronary artery NSTEMI (non-ST elevated myocardial infarction) Chronic back pain Surgical History History of hysterectomy Family History Other CAD (coronary artery disease) Diabetes Social History Smoking and tobacco/nicotine status: former use of tobacco/nicotine Quit status (tobacco/nicotine): has quit using Year quit tobacco: 1993 Second hand smoke exposure: No Alcohol intake: former Year of sobriety/quit date alcohol: 2001 Substance/Drug Use: current Substance/Drug use frequency: daily Physical Exam 2 Const: EXAM LIMITATIONS: altered mental status GENERAL APPEARANCE: c ooperative and ill appearing HENMT: COMMON NORMALS: normocephalic, atraumatic and Normal external nose present HEAD & SCALP: normocephalic and atraumatic FACE & SINUS: normal facial exam and face symmetric NOSE: Normal external nose present Eye: COMMON NORMALS: Equal, round and reactive pupils present and EOMs intact bilaterally PUPIL: Yes Equal, round and reactive pupils present Neck/C-Spine: GENERAL: Yes trachea midline Chest: CHEST: Yes Symmetrical chest wall rise Resp: EFFORT & INSPECTION: Yes tachypneic and Yes labored AUSCULTATION: c rackles Laterality: bilateral and anterior and diminished lung sounds bilateral Cardio: COMMON NORMALS: regular rate and regular rhythm RATE: regular rate RHYTHM: regular rhythm GI: COMMON NORMALS: Soft to palpation PALPATION: Yes Soft to palpation Extremity: COMMON NORMALS: no pedal edema Neuro: DEBI COMA SCALE: document GCS findings Debi coma scale eye opening: Spontaneous [place] coma scale verbal response: Confused [place] coma scale motor response: Obey commands Debi coma scale total score: 14 Course 2 Vital Signs: Vital signs: Vital Signs Temperature 97.4 F L 06/16/24 20:26 Pulse Rate 77 06/16/24 23:10 Respiratory Rate 21 H 06/16/24 23:10 Blood Pressure 107/78 06/16/24 23:10 Pulse Oximetry 96 06/16/24 23:10 Oxygen Delivery Me thod Room Air 06/16/24 23:10 MDM - SOB/Dyspnea Medical Decision Making Alberta Valdez is a 58-year-old female that presents to the emergency department with increased work of breathing and shortness of breath. Patient has a history of heart failure. She states that she got sick approximately 1 week ago and her shortness of breath has progressively worsened. By the time I am seeing the patient she has retractions that are supraclavicular. She is tachypneic. She has accessory muscle use, increased effort. She is still able to talk in full sentences for the most part. She did undergo an evaluation for both cardiovascular issues as well as respiratory. The chest x-ray reveals pulmonary atelectasis but also moderate enlargement of her cardiac silhouette compared to her previous chest x-ray. She also underwent an EKG at 2036 which reveals a sinus rhythm with left bundle branch block and a right axis deviation. Largely unchanged from her previous 2 EKGs. I did review the EKG with Dr. Tejeda and he agrees there is no concerning change at this time. Her laboratory evaluation reveals a mild leukocytosis but more concerning is her cardiac enzymes that reveals a BNP of 10,500. Her initial troponin was 24 with a delta of <1 She has a mild bump in her creatinine. Patient did take her Lasix this morning but I gave her another 30 mg. After breathing treatment and the Lasix, patient work of breathing has improved. She is no longer tachypneic and retractions have all but resolved. I did speak with the hospitalist who is going to admit her for observation. We are going to start monitoring her urine output. Admission orders placed Lab Data 06/16/24 21:47 06/16/24 21:47 Labs/Radiology: Radiology Impressions Chest X-Ray 06/16/24 20:29 IMPRESSION: 1. Moderate enlarged cardiac silhouette. 2. Pulmonary atelectasis or acute infiltrates within left lower chest. Laboratory Results WBC 11.99 10^3/uL (3.29-11.43) H 06/16/24 21:47 RBC 4.76 10^6/uL (3.85-5.65) 06/16/24 21:47 Hgb 11.60 g/dL (11.27-16.99) 06/16/24 21:47 Hct 39.1 % (36-47) 06/16/24 21:47 MCV 82.1 fl (85-98) L 06/16/24 21:47 MCH 24.4 pg (27-33) L 06/16/24 21:47 MCHC 29.7 g/dL (30-55) L 06/16/24 21:47 RDW 18.8 % (12.1-15.1) H 06/16/24 21:47 Plt Count 238 10^3/cmm (157-399) 06/16/24 21:47 MPV 10.2 fL (7.4-10.4) 06/16/24 21:47 Neut % (Auto) 78.8 % 06/16/24 21:47 Lymph % (Auto) 14.6 % 06/16/24 21:47 [place] % (Auto) 4.6 % 06/16/24 21:47 Eos % (Auto) 1.2 % 06/16/24 21:47 Baso % (Auto) 0.4 % 06/16/24 21:47 Neut # (Auto) 9.45 10^3/uL (1.8-7.7) H 06/16/24 21:47 Lymph # (Auto) 1.8 10^3/uL (0.8-4.8) 06/16/24 21:47 [place] # (Auto) 0.6 10^3/uL (0.2-0.9) 06/16/24 21:47 Eos # (Auto) 0.1 10^3/uL (0.0-0.8) 06/16/24 21:47 Baso # (Auto) 0.1 10^3/uL (0.0-0.1) 06/16/24 21:47 Nucleated RBC % (auto) 0 % 06/16/24 21:47 Nucleated RBCs # 0.0 /100WBC 06/16/24 21:47 Sodium 141 mmol/L (136-145) 06/16/24 21:47 Potassium 4.2 mmol/L (3.5-5.1) 06/16/24 21:47 Chloride 102 mmol/L (98-107) 06/16/24 21:47 Carbon Dioxide 29 mmol/L (22-29) 06/16/24 21:47 Anion Gap 14.2 (5-19) 06/16/24 21:47 BUN 17 mg/dL (6-20) 06/16/24 21:47 Creatinine 1.0 mg/dL (0.5-0.9) H 06/16/24 21:47 GFR Calculation 57.1 mL/min (90-130) L 06/16/24 21:47 Glucose 127 mg/dL (65-115) H 06/16/24 21:47 Calculated Osmolality 295 mOsm/kg (285-295) 06/16/24 21:47 Calcium 8.9 mg/dL (8.5-10.5) 06/16/24 21:47 Total Bilirubin 0.6 mg/dL (0.15-1.2) 06/16/24 21:47 AST 17 U/L (0-32) 06/16/24 21:47 ALT 13 U/L (0-33) 06/16/24 21:47 Alkaline Phosphatase 80 U/L (35-105) 06/16/24 21:47 Troponin T Baseline 24 ng/L (0-10) H 06/16/24 21:47 Troponin T 120 Minute 24.58 ng/L (0-10) H 06/16/24 23:15 Delta Troponin T 0.58 ABS# (0-10) 06/16/24 23:15 NT-Pro-B Natriuret Pep 65075 pg/mL (0-125) H 06/16/24 21:47 Total Protein 6.5 g/dL (6.6-8.7) L 06/16/24 21:47 Albumin 4.0 g/dL (3.5-5.2) 06/16/24 21:47 Globulin 2.5 g/dL (1.3-4.6) 06/16/24 21:47 Coronavirus (PCR) Negative (Negative) 06/16/24 20:45 Influenza A (PCR) Negative (Negative) 06/16/24 20:45 Influenza Type B (PCR) Negative (Negative) 06/16/24 20:45 RSV (PCR) Negative (Negative) 06/16/24 20:45 All radiology interpretation(s) finalized by discharge Discharge Plan Discharge Patient Disposition: Admitted As Inpatient Clinical Impression: Heart failure Condition: Stable Prescriptions: No Action gabapentin 300 mg capsule 300 mg PO BID Qty: 60 2RF meloxicam 7.5 mg tablet 7.5 mg PO DAILY Qty: 30 0RF potassium chloride [Klor-Con M20] 20 mEq tablet,ER particles/crystals 20 meq PO QAM Qty: 90 3RF losartan 25 mg tablet 25 mg PO DAILY Qty: 90 3RF metoprolol tartrate 25 mg tablet 12.5 mg PO BID@0900,2100 Qty: 90 3RF albuterol sulfate 90 mcg/actuation HFA aerosol inhaler 2 inh inhalation Q4H PRN (Reason: shortness of breath or wheezing) Qty: 6.7 0RF furosemide 40 mg tablet 40 mg PO QAM Narcan 4 mg/actuation spray,non-aerosol 4 mg intranasal Q2M PRN (Reason: opioid overdose) Qty: 2 0RF Rx Instructions: 1 dose into ONE nostril, alternate nostrils w each dose until help arrives Referrals: [facility] [Primary Care Provider] - Coding Level of Care Code ED Social Services Director for Alexandre Webb
[2024-06-16 23:38] LABS: Troponin 5 2HR 24.58 ng/L (0-10); Troponin 5 2HR Delta 0.58 ABS# (0-10)
--- NOTE | 2024-06-16 23:50 | P.HP_ITS ---
Providers/Chief Complaint 2 Primary Care Provider: [facility] Chief Complaint: SOB History of Present Illness Alberta Valdez is a 58 yo woman w/ chronic HFrEF secondary to Non-ischemic Cardiomyopathy who presents to the ED on 06/06/2024 w/ complaints of worsening dyspnea. The patient states that she has CHF, so she get dyspneic often; however, she developed diarrhea & a cold (productive cough of green sputum, chest congestion, runny nose) approximately 5 days ago, which made it more difficult for her to breathe. The patient states that she had a constant non- radiating, non-pleuritic, non-positional, substernal chest pain, that lasted all day yesterday and subsided this morning. She denies f/c, SOB, palpitations, abdominal pain, n/v, melena, hematochezia, dysuria, hematuria, increased urinary urgency/frequency. She endorses R. LE swelling for at least 2 weeks. She endorses a liquid stool for the last 2 days. She complains about a L. sided pain at her back that she experiences while lying down. She is to get a defibrillator by 06/20/2024 at [place], [place]. In the ED, her labs are significant for WBC of 11.99, Cr of 1.0 (baseline Cr of 0.6), proBNP of >10,000, and mildly elevated Trop T. Her EKG showed NSR with no ST changes and an unchanged bundle branch block pattern noted on previous EKGs. Her CXR showed a moderately enlarged cardiac silhouette with pulmonary atelectasis or acute infiltrates within the left lower chest. She received duonebs which improved wheezing. Forty mg of furosemide was ordered but 30mg IVP Furosemide was given. Review of Systems 2 Const: Reports: change in appetite (poor appetite); Denies: fever(s) or chills Eyes: Denies: change in vision ENMT: Reports: other (no sore throat); Denies: odynophagia, ear or mastoid pain, ear discharge or nasal discharge Card: Reports: chest pain and edema (R. leg swelling ); Denies: palpitations, lightheadedness or syncope Resp: Reports: productive cough and wheezing; Denies: dyspnea GI: Reports: diarrhea; Denies: abdominal pain, nausea, vomiting, hematochezia or melena : Denies: dysuria, urinary urgency, urinary hesitancy or hematuria Musc: Reports: joint pain and other (no myalgias) Skin/Breast: Denies: rash or changing lesions Neuro: Denies: headache(s) or dizziness Psych: Reports: anxiety and depression; Denies: suicidal ideation or homicidal ideation Endo: Denies: cold intolerance or heat intolerance Sky/Lymph: Denies: easy bruising or easy bleeding All/Imm: Denies: food intolerance Medications/Allergies Home Medications Medication Instructions Recorded Confirmed Last Taken Type furosemide 40 mg tablet 40 mg PO QAM 08/11/23 06/17/24 06/16/24 08:00 History albuterol sulfate 90 mcg/actuation 2 inh inhalation Q4H PRN shortness 12/14/23 06/17/24 Unknown Rx aerosol inhaler of breath or wheezing #6.7 grams naloxone 4 mg/actuation nasal 4 mg intranasal Q2M PRN opioid 12/27/23 06/17/24 Unknown Rx spray (Narcan) overdose #2 ea losartan 25 mg tablet 25 mg PO DAILY #90 tabs 03/10/24 06/17/24 06/16/24 08:00 Rx metoprolol tartrate 25 mg tablet 12.5 mg (1/2 x 25 mg) PO 03/10/24 06/17/24 06/16/24 18:00 Rx BID@0900,2100 #90 tabs potassium chloride 20 mEq 20 meq PO QAM #90 tabs 03/10/24 06/17/24 06/16/24 08:00 Rx tablet,extended release(part/cryst) (Klor-Con M) gabapentin 300 mg capsule 300 mg PO BID #60 caps 03/23/24 06/17/24 06/16/24 18:00 Rx Allergies Allergy/AdvReac Type Severity Reaction Status Date / Time No Known Allergies Allergy Verified 05/15/24 18:23 PFSH Acute 2 PFSH: Medical History (Updated 06/17/24 @ 04:40 by Lynsey Crump MD) 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 Encounter to establish care Arthritis Sciatic nerve pain Neuropathy Psychiatric care Diarrhea Avascular necrosis of femur Radiculopathy, site unspecified Cardiomyopathy Atherosclerosis of coronary artery NSTEMI (non-ST elevated myocardial infarction) Chronic back pain Surgical History (Updated 06/17/24 @ 04:06 by Lynsey Crump MD) H/O total hip arthroplasty bilateral Status post abdominal hysterectomy and salpingo-oophorectomy Hx laparoscopic cholecystectomy Family History (Updated 06/17/24 @ 03:35 by Lynsey Crump MD) Mother Diabetes CAD (coronary artery disease) Father Diabetes CAD (coronary artery disease) Social History (Updated 06/17/24 @ 03:35 by Lynsey Crump MD) Smoking and tobacco/nicotine status: former use of tobacco/nicotine Quit status (tobacco/nicotine): has quit using Year quit tobacco: 1993 Second hand smoke exposure: No Alcohol intake: former Year of sobriety/quit date alcohol: 2001 Substance/Drug Use: current Substance/Drug use frequency: daily Additional social history: smoked 1/2 ppd from age 17 to 27. Snorted cocaine as a teenager until her 20s. Vitals/I&O/Wt Last Vital Signs Temp 97.4 F L 06/16/24 20:26 Pulse 77 06/16/24 23:10 Resp 21 H 06/16/24 23:10 BP 107/78 06/16/24 23:10 Pulse Ox 96 06/16/24 23:10 O2 Del Method Room Air 06/16/24 23:10 Weight last 48 hrs Weight 80.286 kg Physical Exam 2 Const: GENERAL APPEARANCE: cooperative and comfortable O RIENTATION/CONSCIOUSNESS: Yes awake, Yes oriented to person, Yes oriented to place and Yes oriented to time OTHER: While pleasant, the patient was flushed and sweating. HENMT: HEAD & SCALP: normocephalic and atraumatic NOSE: Normal external nose present EXTERNAL EAR: Yes external ears normal MOUTH: Normal oral and palatal mucosa present THROAT: posterior oropharynx normal Eye: CONJUNCTIVA: Yes conjunctivae normal PUPIL: Yes Equal, round and reactive pupils present EOM: No EOM abnormal Neck/C-Spine: GENERAL: Yes normal visual inspection and Yes trachea midline THYROID: Thyroid normal CAROTIDS: No bruit CERVICAL SPINE: Yes cervical ROM normal Lymph: OTHER: No cervical or supraclavicular lymphadenopathy. Resp: OTHER: Crackles in the lower lung dee bilaterally. Cardio: OTHER: RRR, no m/r/g or clicks GI: OTHER: BS+, NT, ND, no guarding, no rigidity, no rebound tenderness, no hepatosplenomegaly. Extremity: GENERAL: No clubbing, No cyanosis and No edema Neuro: CRANIAL NERVES: Yes CN normal except as noted SPEECH: speech normal SENSORY EXAM: No sensory level loss detected MOTOR EXAM: 5/5 motor strength present throughout and Normal motor muscle tone present throughout Psych: APPEARANCE: Yes grossly normal ATTITUDE: Yes calm and Yes engaged ACTIVITY/MOTOR BEHAVIOR: Yes appropriate eye contact SPEECH: Yes normal speech MOOD & AFFECT: Yes euthymic mood THOUGHT PROCESS: Normal thought process present THOUGHT CONTENT: Yes Normal thought content present A TTENTION/CONCENTRATION: Yes attention grossly intact MEMORY/COGNITION: Yes memory grossly intact Skin: GENERAL SKIN EXAM: no rashes or lesions noted Data 06/16/24 21:47 06/16/24 21:47 A&P Assessment and plan (1) Sepsis: (2) Community acquired pneumonia: (3) Viral gastroenteritis: (4) Acute kidney injury: (5) Non-ischemic cardiomyopathy: (6) Heart failure with reduced ejection fraction: (7) Microcytic anemia: Plan Alberta Valdez is a 58 yo woman w/ chronic HFrEF secondary to Non-ischemic Cardiomyopathy who presents to the ED on 06/06/2024 w/ complaints of worsening dyspnea. In the ED, her labs are significant for WBC of 11.99, Cr of 1.0 (baseline Cr of 0.6), proBNP of >10,000, and mildly elevated Trop T. Her EKG showed NSR with no ST changes and an unchanged bundle branch block pattern noted on previous EKGs. Her CXR showed a moderately enlarged cardiac silhouette with pulmonary atelectasis or acute infiltrates within the left lower chest. She received duonebs which improved wheezing. Forty mg of furosemide was ordered but 30mg IVP Furosemide was given. #Sepsis: based on RR, HR, and wbc. secondary to pneumonia #Community Acquired Pneumonia: based on physical exam and possible findings on CXR. -Likely had a viral respiratory infection and a superimposed bacterial pneumonia. -Will get a CT chest without contrast. - F/u BCx, Sputum cx, legionella urine ag - Start Ceftriaxone, Azithromycin, Mucinex. Ordered duonebs scheduled and prn. #Diarrhea - Likely #Viral Gastroenteritis: F/u C. diff & GI pathogen panel - Will give 500cc NS at 100cc/hr - Strict Is & Os. #SELMA: Possibly due to her diarrhea and poor p.o. intake & lasix. - Will give 500cc NS at 100cc/hr - Hold Losartan today Monitor renal fxn and electrolytes. Strict I's and O's. Avoid nephrotoxins. #chronic HFrEF due to #Non-ischemic Cardiomyopathy #HTN #HLD #non-obstructive CAD #History of NSTEMI in 2019 - which led to her diagnosis of chronic HFrEF due to Non-ischemic Cardiomyopathy - Will hold Losartan today - Resume Metoprolol Tartrate. Ordered Hydralazine prn - She is to get a defibrillator by 06/20/2024 at [place], [place], so they may need to be notified to reschedule. #Microcytic anemia - F/u iron/ferritin/iron sat/b12/folate & fecal occult studies. DVT ppx: Lovenox GI ppx: Pantoprazole Code status: Full MPOA - She tells me that her Sister Peri Scott who resides at [place], [place] is her MPOA; although she does not have it in writing. Attestations 2 Medical Necessity Statement*: Patient will need to be hospitalized for at least 2 midnights for sepsis secondary to pneumonia, her acute kidney injury, and diarrhea. Time Spent in Patient Care: >70 mins was spent on chart review, patient interview/physical exam, lab/image review, plan formulation, coordination of care, and discussion with the patient. Coding Level of Care Code Acute Code for [facility] Diagnoses Sepsis A41.9 Community acquired pneumonia J18.9 Viral gastroenteritis A08.4 Acute kidney injury N17.9 Non-ischemic cardiomyopathy I42.8 Heart failure with reduced ejection fraction I50.20 Microcytic anemia D50.9
[2024-06-17] VITALS (9 sets, daily range): BP systolic 110–119; BP diastolic 73–87; PULSE 71–99; RESP 16–18; TEMP 36.4–36.6; O2SAT 94–98; BMI 29.6
--- NOTE | 2024-06-17 00:42 | PC.NURSE ---
ATTEMPTED TO CALL REPORT TO MS AT [phone]
--- NOTE | 2024-06-17 03:16 | ECG_ITS ---
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 Measurements Intervals [place] Rate: 77 P: 34 KS: 179 QRS: 198 QRSD: 172 T: 10 QT: 440 QTc: 501 Interpretive Statements SINUS RHYTHM POSSIBLE LEFT ATRIAL ENLARGEMENT [-0.1mV P-WAVE IN V1/V2] RIGHT AXIS DEVIATION [QRS AXIS > 100] INTRAVENTRICULAR CONDUCTION DELAY [130+ ms QRS DURATION] Compared to ECG 06/16/2024 20:37:41 No significant changes Electronically Signed On 06-18-2024 20:16:59 [employer]PRES[employer]IVE by Niraj Bowman M.D. [email or web address]
--- NOTE | 2024-06-17 03:56 | CTR_ITS ---
PROCEDURE INFORMATION: Exam: CT Chest Without Contrast; Diagnostic Exam date and time: 06/17/2024 4:37 AM Age: 58 years old Clinical indication: Shortness of breath and other: Crackles; Patient HX: SOB with new onset of crackles. History of chf. ; Additional info: Shortness of breath, crackles, crackles despite not being vol overloaded. TECHNIQUE: Imaging protocol: Diagnostic computed tomography of the chest without contrast. Radiation optimization: All CT scans at this facility use at least one of these dose optimization techniques: automated exposure control; mA and/or kV adjustment per patient size (includes targeted exams where dose is matched to clinical indication); or iterative reconstruction. COMPARISON: CT angio chest PE protcl [id number] 04/07/2023 4:19 AM RADIATION DOSE METRICS: Total DLP (mGy-cm): 436.05 FINDINGS: Lungs: Mild dependent atelectasis with mild atelectatic changes in the lingula as well. Pleural spaces: Unremarkable. No pneumothorax. No pleural effusion. Heart: Mild cardiomegaly. Coronary arteries: Coronary artery calcifications are visible. Lymph nodes: Unremarkable. No enlarged lymph nodes. Vasculature: Unremarkable. No aortic aneurysm. Bones/joints: Unremarkable. No acute fracture. Soft tissues: Unremarkable. CT/CT chest wo [facility] [id number] IMPRESSION: 1. No acute intrathoracic pathology. 2. Cardiomegaly.
[2024-06-17] MEDS: sodium chloride 0.9% 500 ML 100 ML IV (04:48)
[2024-06-17] MEDS: cefTRIAXone 1,000 mg SDV 1000 MG IVP (04:49)
[2024-06-17] MEDS: AZITHROMYCIN ADD-Vantage 500 MG in 0.9% NaCl ADD-Vantage 250 ML 250 MG IV (04:49)
[2024-06-17 05:06] LABS: Basophils % 0.4 %; Eosinophils # 0.2 10^3/uL (0.0-0.8); Eosinophils % 1.5 %; Hematocrit 40.6 % (36-47); Lymphocytes # 2.4 10^3/uL (0.8-4.8); Lymphocytes % 23.5 %; Mean Corpuscular HGB Conc 28.6 g/dL (30-55); Mean Corpuscular Hemoglobin 23.7 pg (27-33); Mean Corpuscular Volume 82.9 fl (85-98); Mean Platelet Volume 10.7 fL (7.4-10.4); Monocytes # 0.6 10^3/uL (0.2-0.9); Monocytes % 5.5 %; Neutrophils # 6.97 10^3/uL (1.8-7.7); Neutrophils % 68.6 %; Nucleated Red Blood Cells % 0 %; Platelet Count 257 10^3/cmm (157-399); Red Cell Distribution Width 18.8 % (12.1-15.1); White Blood Count 10.16 10^3/uL (3.29-11.43)
[2024-06-17 05:18] LABS: Troponin 5 6HR 21.77 ng/L (0-10)
[2024-06-17 05:19] LABS: Troponin 5 6HR Delta -2.23 ng/L (0-12)
[2024-06-17 05:24] LABS: Alanine Aminotransferase 13 U/L (0-33); Albumin Level 4.1 g/dL (3.5-5.2); Alkaline Phosphatase 86 U/L (35-105); Aspartate Amino Transferase 17 U/L (0-32); Blood Urea Nitrogen 15 mg/dL (6-20); Calcium 9.2 mg/dL (8.5-10.5); Carbon Dioxide 30 mmol/L (22-29); Chloride 101 mmol/L (98-107); Creatinine Clr Calc Pharmacy 72.4161; Ferritin 24 ng/mL (15-150); Globulin 3.1 g/dL (1.3-4.6); Glomerular Filtration Rate 64.5 mL/min (90-130); Glucose 119 mg/dL (65-115); Magnesium 2.2 mg/dL (1.7-2.3); Osmolality Calculated 294 mOsm/kg (285-295); Phosphorus 3.7 mg/dL (2.5-4.5); Sodium 141 mmol/L (136-145); Total Bilirubin 0.6 mg/dL (0.15-1.2); Total Protein 7.2 g/dL (6.6-8.7)
[2024-06-17 05:27] LABS: Iron 39 ug/dL (37-145); Percent Saturation 9.4 % (20-50); Total Iron Binding Capacity 411 mcg/dl; Unsaturated Iron Binding 372 ug/dL (112-347)
[2024-06-17 05:37] LABS: 25 Hydroxy Vitamin D 24 ng/mL (30-100); Vitamin B12 485 pg/mL (232-1245)
[2024-06-17 06:03] LABS: Free T4 Free Thyroxine 1.15 ng/dL (0.82-1.77)
[2024-06-17] MEDS: ondansetron 2 mg/ML SDV 2 mL 4 MG IVP (06:18)
[2024-06-17 07:30] LABS: Lactic Sepsis W/Reflex 2.4 mmol/L (0.5-2.2)
[2024-06-17] MEDS: ipratropium-albuterol 3 mL Neb INHALATION (08:22)
[2024-06-17 08:45] LABS: Reflex Lactate Order REFLEX LACTIC ORDERD
[2024-06-17] MEDS: guaiFENesin 600 mg Tablet PO (09:18)
[2024-06-17] MEDS: metoprolol tartrate 25 mg Tablet 12.5 MG PO (09:18)
[2024-06-17] MEDS: pantoprazole DR 40 mg Tablet PO (09:18)
[2024-06-17] MEDS: gabapentin 300 mg Capsule PO (09:18)
[2024-06-17 09:56] LABS: Lactic Acid level (Lactate) 1.8 mmol/L (0.5-2.2)
[2024-06-17 10:59] LABS: Estmated Average Glucose 111; Hemoglobin A1C 5.5 % (4.0-6.0)
[2024-06-17 11:03] LABS: Procalcitonin 0.04 ng/mL (0-0.5); Thyroid Stimulating Hormone 2.89 uIU/mL (0.27-4.20)
--- NOTE | 2024-06-17 12:20 | PM.DCS ---
Discharge Providers Date of Admission: 06/17/24 00:04 Date of Discharge: June 17, 2024 Attending Provider at Admission: Lynsey Crump MD Attending Provider at Discharge: Herminio Bowers MD Primary Care Provider: [facility] Diagnoses at Discharge Discharge Diagnosis (1) Sepsis: Status: Acute (2) Community acquired pneumonia: Status: Acute (3) Viral gastroenteritis: Status: Acute (4) Acute kidney injury: Status: Acute (5) Non-ischemic cardiomyopathy: Status: Acute (6) Heart failure with reduced ejection fraction: Status: Acute (7) Microcytic anemia: Status: Acute Reason for Visit Reason for Visit: SOB Brief History: History as per HPI: Alberta Valdez is a 58 yo woman w/ chronic HFrEF secondary to Non-ischemic Cardiomyopathy who presents to the ED on 06/06/2024 w/ complaints of worsening dyspnea. The patient states that she has CHF, so she get dyspneic often; however, she developed diarrhea & a cold (productive cough of green sputum, chest congestion, runny nose) approximately 5 days ago, which made it more difficult for her to breathe. The patient states that she had a constant non-radiating, non-pleuritic, non-positional, substernal chest pain, that lasted all day yesterday and subsided this morning. She denies f/c, SOB, palpitations, abdominal pain, n/v, melena, hematochezia, dysuria, hematuria, increased urinary urgency/frequency. She endorses R. LE swelling for at least 2 weeks. She endorses a liquid stool for the last 2 days. She complains about a L. sided pain at her back that she experiences while lying down. She is to get a defibrillator by 06/20/2024 at [place], [place]. In the ED, her labs are significant for WBC of 11.99, Cr of 1.0 (baseline Cr of 0.6), proBNP of >10,000, and mildly elevated Trop T. Her EKG showed NSR with no ST changes and an unchanged bundle branch block pattern noted on previous EKGs. Her CXR showed a moderately enlarged cardiac silhouette with pulmonary atelectasis or acute infiltrates within the left lower chest. She received duonebs which improved wheezing. Forty mg of furosemide was ordered but 30mg IVP Furosemide was given. Hospital Course Hospital Course Patient was admitted to the hospital for further management of not feeling well with concerns for possible sepsis in setting of community-acquired pneumonia versus possible viral gastroenteritis. She was empirically started on IV antibiotics. CT imaging from admission was negative for consolidation, without any leukocytosis, patient not requiring oxygen hence pneumonia was ruled out. It is believed patient's symptoms are most likely in setting of viral prodrome. COVID-19, RSV, flu were tested negative. As patient remained hemodynamically stable, afebrile on room air safe discharge plan were discussed in detail with the patient and she was agreeable for discharge. She was counseled in detail about lifestyle modification with congestive heart failure specially about daily fluid intake restriction, weight checks, blood pressure checks. She has been discharged on Flonase twice daily along with Mucinex twice daily. She is to follow-up with a primary care provider within next 1 week. She will also take prednisone 40 mg daily for next 5 days. Physical Exam Narrative: General: No acute distress, AO x3 HEENT: PERRLA, pupils bilaterally equal and reactive Chest: Normal vesicular breath sounds, no added sounds, equal good air entry bilaterally CVS: S1-S2 regular, no murmurs, no tachycardia, no gallops, no rubs Abdomen: Soft, nontender, no organomegaly, bowel sounds present Neuro: No focal deficits, no facial deformity, AO x3, power 5/5 in all limbs Discharge Data Studies Completed and Pending Completed Studies During Hospitalization Category Date Time Status CT chest wo con [id number] Routine Cat Scan 06/17/24 03:56 Completed XR chest 1V portable [id number] Stat Exams 06/16/24 20:29 Completed Pending at discharge Category Date Time Status Blood Culture Stat Lab 06/17/24 04:23 Results C.Diff PCR (Lab) Stat Lab 06/17/24 03:55 Uncollected CBC Auto Diff [Complete Blood Count w/Auto] AM LABS Lab 06/18/24 04:00 Ordered CBC Auto Diff [Complete Blood Count w/Auto] AM LABS Lab 06/19/24 04:00 Ordered CMP [Comprehensive Metabolic Panel] AM LABS Lab 06/18/24 04:00 Ordered CMP [Comprehensive Metabolic Panel] AM LABS Lab 06/19/24 04:00 Ordered Folate Level AM LABS Lab 06/18/24 04:00 Ordered Gastrointestinal Pathogen Brown Routine Lab 06/17/24 03:58 Ordered Legionella Antigen STAT Stat Lab 06/17/24 12:19 Ordered MAG [Magnesium] AM LABS Lab 06/18/24 04:00 Ordered MAG [Magnesium] AM LABS Lab 06/19/24 04:00 Ordered MAG [Magnesium] AM LABS Lab 06/20/24 04:00 Ordered Magnesium AM LABS Lab 06/18/24 04:00 Ordered Magnesium AM LABS Lab 06/19/24 04:00 Ordered Occult Blood Stool [Immunochemical Fecal OCB] Stat Lab 06/17/24 04:36 Uncollected PHOS [Phosphorus] AM LABS Lab 06/18/24 04:00 Ordered PHOS [Phosphorus] AM LABS Lab 06/19/24 04:00 Ordered Sputum Culture and Gram Stain Stat Lab 06/17/24 03:13 Uncollected UA w/Reflex to Microscope [Urinalysis] AM LABS Lab 06/17/24 04:00 Uncollected Radiology Impressions Chest X-Ray 06/16/24 20:29 IMPRESSION: 1. Moderate enlarged cardiac silhouette. 2. Pulmonary atelectasis or acute infiltrates within left lower chest. Chest CT 06/17/24 03:56 IMPRESSION: 1. No acute intrathoracic pathology. 2. Cardiomegaly. Microbiology 06/17/24 04:23 Blood Blood Culture - Preliminary SPECIMEN COLLECTED 06/17/24 04:30 Blood Blood Culture - Preliminary SPECIMEN COLLECTED Laboratory Results WBC 10.16 10^3/uL (3.29-11.43) 06/17/24 04:23 RBC 4.90 10^6/uL (3.85-5.65) 06/17/24 04:23 Hgb 11.60 g/dL (11.27-16.99) 06/17/24 04:23 Hct 40.6 % (36-47) 06/17/24 04:23 MCV 82.9 fl (85-98) L 06/17/24 04:23 MCH 23.7 pg (27-33) L 06/17/24 04:23 MCHC 28.6 g/dL (30-55) L 06/17/24 04:23 RDW 18.8 % (12.1-15.1) H 06/17/24 04:23 Plt Count 257 10^3/cmm (157-399) 06/17/24 04:23 MPV 10.7 fL (7.4-10.4) H 06/17/24 04:23 Neut % (Auto) 68.6 % 06/17/24 04:23 Lymph % (Auto) 23.5 % 06/17/24 04:23 [place] % (Auto) 5.5 % 06/17/24 04:23 Eos % (Auto) 1.5 % 06/17/24 04:23 Baso % (Auto) 0.4 % 06/17/24 04:23 Neut # (Auto) 6.97 10^3/uL (1.8-7.7) 06/17/24 04:23 Lymph # (Auto) 2.4 10^3/uL (0.8-4.8) 06/17/24 04:23 [place] # (Auto) 0.6 10^3/uL (0.2-0.9) 06/17/24 04:23 Eos # (Auto) 0.2 10^3/uL (0.0-0.8) 06/17/24 04:23 Baso # (Auto) 0.0 10^3/uL (0.0-0.1) 06/17/24 04:23 Nucleated RBC % (auto) 0 % 06/17/24 04:23 Nucleated RBCs # 0.0 /100WBC 06/17/24 04:23 Sodium 141 mmol/L (136-145) 06/17/24 04:23 Potassium 4.0 mmol/L (3.5-5.1) 06/17/24 04:23 Chloride 101 mmol/L (98-107) 06/17/24 04:23 Carbon Dioxide 30 mmol/L (22-29) H 06/17/24 04:23 Anion Gap 14.0 (5-19) 06/17/24 04:23 BUN 15 mg/dL (6-20) 06/17/24 04:23 Creatinine 0.9 mg/dL (0.5-0.9) 06/17/24 04:23 GFR Calculation 64.5 mL/min (90-130) L 06/17/24 04:23 Glucose 119 mg/dL (65-115) H 06/17/24 04:23 Estimat Average Glucose 111 06/17/24 04:23 Hemoglobin A1c 5.5 % (4.0-6.0) 06/17/24 04:23 Calculated Osmolality 294 mOsm/kg (285-295) 06/17/24 04:23 Lactic Acid 2.4 mmol/L (0.5-2.2) H 06/17/24 06:47 Lactic Acid (Sepsis) 1.8 mmol/L (0.5-2.2) 06/17/24 09:32 Calcium 9.2 mg/dL (8.5-10.5) 06/17/24 04:23 Phosphorus 3.7 mg/dL (2.5-4.5) 06/17/24 04:23 Magnesium 2.2 mg/dL (1.7-2.3) 06/17/24 04:23 Iron 39 ug/dL (37-145) 06/17/24 04:23 TIBC 411 mcg/dl 06/17/24 04:23 % Saturation 9.4 % (20-50) L 06/17/24 04:23 Unsat Iron Binding 372 ug/dL (112-347) H 06/17/24 04:23 Ferritin 24 ng/mL (15-150) 06/17/24 04:23 Total Bilirubin 0.6 mg/dL (0.15-1.2) 06/17/24 04:23 AST 17 U/L (0-32) 06/17/24 04:23 ALT 13 U/L (0-33) 06/17/24 04:23 Alkaline Phosphatase 86 U/L (35-105) 06/17/24 04:23 Troponin T Baseline 24 ng/L (0-10) H 06/16/24 21:47 Troponin T 120 Minute 24.58 ng/L (0-10) H 06/16/24 23:15 Delta Troponin T 0.58 ABS# (0-10) 06/16/24 23:15 Troponin T Hi Sens 6Hr 21.77 ng/L (0-10) H 06/17/24 04:23 Troponin T Hi Sens 6Hr Delta -2.23 ng/L (0-12) L 06/17/24 04:23 NT-Pro-B Natriuret Pep 72108 pg/mL (0-125) H 06/16/24 21:47 Total Protein 7.2 g/dL (6.6-8.7) 06/17/24 04:23 Albumin 4.1 g/dL (3.5-5.2) 06/17/24 04:23 Globulin 3.1 g/dL (1.3-4.6) 06/17/24 04:23 Vitamin B12 485 pg/mL (232-1245) 06/17/24 04:23 25-OH Vitamin D Total 24 ng/mL (30-100) L 06/17/24 04:23 Folate 13.0 ng/mL (4.8-37.3) 06/17/24 04:23 Procalcitonin 0.04 ng/mL (0-0.5) 06/17/24 04:23 TSH 2.89 uIU/mL (0.27-4.20) 06/17/24 04:23 Free T4 1.15 ng/dL (0.82-1.77) 06/17/24 04:23 Coronavirus (PCR) Negative (Negative) 06/16/24 20:45 Influenza A (PCR) Negative (Negative) 06/16/24 20:45 Influenza Type B (PCR) Negative (Negative) 06/16/24 20:45 RSV (PCR) Negative (Negative) 06/16/24 20:45 Vitals Last Vital Signs Temp 97.5 F L 06/17/24 11:17 Pulse 86 06/17/24 11:17 Resp 17 06/17/24 11:17 BP 111/79 06/17/24 11:17 Pulse Ox 96 06/17/24 11:17 O2 Del Method Room Air 06/17/24 11:17 Discharge Plan Discharge Patient Disposition: Home Condition: Stable Prescriptions: New pantoprazole 40 mg Tablet,Delayed Release (Dr/Ec) 40 mg PO QAM Qty: 30 0RF guaifenesin [Mucinex] 600 mg Tablet Extended Release 12hr 600 mg PO BID 10 Days Qty: 20 0RF fluticasone propionate [Flonase Allergy Relief] 50 mcg/actuation spray,suspension 1 spray intranasal BID Qty: 16 0RF Rx Instructions: administer into each nostril prednisone 20 mg tablet 20 mg PO BID 5 Days Qty: 10 0RF Continued gabapentin 300 mg capsule 300 mg PO BID Qty: 60 2RF potassium chloride [Klor-Con M20] 20 mEq tablet,ER particles/crystals 20 meq PO QAM Qty: 90 3RF losartan 25 mg tablet 25 mg PO DAILY Qty: 90 3RF metoprolol tartrate 25 mg tablet 12.5 mg PO BID@0900,2100 Qty: 90 3RF albuterol sulfate 90 mcg/actuation HFA aerosol inhaler 2 inh inhalation Q4H PRN (Reason: shortness of breath or wheezing) Qty: 6.7 0RF furosemide 40 mg tablet 40 mg PO QAM naloxone [Narcan] 4 mg/actuation spray,non-aerosol 4 mg intranasal Q2M PRN (Reason: opioid overdose) Qty: 2 0RF Rx Instructions: 1 dose into ONE nostril, alternate nostrils w each dose until help arrives Discharge Orders: Discharge Order (Routine); Ordered 06/17/24 Ordered By: Herminio Bowers Referrals: [facility] [Primary Care Provider] - 2 weeks (We have notified your physician's clinic of the need for a follow-up appointment to be scheduled. If you have not heard from them within the next 2 business days, please call them directly. ) Discharge Diet: Cardiac Discharge Activity: Resume usual activity and Increase activity as tolerated Patient Instructions: Decongestant/Expectorant (By mouth), Prednisone (By mouth), Pantoprazole (By mouth), Fluticasone (Into the nose), CHF Stoplight, Opioid Safety Activity Restrictions/Additional Instructions: Restrict fluid intake to less than 1500 cc, salt intake to less than 2 g daily. Advised to check his weight daily at home. Is advised that weight today would be the dry weight and if body weight increases by around 5 pounds, patient is to take an extra dose of Lasix daily till body weight comes down to weight today. If not able to come down to dry body weight in 1 week, then is to call cardiology office for further recommendations. Patient was counseled in detail to take medications regularly as prescribed. Check your blood pressure daily at home maintain a blood pressure diary. Goal blood pressures less than 140/90 mmHg. Discharge Attestations Time Spent in Discharge Care*: greater than 30 min Quality Metrics Clinical Quality Measures [ No reported AMI, CVA or VTE this stay] Coding Level of Care Code 93204 Total time (in minutes) for Discharge: 60 Diagnoses Sepsis A41.9 Community acquired pneumonia J18.9 Viral gastroenteritis A08.4 Acute kidney injury N17.9 Non-ischemic cardiomyopathy I42.8 Heart failure with reduced ejection fraction I50.20 Microcytic anemia D50.9
[2024-06-17 13:49] LABS: Bilirubin Urine Negative (Negative); Blood Urine Negative (Negative); Glucose Urine UA Negative (Normal); Ketones Urine Negative (Negative); Leukocyte Esterase Urine 1+ (Negative); Nitrate Urine Negative (Negative); Protein Urine Negative (Negative); Specific Gravity, Urine 1.022 (1.005-1.030); Urine Appearance Clear (CLEAR); Urine Color Yellow (Yellow); Urobilinogen Urine 0.2 mg/dL (Negative)
[2024-06-17 13:52] LABS: Add Urine Microscopic? YES; Bacteria Urine None Seen /hpf; Hyaline Casts Urine 1.65 /lpf; RBC Urine 0-2 /hpf (0-2); Squamous Epithelial Cell Urine 0-5 /hpf (0-5)
--- NOTE | 2024-06-19 15:12 | PC.SOCIAL ---
CM unable to see, patient admitted and discharged over the weekend
== END 2024-06-17 12:45 | disposition home or self-care (01) ==
LOC: ER 06-17 00:30 → MEDSURG 06-17 01:14
PROVIDERS: Emergency Medicine; Admitting Provider Internal Medicine; Emergency Provider Nurse Practitioner; PCP Physician Assistant; Visit Provider Student in an Organized Health Care Education/Training Program
DX: A08.4 Viral intestinal infection, unspecified (principal); N17.9 Acute kidney failure, unspecified; I42.8 Other cardiomyopathies; I50.22 Chronic systolic (congestive) heart failure; I11.0 Hypertensive heart disease with heart failure; E78.5 Hyperlipidemia, unspecified; I25.2 Old myocardial infarction; I25.10 Atherosclerotic heart disease of native coronary artery without angina pectoris; D50.9 Iron deficiency anemia, unspecified; Z87.891 Personal history of nicotine dependence
CPT/HCPCS: 36415; 71045; 71250; 80053; 81001; 82306; 82607; 82728; 82746; 83036; 83540; 83550; 83605; 83735; 83880; 84100; 84145; 84439; 84443; 84484; 85025; 87040; 87449; 87637; 93005; 94640; 96374; 96376; 99285; G0378; J0456; J0696; J1940; J2405; J7040; J7050

== ENCOUNTER → 2024-07-06 15:46 | Outpatient (BNVA) | payer MEDICARE, MEDICAID, SELFPAY | PROVIDERS: PCP Physician Assistant | DX: N17.9 Acute kidney failure, unspecified (principal) | CPT/HCPCS: 80053; 85025 ==

== ENCOUNTER → 2024-07-17 07:58 | Outpatient (BNVA) | payer MEDICARE, MEDICAID, SELFPAY | DX: A41.9 Sepsis, unspecified organism (principal) | CPT/HCPCS: 85025 ==

== ENCOUNTER 2024-07-18 13:45 | Inpatient (IN) | payer MEDICARE, MEDICAID, SELFPAY ==
[2024-07-18] VITALS (40 sets, daily range): BP systolic 68–135; BP diastolic 46–93; PULSE 88–120; RESP 14–35; TEMP 37.6–39.4; O2SAT 92–99; BMI 29.9
--- NOTE | 2024-07-18 13:48 | ECG_ITS ---
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 Measurements Intervals [place] Rate: 109 P: 67 [place]: 146 QRS: 189 QRSD: 160 T: 47 QT: 359 QTc: 485 Interpretive Statements SINUS TACHYCARDIA RIGHT AXIS DEVIATION [QRS AXIS > 100] INTRAVENTRICULAR CONDUCTION DELAY [130+ ms QRS DURATION] Compared to ECG 06/17/2024 02:52:58 Sinus rhythm no longer present Electronically Signed On 07-20-2024 11:22:12 [employer] PROCEDURES TECHNOLOGIST by Niraj Bowman M.D. [email or web address]
--- NOTE | 2024-07-18 13:48 | XR_ITS ---
WS: [id number] Exam: XR chest 1V portable [id number] Date/Time of Exam: 07/18/2024 1:48 PM Reason For Exam: sob Comparison 06/16/2024. Cardiac enlargement unchanged. The lungs are clear. Mild chronic plaque atelectasis in the region of the lingula. No pneumothorax. The mediastinum is normal in contour. Unremarkable bony structures. XR/XR chest 1V portable [id number] IMPRESSION: 1. Cardiac enlargement unchanged. 2. Chronic plaque atelectasis in the region of the lingula.
--- NOTE | 2024-07-18 14:12 | W.ED.SOB ---
HPI - SOB/Dyspnea General: Chief Complaint: Shortness of Breath/Dyspnea Stated Complaint: SOB / swelling Time Seen by Provider: 07/18/24 13:48 History of Present Illness: HPI Narrative: 58-year-old female with past medical history of CHF presenting today with increased work of breathing and bilateral lower extremity swelling. States that this has been going on for several days, but became very severe today. She has been borrowing her neighbors O2 machine today that improvement in her symptoms. She has been taking double her furosemide dosing over the past week, notes that she has not been urinating significantly more after doubling the dose. She denies having any other symptoms including chest pain, flulike symptoms, abdominal pain. She reports being hospitalized for fluid overload in the past. Associated symptoms: Deny abdominal pain, chest pain or fever(s) Related Data Home Medications Medication Instructions Recorded Confirmed gabapentin 300 mg capsule 300 mg PO BID 07/18/24 07/18/24 Previous Rx's Medication Instructions Recorded naloxone 4 mg/actuation nasal 4 mg intranasal Q2M PRN opioid 12/27/23 spray (Narcan) overdose #2 ea losartan 25 mg tablet 25 mg PO DAILY #90 tabs 03/10/24 metoprolol tartrate 25 mg tablet 12.5 mg (1/2 x 25 mg) PO 03/10/24 BID@0900,2100 #90 tabs potassium chloride 20 mEq 20 meq PO QAM #90 tabs 03/10/24 tablet,extended release(part/cryst) (Klor-Con M) fluticasone propionate 50 1 spray intranasal BID #16 grams 06/17/24 mcg/actuation nasal spray,suspension (Flonase Allergy Relief) albuterol sulfate 90 mcg/actuation 2 inh inhalation Q4H PRN shortness 07/06/24 aerosol inhaler of breath or wheezing #6.7 grams guaifenesin 600 mg tablet, 600 mg PO BID 10 days #20 tabs 07/06/24 extended release 12 hr (Mucinex) pantoprazole 40 mg tablet,delayed 40 mg PO QAM #30 tabs 07/06/24 release Allergies Allergy/AdvReac Type Severity Reaction Status Date / Time No Known Allergies Allergy Verified 07/18/24 14:00 Review of Systems Const: Denies: fever(s) or chills Card: Denies: chest pain GI: Denies: abdominal pain : Denies: dysuria, urinary frequency or urinary urgency PFSH ED PFSH: Medical History (Updated 07/06/24 @ 15:40 by Alberta Hudson NP) 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 Encounter to establish care Arthritis Sciatic nerve pain Neuropathy Psychiatric care Diarrhea Avascular necrosis of femur Radiculopathy, site unspecified Cardiomyopathy Atherosclerosis of coronary artery NSTEMI (non-ST elevated myocardial infarction) Chronic back pain Surgical History (Updated 06/17/24 @ 04:06 by Lynsey Crump MD) H/O total hip arthroplasty bilateral Status post abdominal hysterectomy and salpingo-oophorectomy Hx laparoscopic cholecystectomy Family History (Updated 06/17/24 @ 03:35 by Lynsey Crump MD) Mother Diabetes CAD (coronary artery disease) Father Diabetes CAD (coronary artery disease) Social History (Updated 06/17/24 @ 03:35 by Lynsey Crump MD) Smoking and tobacco/nicotine status: never used tobacco/nicotine Quit status (tobacco/nicotine): has quit using Year quit tobacco: 1993 Second hand smoke exposure: No Alcohol intake: former Year of sobriety/quit date alcohol: 2001 Substance/Drug Use: current Substance/Drug use frequency: daily Additional social history: smoked 1/2 ppd from age 17 to 27. Snorted cocaine as a teenager until her 20s. Physical Exam Const: GENERAL APPEARANCE: cooperative ORIENTATION/CONSCIOUSNESS: Yes awake, Yes oriented to person, Yes oriented to place and Yes oriented to time HENMT: COMMON NORMALS: normocephalic, atraumatic and hearing grossly normal bilaterally HEAD & SCALP: normocephalic and atraumatic Resp: EFFORT & INSPECTION: Yes symmetric chest movement, Yes tachypneic, Yes respiratory distress, Yes pursed lip breathing, Yes labored, Yes grunting and Yes uses accessory muscles AUSCULTATION: crackles and diminished lung sounds bilateral Cardio: COMMON NORMALS: regular rhythm and No murmurs present (Cardio) RATE: tachycardic RHYTHM: regular rhythm GI: COMMON NORMALS: Soft to palpation and No hepatosplenomegaly present AUSCULTATION: Yes normoactive bowel sounds PALPATION: Yes Soft to palpation, No Tenderness to palpation present (GI), No Guarding due to palpation present (GI) and Yes No hepatosplenomegaly present Extremity: COMMON NORMALS: capillary refill normal and no calf tenderness Neuro: SENSORIUM/ORIENTATION: Yes oriented to person, Yes oriented to place and Yes oriented to time Course Vital Signs: Vital signs: Vital Signs Temperature 100.1 F H 07/18/24 13:56 Pulse Rate 120 H 07/18/24 15:00 Respiratory Rate 35 H 07/18/24 15:00 Blood Pressure 121/93 07/18/24 15:00 Pulse Oximetry 98 07/18/24 15:00 Oxygen Delivery Me thod BiPAP 07/18/24 15:00 Oxygen Flow Rate 3 07/18/24 13:56 Fraction of Inspir ed Oxygen 28 07/18/24 14:46 MDM - SOB/Dyspnea Medical Decision Making Alberta is a 58-year-old female with past medical history of CHF presenting today with respiratory distress, 2+ pitting lower extremity edema, and new oxygen requirement. On arrival her breathing is significantly labored and breath sounds are diminished bilaterally. Tachycardic to 110s, and tachypneic to the 30s. Chest x-ray was unremarkable. BNP 8300, influenza A positive. Gave 60 mg IV Lasix and initiated BiPAP soon after arrival. Due to continued increased work of breathing, tachypneic to 40s and becoming more somnolent decision was made to intubate. Consent was obtained from the patient. She was started on Zosyn and blood cultures were obtained. CT PE is ordered but not yet completed at the time of admission. Discussed patient with hospitalist Dr. Jhaveri who agreed to accept the patient for admission to the ICU. Lab Data 07/18/24 14:40 07/18/24 14:40 Labs/Radiology: Radiology Impressions Chest X-Ray 07/18/24 13:48 IMPRESSION: 1. Cardiac enlargement unchanged. 2. Chronic plaque atelectasis in the region of the lingula. Laboratory Results WBC 16.09 10^3/uL (3.29-11.43) H 07/18/24 14:40 RBC 4.72 10^6/uL (3.85-5.65) 07/18/24 14:40 Hgb 11.00 g/dL (11.27-16.99) L 07/18/24 14:40 Hct 37.5 % (36-47) 07/18/24 14:40 MCV 79.4 fl (85-98) L 07/18/24 14:40 MCH 23.3 pg (27-33) L 07/18/24 14:40 MCHC 29.3 g/dL (30-55) L 07/18/24 14:40 RDW 20.0 % (12.1-15.1) H 07/18/24 14:40 Plt Count 308 10^3/cmm (157-399) 07/18/24 14:40 MPV 9.6 fL (7.4-10.4) 07/18/24 14:40 Neut % (Auto) 91.7 % 07/18/24 14:40 Lymph % (Auto) 2.5 % 07/18/24 14:40 [place] % (Auto) 4.8 % 07/18/24 14:40 Eos % (Auto) 0.4 % 07/18/24 14:40 Baso % (Auto) 0.2 % 07/18/24 14:40 Neut # (Auto) 14.74 10^3/uL (1.8-7.7) H 07/18/24 14:40 Lymph # (Auto) 0.4 10^3/uL (0.8-4.8) L 07/18/24 14:40 [place] # (Auto) 0.8 10^3/uL (0.2-0.9) 07/18/24 14:40 Eos # (Auto) 0.1 10^3/uL (0.0-0.8) 07/18/24 14:40 Baso # (Auto) 0.0 10^3/uL (0.0-0.1) 07/18/24 14:40 Nucleated RBC % (auto) 0 % 07/18/24 14:40 Nucleated RBCs # 0.0 /100WBC 07/18/24 14:40 Specimen Type Arterial 07/18/24 14:32 Sample Site Radial, left 07/18/24 14:32 ABG pH 7.47 (7.35-7.45) H 07/18/24 14:32 ABG pCO2 43.3 mmHg (35-45) 07/18/24 14:32 ABG pO2 76.2 mmHg (80.0-100.0) L 07/18/24 14:32 ABG HCO3 31.6 mmol/L (22-26) H 07/18/24 14:32 ABG O2 Saturation 96.5 07/18/24 14:32 ABG Base Excess 7.2 mmol/L (-2.0-2.0) H 07/18/24 14:32 Joseph Test Pos 07/18/24 14:32 A-a O2 Gradient 2.5 mmHg (5-10) L 07/18/24 14:32 Hematocrit 34.3 % (37-47) L 07/18/24 14:32 Hgb O2 Saturation 93.7 % (95-100) L 07/18/24 14:32 Carboxyhemoglobin 2.0 %THgb (0.4-20.1) 07/18/24 14:32 Methemoglobin 0.9 % (0.4-1.5) 07/18/24 14:32 Total Hemoglobin 11.2 g/dL (12-16) L 07/18/24 14:32 Sodium 136.0 mmol/L (131-143) 07/18/24 14:32 Potassium 4.7 mmol/L (3.5-5.0) 07/18/24 14:32 Glucose 141.0 mg/dL (70-115) H 07/18/24 14:32 Ionized Calcium 1.1 mmol/L (1.1-1.4) 07/18/24 14:32 O2 Delivery Device Nc 07/18/24 14:32 O2 Liters/Min 2.5 % 07/18/24 14:32 Embossing Machine Operator Helper ID [place] 07/18/24 14:32 Sodium 135 mmol/L (136-145) L 07/18/24 14:40 Potassium 4.2 mmol/L (3.5-5.1) 07/18/24 14:40 Chloride 97 mmol/L (98-107) L 07/18/24 14:40 Carbon Dioxide 28 mmol/L (22-29) 07/18/24 14:40 Anion Gap 14.2 (5-19) 07/18/24 14:40 BUN 15 mg/dL (6-20) 07/18/24 14:40 Creatinine 0.7 mg/dL (0.5-0.9) 07/18/24 14:40 GFR Calculation 86.2 mL/min (90-130) L 07/18/24 14:40 Glucose 135 mg/dL (65-115) H 07/18/24 14:40 Calculated Osmolality 283 mOsm/kg (285-295) L 07/18/24 14:40 Lactic Acid 1.7 mmol/L (0.5-2.2) 07/18/24 14:40 Calcium 8.5 mg/dL (8.5-10.5) 07/18/24 14:40 Total Bilirubin 0.8 mg/dL (0.15-1.2) 07/18/24 14:40 AST 24 U/L (0-32) 07/18/24 14:40 ALT 19 U/L (0-33) 07/18/24 14:40 Alkaline Phosphatase 71 U/L (35-105) 07/18/24 14:40 NT-Pro-B Natriuret Pep 8351 pg/mL (0-125) H 07/18/24 14:40 Total Protein 6.0 g/dL (6.6-8.7) L 07/18/24 14:40 Albumin 3.7 g/dL (3.5-5.2) 07/18/24 14:40 Globulin 2.3 g/dL (1.3-4.6) 07/18/24 14:40 Urine Color Yellow (Yellow) 07/18/24 15:10 Urine Appearance Clear (CLEAR) 07/18/24 15:10 Urine pH 7.5 (5-7) 07/18/24 15:10 Ur Specific [place] 1.010 (1.005-1.030) 07/18/24 15:10 Urine Protein Negative (Negative) 07/18/24 15:10 Urine Glucose (UA) Negative (Normal) 07/18/24 15:10 Urine Ketones Negative (Negative) 07/18/24 15:10 Urine Blood Negative (Negative) 07/18/24 15:10 Urine Nitrate Negative (Negative) 07/18/24 15:10 Urine Bilirubin Negative (Negative) 07/18/24 15:10 Urine Urobilinogen 0.2 mg/dL (Negative) 07/18/24 15:10 Ur Leukocyte Esterase Negative (Negative) 07/18/24 15:10 Urine RBC 0-2 /hpf (0-2) 07/18/24 15:10 Urine WBC 0-5 /hpf (0-5) 07/18/24 15:10 Ur Squamous Epith Cells 0-5 /hpf (0-5) 07/18/24 15:10 Amorphous Sediment Not Reportable 07/18/24 15:10 Urine Bacteria None seen /hpf (NONE) 07/18/24 15:10 Hyaline Casts 0-4 /lpf H 07/18/24 15:10 Coronavirus (PCR) Negative (Negative) 07/18/24 14:49 Influenza A (PCR) Positive (Negative) 07/18/24 14:49 Influenza Type B (PCR) Negative (Negative) 07/18/24 14:49 RSV (PCR) Negative (Negative) 07/18/24 14:49 Discharge Plan Discharge Condition: Stable Prescriptions: No Action albuterol sulfate 90 mcg/actuation HFA aerosol inhaler 2 inh inhalation Q4H PRN (Reason: shortness of breath or wheezing) Qty: 6.7 1RF pantoprazole 40 mg tablet,delayed release (DR/EC) 40 mg PO QAM Qty: 30 2RF guaifenesin [Mucinex] 600 mg tablet extended release 12hr 600 mg PO BID 10 Days Qty: 20 0RF potassium chloride [Klor-Con M20] 20 mEq tablet,ER particles/crystals 20 meq PO QAM Qty: 90 3RF losartan 25 mg tablet 25 mg PO DAILY Qty: 90 3RF metoprolol tartrate 25 mg tablet 12.5 mg PO BID@0900,2100 Qty: 90 3RF naloxone [Narcan] 4 mg/actuation spray,non-aerosol 4 mg intranasal Q2M PRN (Reason: opioid overdose) Qty: 2 0RF Rx Instructions: 1 dose into ONE nostril, alternate nostrils w each dose until help arrives fluticasone propionate [Flonase Allergy Relief] 50 mcg/actuation spray,suspension 1 spray intranasal BID Qty: 16 0RF Rx Instructions: administer into each nostril gabapentin 300 mg capsule 300 mg PO BID Rx Instructions: Take 1 capsule by mouth twice daily Referrals: Alberta Hudson NP [Primary Care Provider] - Coding Level of Care Code ED Appeals Analyst for Alexandre Webb
[2024-07-18] MEDS: FUROsemide 10 mg/mL SDV 10mL 60 MG IVP (14:40)
[2024-07-18 14:42] LABS: ABG PCO2 43.3 mmHg (35-45); ABG PH Result 7.47 (7.35-7.45); Alveolar-Arterial Oxygen Gradi 2.5 mmHg (5-10); Arterial Blood Gas Hematocrit 34.3 % (37-47); Base Excess ABG 7.2 mmol/L (-2.0-2.0); Blood Gas Allen Test Pos; Blood Gas LPM 2.5 %; Blood Gas Operator Identificat WALCI; Blood Gas Sample Site Radial, left; Blood Gas Sample Type Arterial; HCO3 ABG 31.6 mmol/L (22-26); HGB O2 Sat 93.7 % (95-100); Ionized Calcium Level - ABG 1.1 mmol/L (1.1-1.4); Methemoglobin 0.9 % (0.4-1.5); Oxygen Device NC; Oxygen Saturation ABG 96.5; PO2 ABG 76.2 mmHg (80.0-100.0); Potassium Level - ABG 4.7 mmol/L (3.5-5.0); Total Hemoglobin 11.2 g/dL (12-16)
[2024-07-18 14:48] LABS: Basophils % 0.2 %; Eosinophils # 0.1 10^3/uL (0.0-0.8); Eosinophils % 0.4 %; Hematocrit 37.5 % (36-47); Lymphocytes # 0.4 10^3/uL (0.8-4.8); Lymphocytes % 2.5 %; Mean Corpuscular HGB Conc 29.3 g/dL (30-55); Mean Corpuscular Hemoglobin 23.3 pg (27-33); Mean Corpuscular Volume 79.4 fl (85-98); Mean Platelet Volume 9.6 fL (7.4-10.4); Monocytes # 0.8 10^3/uL (0.2-0.9); Monocytes % 4.8 %; Neutrophils # 14.74 10^3/uL (1.8-7.7); Neutrophils % 91.7 %; Nucleated Red Blood Cells % 0 %; Platelet Count 308 10^3/cmm (157-399); Red Blood Count 4.72 10^6/uL (3.85-5.65); White Blood Count 16.09 10^3/uL (3.29-11.43)
[2024-07-18] MEDS: piperacillin-tazobactam 3.375 GM in sodium chloride 0.9% (plus) 50 ML IV (15:02)
[2024-07-18 15:05] LABS: Lactic Sepsis W/Reflex 1.7 mmol/L (0.5-2.2)
[2024-07-18] MEDS: LORazepam 2 mg/mL INJ 1 mL IVP (15:10)
[2024-07-18 15:16] LABS: Alanine Aminotransferase 19 U/L (0-33); Albumin Level 3.7 g/dL (3.5-5.2); Alkaline Phosphatase 71 U/L (35-105); Anion Gap 14.2 (5-19); Aspartate Amino Transferase 24 U/L (0-32); Blood Urea Nitrogen 15 mg/dL (6-20); Calcium 8.5 mg/dL (8.5-10.5); Carbon Dioxide 28 mmol/L (22-29); Chloride 97 mmol/L (98-107); Creatinine Clr Calc Pharmacy 93.5891; Globulin 2.3 g/dL (1.3-4.6); Glomerular Filtration Rate 86.2 mL/min (90-130); Glucose 135 mg/dL (65-115); NT Pro B Type Natriuretic Pept 8351 pg/mL (0-125); Osmolality Calculated 283 mOsm/kg (285-295); Potassium 4.2 mmol/L (3.5-5.1); Sodium 135 mmol/L (136-145); Total Bilirubin 0.8 mg/dL (0.15-1.2)
[2024-07-18 15:29] LABS: Covid PCR NEGATIVE (Negative); Influenza A POSITIVE (Negative); Influenza B NEGATIVE (Negative); Respiratory Syncytial Virus Ce NEGATIVE (Negative)
--- NOTE | 2024-07-18 15:31 | ECG_ITS ---
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 Measurements Intervals [place] Rate: 116 P: 68 WI: 160 QRS: 253 QRSD: 162 T: 57 QT: 349 QTc: 485 Interpretive Statements SINUS TACHYCARDIA WITH OCCASIONAL SUPRAVENTRICULAR PREMATURE COMPLEXES INTRAVENTRICULAR CONDUCTION DELAY [130+ ms QRS DURATION] Compared to ECG 07/18/2024 14:02:31 Right-axis deviation no longer present Electronically Signed On 07-20-2024 11:21:27 PREDATORY ANIMAL EXTERMINATOR by Niraj Bowman M.D. [email or web address]
[2024-07-18 15:32] LABS: Bilirubin Urine Negative (Negative); Blood Urine Negative (Negative); Glucose Urine UA Negative (Normal); Ketones Urine Negative (Negative); Leukocyte Esterase Urine Negative (Negative); Nitrate Urine Negative (Negative); Protein Urine Negative (Negative); Urine Appearance Clear (CLEAR); Urine Color Yellow (Yellow); Urobilinogen Urine 0.2 mg/dL (Negative); pH Urine 7.5 (5-7)
[2024-07-18 15:34] LABS: Add Urine Microscopic? YES; Bacteria Urine None Seen /hpf; Hyaline Casts Urine 0-4 /lpf; RBC Urine 0-2 /hpf (0-2); Squamous Epithelial Cell Urine 0-5 /hpf (0-5); WBC Urine 0-5 /hpf (0-5)
[2024-07-18] MEDS: succinylcholine 20 mg/mL SDV 10mL 90 MG IV (15:38)
[2024-07-18] MEDS: etomidate 2 mg/mL INJ SDV 10 mL 20 MG IVP (15:38)
--- NOTE | 2024-07-18 15:42 | CTR_ITS ---
PROCEDURE INFORMATION: Exam: CTA Chest With Contrast Exam date and time: 07/18/2024 4:57 PM Age: 58 years old Clinical indication: Shortness of breath; Additional info: Respiratory failure TECHNIQUE: Imaging protocol: Computed tomographic angiography of the chest with contrast. Exam focused on the arteries. 3D rendering (Not supervised by radiologist): MIP and/or 3D reconstructed images were created by the technologist. Radiation optimization: All CT scans at this facility use at least one of these dose optimization techniques: automated exposure control; mA and/or kV adjustment per patient size (includes targeted exams where dose is matched to clinical indication); or iterative reconstruction. Contrast material: OMNIPAQUE 350; Contrast volume: 100 ml; Contrast route: INTRAVENOUS (IV); COMPARISON: CT angio chest PE protcl [id number] 04/07/2023 4:19 AM RADIATION DOSE METRICS: Total DLP (mGy-cm): 476.13 FINDINGS: Tubes, catheters and devices: Endotracheal tube is present with its tip above the nancy. Enteric feeding tube is present with its distal tip below the gastroesophageal junction however the side port is just above the gastroesophageal junction. Pulmonary arteries: Normal. No pulmonary emboli. Aorta: Unremarkable. No aortic aneurysm. No aortic dissection. Lungs: Right basilar lung linear opacity reflecting atelectasis and/or scarring. Ground-glass and more consolidative opacities left lower lobe of an infectious/inflammatory etiology. There is opacification of some of the bronchi to the left lower lobe including left lower lobe volume loss which may be related to secretions. Pleural spaces: Unremarkable. No pneumothorax. No pleural effusion. Heart: Cardiomegaly. Coronary arteries: Coronary artery calcifications. Lymph nodes: Bilateral hilar and mediastinal lymph nodes are prominent and may be reactive. Diaphragm: Small hiatal hernia. Gallbladder and biliary ducts: The gallbladder is surgically absent. Bones/joints: Unremarkable. No acute fracture. Soft tissues: Unremarkable. CT/CT angio chest PE protcl [id number] IMPRESSION: 1. Opacities in the left lower lobe related to infectious/inflammatory etiologies with a background of postobstructive atelectasis given that there are some secretions within the associated bronchi. 2. Reactive mediastinal and hilar lymph nodes. Attention on follow-up studies to exclude a neoplastic process. 3. Cardiomegaly and coronary artery disease. Number 4 the enteric feeding tube can be advanced so that the side port is well below the gastroesophageal junction.
[2024-07-18] MEDS: propofol 10 mg/mL SDV 20 mL 50 MG IVP ×2 (15:45→17:32)
[2024-07-18] MEDS: fentaNYL 1,000 MCG/100 ML BAG 2.5 MCG IV (15:50)
[2024-07-18] MEDS: midazolam hcl 100 MG/100 ML BAG IV (15:50)
[2024-07-18 16:03] LABS: Troponin(5th) Baseline 25 ng/L (0-10)
--- NOTE | 2024-07-18 16:07 | XRR_ITS ---
PROCEDURE INFORMATION: Exam: XR Chest Exam date and time: 07/18/2024 3:55 PM Age: 58 years old Clinical indication: Device placement; Ett placement (vent status) TECHNIQUE: Imaging protocol: Radiologic exam of the chest. Views: 1 view. COMPARISON: CR XR chest 1V portable [id number] 07/18/2024 1:52 PM FINDINGS: Tubes, catheters and devices: Endotracheal tube terminates 4.4 cm above the nancy. Lungs: Unremarkable. No consolidation. Pleural spaces: Unremarkable. No pleural effusion. No pneumothorax. Heart/Mediastinum: See Vasculature finding. Vasculature: Borderline cardiomegaly and uncoiling of the thoracic aorta is accentuated by the AP positioning. Bones/joints: Unremarkable. XR/XR chest 1V portable [id number] IMPRESSION: No acute findings.
--- NOTE | 2024-07-18 16:10 | PM.HP ---
Providers/Chief Complaint Primary Care Provider: Alberta Hudson NP Chief Complaint: SOB / swelling History of Present Illness Alberta Valdez is a 58 year old female with a past medical history significant for heart failure with reduced ejection fraction, neuropathy, cardiomyopathy, coronary artery disease, back pain, and multiple other comorbidities who presents emergency department in respiratory distress. Patient was intubated in the emergency department. Patient seen and evaluated. Upon my evaluation she is intubated and sedated. She is unable to provide any history. Collateral information from ED provider indicates patient showed up in respiratory distress. BiPAP was attempted. She was intubated for increased work of breathing. Vitals significant for tachypnea, tachycardia, and febrile. Labs revealed leukocytosis with neutrophilia and elevated NT proBNP to 8351 pg/mL chest x-ray redemonstrated known cardiac enlargement chronic plaque atelectasis. Rapid flu A positive. Review of Systems Narrative: A complete review of systems was obtained and is negative except as stated in HPI. Medications/Allergies Home Medications Medication Instructions Recorded Confirmed Last Taken Type naloxone 4 mg/actuation nasal 4 mg intranasal Q2M PRN opioid 12/27/23 07/18/24 Unknown Rx spray (Narcan) overdose #2 ea losartan 25 mg tablet 25 mg PO DAILY #90 tabs 03/10/24 07/18/24 07/18/24 Rx metoprolol tartrate 25 mg tablet 12.5 mg (1/2 x 25 mg) PO 03/10/24 07/18/24 07/18/24 Rx BID@0900,2100 #90 tabs potassium chloride 20 mEq 20 meq PO QAM #90 tabs 03/10/24 07/18/24 07/18/24 Rx tablet,extended release(part/cryst) (Klor-Con M) fluticasone propionate 50 1 spray intranasal BID #16 grams 06/17/24 07/18/24 07/17/24 Rx mcg/actuation nasal spray,suspension (Flonase Allergy Relief) albuterol sulfate 90 mcg/actuation 2 inh inhalation Q4H PRN shortness 07/06/24 07/18/24 07/17/24 Rx aerosol inhaler of breath or wheezing #6.7 grams guaifenesin 600 mg tablet, 600 mg PO BID 10 days #20 tabs 07/06/24 07/18/24 Unknown Rx extended release 12 hr (Mucinex) pantoprazole 40 mg tablet,delayed 40 mg PO QAM #30 tabs 07/06/24 07/18/24 07/18/24 Rx release gabapentin 300 mg capsule 300 mg PO BID 07/18/24 07/18/24 07/18/24 History Allergies Allergy/AdvReac Type Severity Reaction Status Date / Time No Known Allergies Allergy Verified 07/18/24 14:00 PFSH Acute PFSH: Medical History Acute kidney injury Sepsis Heart failure Lower extremity edema Pain of left lower extremity Colon polyp Acid reflux Gastritis Congestive heart failure 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 Encounter to establish care Arthritis Sciatic nerve pain Neuropathy Psychiatric care Diarrhea Avascular necrosis of femur Radiculopathy, site unspecified Cardiomyopathy Atherosclerosis of coronary artery NSTEMI (non-ST elevated myocardial infarction) Chronic back pain Surgical History H/O total hip arthroplasty bilateral Status post abdominal hysterectomy and salpingo-oophorectomy Hx laparoscopic cholecystectomy Family History Mother Diabetes CAD (coronary artery disease) Father Diabetes CAD (coronary artery disease) Social History Smoking and tobacco/nicotine status: never used tobacco/nicotine Quit status (tobacco/nicotine): has quit using Year quit tobacco: 1993 Second hand smoke exposure: No Alcohol intake: former Year of sobriety/quit date alcohol: 2001 Substance/Drug Use: current Substance/Drug use frequency: daily Additional social history: smoked 1/2 ppd from age 17 to 27. Snorted cocaine as a teenager until her 20s. Vitals/I&O/Wt Last Vital Signs Temp 100.1 F H 07/18/24 13:56 Pulse 117 H 07/18/24 16:00 Resp 14 07/18/24 16:04 BP 135/92 07/18/24 16:00 Pulse Ox 98 07/18/24 16:00 O2 Del Method Mechanical Ventilation 07/18/24 16:00 O2 Flow Rate 3 07/18/24 13:56 FiO2 100 07/18/24 16:04 07/18/24 07/18/24 07/18/24 06:59 14:59 22:59 Intake Total 50.775 / 50.775 Balance 50.775 / 50.775 Weight last 48 hrs Weight 81.647 kg Physical Exam Narrative: General: Patient is intubated and sedated. Ill appearing. Febrile. Head: Normocephalic. Neck: Elevated JVD. Cardiovascular: Tachycardic. No gallops. Systolic murmur, favoring ejection. 2+ pitting edema extending from feet to waist bilaterally. Lungs: Moderate air movement. Breath sounds diminished in bilateral bases. Intubated on ventilator. Skin: No jaundice. No rashes. Abdomen: Hypoactive bowel sounds, abdomen soft. Genito Urinary: Genital exam not performed since complaints not related. Rectal: Rectal exam not performed since no symptoms indicated blood loss. Extremities: No cyanosis or clubbing. Musculoskeletal: No swollen or erythematous joints. Neurological: No myoclonus. Sedated. Data 07/18/24 14:40 07/18/24 14:40 Micro: Microbiology 07/18/24 14:34 Blood Culture - Preliminary Blood SPECIMEN COLLECTED 07/18/24 14:34 Blood Culture - Preliminary Blood SPECIMEN COLLECTED A&P Assessment and plan (1) Respiratory failure: Acute hypoxic respiratory failure Intubated 07/18 07/23 WOB/resp distress Fentanyl/Versed for analgesia/sedation Vent management Treat underlying PNA and CHF RT eval and treat Encourage pulmonary toilet (2) Heart failure with reduced ejection fraction: Acute on chronic HFrEF exacerbation Patient significantly overloaded on peripheral exam Monitoring hemodynamics, will need diuresis when medically appropriate; at high risk for shock currently thus will monitor closely Strict I&Os; Daily weights TTE from 12/2023 reviewed; LVEF 20-25%; moderate (3) Severe sepsis: Severe sepsis 2/2 bilateral community acquired pneumonia and influenza SIRS: Febrile, Tachycardia, Tachypnea, Leukocytosis End Organ Damage: Acute respiratory failure No sepsis bolus d/t HFrEF exacerbation Panculture Start broad spectrum abx w/ cefepime and vancomycin MRSA nasal screening Inflammatory markers (4) Pneumonia: Bilateral community acquired pneumonia Management as above (5) Influenza A: Start Tamiflu Droplet precautions Plan DVT ppx: Lovenox Attestations Medical Necessity Statement*: Patient presents to the ER in respiratory distress requiring intubation mechanical ventilation with expected hospitalization across 2 midnights for treatment of underlying severe sepsis, heart failure exacerbation, pneumonia, and acute respiratory failure requiring mechanical ventilation. Critical Care Time: The high probability of a clinically significant, sudden or life threatening deterioration of the patient's cardiovascular, circulatory, pulmonary system(s) required my full and direct attention, intervention and personal management. The critical care time is as shown. This time is in addition to time spent performing any reported procedures but includes the following: [x] Data and vital sign review and interpretation [x] Patient assessment, examination and intervention [x] Documentation [x] Medication orders and management Critical Care Time (min): 80 Coding Level of Care Code Acute Code for [facility] Fwd Diagnoses Respiratory failure J96.90 Heart failure with reduced ejection fraction I50.20 Severe sepsis A41.9; R65.20 Pneumonia J18.9 Influenza A J10.1
--- NOTE | 2024-07-18 16:25 | XRR_ITS ---
PROCEDURE INFORMATION: Exam: XR Chest Exam date and time: 07/18/2024 4:35 PM Age: 58 years old Clinical indication: Device placement; Other: Og tube TECHNIQUE: Imaging protocol: Radiologic exam of the chest. Views: 1 view. COMPARISON: CR XR chest 1V portable [id number] 07/18/2024 3:55 PM FINDINGS: Tubes, catheters and devices: Endotracheal tube terminates above the nancy. Orogastric tube terminates in the upper stomach, side port just above the expected location of the GE junction. Lungs: Unremarkable. No consolidation. Pleural spaces: Unremarkable. No pleural effusion. No pneumothorax. Heart/Mediastinum: See Vasculature finding. Vasculature: Mild cardiomegaly and uncoiling of the thoracic aorta. Bones/joints: Unremarkable. XR/XR chest 1V portable [id number] IMPRESSION: Gastric tube terminates in the upper stomach, side port above the GE junction.
[2024-07-18 16:28] LABS: ABG PCO2 53.8 mmHg (35-45); ABG PH Result 7.38 (7.35-7.45); Alveolar-Arterial Oxygen Gradi 31.6 mmHg (5-10); Arterial Blood Gas Hematocrit 35.7 % (37-47); Base Excess ABG 5.4 mmol/L (-2.0-2.0); Blood Gas Allen Test Pos; Blood Gas Operator Identificat WALCI; Blood Gas Sample Site Radial, left; Blood Gas Sample Type Arterial; Carboxyhemoglobin 1.7 %THgb (0.4-20.1); HCO3 ABG 31.8 mmol/L (22-26); HGB O2 Sat 98.2 % (95-100); Ionized Calcium Level - ABG 1.1 mmol/L (1.1-1.4); Oxygen Device VENT; Oxygen Saturation ABG > 99.1; PO2 FiO2 Ratio Arterial Blood 394; Potassium Level - ABG 3.6 mmol/L (3.5-5.0); Total Hemoglobin 11.6 g/dL (12-16)
--- NOTE | 2024-07-18 16:33 | USCV_ITS ---
Alberta Valdez Age: 58 Gender: F : 1965 Exam Date: 07/18/2024 19:52 Ordering Phys: Fabrice Jhaveri MD Technologist: JOE Exam Location: [facility] [place] Indication: Eval LVEF, diastolic function and AoV BP: 95 / 65 HR: 92 Rhythm: Mostly sinus rhythm with strings of Afib Technical Quality: Adequate MEASUREMENTS (Male / Female) Normal Values 2D ECHO LV Diastolic Diameter PLAX 7.0 cm 4.2 - 5.9 / 3.9 - 5.3 cm IVS Diastolic Thickness 1.0 cm 0.6 - 1.0 / 0.6 - 0.9 cm IVS Systolic Thickness 1.1 cm LVPW Diastolic Thickness 1.2 cm 0.6 - 1.0 / 0.6 - 0.9 cm LVPW Systolic Thickness 1.7 cm LVOT Diameter 2.1 cm LV Ejection Fraction 2D Teich 20.8 % LV Ejection Fraction MOD 4C 16.0 % LV Ejection Fraction MOD 2C 36.5 % LV Ejection Fraction 2C AL 32.0 % LA Diameter 4.7 cm Aorta at Sinotubular Diameter 3.0 cm IVC Diameter 1.0 cm M-MODE LA Ao Ratio MM 1.2 AV Cusp Separation MM 2.0 cm DOPPLER AV Peak Velocity 118.0 cm/s LVOT Peak Velocity 92.0 cm/s AV Area Cont Eq vti 2.6 cm squared AV Area Cont Eq pk 2.8 cm squared MV Area PHT 8.5 cm squared Mitral E to A Ratio 0.0 TV Peak Velocity 248.0 cm/s TR Peak Velocity 320.0 cm/s TR Peak Gradient 41.0 mmHg TV Peak E Velocity 40.0 cm/s PV Peak Velocity 63.0 cm/s FINDINGS Left Ventricle Moderately increased left ventricular cavity size. Severely decreased left ventricular systolic function. Left ventricular ejection fraction is estimated at 20 %. Global left ventricular hypokinesis. Right Ventricle The right ventricle is normal in size and function. Right Atrium The right atrium is normal in size. Left Atrium The left atrium is normal in size. Mitral Valve Moderately thickened mitral valve. No mitral valve stenosis. Moderate mitral valve regurgitation. Aortic Valve Moderate aortic valve calcification. Moderate aortic valve sclerosis, mean gradient 2.8 mmHg, TAY 2.6 cm squared. Trace aortic valve regurgitation. Tricuspid Valve Osfa-fp-[id number] tricuspid valve regurgitation. Pulmonic Valve Structurally normal pulmonic valve without significant stenosis. There is no pulmonic regurgitation. Pericardium Normal pericardium without effusion. Aorta Normal ascending aorta dimension. IVC The inferior vena cava appears normal. CONCLUSIONS Moderately increased left ventricular cavity size. Severely decreased left ventricular systolic function. Left ventricular ejection fraction is estimated at 20 %. Global left ventricular hypokinesis. Moderate aortic valve calcification. Moderate aortic valve sclerosis, mean gradient 2.8 mmHg, TAY 2.6 cm squared. Trace aortic valve regurgitation. Jbsk-zf-ehksurch tricuspid valve regurgitation. There is no pericardial effusion. Right atrial pressure is around 10 mm of mercury. Gini Mckay MD (Electronically Signed) Final Date: 19 July 2024 17:46 S
[2024-07-18 16:54] LABS: C Reactive Protein 13.5 mg/L (0.0-4.9)
[2024-07-18] MEDS: iohexol 350 mg/mL 500 mL Btl (per mL) IV (17:06)
--- NOTE | 2024-07-18 17:36 | ECG_ITS ---
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 Measurements Intervals [place] Rate: 94 P: 20 DE: 113 QRS: 262 QRSD: 173 T: 60 QT: 411 QTc: 514 Interpretive Statements SINUS RHYTHM WITH SHORT DE INTERVAL WITH OCCASIONAL SUPRAVENTRICULAR PREMATURE COMPLEXES POSSIBLE LEFT ATRIAL ENLARGEMENT [-0.1mV P-WAVE IN V1/V2] RIGHT AXIS DEVIATION [QRS AXIS > 100] INTRAVENTRICULAR CONDUCTION DELAY [130+ ms QRS DURATION] Compared to ECG 07/18/2024 15:31:46 Short [place] interval now present Right-axis deviation now present Sinus tachycardia no longer present Electronically Signed On 07-22-2024 13:45:41 WIRE BRUSH MAKER by Niraj Bowman M.D. [email or web address]
[2024-07-18] MEDS: linezolid premix 600 MG/300 ML PREMIX 300 MG IV (18:11)
[2024-07-18] MEDS: oseltamivir phosphate 75 mg Capsule PO (18:11)
[2024-07-18] MEDS: pantoprazole 40 mg SDV IVP (18:11)
[2024-07-18] MEDS: gabapentin 100 mg Capsule PO (18:11)
[2024-07-18] MEDS: cefepime 2,000 mg SDV 2000 MG IVP (18:11)
[2024-07-18 18:31] LABS: Procalcitonin 0.05 ng/mL (0-0.5)
[2024-07-18] MEDS: norepinephrine 4 MG/250 ML BAG 7.5 MG IV (19:00)
[2024-07-18 19:06] LABS: Troponin 5 2HR 26.49 ng/L (0-10); Troponin 5 2HR Delta 1.49 ABS# (0-10)
[2024-07-18] MEDS: fentaNYL 1,000 MCG/100 ML BAG 15 MCG IV (21:32)
--- NOTE | 2024-07-18 21:36 | ECG_ITS ---
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 Measurements Intervals [place] Rate: 95 P: 139 WI: 147 QRS: 213 QRSD: 170 T: 37 QT: 408 QTc: 515 Interpretive Statements SINUS RHYTHM WITH OCCASIONAL SUPRAVENTRICULAR PREMATURE COMPLEXES ARM LEADS REVERSED [INVERTED P AND QRS IN I] Compared to ECG 07/18/2024 17:36:10 Short [place] interval no longer present Right-axis deviation no longer present Intraventricular conduction delay no longer present Electronically Signed On 07-22-2024 13:45:10 FAGOTING MACHINE OPERATOR by Niraj Bowman M.D. [email or web address]
[2024-07-18] MEDS: enoxaparin 40 mg/0.4 mL Syringe SUBCUT (21:41)
[2024-07-18 22:18] LABS: Troponin 5 6HR 31.54 ng/L (0-10); Troponin 5 6HR Delta 6.54 ng/L (0-12)
[2024-07-18] MEDS: sennosides 8.6 mg Tablet 17.2 MG PO (22:19)
[2024-07-18] MEDS: acetaminophen 325 mg Tablet 1000 MG PO (22:20)
--- NOTE | 2024-07-18 22:34 | PC.NURSE ---
Metoprolol held due to low BP of 85/58.
--- NOTE | 2024-07-18 23:56 | ECG_ITS ---
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 Measurements Intervals [place] Rate: 92 P: 131 FL: 111 QRS: 190 QRSD: 173 T: 14 QT: 416 QTc: 517 Interpretive Statements SINUS RHYTHM WITH SHORT FL INTERVAL WITH OCCASIONAL SUPRAVENTRICULAR PREMATURE COMPLEXES LEFT ATRIAL ENLARGEMENT [-0.15mV P-WAVE IN V1/V2] RIGHT AXIS DEVIATION [QRS AXIS > 100] INTRAVENTRICULAR CONDUCTION DELAY [130+ ms QRS DURATION] Compared to ECG 07/18/2024 21:36:34 Short [place] interval now present Atrial abnormality now present Right-axis deviation now present Intraventricular conduction delay now present Electronically Signed On 07-20-2024 11:16:40 DAIRY TECHNICIAN by Niraj Bowman M.D. [id number]
--- NOTE | 2024-07-18 23:58 | PC.NURSE ---
Contacted. Dr Rogel in reference to a short run of Vtac, 4 beats. Received orders for EKG, phosphate magnesium and ABG draw.
[2024-07-19] VITALS (109 sets, daily range): BP systolic 78–106; BP diastolic 51–78; PULSE 85–112; RESP 11–16; TEMP 37.2–38.7; O2SAT 92–99
[2024-07-19 00:38] LABS: ABG PCO2 48.5 mmHg (35-45); ABG PH Result 7.45 (7.35-7.45); Alveolar-Arterial Oxygen Gradi 18.9 mmHg (5-10); Arterial Blood Gas Hematocrit 32.2 % (37-47); Base Excess ABG 8.3 mmol/L (-2.0-2.0); Blood Gas Operator Identificat JDB; Blood Gas Sample Site Brachial, right; Blood Gas Sample Type Arterial; Carboxyhemoglobin 2.2 %THgb (0.4-20.1); HCO3 ABG 33.4 mmol/L (22-26); HGB O2 Sat 94.2 % (95-100); Ionized Calcium Level - ABG 1.1 mmol/L (1.1-1.4); Methemoglobin 0.9 % (0.4-1.5); Oxygen Device VENT; Oxygen Saturation ABG 97.2; PO2 ABG 79.5 mmHg (80.0-100.0); PO2 FiO2 Ratio Arterial Blood 198; Potassium Level - ABG 3.3 mmol/L (3.5-5.0); Total Hemoglobin 10.5 g/dL (12-16)
[2024-07-19] MEDS: albuterol 2.5 mg/3 mL Neb INHALATION ×2 (00:45→04:41)
[2024-07-19 01:01] LABS: Magnesium 2.1 mg/dL (1.7-2.3); Phosphorus 3.1 mg/dL (2.5-4.5)
[2024-07-19] MEDS: cefepime 2,000 mg SDV 2000 MG IVP ×3 (03:07→17:20)
--- NOTE | 2024-07-19 04:00 | XRR_ITS ---
PROCEDURE INFORMATION: Exam: XR Chest Exam date and time: 07/19/2024 3:23 AM Age: 58 years old Clinical indication: Dyspnea; Additional info: Respiratory failure TECHNIQUE: Imaging protocol: Radiologic exam of the chest. Views: 1 view. COMPARISON: CT angio chest PE protcl [id number] 07/18/2024 4:57 PM , chest x-ray 07/18/2024 FINDINGS: Tubes, catheters and devices: Endotracheal tube is present with its tip 3-4 cm above the nancy. Nasogastric tube is present with its tip overlying the body of the stomach. However, the proximal side-hole is at the GE junction. Recommend advancement by 5-6 cm. Lungs: There is opacity at the left lung base obscuring the left hemidiaphragm and a portion of the left heart border. Findings may reflect layering pleural fluid, atelectasis, pneumonia or a combination. The right lung is well-expanded and clear. Pleural spaces: There may be a component of pleural fluid at the left lung base. Heart/Mediastinum: The heart is enlarged. Bones/joints: Unremarkable. XR/XR chest 1V portable [id number] IMPRESSION: 1. Cardiomegaly. 2. Left basilar opacity slightly worse on today's exam when compared to prior chest x-ray. 3. Lines and tubes as above.
[2024-07-19] MEDS: fentaNYL 1,000 MCG/100 ML BAG 15 MCG IV ×2 (04:17→10:24)
[2024-07-19 05:00] LABS: ABG PCO2 51.3 mmHg (35-45); ABG PH Result 7.43 (7.35-7.45); Arterial Blood Gas Hematocrit 31.1 % (37-47); Base Excess ABG 8.4 mmol/L (-2.0-2.0); Blood Gas Allen Test Pos; Blood Gas Sample Site Radial, right; Blood Gas Sample Type Arterial; Carboxyhemoglobin 2.3 %THgb (0.4-20.1); HCO3 ABG 33.9 mmol/L (22-26); HGB O2 Sat 91.9 % (95-100); Ionized Calcium Level - ABG 1.1 mmol/L (1.1-1.4); Methemoglobin 0.8 % (0.4-1.5); Oxygen Device VENT; Oxygen Saturation ABG 94.9; PO2 ABG 68.5 mmHg (80.0-100.0); PO2 FiO2 Ratio Arterial Blood 171; Potassium Level - ABG 3.4 mmol/L (3.5-5.0); Total Hemoglobin 10.1 g/dL (12-16)
--- NOTE | 2024-07-19 05:17 | PC.NURSE ---
When turning patient for nightly bath, patient's rhythm went to what appeared to be SVT for about ten seconds. Patient rolled back on to her back, returned to . Dr. Rogel notified.
[2024-07-19 05:20] LABS: MRSA PCR OZH (swab) NOT DETECTED (Not Detecte)
[2024-07-19 05:52] LABS: Basophils % 0.3 %; Eosinophils % 0.3 %; Hematocrit 35.5 % (36-47); Lymphocytes # 0.7 10^3/uL (0.8-4.8); Lymphocytes % 7.6 %; Mean Corpuscular HGB Conc 28.7 g/dL (30-55); Mean Corpuscular Hemoglobin 23.2 pg (27-33); Mean Corpuscular Volume 80.9 fl (85-98); Monocytes # 0.7 10^3/uL (0.2-0.9); Monocytes % 7.3 %; Neutrophils # 7.42 10^3/uL (1.8-7.7); Neutrophils % 83.8 %; Nucleated Red Blood Cells % 0 %; Platelet Count 264 10^3/cmm (157-399); Red Blood Count 4.39 10^6/uL (3.85-5.65); Red Cell Distribution Width 20.1 % (12.1-15.1); White Blood Count 8.86 10^3/uL (3.29-11.43)
[2024-07-19] MEDS: linezolid premix 600 MG/300 ML PREMIX 300 MG IV (06:05)
[2024-07-19] MEDS: oseltamivir phosphate 75 mg Capsule PO ×2 (06:06→17:20)
[2024-07-19 06:26] LABS: Alanine Aminotransferase 15 U/L (0-33); Albumin Level 3.1 g/dL (3.5-5.2); Alkaline Phosphatase 60 U/L (35-105); Anion Gap 10.5 (5-19); Aspartate Amino Transferase 22 U/L (0-32); Blood Urea Nitrogen 13 mg/dL (6-20); Calcium 7.8 mg/dL (8.5-10.5); Carbon Dioxide 32 mmol/L (22-29); Chloride 100 mmol/L (98-107); Creatinine Clr Calc Pharmacy 69.5835; Globulin 2.1 g/dL (1.3-4.6); Glomerular Filtration Rate 57.1 mL/min (90-130); Glucose 111 mg/dL (65-115); Magnesium 2.2 mg/dL (1.7-2.3); Osmolality Calculated 289 mOsm/kg (285-295); Potassium 3.5 mmol/L (3.5-5.1); Sodium 139 mmol/L (136-145); Total Bilirubin 0.9 mg/dL (0.15-1.2); Total Protein 5.2 g/dL (6.6-8.7)
[2024-07-19] MEDS: midazolam hcl 100 MG/100 ML BAG 6 MG IV (06:27)
[2024-07-19] MEDS: ipratropium-albuterol 3 mL Neb INHALATION ×3 (07:50→19:34)
[2024-07-19] MEDS: gabapentin 100 mg Capsule PO ×2 (08:53→17:19)
--- NOTE | 2024-07-19 10:54 | P.CONIM_ITS ---
<Statement entered by Niraj Bowman M.D - 07/19/24 20:56> Patient was evaluated and cared for in conjunction with an advanced practice practitioner. I personally examined the patient and reviewed the chart and all pertinent data including imaging, telemetry, and laboratory results. I discussed the patient in detail with the advanced practice practitioner. Please see their note for complete consult note, results and agreed upon plan of care for the patient. Patient had prolonged non-sustained VT episode. Will start amiodarone gtt for now. Once blood pressure improves, will diurese. GENERAL: Patient is intubated and sedated HEART: Regular S1 and S2 LUNGS: Clear to auscultation bilaterally EXTREMITIES: Lower extremities with 1+ edema Providers/Reason For Consult 2 Consulting Physician/Specialty*: Dr Bowman, cardiology Reason for Consult*: systolic CHF exacerbation, septic shock, influenza A/pneumonia Requesting Physician: Dr Jhaveri Attending Physician: Fabrice Jhaveri MD Primary Care Provider: Alberta Hudson NP History of Present Illness History of Present Illness Alberta Valdez is a 58 year old female with past medical history of nonischemic cardiomyopathy, LVEF previously 25 to 30%, decreased to 20 to 25% in December 2023 (previously refused LifeVest but was referred for ICD placement). She was hospitalized at the end of May for worsening shortness of breath found to have pneumonia, empirically treated with antibiotics, viral testing at that time was negative. She presented to the emergency room yesterday with shortness of breath and lower extremity edema, using a neighbors oxygen, noting no increase in urination despite doubling her Lasix dose. She was found to be positive for influenza A, BNP 8351, she was diuresed however work of breathing increased, level of consciousness decreased and she was intubated in the emergency room. White blood cell count up to 16, lactic acid 1.7. Fluid bolus withheld due to severely decreased LV function. Troponin series: 25 -> 26 -> 31. EKG showed sinus tachycardia rate 109 bpm This morning WBC down to 8, BUN 13, creatinine 1.0. She remains intubated and sedated this morning, on Levophed 2 mcg/min, fentanyl and Versed for sedation. She is 1 L negative so far this morning blood pressure currently 90s over 50s. She still appears volume overloaded. Review of Systems 2 Narrative: Unable to obtain ROS patient is intubated and sedated Medications/Allergies Home Medications Medication Instructions Recorded Confirmed Last Taken Type naloxone 4 mg/actuation nasal 4 mg intranasal Q2M PRN opioid 12/27/23 07/18/24 Unknown Rx spray (Narcan) overdose #2 ea losartan 25 mg tablet 25 mg PO DAILY #90 tabs 03/10/24 07/18/24 07/18/24 Rx metoprolol tartrate 25 mg tablet 12.5 mg (1/2 x 25 mg) PO 03/10/24 07/18/24 07/18/24 Rx BID@0900,2100 #90 tabs potassium chloride 20 mEq 20 meq PO QAM #90 tabs 03/10/24 07/18/24 07/18/24 Rx tablet,extended release(part/cryst) (Klor-Con M) fluticasone propionate 50 1 spray intranasal BID #16 grams 06/17/24 07/18/24 07/17/24 Rx mcg/actuation nasal spray,suspension (Flonase Allergy Relief) albuterol sulfate 90 mcg/actuation 2 inh inhalation Q4H PRN shortness 07/06/24 07/18/24 07/17/24 Rx aerosol inhaler of breath or wheezing #6.7 grams guaifenesin 600 mg tablet, 600 mg PO BID 10 days #20 tabs 07/06/24 07/18/24 Unknown Rx extended release 12 hr (Mucinex) pantoprazole 40 mg tablet,delayed 40 mg PO QAM #30 tabs 07/06/24 07/18/24 07/18/24 Rx release gabapentin 300 mg capsule 300 mg PO BID 07/18/24 07/18/24 07/18/24 History Allergies Allergy/AdvReac Type Severity Reaction Status Date / Time No Known Allergies Allergy Verified 07/18/24 14:00 Current Medications Generic Name Dose Route Start Last Admin Trade Name Freq PRN Reason Stop Dose Admin Acetaminophen 1,000 mg 07/18/24 17:38 07/18/24 22:20 Acetaminophen 325 Mg Tablet PO 1,000 mg Q6H PRN Administration Mild/Mod Pain Or Temp >/= 101 Albuterol Sulfate 2.5 mg 07/18/24 17:38 07/19/24 04:41 Albuterol 2.5 Mg/3 Ml Neb INHALATION 2.5 mg Q4H PRN Administration wheezing Albuterol/Ipratropium 3 ml 07/19/24 08:00 07/19/24 07:50 Ipratropium-Albuterol 3 Ml Neb INHALATION 3 ml Q6H.RESP SHAUN Administration Cefepime HCl 2,000 mg 07/18/24 18:00 07/19/24 08:51 Cefepime 2,000 Mg Sdv IVP 2,000 mg Q8H SHAUN Administration Protocol Enoxaparin Sodium 40 mg 07/18/24 21:00 07/18/24 21:41 Enoxaparin 40 Mg/0.4 Ml Syringe SUBCUT 40 mg BEDTIME SHAUN Administration Gabapentin 100 mg 07/18/24 18:00 07/19/24 08:53 Gabapentin 100 Mg Capsule PO 100 mg BID SHAUN Administration Fentanyl 1,000 mcg in 100 mls @ 0 mls/hr 07/18/24 15:45 07/19/24 10:24 Sublimaze IV 150 mcg/hr .Q0M SHAUN 15 mls/hr Administration Protocol Per Protocol Midazolam HCl 100 mg in 100 mls @ 0 mls/hr 07/18/24 15:45 07/19/24 09:11 Versed IV 5 mg/hr .Q0M SHAUN 5 mls/hr Titration Protocol Per Protocol Linezolid 600 mg in 300 mls @ 300 mls/hr 07/18/24 18:00 07/19/24 07:38 Zyvox Premix IV Infused Q12H SHAUN Infusion Protocol Norepinephrine Bitartrate 4 mg in 250 mls @ 0 mls/hr 07/18/24 18:45 07/18/24 23:05 Levophed IV 2 mcg/min .Q0M SHAUN 7.5 mls/hr Titration Protocol Per Protocol Metoprolol Tartrate 12.5 mg 07/18/24 21:00 07/19/24 07:38 Metoprolol Tartrate 25 Mg Tablet PO Not Given BID@0900,2100 SHAUN Oseltamivir Phosphate 75 mg 07/18/24 18:00 07/19/24 06:06 Oseltamivir Phosphate 75 Mg Capsule PO 07/23/24 06:01 75 mg Q12H SHAUN Administration Pantoprazole Sodium 40 mg 07/18/24 18:00 07/18/24 18:11 Pantoprazole 40 Mg Sdv IVP 40 mg Q24H SHAUN Administration Senna 17.2 mg 07/18/24 21:00 07/18/24 22:19 Sennosides 8.6 Mg Tablet PO 17.2 mg BEDTIME SHAUN Administration PFSH Acute 2 PFSH: Medical History Acute kidney injury Sepsis Heart failure Lower extremity edema Pain of left lower extremity Colon polyp Acid reflux Gastritis Congestive heart failure 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 Encounter to establish care Arthritis Sciatic nerve pain Neuropathy Psychiatric care Diarrhea Avascular necrosis of femur Radiculopathy, site unspecified Cardiomyopathy Atherosclerosis of coronary artery NSTEMI (non-ST elevated myocardial infarction) Chronic back pain Surgical History H/O total hip arthroplasty bilateral Status post abdominal hysterectomy and salpingo-oophorectomy Hx laparoscopic cholecystectomy Family History Mother Diabetes CAD (coronary artery disease) Father Diabetes CAD (coronary artery disease) Social History Smoking and tobacco/nicotine status: never used tobacco/nicotine Quit status (tobacco/nicotine): has quit using Year quit tobacco: 1993 Second hand smoke exposure: No Alcohol intake: former Year of sobriety/quit date alcohol: 2001 Substance/Drug Use: current Substance/Drug use frequency: daily Additional social history: smoked 1/2 ppd from age 17 to 27. Snorted cocaine as a teenager until her 20s. Vitals/I&O/Wt Last Vital Signs Temp 99.9 F H 07/19/24 06:00 Pulse 103 H 07/19/24 08:45 Resp 16 07/19/24 09:04 BP 86/70 07/19/24 08:45 Pulse Ox 93 07/19/24 09:04 O2 Del Method Mechanical Ventilation 07/19/24 07:52 O2 Flow Rate 3 07/18/24 13:56 FiO2 40 07/19/24 09:04 07/18/24 07/19/24 07/19/24 22:59 06:59 14:59 Intake Total 479.100 / 662.100 183 / 662.100 408.15 / 408.15 Output Total 1700 / 2000 300 / 2000 Balance -1220.900 / -1337.900 -117 / -1337.900 408.15 / 408.15 Weight last 48 hrs Weight 196 lb Weight 202 lb 14.4 oz Weight 180 lb Physical Exam 2 Const: GENERAL APPEARANCE: comfortable and patient mechanically ventilated Chest: COMMONS NORMALS: normal inspection of the chest and normal palpation of entire chest wall CHEST: Yes Symmetrical chest wall rise Resp: COMMON NORMALS: normal respiratory effort, No retractions and No use of accessory muscles EFFORT & INSPECTION: Yes symmetric chest movement A USCULTATION: diminished lung sounds bilateral in the lower lung dee Cardio: COMMON NORMALS: regular rate, regular rhythm, S1 normal heart sound present, S2 normal heart sound present, No gallops present (Cardio), No clicks present (Cardio), No murmurs present (Cardio) and No rub (Cardio) RATE: r egular rate RHYTHM: regular rhythm HEART SOUNDS: S1 normal heart sound present and S2 normal heart sound present PERIPHERAL PULSES: radial pulses present Extremity: GENERAL: Yes edema (2+ pitting edema bilat LE) Urinary Catheter Management: Conway: Cath Placed During This Visit: yes Reason for Continuing Indwelling Catheter: Accurate Measurement of Urinary Output in Critically Ill Patients Urinary Catheter Date of Insertion: 07/18/24 Urinary Catheter Time of Insertion: 17:54 Data 07/19/24 05:11 07/19/24 05:11 Micro: Microbiology 07/19/24 03:40 Legionella Urinary Antigen - Final Urine Catheterized 07/18/24 14:34 Blood Culture - Preliminary Blood SPECIMEN COLLECTED 07/18/24 14:34 Blood Culture - Preliminary Blood SPECIMEN COLLECTED A&P Assessment and plan (1) Heart failure with reduced ejection fraction: (2) Non-ischemic cardiomyopathy: (3) Severe sepsis: (4) Pneumonia: Plan Nonischemic cardiomyopathy, no disease by coronary angiogram 2021. Mild elevation of troponin in the setting of systolic CHF exacerbation, sepsis, influenza/pneumonia. Limited echocardiogram already completed, pending read. Blood pressure has been hypotensive. Continue Levophed, IV diuresis. QTc is long this morning, 514 ms. QRS is widened 170 to 180 ms. She may require SPECIAL EFFECTS DESIGNER-D rather than ICD placement once the sepsis has resolved. Ventricular ectopy noted overnight, ensure potassium does not drop below 3.5, magnesium this morning 2.2. Consult Attestations 2 Medical Necessity Statement: CHF exacerbation, sepsis Coding Level of Care Code Acute Code for g Fwd Diagnoses Heart failure with reduced ejection fraction I50.20 Non-ischemic cardiomyopathy I42.8 Severe sepsis A41.9; R65.20 Pneumonia J18.9
--- NOTE | 2024-07-19 11:42 | P.PN_ITS ---
Subjective 2 Subjective: Patient remains intubated and sedated which limits history. She required initiation of Levophed for shock yesterday evening. Persistently febrile overnight in the setting of influenza. Marked ventricular ectopy overnight. Medications: Reviewed: Yes Vitals/I&O/Wt Last Vital Signs Temp 99.9 F H 07/19/24 06:00 Pulse 103 H 07/19/24 08:45 Resp 16 07/19/24 10:59 BP 86/70 07/19/24 08:45 Pulse Ox 95 07/19/24 10:59 O2 Del Method Mechanical Ventilation 07/19/24 07:52 O2 Flow Rate 3 07/18/24 13:56 FiO2 40 07/19/24 10:59 07/18/24 07/19/24 07/19/24 22:59 06:59 14:59 Intake Total 479.100 / 479.100 183 / 662.100 408.15 / 408.15 Output Total 1700 / 1700 300 / 2000 Balance -1220.900 / -1220.900 -117 / -1337.900 408.15 / 408.15 Weight last 48 hrs Weight 88.904 kg Weight 92.034 kg Weight 81.647 kg Physical Exam 2 Narrative: General: Patient is intubated and sedated. Febrile. Head: Normocephalic. Neck: Elevated JVD. Cardiovascular: No gallops. Systolic ejection murmur. 2-3+ pitting edema extending from feet to waist bilaterally. Lungs: Moderate air movement. Breath sounds diminished in bilateral bases. Intubated on ventilator. Skin: No jaundice. No rashes. Abdomen: Hypoactive bowel sounds, abdomen soft. Extremities: No cyanosis or clubbing. Musculoskeletal: No swollen or erythematous joints. Neurological: No myoclonus. Sedated. Urinary Catheter Management: Conway: Cath Placed During This Visit: yes Reason for Continuing Indwelling Catheter: Accurate Measurement of Urinary Output in Critically Ill Patients Urinary Catheter Date of Insertion: 07/18/24 Urinary Catheter Time of Insertion: 17:54 Data 07/19/24 05:11 07/19/24 05:11 Micro: Microbiology 07/18/24 16:02 Gram Stain - Final Sputum - Endotracheal Tube Aspirate 07/19/24 03:40 Legionella Urinary Antigen - Final Urine Catheterized 07/18/24 14:34 Blood Culture - Preliminary Blood SPECIMEN COLLECTED 07/18/24 14:34 Blood Culture - Preliminary Blood SPECIMEN COLLECTED A&P Assessment and plan (1) Respiratory failure: Acute hypoxic respiratory failure Intubated 07/18 2/ WOB/resp distress Fentanyl/Versed for analgesia/sedation Vent management Treat underlying PNA and CHF Encourage pulmonary toilet Still with moderate air movement on exam, will plan for trial CPAP today and monitor response (2) Heart failure with reduced ejection fraction: Acute on chronic HFrEF exacerbation Patient significantly overloaded on peripheral exam Patient now in shock, no room for diuresis Strict I&Os; Daily weights TTE from 12/2023 reviewed; LVEF 20-25%; moderate Repeat limited echo is pending Cardiology is consulted, appreciate recommendations (3) Severe sepsis: Septic shock 2/2 bilateral community acquired pneumonia and influenza on vasopressor support Continue Levophed for MAP goal of 65 mmHg Follow cultures MRSA screen is negative, will discontinue Zyvox Continue cefepime (4) Pneumonia: Bilateral community acquired pneumonia Management as above (5) Influenza A: Continue Tamiflu Droplet precautions (6) Cardiac arrhythmia: Patient with a low ejection fraction, at risk for ventricular arrhythmias likely exacerbated by critical illness Continuous telemetry monitoring Monitor electrolytes, K goal greater than 4, mag goal greater than 2 Cardiology consult Plan DVT ppx: Lovenox Attestations 2 Medical Necessity Statement*: Patient requires ongoing hospitalization for IV vent management, IV antibiotics, IV vasopressor support, and intensive care. Critical Care Time: The high probability of a clinically significant, sudden or life threatening deterioration of the patient's pulmonary, cardiovascular, circulatory system(s) required my full and direct attention, intervention and personal management. The critical care time is as shown. This time is in addition to time spent performing any reported procedures but includes the following: [x] Data and vital sign review and interpretation [x] Patient assessment, examination and intervention [x] Documentation [x] Medication orders and management Critical Care Time (min): 40 Coding Level of Care Code Acute Code for [facility] Diagnoses Respiratory failure J96.90 Heart failure with reduced ejection fraction I50.20 Severe sepsis A41.9; R65.20 Pneumonia J18.9 Influenza A J10.1 Cardiac arrhythmia I49.9
--- NOTE | 2024-07-19 12:40 | XR_ITS ---
WS: [id number] PORTABLE CHEST HISTORY: Post PICC insertion COMPARISON: 07/19/2024 and 07/18/2024 Right-sided PICC line in satisfactory position. The tip terminates at the cavoatrial junction. Mild pulmonary venous congestion. Obscuration of the LEFT hemidiaphragm. Blunting of the LEFT costoph renic angle. Small LEFT pleural effusion. Cardiac size: Moderately enlarged heart. Mediastinum/Aorta: Normal mediastinum. No osseous abnormality seen. Endotracheal tube and nasogastric tubes are in good position. XR/XR chest 1V portable [id number] IMPRESSION: Satisfactory placement RIGHT PICC line with tip terminating at the cavoatrial j unction. Small LEFT pleural effusion and cardiomegaly.
--- NOTE | 2024-07-19 13:58 | PICC.NOTE ---
Triple lumen PICC placed to right basilic vein. Referred to vascular access nurse for PICC placement due to use of vasopressors. Risks and benefits discussed and informed consent obtained from pt significant other, Taiwo, by bedside nursing staff. Right arm assessed with right basilic vein measuring 4.8 mm, straight, and apparent best choice for placement. Using sterile technique and MST, right basilic vein accessed x 1 stick. Mid-arm circumference measured 10 cm from right AC 26 cm. Trimmed cath 41 cm with 0 cm external length noted. CXR shows tip in cavoatrial junction, in good position for use per radiologist. Line secured with stat-lock. Insertion site covered with Secureport IV and TSM. Report given to bedside nurse, KRISTY Dexter.
[2024-07-19] MEDS: acetaminophen 325 mg Tablet 1000 MG PO (17:20)
[2024-07-19] MEDS: pantoprazole 40 mg SDV IVP (17:21)
[2024-07-19] MEDS: potassium chloride oral liq 20 mEq/15 mL UDC 40 MEQ NG-TUBE (17:38)
[2024-07-19] MEDS: sennosides 8.6 mg Tablet 17.2 MG PO (21:26)
[2024-07-19] MEDS: enoxaparin 40 mg/0.4 mL Syringe SUBCUT (21:27)
[2024-07-19] MEDS: fentaNYL 1,000 MCG/100 ML BAG 7.5 MCG IV (22:00)
[2024-07-20] VITALS (85 sets, daily range): BP systolic 77–119; BP diastolic 58–85; PULSE 78–94; RESP 10–27; TEMP 36.5–37.2; O2SAT 93–100
[2024-07-20] MEDS: norepinephrine 4 MG/250 ML BAG 7.5 MG IV (01:03)
[2024-07-20] MEDS: ipratropium-albuterol 3 mL Neb INHALATION ×4 (01:45→20:24)
[2024-07-20] MEDS: cefepime 2,000 mg SDV 2000 MG IVP ×3 (02:11→21:43)
[2024-07-20 03:50] LABS: ABG PCO2 51.9 mmHg (35-45); ABG PH Result 7.38 (7.35-7.45); Alveolar-Arterial Oxygen Gradi 13.1 mmHg (5-10); Arterial Blood Gas Hematocrit 31.9 % (37-47); Base Excess ABG 4.7 mmol/L (-2.0-2.0); Blood Gas Allen Test Pos; Blood Gas Sample Site Radial, right; Blood Gas Sample Type Arterial; Carboxyhemoglobin 2.2 %THgb (0.4-20.1); HCO3 ABG 30.7 mmol/L (22-26); HGB O2 Sat 95.2 % (95-100); Ionized Calcium Level - ABG 1.1 mmol/L (1.1-1.4); Methemoglobin 0.2 % (0.4-1.5); Oxygen Device VENT; Oxygen Saturation ABG 97.5; PO2 FiO2 Ratio Arterial Blood 242; Potassium Level - ABG 3.9 mmol/L (3.5-5.0); Total Hemoglobin 10.4 g/dL (12-16)
--- NOTE | 2024-07-20 04:00 | XRR_ITS ---
PROCEDURE INFORMATION: Exam: XR Chest Exam date and time: 07/20/2024 3:51 AM Age: 58 years old Clinical indication: Dyspnea and shortness of breath; Additional info: Respiratory failure TECHNIQUE: Imaging protocol: Radiologic exam of the chest. Views: 1 view. COMPARISON: CR XR chest 1V portable [id number] 07/19/2024 1:13 PM FINDINGS: Tubes, catheters and devices: Endotracheal tube projects 4.2 cm from the nancy. Enteric tube traverses midline, side fenestration and catheter tip in the left upper quadrant, subdiaphragmatic. Peripherally inserted right central venous catheter terminates in the distal superior vena cava. Lungs: See Pleural spaces finding. Pleural spaces: Similar-appearing moderate-sized left pleural effusion with associated basilar atelectasis. Heart/Mediastinum: Unremarkable. No cardiomegaly. Bones/joints: No acute change of the visualized osseous structures. XR/XR chest 1V portable [id number] IMPRESSION: 1. Medical devices as above. 2. No significant interval change from prior comparisons.
[2024-07-20 04:42] LABS: Basophils % 0.6 %; Eosinophils % 0.3 %; Hematocrit 34.3 % (36-47); Lymphocytes # 0.6 10^3/uL (0.8-4.8); Lymphocytes % 9.4 %; Mean Corpuscular HGB Conc 28.3 g/dL (30-55); Mean Corpuscular Volume 81.5 fl (85-98); Mean Platelet Volume 9.7 fL (7.4-10.4); Monocytes # 0.6 10^3/uL (0.2-0.9); Monocytes % 9.7 %; Neutrophils # 5.23 10^3/uL (1.8-7.7); Neutrophils % 79.4 %; Nucleated Red Blood Cells % 0 %; Platelet Count 254 10^3/cmm (157-399); Red Blood Count 4.21 10^6/uL (3.85-5.65); Red Cell Distribution Width 20.7 % (12.1-15.1); White Blood Count 6.59 10^3/uL (3.29-11.43)
[2024-07-20 05:16] LABS: Alanine Aminotransferase 15 U/L (0-33); Albumin Level 2.9 g/dL (3.5-5.2); Alkaline Phosphatase 59 U/L (35-105); Aspartate Amino Transferase 32 U/L (0-32); Blood Urea Nitrogen 17 mg/dL (6-20); Calcium 7.9 mg/dL (8.5-10.5); Carbon Dioxide 28 mmol/L (22-29); Chloride 101 mmol/L (98-107); Creatinine Clr Calc Pharmacy 62.1424; Globulin 2.5 g/dL (1.3-4.6); Glomerular Filtration Rate 51.2 mL/min (90-130); Glucose 132 mg/dL (65-115); Magnesium 2.3 mg/dL (1.7-2.3); NT Pro B Type Natriuretic Pept 3260 pg/mL (0-125); Osmolality Calculated 293 mOsm/kg (285-295); Phosphorus 4.2 mg/dL (2.5-4.5); Sodium 140 mmol/L (136-145); Total Bilirubin 0.5 mg/dL (0.15-1.2); Total Protein 5.4 g/dL (6.6-8.7)
[2024-07-20 05:18] LABS: Anion Gap 15.4 (5-19); Potassium 4.4 mmol/L (3.5-5.1)
[2024-07-20] MEDS: oseltamivir phosphate 75 mg Capsule PO ×2 (05:27→17:34)
[2024-07-20] MEDS: gabapentin 100 mg Capsule PO ×2 (09:48→17:33)
--- NOTE | 2024-07-20 10:26 | PC.NURSE ---
Patient able to following commands, extubated per RT to 3L NC. Dr. Jhaveri on unit
--- NOTE | 2024-07-20 12:06 | P.PN_ITS ---
Subjective 2 Subjective: Patient remains intubated and sedated. She is more awake this morning but clinical status prevents further history from patient. Per overnight report, ventricular ectopy markably improved after amiodarone was started last night. Vent settings are minimal. Will plan for spontaneous breathing trial today. Medications: Reviewed: Yes Vitals/I&O/Wt Last Vital Signs Temp 98.9 F 07/20/24 04:00 Pulse 92 07/20/24 10:30 Resp 21 H 07/20/24 10:30 BP 104/75 07/20/24 10:30 Pulse Ox 96 07/20/24 10:30 O2 Del Method Mechanical Ventilation 07/20/24 07:50 O2 Flow Rate 3 07/18/24 13:56 FiO2 30 07/20/24 09:30 07/19/24 07/20/24 07/20/24 22:59 06:59 14:59 Intake Total 240.750 / 669.108 252.438 / 921.546 192.539 / 192.539 Output Total 400 / 400 600 / 1000 Balance -159.250 / 269.108 -347.562 / -78.454 192.539 / 192.539 Weight last 48 hrs Weight 85.321 kg Weight 88.904 kg Weight 92.034 kg Weight 81.647 kg Physical Exam 2 Narrative: General: Patient is intubated. Mildly sedated. Head: Normocephalic. Neck: Elevated JVD. Cardiovascular: No gallops. Systolic ejection murmur. 2-3+ pitting edema lower extremities, similar to prior days exam. Lungs: Improved air movement. Faint crackle. Intubated on ventilator. Skin: No jaundice. No rashes. Abdomen: Hypoactive bowel sounds, abdomen soft. Extremities: No cyanosis or clubbing. Musculoskeletal: No swollen or erythematous joints. Neurological: No myoclonus. Moves all extremities. Urinary Catheter Management: [place]: Cath Placed During This Visit: yes Reason for Continuing Indwelling Catheter: Accurate Measurement of Urinary Output in Critically Ill Patients Urinary Catheter Date of Insertion: 07/18/24 Urinary Catheter Time of Insertion: 17:54 Data 07/20/24 04:20 07/20/24 04:20 Micro: Microbiology 07/19/24 03:40 Bacterial Antigens - Final Urine,Voided 07/18/24 14:34 Blood Culture - Preliminary Blood NEGATIVE TO DATE 07/18/24 14:34 Blood Culture - Preliminary Blood NEGATIVE TO DATE 07/18/24 16:02 Gram Stain - Final Sputum - Endotracheal Tube Aspirate Sputum Culture - Preliminary A&P Assessment and plan (1) Respiratory failure: Acute hypoxic respiratory failure Intubated 07/18 2/ WOB/resp distress Fentanyl/Versed for analgesia/sedation Vent management Treat underlying PNA and CHF Spontaneous breathing trial today, she passes then will assess for extubation (2) Heart failure with reduced ejection fraction: Acute on chronic HFrEF exacerbation She remains significantly overloaded on her peripheral exam Strict I&Os; Daily weights TTE from 12/2023 reviewed; LVEF 20-25%; moderate Limited echo reviewed, similar to prior LVEF 20%, aortic stenosis Cardiology following (3) Severe sepsis: Septic shock 2/2 bilateral community acquired pneumonia and influenza on vasopressor support Continue Levophed for MAP goal of 65 mmHg Follow cultures Continue cefepime (4) Pneumonia: Bilateral community acquired pneumonia Management as above (5) Influenza A: Continue Tamiflu Droplet precautions (6) Cardiac arrhythmia: Started on amiodarone Monitor electrolytes, K goal greater than 4, mag goal greater than 2 Continues telemetry monitoring Cardiology following Plan DVT ppx: Lovenox Attestations 2 Medical Necessity Statement*: Patient requires ongoing hospitalization for vent support, IV vasopressors, cardiology expertise, electrolyte management, and intensive care. Critical Care Time: The high probability of a clinically significant, sudden or life threatening deterioration of the patient's pulmonary, cardiovascular, circulatory system(s) required my full and direct attention, intervention and personal management. The critical care time is as shown. This time is in addition to time spent performing any reported procedures but includes the following: [x] Data and vital sign review and interpretation [x] Patient assessment, examination and intervention [x] Documentation [x] Medication orders and management Critical Care Time (min): 45 Coding Level of Care Code Acute Code for [facility] Diagnoses Respiratory failure J96.90 Heart failure with reduced ejection fraction I50.20 Severe sepsis A41.9; R65.20 Pneumonia J18.9 Influenza A J10.1 Cardiac arrhythmia I49.9
--- NOTE | 2024-07-20 12:54 | P.PN_ITS ---
<Statement entered by Niraj Bowman M.D - 07/20/24 20:43> Patient was cared for in conjunction with an advanced practice practitioner. I reviewed the chart and all pertinent data including imaging, telemetry, and laboratory results. I discussed the patient in detail with the advanced practice practitioner. Please see their note for complete progress note, results and agreed upon plan of care for the patient. Subjective 2 Subjective: Patient seen this morning. Sedation is being weaned in preparation for extubation. Fluid balance is 1400 negative cumulative. Hemoglobin 9.7, BUN 17, creatinine 1.1, BNP 3260 (down from 8300 yesterday). She did have a run of ventricular tachycardia lasting about 20 seconds last night, started on amiodarone infusion, currently at 0.5 mg/min. She remains on Levophed 2 mcg/min, blood pressures running in the 90s systolic. Vitals/I&O/Wt Last Vital Signs Temp 98.9 F 07/20/24 04:00 Pulse 92 07/20/24 10:30 Resp 21 H 07/20/24 10:30 BP 104/75 07/20/24 10:30 Pulse Ox 96 07/20/24 10:30 O2 Del Method Mechanical Ventilation 07/20/24 07:50 O2 Flow Rate 3 07/18/24 13:56 FiO2 30 07/20/24 09:30 07/19/24 07/20/24 07/20/24 22:59 06:59 14:59 Intake Total 240.750 / 921.546 252.438 / 921.546 192.539 / 192.539 Output Total 400 / 1000 600 / 1000 Balance -159.250 / -78.454 -347.562 / -78.454 192.539 / 192.539 Weight last 48 hrs Weight 188 lb 1.6 oz Weight 196 lb Weight 202 lb 14.4 oz Weight 180 lb Physical Exam 2 Const: COMMON NORMALS: no acute distress GENERAL APPEARANCE: cooperative and comfortable ORIENTATION/CONSCIOUSNESS: Yes awake, Yes oriented to person, Yes oriented to place and Yes oriented to time Chest: COMMONS NORMALS: normal inspection of the chest and normal palpation of entire chest wall CHEST: Yes Symmetrical chest wall rise Resp: COMMON NORMALS: normal respiratory effort, No retractions, No use of accessory muscles and clear to auscultation bilaterally EFFORT & INSPECTION: Yes symmetric chest movement AUSCULTATION: clear to auscultation bilaterally Cardio: COMMON NORMALS: regular rate, regular rhythm, S1 normal heart sound present, S2 normal heart sound present, No gallops present (Cardio), No clicks present (Cardio), No murmurs present (Cardio) and No rub (Cardio) RATE: r egular rate RHYTHM: regular rhythm HEART SOUNDS: S1 normal heart sound present and S2 normal heart sound present PERIPHERAL PULSES: radial pulses present Extremity: GENERAL: Yes edema (2+ pitting edema bilat LE ) Neuro: COMMON NORMALS: moves all extremities SENSORIUM/ORIENTATION: Yes oriented to person, Yes oriented to place and Yes oriented to time Urinary Catheter Management: [place]: Cath Placed During This Visit: yes Reason for Continuing Indwelling Catheter: Accurate Measurement of Urinary Output in Critically Ill Patients Urinary Catheter Date of Insertion: 07/18/24 Urinary Catheter Time of Insertion: 17:54 Data 07/20/24 04:20 07/20/24 04:20 Micro: Microbiology 07/19/24 03:40 Bacterial Antigens - Final Urine,Voided 07/18/24 14:34 Blood Culture - Preliminary Blood NEGATIVE TO DATE 07/18/24 14:34 Blood Culture - Preliminary Blood NEGATIVE TO DATE 07/18/24 16:02 Gram Stain - Final Sputum - Endotracheal Tube Aspirate Sputum Culture - Preliminary A&P Assessment and plan (1) Heart failure with reduced ejection fraction: (2) Non-ischemic cardiomyopathy: (3) Cardiac arrhythmia: Plan Continue IV diuresis, Levophed for blood pressure support. Will watch closely for any recurrence of VT while on amiodarone. She had a appointment for ICD placement but was unable to attend due to illness, depending on her response to amiodarone can have her reschedule surgery date for ICD. Attestations 2 Medical Necessity Statement*: Ventilated, requiring vasopressors, systolic CHF, VT arrhythmia Coding Level of Care Code Acute Code for [facility] Diagnoses Heart failure with reduced ejection fraction I50.20 Non-ischemic cardiomyopathy I42.8 Cardiac arrhythmia I49.9
--- NOTE | 2024-07-20 15:00 | PC.NUTR ---
Consult for TF received. If tube feeding medically appropriate, recommend Jevity 1.5 beginning @ 10mls/hr, increasing 10mls Q4-8H as tolerated until goal rate of 40mls/hr with FWF 120mls Q4H or per MD discretion.
[2024-07-20] MEDS: pantoprazole 40 mg SDV IVP (17:34)
[2024-07-20 20:47] LABS: Glucose Point of Care 130 mg/dL (70-110)
[2024-07-20] MEDS: enoxaparin 40 mg/0.4 mL Syringe SUBCUT (20:49)
--- NOTE | 2024-07-20 21:35 | PC.NURSE ---
Amio/Diet Bedside swallow evaluation completed with patient clearing her throat and coughing after ingestion. Dr. Rogel notified; order received for pureed diet. Additionally, amio drip still administering at 0.5 mg/min. Dr. Rogel notified and orders placed by physician.
[2024-07-20] MEDS: sennosides 8.6 mg Tablet 17.2 MG PO (21:43)
[2024-07-20] MEDS: amiodarone 200 mg Tablet 400 MG PO (21:43)
[2024-07-21] VITALS (54 sets, daily range): BP systolic 94–122; BP diastolic 67–87; PULSE 76–92; RESP 16–28; TEMP 36.4–37.1; O2SAT 90–99; BMI 31.8
[2024-07-21] MEDS: ipratropium-albuterol 3 mL Neb INHALATION ×3 (02:57→14:17)
[2024-07-21 05:29] LABS: Basophils % 0.3 %; Eosinophils % 0.4 %; Hematocrit 33.8 % (36-47); Lymphocytes % 14.3 %; Mean Corpuscular HGB Conc 28.7 g/dL (30-55); Mean Corpuscular Hemoglobin 22.7 pg (27-33); Mean Platelet Volume 9.9 fL (7.4-10.4); Monocytes # 0.5 10^3/uL (0.2-0.9); Monocytes % 6.7 %; Neutrophils # 5.21 10^3/uL (1.8-7.7); Neutrophils % 77.7 %; Nucleated Red Blood Cells % 0 %; Platelet Count 246 10^3/cmm (157-399); Red Blood Count 4.28 10^6/uL (3.85-5.65); Red Cell Distribution Width 20.6 % (12.1-15.1); White Blood Count 6.71 10^3/uL (3.29-11.43)
[2024-07-21] MEDS: oseltamivir phosphate 75 mg Capsule PO ×2 (05:31→17:44)
[2024-07-21 05:46] LABS: Alanine Aminotransferase 15 U/L (0-33); Albumin Level 2.9 g/dL (3.5-5.2); Alkaline Phosphatase 59 U/L (35-105); Aspartate Amino Transferase 35 U/L (0-32); Blood Urea Nitrogen 16 mg/dL (6-20); Calcium 7.8 mg/dL (8.5-10.5); Carbon Dioxide 28 mmol/L (22-29); Chloride 98 mmol/L (98-107); Creatinine Clr Calc Pharmacy 95.6462; Globulin 2.6 g/dL (1.3-4.6); Glomerular Filtration Rate 86.2 mL/min (90-130); Glucose 108 mg/dL (65-115); Magnesium 2.2 mg/dL (1.7-2.3); Osmolality Calculated 286 mOsm/kg (285-295); Phosphorus 2.4 mg/dL (2.5-4.5); Sodium 137 mmol/L (136-145); Total Bilirubin 0.6 mg/dL (0.15-1.2); Total Protein 5.5 g/dL (6.6-8.7)
[2024-07-21 05:53] LABS: Anion Gap 15.2 (5-19); Potassium 4.2 mmol/L (3.5-5.1)
[2024-07-21] MEDS: gabapentin 100 mg Capsule PO ×2 (08:37→17:44)
[2024-07-21] MEDS: amiodarone 200 mg Tablet 400 MG PO ×2 (08:37→17:44)
[2024-07-21] MEDS: potassium chloride ER 10 mEq Tablet PO (08:37)
[2024-07-21] MEDS: FUROsemide 10 mg/mL SDV 2mL 20 MG IVP ×3 (08:38→22:20)
[2024-07-21] MEDS: ondansetron 2 mg/ML SDV 2 mL 4 MG IVP ×2 (08:45→13:09)
[2024-07-21] MEDS: cefepime 2,000 mg SDV 2000 MG IVP ×2 (09:17→22:20)
--- NOTE | 2024-07-21 09:19 | P.PN_ITS ---
Subjective 2 Subjective: Patient extubated 07/20. Post extubation, there is some concern regarding swallow. Speech therapy consult ordered. This morning, patient endorses some shortness of breath. Reports generalized weakness and recent development of significant lower extremity edema. Denies chest pains. Fever curved improved. Medications: Reviewed: Yes Vitals/I&O/Wt Last Vital Signs Temp 98.3 F 07/21/24 04:15 Pulse 78 07/21/24 08:45 Resp 19 H 07/21/24 08:45 BP 107/78 07/21/24 08:45 Pulse Ox 94 07/21/24 08:45 O2 Del Method Nasal Cannula 07/21/24 07:55 O2 Flow Rate 2 07/21/24 07:55 FiO2 30 07/20/24 09:30 07/20/24 07/21/24 07/21/24 22:59 06:59 14:59 Intake Total 425.892 / 738.431 197.262 / 935.693 150 / 150 Output Total 450 / 450 250 / 700 Balance -24.108 / 288.431 -52.738 / 235.693 150 / 150 Weight last 48 hrs Weight 87 kg Weight 85.321 kg Physical Exam 2 Narrative: General: Patient is awake. Slightly lethargic but appropriate. Head: Normocephalic. Neck: Elevated JVD. Cardiovascular: No gallops. Systolic ejection murmur. 2+ pitting edema lower extremities, similar to prior days exam. Lungs: Adequate air movement. Faint crackle. On nasal canula support. Skin: No jaundice. No rashes. Abdomen: Active bowel sounds, abdomen soft. Extremities: No cyanosis or clubbing. Musculoskeletal: No swollen or erythematous joints. Neurological: No myoclonus. Moves all extremities. Urinary Catheter Management: [place]: Cath Placed During This Visit: yes Reason for Continuing Indwelling Catheter: Accurate Measurement of Urinary Output in Critically Ill Patients Urinary Catheter Date of Insertion: 07/18/24 Urinary Catheter Time of Insertion: 17:54 Data 07/21/24 04:47 07/21/24 04:47 Micro: Microbiology 07/18/24 16:02 Gram Stain - Final Sputum - Endotracheal Tube Aspirate Sputum Culture - Final A&P Assessment and plan (1) Respiratory failure: Acute hypoxic respiratory failure Intubated 07/18; extubated 07/20 Treat underlying PNA and CHF Speech therapy following Continue supplemental oxygen support, SPO2 goal 92-96 (2) Heart failure with reduced ejection fraction: Acute on chronic HFrEF exacerbation She remains significantly overloaded on her peripheral exam Strict I&Os; Daily weights TTE from 12/2023 reviewed; LVEF 20-25%; moderate Limited echo reviewed, similar to prior LVEF 20%, aortic stenosis Cardiology following Start Lasix 20 mg IV q8h due to hemodynamics Conway for I&Os May considered low dose continuous drip pending course (3) Severe sepsis: Shock resolved, now off vasopressors Follow cultures Continue cefepime (4) Pneumonia: Bilateral community acquired pneumonia Management as above (5) Influenza A: Continue Tamiflu Droplet precautions (6) Cardiac arrhythmia: Continue amiodarone Monitor electrolytes, K goal greater than 4, mag goal greater than 2 Continues telemetry monitoring Cardiology following Plan DVT ppx: Lovenox Attestations 2 Medical Necessity Statement*: Patient requires ongoing hospitalization for IV antibiotics, IV diuresis, cardiology expertise, electrolyte management, speech therapy, PT/OT and supportive care. Coding Level of Care Code Acute Code for [facility] Diagnoses Respiratory failure J96.90 Heart failure with reduced ejection fraction I50.20 Severe sepsis A41.9; R65.20 Pneumonia J18.9 Influenza A J10.1 Cardiac arrhythmia I49.9
--- NOTE | 2024-07-21 10:55 | P.PN_ITS ---
<Statement entered by Niraj Bowman M.D - 07/21/24 21:47> Patient was cared for in conjunction with an advanced practice practitioner. I personally reviewed the chart and all pertinent data including imaging, telemetry, and laboratory results. I discussed the patient in detail with the advanced practice practitioner. Please see their note for complete progress note, results and agreed upon plan of care for the patient. Subjective 2 Subjective: Patient was extubated from the ventilator yesterday, feels weak today. She does not have any chest pain, but remains somewhat short of breath. Lower extremity edema remains, will order Lasix 20 mg IV with 10 mEq potassium replacement, to facilitate gentle diuresis. Blood pressures remain on the soft side. Has remained in sinus rhythm, continue amiodarone 400 mg twice daily and metoprolol 12.5 mg twice a day. Vitals/I&O/Wt Last Vital Signs Temp 98.3 F 07/21/24 04:15 Pulse 78 07/21/24 08:45 Resp 19 H 07/21/24 08:45 BP 107/78 07/21/24 08:45 Pulse Ox 94 07/21/24 08:45 O2 Del Method Nasal Cannula 07/21/24 07:55 O2 Flow Rate 2 07/21/24 07:55 FiO2 30 07/20/24 09:30 07/20/24 07/21/24 07/21/24 22:59 06:59 14:59 Intake Total 425.892 / 935.693 197.262 / 935.693 150 / 150 Output Total 450 / 700 250 / 700 Balance -24.108 / 235.693 -52.738 / 235.693 150 / 150 Weight last 48 hrs Weight 191 lb 12.835 oz Weight 188 lb 1.6 oz Physical Exam 2 Const: COMMON NORMALS: no acute distress and patient oriented x3 GENERAL APPEARANCE: cooperative and comfortable ORIENTATION/CONSCIOUSNESS: Yes awake, Yes oriented to person, Yes oriented to place and Yes oriented to time Chest: COMMONS NORMALS: normal inspection of the chest and normal palpation of entire chest wall CHEST: Yes Symmetrical chest wall rise Resp: COMMON NORMALS: normal respiratory effort, No retractions and No use of accessory muscles EFFORT & INSPECTION: Yes symmetric chest movement A USCULTATION: crackles (bases) Laterality: bilateral and posterior Cardio: COMMON NORMALS: regular rate, regular rhythm, S1 normal heart sound present, S2 normal heart sound present, No gallops present (Cardio), No clicks present (Cardio), No murmurs present (Cardio) and No rub (Cardio) RATE: r egular rate RHYTHM: regular rhythm HEART SOUNDS: S1 normal heart sound present and S2 normal heart sound present PERIPHERAL PULSES: radial pulses present Extremity: GENERAL: Yes edema (2-3+ pitting edema bilat LE) Neuro: COMMON NORMALS: patient oriented x3 and moves all extremities S ENSORIUM/ORIENTATION: Yes oriented to person, Yes oriented to place and Yes oriented to time Urinary Catheter Management: [place]: Cath Placed During This Visit: yes Reason for Continuing Indwelling Catheter: Accurate Measurement of Urinary Output in Critically Ill Patients Urinary Catheter Date of Insertion: 07/18/24 Urinary Catheter Time of Insertion: 17:54 Data 07/21/24 04:47 07/21/24 04:47 Micro: Microbiology 07/18/24 16:02 Gram Stain - Final Sputum - Endotracheal Tube Aspirate Sputum Culture - Final A&P Assessment and plan (1) Heart failure with reduced ejection fraction: (2) Non-ischemic cardiomyopathy: (3) Cardiac arrhythmia: Plan Blood pressure remaining stable off vasopressors. Continue IV diuresis, cumulative only 1 L negative so far. No significant ventricular arrhythmias on amiodarone. Discussed with her rescheduling her ICD surgery date. Attestations 2 Medical Necessity Statement*: Systolic CHF decompensation, influenza Coding Level of Care Code Acute Code for [facility] Diagnoses Heart failure with reduced ejection fraction I50.20 Non-ischemic cardiomyopathy I42.8 Cardiac arrhythmia I49.9
--- NOTE | 2024-07-21 15:58 | PC.SOCIAL ---
IMM updated IMM dated and initialed and placed in chart and copy given to patient
[2024-07-21] MEDS: pantoprazole 40 mg SDV IVP (17:44)
[2024-07-21] MEDS: enoxaparin 40 mg/0.4 mL Syringe SUBCUT (20:14)
[2024-07-21] MEDS: sennosides 8.6 mg Tablet 17.2 MG PO (20:14)
[2024-07-22] VITALS (10 sets, daily range): BP systolic 103–118; BP diastolic 61–79; PULSE 76–84; RESP 14–20; TEMP 36.4–37; O2SAT 92–100
[2024-07-22 03:29] LABS: Basophils % 0.2 %; Eosinophils % 0.2 %; Hematocrit 35.1 % (36-47); Lymphocytes # 1.3 10^3/uL (0.8-4.8); Lymphocytes % 14.7 %; Mean Corpuscular HGB Conc 29.6 g/dL (30-55); Mean Corpuscular Hemoglobin 23.3 pg (27-33); Mean Corpuscular Volume 78.5 fl (85-98); Mean Platelet Volume 10.2 fL (7.4-10.4); Monocytes # 0.5 10^3/uL (0.2-0.9); Monocytes % 6.1 %; Neutrophils # 6.96 10^3/uL (1.8-7.7); Neutrophils % 78.5 %; Nucleated Red Blood Cells % 0 %; Platelet Count 266 10^3/cmm (157-399); Red Blood Count 4.47 10^6/uL (3.85-5.65); Red Cell Distribution Width 20.8 % (12.1-15.1); White Blood Count 8.87 10^3/uL (3.29-11.43)
[2024-07-22 03:56] LABS: Albumin Level 3.2 g/dL (3.5-5.2); Blood Urea Nitrogen 16 mg/dL (6-20); Calcium 7.7 mg/dL (8.5-10.5); Carbon Dioxide 30 mmol/L (22-29); Chloride 95 mmol/L (98-107); Creatinine Clr Calc Pharmacy 96.5863; Glomerular Filtration Rate 86.2 mL/min (90-130); Glucose 127 mg/dL (65-115); Phosphorus 2.4 mg/dL (2.5-4.5); Sodium 132 mmol/L (136-145)
[2024-07-22 04:04] LABS: Anion Gap 11.2 (5-19); Potassium 4.2 mmol/L (3.5-5.1)
[2024-07-22] MEDS: FUROsemide 10 mg/mL SDV 2mL 20 MG IVP ×2 (05:11→17:24)
[2024-07-22] MEDS: oseltamivir phosphate 75 mg Capsule PO ×2 (05:11→17:24)
[2024-07-22] MEDS: ipratropium-albuterol 3 mL Neb INHALATION ×3 (08:03→21:49)
[2024-07-22] MEDS: gabapentin 100 mg Capsule PO ×2 (08:39→17:24)
[2024-07-22] MEDS: amiodarone 200 mg Tablet 400 MG PO ×2 (08:39→17:24)
--- NOTE | 2024-07-22 09:53 | P.PN_ITS ---
Subjective 2 Subjective: Patient endorses generalized malaise and weakness. She notes she has not been out of bed yet. Encouraged her to try today with some assistance. She reports she did not get much rest overnight. Remains on supplemental oxygen support. Discussed plan of care she is in agreement. Afebrile. Medications: Reviewed: Yes Vitals/I&O/Wt Last Vital Signs Temp 97.5 F L 07/22/24 08:00 Pulse 77 07/22/24 08:00 Resp 18 07/22/24 08:00 BP 104/61 07/22/24 08:00 Pulse Ox 92 07/22/24 08:00 O2 Del Method Nasal Cannula 07/22/24 08:00 O2 Flow Rate 2 07/22/24 08:00 FiO2 30 07/20/24 09:30 07/21/24 07/22/24 07/22/24 22:59 06:59 14:59 Intake Total 480 / 630 480 / 480 Output Total 600 / 600 Balance 480 / 630 -600 / 30 480 / 480 Weight last 48 hrs Weight 87.725 kg Weight 87 kg Physical Exam 2 Narrative: General: Patient is awake. Appears fatigued. Head: Normocephalic. Neck: Elevated JVD. Cardiovascular: No gallops. Systolic ejection murmur. 2+ pitting edema lower extremities. Lungs: Adequate air movement. Persistent faint crackle. On 2 L nasal canula support. Skin: No jaundice. No rashes. Abdomen: Active bowel sounds, abdomen soft. Extremities: No cyanosis or clubbing. Musculoskeletal: No swollen or erythematous joints. Neurological: No myoclonus. Moves all extremities. Urinary Catheter Management: [place]: Cath Placed During This Visit: yes Reason for Continuing Indwelling Catheter: Other Urinary Catheter Date of Insertion: 07/18/24 Urinary Catheter Time of Insertion: 17:54 Data 07/22/24 02:55 07/22/24 02:55 A&P Assessment and plan (1) Respiratory failure: Acute hypoxic respiratory failure Intubated 07/18; extubated 07/20 Treat underlying PNA and CHF Speech therapy following, currently on level 6 soft and bite-size diet Continue supplemental oxygen support, SPO2 goal 92-96 (2) Heart failure with reduced ejection fraction: Acute on chronic HFrEF exacerbation Remains volume overloaded Strict I&Os; Daily weights Cardiology following Continue IV diuresis Conway for I&Os (3) Severe sepsis: Follow cultures Continue cefepime (4) Pneumonia: Bilateral community acquired pneumonia Management as above (5) Influenza A: Continue Tamiflu Droplet precautions (6) Cardiac arrhythmia: Continue amiodarone Monitor electrolytes, K goal greater than 4, mag goal greater than 2 Continues telemetry monitoring Cardiology following Plan DVT ppx: Lovenox Attestations 2 Medical Necessity Statement*: Patient requires ongoing hospitalization for IV antibiotics, IV diuresis, cardiology expertise, electrolyte management, speech therapy, PT/OT and supportive care. Coding Level of Care Code Acute Code for [facility] Diagnoses Respiratory failure J96.90 Heart failure with reduced ejection fraction I50.20 Severe sepsis A41.9; R65.20 Pneumonia J18.9 Influenza A J10.1 Cardiac arrhythmia I49.9
[2024-07-22] MEDS: cefepime 2,000 mg SDV 2000 MG IVP ×2 (10:24→21:06)
[2024-07-22] MEDS: sennosides 8.6 mg Tablet 17.2 MG PO (21:06)
[2024-07-22] MEDS: enoxaparin 40 mg/0.4 mL Syringe SUBCUT (21:06)
[2024-07-22] MEDS: benzonatate 100 mg Capsule 200 MG PO (22:19)
[2024-07-23] VITALS (15 sets, daily range): BP systolic 98–132; BP diastolic 61–80; PULSE 72–88; RESP 15–19; TEMP 36.4–36.7; O2SAT 94–100
[2024-07-23] MEDS: guaiFENesin 100 mg/5 mL UDC 10 mL 200 MG PO ×3 (00:54→23:51)
[2024-07-23] MEDS: ipratropium-albuterol 3 mL Neb INHALATION ×4 (02:45→20:16)
[2024-07-23 04:02] LABS: Albumin Level 3.2 g/dL (3.5-5.2); Anion Gap 11.8 (5-19); Blood Urea Nitrogen 13 mg/dL (6-20); Carbon Dioxide 33 mmol/L (22-29); Chloride 95 mmol/L (98-107); Creatinine Clr Calc Pharmacy 113.1576; Glucose 120 mg/dL (65-115); Magnesium 1.9 mg/dL (1.7-2.3); Phosphorus 2.3 mg/dL (2.5-4.5); Potassium 3.8 mmol/L (3.5-5.1); Sodium 136 mmol/L (136-145)
[2024-07-23] MEDS: FUROsemide 10 mg/mL SDV 2mL 20 MG IVP ×2 (06:01→17:23)
[2024-07-23] MEDS: oseltamivir phosphate 75 mg Capsule PO (06:01)
[2024-07-23] MEDS: potassium chloride ER 20 mEq Tablet PO (08:25)
[2024-07-23] MEDS: pantoprazole DR 40 mg Tablet PO (08:25)
[2024-07-23] MEDS: gabapentin 100 mg Capsule PO ×2 (08:25→17:22)
[2024-07-23] MEDS: amiodarone 200 mg Tablet 400 MG PO ×2 (08:25→17:22)
[2024-07-23] MEDS: phosphorus 250 mg Tablet PO ×2 (08:25→17:22)
--- NOTE | 2024-07-23 08:43 | PM.PN ---
Subjective Subjective: Patient is diuresing well. No chest pain Vitals/I&O/Wt Last Vital Signs Temp 97.5 F L 07/23/24 08:00 Pulse 79 07/23/24 08:00 Resp 16 07/23/24 08:00 BP 112/71 07/23/24 08:00 Pulse Ox 94 07/23/24 08:00 O2 Del Method Nasal Cannula 07/23/24 08:00 O2 Flow Rate 2 07/23/24 02:45 FiO2 30 07/20/24 09:30 07/22/24 07/23/24 07/23/24 22:59 06:59 14:59 Output Total 325 / 1325 950 / 2275 Balance -325 / -485 -950 / -1435 Weight last 48 hrs Weight 195 lb 14.4 oz Weight 193 lb 6.4 oz Physical Exam Narrative: GENERAL: Patient is alert, awake and oriented x3. HEART: Regular S1 and S2. No murmur, rub or gallop. LUNGS: Diminished air entry bilaterally CENTRAL NERVOUS SYSTEM: Grossly nonfocal. EXTREMITIES: Lower extremities with out edema bilaterally. Urinary Catheter Management: [place]: Cath Placed During This Visit: yes Reason for Continuing Indwelling Catheter: Other Urinary Catheter Date of Insertion: 07/18/24 Urinary Catheter Time of Insertion: 17:54 Data 07/22/24 02:55 07/24/24 04:29 A&P Assessment and plan (1) Heart failure with reduced ejection fraction: (2) Non-ischemic cardiomyopathy: (3) Cardiac arrhythmia: Plan Patient is overall stable. Continue IV diuresis. Close I&O's. Monitor renal function. Continue amiodarone And discussion about LifeVest. At this time she wants to have ICD placed as outpatient Thank you for involving us with care of this patient. We will continue to follow. Please call with questions Attestations Medical Necessity Statement*: Care expected to cross 2 midnights. Coding Level of Care Code Acute Code for [facility] Diagnoses Heart failure with reduced ejection fraction I50.20 Non-ischemic cardiomyopathy I42.8 Cardiac arrhythmia I49.9
[2024-07-23] MEDS: hyDROXYzine 25 mg Capsule PO ×2 (09:46→23:48)
[2024-07-23] MEDS: metoprolol tartrate 25 mg Tablet 12.5 MG PO ×2 (09:46→21:20)
[2024-07-23] MEDS: cefepime 2,000 mg SDV 2000 MG IVP ×2 (10:46→21:30)
--- NOTE | 2024-07-23 11:18 | PM.PN ---
Subjective Subjective: Patient reports her breathing continues to improve. She is on minimal oxygen. She endorses severe weakness. We discussed out of bed to chair today followed by therapy evaluation. She is in agreement. She would like to avoid postacute placement if possible. Reports she did not get much sleep overnight. Reports development of rash, pruritic. She denies any known drug allergies. Denies other complaints. Medications: Reviewed: Yes Vitals/I&O/Wt Last Vital Signs Temp 97.5 F L 07/23/24 08:00 Pulse 79 07/23/24 09:25 Resp 18 07/23/24 09:21 BP 112/71 07/23/24 08:00 Pulse Ox 95 07/23/24 09:21 O2 Del Method Nasal Cannula 07/23/24 09:21 O2 Flow Rate 2 07/23/24 09:21 FiO2 30 07/20/24 09:30 07/22/24 07/23/24 07/23/24 22:59 06:59 14:59 Intake Total 480 / 480 Output Total 325 / 1325 950 / 2275 Balance -325 / -485 -950 / -1435 480 / 480 Weight last 48 hrs Weight 88.859 kg Weight 87.725 kg Physical Exam Narrative: General: Patient is awake. Appears fatigued but pleasant and conversational exam. Head: Normocephalic. Atraumatic. Neck: Elevated JVD. Cardiovascular: No gallops. Systolic ejection murmur. 2+ pitting edema lower extremities. Lungs: Improved air movement. No rales crackles or wheezing. On 2 L nasal canula support. Skin: No jaundice. No rashes. Abdomen: Active bowel sounds, abdomen soft. Extremities: No cyanosis or clubbing. Musculoskeletal: No swollen or erythematous joints. Neurological: No myoclonus. Moves all extremities. Urinary Catheter Management: [place]: Cath Placed During This Visit: yes, but has since been removed by the nurse Reason for Continuing Indwelling Catheter: Decision to DC Catheter Urinary Catheter Date of Insertion: 07/18/24 Urinary Catheter Time of Insertion: 17:54 Date Urinary Catheter Removed: 07/23/24 Time Urinary Catheter Discontinued: 09:28 Data 07/22/24 02:55 07/23/24 03:11 A&P Assessment and plan (1) Respiratory failure: Acute hypoxic respiratory failure Intubated 07/18; extubated 07/20 Treat underlying PNA and CHF Speech therapy following, currently on level 6 soft and bite-size diet Continue supplemental oxygen support, SPO2 goal 92-96, wean as tolerated (2) Heart failure with reduced ejection fraction: Acute on chronic HFrEF exacerbation Remains volume overloaded Strict I&Os; Daily weights Cardiology following Continue IV diuresis Remove Conway (3) Severe sepsis: Follow cultures Continue cefepime (4) Pneumonia: Bilateral community acquired pneumonia Management as above (5) Influenza A: Continue Tamiflu Droplet precautions (6) Cardiac arrhythmia: Continue amiodarone Monitor electrolytes, K goal greater than 4, mag goal greater than 2 Continues telemetry monitoring Cardiology following Plan DVT ppx: Lovenox Attestations Medical Necessity Statement*: Patient requires ongoing hospitalization for IV antibiotics, electrolyte management, following of cultures, therapy, and supportive care. Coding Level of Care Code Acute Code for [facility] Diagnoses Respiratory failure J96.90 Heart failure with reduced ejection fraction I50.20 Severe sepsis A41.9; R65.20 Pneumonia J18.9 Influenza A J10.1 Cardiac arrhythmia I49.9
[2024-07-23] MEDS: sennosides 8.6 mg Tablet 17.2 MG PO (21:20)
[2024-07-23] MEDS: enoxaparin 40 mg/0.4 mL Syringe SUBCUT (21:31)
[2024-07-24] VITALS (14 sets, daily range): BP systolic 99–120; BP diastolic 62–81; PULSE 70–80; RESP 14–20; TEMP 36.4–36.8; O2SAT 94–100
[2024-07-24] MEDS: ipratropium-albuterol 3 mL Neb INHALATION ×4 (02:44→19:42)
[2024-07-24 05:08] LABS: Albumin Level 3.1 g/dL (3.5-5.2); Blood Urea Nitrogen 13 mg/dL (6-20); Calcium 8.2 mg/dL (8.5-10.5); Carbon Dioxide 33 mmol/L (22-29); Chloride 94 mmol/L (98-107); Creatinine Clr Calc Pharmacy 97.6272; Glomerular Filtration Rate 86.2 mL/min (90-130); Glucose 116 mg/dL (65-115); Magnesium 1.8 mg/dL (1.7-2.3); Phosphorus 2.3 mg/dL (2.5-4.5); Sodium 135 mmol/L (136-145)
[2024-07-24] MEDS: FUROsemide 10 mg/mL SDV 2mL 20 MG IVP ×2 (06:03→18:20)
[2024-07-24] MEDS: benzonatate 100 mg Capsule 200 MG PO (06:47)
[2024-07-24] MEDS: guaiFENesin 100 mg/5 mL UDC 10 mL 200 MG PO (06:47)
[2024-07-24] MEDS: amiodarone 200 mg Tablet 400 MG PO ×2 (09:14→18:21)
[2024-07-24] MEDS: gabapentin 100 mg Capsule PO ×2 (09:14→18:22)
[2024-07-24] MEDS: phosphorus 250 mg Tablet PO ×2 (09:14→18:21)
[2024-07-24] MEDS: pantoprazole DR 40 mg Tablet PO (09:14)
[2024-07-24] MEDS: metoprolol tartrate 25 mg Tablet 12.5 MG PO ×2 (09:14→21:09)
--- NOTE | 2024-07-24 09:25 | PC.NURSE ---
Notified Dr. Bueno patient has a rash, itching and patient is miserable. Verbal order for Benadryl 25 mg PO now ONCE.
[2024-07-24] MEDS: diphenhydrAMINE 25 mg Capsule PO ×2 (09:36→18:21)
[2024-07-24] MEDS: cefepime 2,000 mg SDV 2000 MG IVP (09:36)
--- NOTE | 2024-07-24 11:20 | PC.SOCIAL ---
IMM Update pg 2 of IMM Updated and reviewed w/ patient. Copy provided and copy dated, initialed and placed in chart.
--- NOTE | 2024-07-24 13:56 | P.PN_ITS ---
<Statement entered by Niraj Bowman M.D - 07/25/24 20:42> Patient was evaluated and cared for in conjunction with an advanced practice practitioner. I personally reviewed the chart and all pertinent data including imaging, telemetry, and laboratory results. I discussed the patient in detail with the advanced practice practitioner. Please see their note for complete progress note, results and agreed upon plan of care for the patient. Subjective 2 Subjective: Patient is still diuresing well. His not been documented but per nursing staff she has had 1000 mg output this shift. Patient does have a little bit of wheezing and has a rash on her back. She has been given Benadryl. It appears she has had some kind of possible allergic reaction. Dr. Bueno is aware. No acute distress at this time. No s/s of fluid overload. O2 sat 99% on room air. Denies chest pain. Vitals/I&O/Wt Last Vital Signs Temp 97.8 F 07/24/24 12:00 Pulse 70 07/24/24 13:19 Resp 16 07/24/24 13:19 BP 104/75 07/24/24 12:00 Pulse Ox 99 07/24/24 13:27 O2 Del Method Room Air 07/24/24 13:27 O2 Flow Rate 1 07/24/24 13:19 FiO2 30 07/20/24 09:30 07/23/24 07/24/24 07/24/24 22:59 06:59 14:59 Intake Total 660 / 1380 712 / 712 Balance 660 / 1380 712 / 712 Weight last 48 hrs Weight 195 lb 14.4 oz Weight 195 lb 14.4 oz Physical Exam 2 Narrative: General: No apparent distress, healthy appearing, well nourished HENMT: normoceophalic Neck: No carotid bruit bilaterally Muskuloskeletal: Full ROM Lymphatic: no lymphedema noted Respiratory: Normal respiratory effort, clear to auscultation bilaterally throughout all lung dee, no use of accessory muscles Cardio: No JVD, regular rate, regular rhythm, S1 S2 normal, no murmurs, peripheral pulses 2+ radial palpated bilaterally GI: Normal to inspection, nondistended Extremities: Full ROM, normal, normal capillary refill, no cyanosis or edema Neuro: Alert and oriented x4, no focal motor deficits Psych: Affect normal, denies suicidal ideation, mental status grossly normal Skin: No rashes or lesions noted, no wounds Urinary Catheter Management: Conway: Cath Placed During This Visit: yes, but has since been removed by the nurse Reason for Continuing Indwelling Catheter: Decision to DC Catheter Urinary Catheter Date of Insertion: 07/18/24 Urinary Catheter Time of Insertion: 17:54 Date Urinary Catheter Removed: 07/23/24 Time Urinary Catheter Discontinued: 09:28 Data 07/22/24 02:55 07/24/24 04:29 Micro: Microbiology 07/18/24 14:34 Blood Culture - Final Blood NO GROWTH AFTER 5 DAYS 07/18/24 14:34 Blood Culture - Final Blood NO GROWTH AFTER 5 DAYS A&P Assessment and plan (1) Heart failure with reduced ejection fraction: (2) Non-ischemic cardiomyopathy: (3) Cardiac arrhythmia: Plan Patient is stable. Continue diuresis. Continue to monitor I's and O's. She continues to have good response to diuresis. At this time patient does not want LifeVest. The plan is to have patient referred for an ICD on an outpatient basis. Attestations 2 Medical Necessity Statement*: Deferred to primary care teat. Coding Level of Care Code Acute Code for [facility] Fwd Diagnoses Heart failure with reduced ejection fraction I50.20 Non-ischemic cardiomyopathy I42.8 Cardiac arrhythmia I49.9
--- NOTE | 2024-07-24 14:37 | PC.NURSE ---
Notified Dr. Bueno patient started itching really bad once again. Verbally ordered a one time Benadryl 25MG PO again.
[2024-07-24] MEDS: predniSONE 20 mg Tablet 40 MG PO (14:41)
--- NOTE | 2024-07-24 17:16 | P.PN_ITS ---
Subjective 2 Subjective: Patient has developed a maculo papular rash extending from the nape of her neck to thoracolumbar region. Additional rashes noted on the anterior chest, bilateral upper thighs posteriorly. Rash is intensely itchy. Favor a drug eruption. Medications: Reviewed: Yes Vitals/I&O/Wt Last Vital Signs Temp 97.5 F L 07/24/24 15:50 Pulse 80 07/24/24 15:50 Resp 17 07/24/24 15:50 BP 120/81 07/24/24 15:50 Pulse Ox 95 07/24/24 15:50 O2 Del Method Room Air 07/24/24 15:50 O2 Flow Rate 1 07/24/24 13:19 FiO2 30 07/20/24 09:30 07/24/24 07/24/24 07/24/24 06:59 14:59 22:59 Intake Total 712 / 712 Output Total 1000 / 1000 Balance -288 / -288 Weight last 48 hrs Weight 88.859 kg Weight 88.859 kg Physical Exam 2 Narrative: General: No acute distress, AO x3 HEENT: PERRLA, pupils bilaterally equal and reactive, pallors not present Chest: Normal vesicular breath sounds, no added sounds, equal good air entry bilaterally CVS: S1-S2 regular, no murmurs, no tachycardia, no gallops, no rubs Abdomen: Soft, nontender, no organomegaly, bowel sounds present Neuro: No focal deficits, no facial deformity, AO x3, power 5/5 in all limbs Extremities: maculo papular rash extending from the nape of her neck to thoracolumbar region. Additional rashes noted on the anterior chest, bilateral upper thighs posteriorly. Rash is intensely itchy. Favor a drug eruption. Urinary Catheter Management: Conway: Cath Placed During This Visit: yes, but has since been removed by the nurse Reason for Continuing Indwelling Catheter: Decision to DC Catheter Urinary Catheter Date of Insertion: 07/18/24 Urinary Catheter Time of Insertion: 17:54 Date Urinary Catheter Removed: 07/23/24 Time Urinary Catheter Discontinued: 09:28 Data 07/22/24 02:55 07/24/24 04:29 Micro: Microbiology 07/18/24 14:34 Blood Culture - Final Blood NO GROWTH AFTER 5 DAYS 07/18/24 14:34 Blood Culture - Final Blood NO GROWTH AFTER 5 DAYS A&P Assessment and plan (1) Respiratory failure: Acute hypoxic respiratory failure Intubated 07/18; extubated 07/20 Treat underlying PNA and CHF Speech therapy following, currently on level 6 soft and bite-size diet Continue supplemental oxygen support, SPO2 goal 92-96, wean as tolerated (2) Heart failure with reduced ejection fraction: Acute on chronic HFrEF exacerbation Remains volume overloaded Strict I&Os; Daily weights Cardiology following Continue IV diuresis Remove Conway (3) Severe sepsis: Follow cultures Continue cefepime (4) Pneumonia: Bilateral community acquired pneumonia Management as above (5) Influenza A: Continue Tamiflu Droplet precautions (6) Cardiac arrhythmia: Continue amiodarone Monitor electrolytes, K goal greater than 4, mag goal greater than 2 Continues telemetry monitoring Cardiology following Plan DVT ppx: Lovenox July 24, 2024 Interval development of a maculopapular rash diffusely as described above. Rash is intensely itchy. Favor a drug eruption. Possible culprits include any of the new medications started this admission including cefepime, amiodarone, Tamiflu. Patient also on Lasix currently which she states she has taken previously without any adverse side effects. She is not known to be penicillin allergy. She has completed a course of Tamiflu. Of the potential culprit medications she remains on cefepime and amiodarone currently. Out of the 2 more likely that the rash may be beta-lactam related. Discontinue cefepime. Changed to levofloxacin 750 mg p.o. daily. Start prednisone 40 mg p.o. daily due to worsening rash. Additionally add triamcinolone for local application. Monitor closely next 24 hours for interval improvement. Continue Lasix. Appreciate cardiology recommendations. Continue supportive management for influenza A. Attestations 2 Medical Necessity Statement*: Start steroids for the interim development of above rash. Closely monitor. Coding Level of Care Code Acute Code for [facility] Fwd High MDM includes number and complexity of problems actively addressed during encounter, amount and/or complexity of data reviewed/ordered and described risk of complication, morbidity or mortality of management as documented Diagnoses Respiratory failure J96.90 Heart failure with reduced ejection fraction I50.20 Severe sepsis A41.9; R65.20 Pneumonia J18.9 Influenza A J10.1 Cardiac arrhythmia I49.9
[2024-07-24] MEDS: triamcinolone 0.1% cream 15 gm 1 APPLIC TOPICAL (18:20)
[2024-07-24] MEDS: enoxaparin 40 mg/0.4 mL Syringe SUBCUT (21:07)
[2024-07-24] MEDS: sennosides 8.6 mg Tablet 17.2 MG PO (21:13)
[2024-07-25] VITALS (11 sets, daily range): BP systolic 104–112; BP diastolic 68–76; PULSE 65–80; RESP 16–18; TEMP 36.3–36.7; O2SAT 93–98
[2024-07-25] MEDS: diphenhydrAMINE 25 mg Capsule PO (00:42)
[2024-07-25] MEDS: ipratropium-albuterol 3 mL Neb INHALATION ×2 (01:13→08:16)
[2024-07-25] MEDS: FUROsemide 10 mg/mL SDV 2mL 20 MG IVP (06:26)
[2024-07-25] MEDS: pantoprazole DR 40 mg Tablet PO (09:32)
[2024-07-25] MEDS: levoFLOXacin 750 mg Tablet PO (09:32)
[2024-07-25] MEDS: gabapentin 100 mg Capsule PO (09:33)
[2024-07-25] MEDS: triamcinolone 0.1% cream 15 gm 1 APPLIC TOPICAL (09:33)
[2024-07-25] MEDS: phosphorus 250 mg Tablet PO (09:33)
[2024-07-25] MEDS: predniSONE 20 mg Tablet 40 MG PO (09:33)
[2024-07-25] MEDS: amiodarone 200 mg Tablet 400 MG PO (09:33)
[2024-07-25] MEDS: metoprolol tartrate 25 mg Tablet 12.5 MG PO (09:39)
[2024-07-25] MEDS: albuterol 2.5 mg/3 mL Neb INHALATION (11:36)
--- NOTE | 2024-07-25 15:29 | P.PN_ITS ---
<Statement entered by Gini Mckay MD - 07/25/24 21:23> Patient was evaluated and cared for in conjunction with an advanced practice practitioner. I have not examined the patient but I have reviewed the chart and all pertinent data including imaging, telemetry, and laboratory results. I discussed the patient in detail with the advanced practice practitioner. Please see their note for complete H&P testing result and agreed upon plan of care for the patient. Subjective 2 Subjective: Patient seen this morning on rounds. Overall she is stable. She is not requiring oxygen. Still has a rash on her back but she is taking steroids and states that her symptoms have significantly improved. Overall she looks good with no major complaints. She states that she is urinating frequently without difficulty. Vitals/I&O/Wt Last Vital Signs Temp 98 F 07/25/24 11:50 Pulse 70 07/25/24 11:50 Resp 18 07/25/24 11:50 BP 109/76 07/25/24 11:50 Pulse Ox 98 07/25/24 11:50 O2 Del Method Room Air 07/25/24 11:50 O2 Flow Rate 1 07/24/24 13:19 FiO2 30 07/20/24 09:30 07/25/24 07/25/24 07/25/24 06:59 14:59 22:59 Intake Total 360 / 1192 960 / 960 Output Total 1000 / 1000 Balance 360 / 192 -40 / -40 Weight last 48 hrs Weight 195 lb 9.6 oz Weight 195 lb 14.4 oz Physical Exam 2 Narrative: General: No apparent distress, healthy appearing, well nourished HENMT: normoceophalic Muskuloskeletal: Full ROM Lymphatic: no lymphedema noted Respiratory: Normal respiratory effort, clear to auscultation bilaterally throughout all lung dee, no use of accessory muscles Cardio: No JVD, regular rate, regular rhythm, S1 S2 normal, no murmurs, peripheral pulses 2+ radial palpated bilaterally GI: Normal to inspection, nondistended Extremities: Full ROM, normal, normal capillary refill, no cyanosis or edema Neuro: Alert and oriented x4, no focal motor deficits Psych: Affect normal, denies suicidal ideation, mental status grossly normal Skin: No rashes or lesions noted, no wounds Urinary Catheter Management: [place]: Cath Placed During This Visit: yes, but has since been removed by the nurse Reason for Continuing Indwelling Catheter: Decision to DC Catheter Urinary Catheter Date of Insertion: 07/18/24 Urinary Catheter Time of Insertion: 17:54 Date Urinary Catheter Removed: 07/23/24 Time Urinary Catheter Discontinued: 09:28 Data 07/22/24 02:55 07/24/24 04:29 A&P Assessment and plan (1) Heart failure with reduced ejection fraction: (2) Non-ischemic cardiomyopathy: (3) Cardiac arrhythmia: Plan Patient is stable. Continue diuresis. Continue to monitor I's and O's. She continues to have good response to diuresis. Can switch to PO. At this time patient does not want LifeVest. She does understand she has up to 2-3% risk of sudden without it. She accepts these risks. The plan is to have patient f/u with previous referred facility for an ICD on an outpatient basis. Will discuss with Dr. Mckay this evening about possible discharge. BP has been soft, so Entresto has not been started. Currently getting metoprolol 12.5 BID. She is getting amio 400 BID. The plan would be to say on this dose for 1 week, then titrate down to 200 BID for 1 week, then go to 200 daily from then on. If BP allows, will consider adding Entresto in the future. Would recommend adding SGLT 2 inhibitor such as Jardiance of Farxiga. Can continue lasix 20 BID with potassium supplement. Can take extra dose of lasix and potassium prn weight gain of 3 pounds in a day. PDMP PDMP Reviewed: Not Reviewed Attestations 2 Medical Necessity Statement*: Deferred to primary care team. Coding Level of Care Code Acute Code for [facility] Fwd Diagnoses Heart failure with reduced ejection fraction I50.20 Non-ischemic cardiomyopathy I42.8 Cardiac arrhythmia I49.9
--- NOTE | 2024-07-25 16:11 | PC.NURSE ---
Discussed discharge with patient along with follow up appointments, new medications and stopped medications. Pulled patients PICC Line and catheter tip all intact. Patients medications sent to the inpatient pharmacy. Patient was wheeled to the outpatient pharmacy to product picker medications and friend to take patient home. Patient verbalized understanding of discharge.
--- NOTE | 2024-07-25 16:53 | P.DS_ITS ---
Discharge Providers Date of Admission: 07/18/24 16:35 Date of Discharge: July 25, 2024 Attending Provider at Admission: Fabrice Jhaveri MD Attending Provider at Discharge: Kourtney Bueno MD Primary Care Provider: Alberta Hudson NP Diagnoses at Discharge Discharge Diagnosis (1) Heart failure with reduced ejection fraction: Status: Acute (2) Non-ischemic cardiomyopathy: Status: Acute (3) Cardiac arrhythmia: Status: Acute Reason for Visit Reason for Visit: SOB / swelling Hospital Course Hospital Course 48-year-old lady with a past medical history of heart failure with reduced ejection fraction, neuropathy, cardiomyopathy, coronary artery disease and other multiple comorbidities had presented to the hospital on July 18, 2024 in respiratory distress. Patient was intubated in the emergency department.Labs revealed leukocytosis with neutrophilia and elevated NT proBNP to 8351 pg/mL chest x-ray redemonstrated known cardiac enlargement chronic plaque atelectasis. Rapid flu A positive. She was admitted and treated for influenza pneumonia with Tamiflu. Additionally received coverage with antibiotics initially cefepime for possibility of superadded bacterial infection. Cefepime was discontinued on July 24, 2024 due to noted drug rash which may have been beta-lactam induced. Patient was additionally diagnosed with acute on chronic systolic CHF exacerbation for which she was treated with IV Lasix. Additionally she was started on amiodarone due to nonsustained V. tach. She had good response to diuresis. She was extubated on 07/21. Last known EF at 20%. Global hypokinesia. Patient did not want a LifeVest. Patient has been referred for an ICD previously with Dr. Darling. 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 maculopapular rash was noted over back, upper chest, likely drug recation,. New medications this admission have included Tamiflu, cefepime and amiodarone, either of which may have been a culprit medication for her. She has completed a course of Tamiflu therefore does not need more doses. Cefepime has been discontinued and switched to levofloxacin. He has been started on a ta pering course of steroids for her drug reaction. Additionally hydrocortisone local application is recommended. Follow-up arranged with dermatology Dr. Cloud. Should the rash fail to improve over the next 3 to 4 days, may potentially be related to amiodarone and next step would be to discontinue this drug. She is currently much improved. Home O2 eval was completed prior to discharge today. Losartan has been discontinued at discharge due to soft BP. Physical Exam Narrative: General: No acute distress, AO x3 HEENT: PERRLA, pupils bilaterally equal and reactive, pallors not present Chest: scattered wheezing, improved over previous exam CVS: S1-S2 regular, no murmurs, no tachycardia, no gallops, no rubs Abdomen: Soft, nontender, no organomegaly, bowel sounds present Neuro: No focal deficits, no facial deformity, AO x3, power 5/5 in all limbs Urinary Catheter Management: [place]: Cath Placed During This Visit: yes, but has since been removed by the nurse Reason for Continuing Indwelling Catheter: Decision to DC Catheter Urinary Catheter Date of Insertion: 07/18/24 Urinary Catheter Time of Insertion: 17:54 Date Urinary Catheter Removed: 07/23/24 Time Urinary Catheter Discontinued: 09:28 Discharge Data Studies Completed and Pending Completed Studies During Hospitalization Category Date Time Status CT angio chest PE protcl [id number] Stat Cat Scan 07/18/24 15:42 Completed CXRP [XR chest 1V portable [id number]] Routine Exams 07/19/24 12:40 Completed XR chest 1V portable [id number] Routine Exams 07/19/24 04:00 Completed XR chest 1V portable [id number] Routine Exams 07/20/24 04:00 Completed XR chest 1V portable [id number] Stat Exams 07/18/24 13:48 Completed XR chest 1V portable [id number] Stat Exams 07/18/24 16:07 Completed XR chest 1V portable [id number] Stat Exams 07/18/24 16:25 Completed CV. echo limited [id number] Stat Ultrasound 07/18/24 16:33 Completed Radiology Impressions Chest CTA 07/18/24 15:42 IMPRESSION: 1. Opacities in the left lower lobe related to infectious/inflammatory etiologies with a background of postobstructive atelectasis given that there are some secretions within the associated bronchi. 2. Reactive mediastinal and hilar lymph nodes. Attention on follow-up studies to exclude a neoplastic process. 3. Cardiomegaly and coronary artery disease. Number 4 the enteric feeding tube can be advanced so that the side port is well below the gastroesophageal junction. Chest X-Ray 07/20/24 04:00 IMPRESSION: 1. Medical devices as above. 2. No significant interval change from prior comparisons. Laboratory Results WBC 8.87 10^3/uL (3.29-11.43) 07/22/24 02:55 RBC 4.47 10^6/uL (3.85-5.65) 07/22/24 02:55 Hgb 10.40 g/dL (11.27-16.99) L 07/22/24 02:55 Hct 35.1 % (36-47) L 07/22/24 02:55 MCV 78.5 fl (85-98) L 07/22/24 02:55 MCH 23.3 pg (27-33) L 07/22/24 02:55 MCHC 29.6 g/dL (30-55) L 07/22/24 02:55 RDW 20.8 % (12.1-15.1) H 07/22/24 02:55 Plt Count 266 10^3/cmm (157-399) 07/22/24 02:55 MPV 10.2 fL (7.4-10.4) 07/22/24 02:55 Neut % (Auto) 78.5 % 07/22/24 02:55 Lymph % (Auto) 14.7 % 07/22/24 02:55 [place] % (Auto) 6.1 % 07/22/24 02:55 Eos % (Auto) 0.2 % 07/22/24 02:55 Baso % (Auto) 0.2 % 07/22/24 02:55 Neut # (Auto) 6.96 10^3/uL (1.8-7.7) 07/22/24 02:55 Lymph # (Auto) 1.3 10^3/uL (0.8-4.8) 07/22/24 02:55 [place] # (Auto) 0.5 10^3/uL (0.2-0.9) 07/22/24 02:55 Eos # (Auto) 0.0 10^3/uL (0.0-0.8) 07/22/24 02:55 Baso # (Auto) 0.0 10^3/uL (0.0-0.1) 07/22/24 02:55 Nucleated RBC % (auto) 0 % 07/22/24 02:55 Nucleated RBCs # 0.0 /100WBC 07/22/24 02:55 Specimen Type Arterial 07/20/24 03:45 Sample Site Radial, right 07/20/24 03:45 ABG pH 7.38 (7.35-7.45) 07/20/24 03:45 ABG pCO2 51.9 mmHg (35-45) H 07/20/24 03:45 ABG pO2 85.0 mmHg (80.0-100.0) 07/20/24 03:45 ABG PO2/FiO2 Ratio 242 07/20/24 03:45 ABG HCO3 30.7 mmol/L (22-26) H 07/20/24 03:45 ABG O2 Saturation 97.5 07/20/24 03:45 ABG Base Excess 4.7 mmol/L (-2.0-2.0) H 07/20/24 03:45 Joseph Test Pos 07/20/24 03:45 A-a O2 Gradient 13.1 mmHg (5-10) H 07/20/24 03:45 Hematocrit 31.9 % (37-47) L 07/20/24 03:45 Hgb O2 Saturation 95.2 % (95-100) 07/20/24 03:45 Carboxyhemoglobin 2.2 %THgb (0.4-20.1) 07/20/24 03:45 Methemoglobin 0.2 % (0.4-1.5) L 07/20/24 03:45 Total Hemoglobin 10.4 g/dL (12-16) L 07/20/24 03:45 Sodium 140.0 mmol/L (131-143) 07/20/24 03:45 Potassium 3.9 mmol/L (3.5-5.0) 07/20/24 03:45 Glucose 134.0 mg/dL (70-115) H 07/20/24 03:45 Ionized Calcium 1.1 mmol/L (1.1-1.4) 07/20/24 03:45 O2 Delivery Device Vent 07/20/24 03:45 O2 Liters/Min 2.5 % 07/18/24 14:32 FiO2 35.0 % 07/20/24 03:45 Tidal Volume 0.40 07/20/24 03:45 PEEP 5.0 cmH20 07/20/24 03:45 Boom Storage ID [email or web address] 07/20/24 03:45 Sodium 135 mmol/L (136-145) L 07/24/24 04:29 Potassium 4.0 mmol/L (3.5-5.1) 07/24/24 04:29 Chloride 94 mmol/L (98-107) L 07/24/24 04:29 Carbon Dioxide 33 mmol/L (22-29) H 07/24/24 04:29 Anion Gap 12.0 (5-19) 07/24/24 04:29 BUN 13 mg/dL (6-20) 07/24/24 04:29 Creatinine 0.7 mg/dL (0.5-0.9) 07/24/24 04:29 GFR Calculation 86.2 mL/min (90-130) L 07/24/24 04:29 Glucose 116 mg/dL (65-115) H 07/24/24 04:29 POC Glucose 130 mg/dL (70-110) H 07/20/24 20:38 Calculated Osmolality 286 mOsm/kg (285-295) 07/21/24 04:47 Lactic Acid 1.7 mmol/L (0.5-2.2) 07/18/24 14:40 Calcium 8.2 mg/dL (8.5-10.5) L 07/24/24 04:29 Phosphorus 2.3 mg/dL (2.5-4.5) L 07/24/24 04:29 Magnesium 1.8 mg/dL (1.7-2.3) 07/24/24 04:29 Total Bilirubin 0.6 mg/dL (0.15-1.2) 07/21/24 04:47 AST 35 U/L (0-32) H 07/21/24 04:47 ALT 15 U/L (0-33) 07/21/24 04:47 Alkaline Phosphatase 59 U/L (35-105) 07/21/24 04:47 Troponin T Baseline 25 ng/L (0-10) H 07/18/24 14:40 Troponin T 120 Minute 26.49 ng/L (0-10) H 07/18/24 18:31 Delta Troponin T 1.49 ABS# (0-10) 07/18/24 18:31 Troponin T Hi Sens 6Hr 31.54 ng/L (0-10) H 07/18/24 21:37 Troponin T Hi Sens 6Hr Delta 6.54 ng/L (0-12) 07/18/24 21:37 C-Reactive Protein 13.5 mg/L (0.0-4.9) H 07/18/24 14:40 NT-Pro-B Natriuret Pep 3260 pg/mL (0-125) H 07/20/24 04:20 Total Protein 5.5 g/dL (6.6-8.7) L 07/21/24 04:47 Albumin 3.1 g/dL (3.5-5.2) L 07/24/24 04:29 Globulin 2.6 g/dL (1.3-4.6) 07/21/24 04:47 Procalcitonin 0.05 ng/mL (0-0.5) 07/18/24 14:40 Urine Color Yellow (Yellow) 07/18/24 15:10 Urine Appearance Clear (CLEAR) 07/18/24 15:10 Urine pH 7.5 (5-7) 07/18/24 15:10 Ur Specific [place] 1.010 (1.005-1.030) 07/18/24 15:10 Urine Protein Negative (Negative) 07/18/24 15:10 Urine Glucose (UA) Negative (Normal) 07/18/24 15:10 Urine Ketones Negative (Negative) 07/18/24 15:10 Urine Blood Negative (Negative) 07/18/24 15:10 Urine Nitrate Negative (Negative) 07/18/24 15:10 Urine Bilirubin Negative (Negative) 07/18/24 15:10 Urine Urobilinogen 0.2 mg/dL (Negative) 07/18/24 15:10 Ur Leukocyte Esterase Negative (Negative) 07/18/24 15:10 Urine RBC 0-2 /hpf (0-2) 07/18/24 15:10 Urine WBC 0-5 /hpf (0-5) 07/18/24 15:10 Ur Squamous Epith Cells 0-5 /hpf (0-5) 07/18/24 15:10 Amorphous Sediment Not Reportable 07/18/24 15:10 Urine Bacteria None seen /hpf (NONE) 07/18/24 15:10 Hyaline Casts 0-4 /lpf H 07/18/24 15:10 Nasal MRSA (PCR) Not detected (Not Detecte) 07/19/24 03:40 Coronavirus (PCR) Negative (Negative) 07/18/24 14:49 Influenza A (PCR) Positive (Negative) 07/18/24 14:49 Influenza Type B (PCR) Negative (Negative) 07/18/24 14:49 RSV (PCR) Negative (Negative) 07/18/24 14:49 Vitals Last Vital Signs Temp 98 F 07/25/24 11:50 Pulse 70 07/25/24 11:50 Resp 18 07/25/24 11:50 BP 109/76 07/25/24 11:50 Pulse Ox 98 07/25/24 11:50 O2 Del Method Room Air 07/25/24 11:50 O2 Flow Rate 1 07/24/24 13:19 FiO2 30 07/20/24 09:30 Discharge Plan Discharge Patient Disposition: Home Condition: Stable Prescriptions: New amiodarone [Pacerone] 200 mg Tablet 200 mg PO BID 30 Days Qty: 60 0RF levofloxacin 750 mg Tablet 750 mg PO DAILY 5 Days Qty: 5 0RF prednisone 10 mg tablet See Taper PO BID Qty: 42 0RF Taper: predniSONE 60-10 40 mg Daily for 2 Days and 0 Hour 30 mg Daily for 2 Days and 0 Hour 20 mg Daily for 2 Days and 0 Hour 10 mg Daily for 2 Days and 0 Hour 5 mg Daily for 2 Days and 0 Hour fluticasone propion-salmeterol [Advair Diskus] 500-50 mcg/dose blister with device 1 inh inhalation BID Qty: 60 0RF hydrocortisone 0.5 % ointment 1 applic topical BID Qty: 56 0RF furosemide [Lasix] 40 mg tablet 40 mg PO DAILY 10 Days Qty: 20 0RF Continued albuterol sulfate 90 mcg/actuation HFA aerosol inhaler 2 inh inhalation Q4H PRN (Reason: shortness of breath or wheezing) Qty: 6.7 1RF pantoprazole 40 mg tablet,delayed release (DR/EC) 40 mg PO QAM Qty: 30 2RF guaifenesin [Mucinex] 600 mg tablet extended release 12hr 600 mg PO BID 10 Days Qty: 20 0RF metoprolol tartrate 25 mg tablet 12.5 mg PO BID@0900,2100 Qty: 90 3RF naloxone [Narcan] 4 mg/actuation spray,non-aerosol 4 mg intranasal Q2M PRN (Reason: opioid overdose) Qty: 2 0RF Rx Instructions: 1 dose into ONE nostril, alternate nostrils w each dose until help arrives fluticasone propionate [Flonase Allergy Relief] 50 mcg/actuation spray,suspension 1 spray intranasal BID Qty: 16 0RF Rx Instructions: administer into each nostril gabapentin 300 mg capsule 300 mg PO BID Rx Instructions: Take 1 capsule by mouth twice daily Discontinued potassium chloride [Klor-Con M20] 20 mEq tablet,ER particles/crystals 20 meq PO QAM Qty: 90 3RF losartan 25 mg tablet 25 mg PO DAILY Qty: 90 3RF Discharge Orders: Discharge Order (Routine); Ordered 07/25/24 Ordered By: Kourtney Bueno Referrals: Kristen Wesley WIRE STRAIGHTENING MACHINE OPERATOR [Nurse Practitioner] - 7-10 days (We have notified your physician's clinic of the need for a follow-up appointment to be scheduled. If you have not heard from them within the next 2 business days, please call them directly. ) Alberta Hudson NP [Primary Care Provider] - 08/01/24 9:20 am Cori Cloud DO [Physician] - 7-10 days (drug reaction ? beta lactam ) Discharge Diet: Usual diet Discharge Activity: Resume usual activity Patient Instructions: Prednisone (By mouth), Amiodarone (By mouth), Hydrocortisone (On the skin), Levofloxacin (By mouth) (Levaquin, Levaquin Leva- mi), Influenza (GEN), Opioid Safety Discharge Attestations Time Spent in Discharge Care*: greater than 30 min Quality Metrics Clinical Quality Measures [ No reported AMI, CVA or VTE this stay] Coding Level of Care Code Acute Code for Chg Fwd Diagnoses Heart failure with reduced ejection fraction I50.20 Non-ischemic cardiomyopathy I42.8 Cardiac arrhythmia I49.9
== END 2024-07-25 14:40 | disposition home or self-care (01) | DRG 871 ==
LOC: ER 15:29 → ICU 16:35 → MEDSURG 07-21 14:45
PROVIDERS: Emergency Medicine; Internal Medicine; Admitting Provider Internal Medicine; Emergency Provider Family Medicine; Visit Provider Student in an Organized Health Care Education/Training Program
DX: A41.9 Sepsis, unspecified organism (principal); I50.23 Acute on chronic systolic (congestive) heart failure; R65.21 Severe sepsis with septic shock; J18.9 Pneumonia, unspecified organism; J96.01 Acute respiratory failure with hypoxia; I42.8 Other cardiomyopathies; I47.20 Ventricular tachycardia, unspecified; G62.9 Polyneuropathy, unspecified; I25.10 Atherosclerotic heart disease of native coronary artery without angina pectoris; J10.1 Influenza due to other identified influenza virus with other respiratory manifestations; L27.0 Generalized skin eruption due to drugs and medicaments taken internally; K21.9 Gastro-esophageal reflux disease without esophagitis; Z87.891 Personal history of nicotine dependence; I25.2 Old myocardial infarction
CPT/HCPCS: 36415; 36416; 36573; 36592; 36600; 51702; 71045; 71275; 80051; 80053; 80069; 81001; 82330; 82805; 82962; 83605; 83735; 83880; 84100; 84145; 84484; 85025; 86140; 86403; 87040; 87070; 87205; 87449; 87637; 92523; 92610; 93005; 93308; 94002; 94003; 94640; 94660; 94760; 94799; 96365; 96366; 96367; 96372; 96375; 96376; 97116; 97161; 97165; 99291; A4222; C1751; J0283; J0330; J0692; J1650; J1940; J2020; J2060; J2250; J2405; J2470; J2543; J2704; J3010; J3490; J7512; J7613

== ENCOUNTER 2024-08-01 12:17 | Outpatient (CLI) | payer MEDICARE, MEDICAID, SELFPAY ==
--- NOTE | 2024-08-01 12:26 | XR_ITS ---
WS: [id number] XR chest 2V* [id number] REASON FOR EXAM: pacer infection FINDINGS: Cardiac device over the left chest with trans left subclavian leads (3) to the right atrium and to the posterior right ventricle. There is cardiomegaly. Mild central vascular congestion. Calcified granulomatous disease in both hemithoraces. No acute pulmonary parenchymal abnormality. Compared to the examination of 07/20/2024, the left pleural effusion has significantly decreased. There is residual effusion and atelectasis in the left lower lung. Mild degenerative spondylosis in the mid and lower thoracic spine. XR/XR chest 2V* [id number] IMPRESSION: Significant decrease of the left pleural effusion with small residual effusion and left lower lobe atelectasis as above.
== END 2024-08-01 12:18 | disposition home or self-care (01) ==
PROVIDERS: Visit Provider Nurse Practitioner Family
DX: Z95.810 Presence of automatic (implantable) cardiac defibrillator (principal); I50.9 Heart failure, unspecified; I51.7 Cardiomegaly; R93.89 Abnormal findings on diagnostic imaging of other specified body structures; D71 Functional disorders of polymorphonuclear neutrophils; J90 Pleural effusion, not elsewhere classified; J98.11 Atelectasis; M47.894 Other spondylosis, thoracic region
CPT/HCPCS: 71046; 80053; 83880

== ENCOUNTER → 2024-08-03 13:11 | Outpatient (BNVA) | payer MEDICARE, MEDICAID, SELFPAY | PROVIDERS: Visit Provider Nurse Practitioner Family | DX: T82.7XXA Infection and inflammatory reaction due to other cardiac and vascular devices, implants and grafts, initial encounter (principal); Y83.8 Other surgical procedures as the cause of abnormal reaction of the patient, or of later complication, without mention of misadventure at the time of the procedure; I50.20 Unspecified systolic (congestive) heart failure; Z95.810 Presence of automatic (implantable) cardiac defibrillator; I47.29 Other ventricular tachycardia; Z87.891 Personal history of nicotine dependence | CPT/HCPCS: 99214 ==

== ENCOUNTER → 2024-09-04 12:18 | Outpatient (BNVA) | payer MEDICARE, MEDICAID, SELFPAY | PROVIDERS: Visit Provider Family Medicine | DX: R06.02 Shortness of breath (principal); D50.9 Iron deficiency anemia, unspecified; I50.20 Unspecified systolic (congestive) heart failure; R60.0 Localized edema | CPT/HCPCS: 80053; 82728; 83550; 83880; 85025 ==

== ENCOUNTER → 2024-09-11 15:51 | Outpatient (BNVA) | payer MEDICARE, MEDICAID, SELFPAY | PROVIDERS: Visit Provider Nurse Practitioner Family | DX: L27.0 Generalized skin eruption due to drugs and medicaments taken internally (principal); L81.4 Other melanin hyperpigmentation; L57.8 Other skin changes due to chronic exposure to nonionizing radiation; B00.1 Herpesviral vesicular dermatitis; L30.4 Erythema intertrigo | CPT/HCPCS: 99214 ==

== ENCOUNTER → 2024-10-09 11:28 | Outpatient (BNVA) | payer MEDICARE, MEDICAID, SELFPAY | DX: I50.20 Unspecified systolic (congestive) heart failure (principal); D50.9 Iron deficiency anemia, unspecified | CPT/HCPCS: 80053; 82728; 83550; 83880; 85025 ==

== ENCOUNTER → 2024-10-10 09:43 | Outpatient (BNVA) | payer MEDICARE, MEDICAID, SELFPAY | PROVIDERS: Visit Provider Nurse Practitioner Family | DX: I42.8 Other cardiomyopathies (principal); E87.6 Hypokalemia; I50.23 Acute on chronic systolic (congestive) heart failure; I25.2 Old myocardial infarction; Z95.810 Presence of automatic (implantable) cardiac defibrillator; Z87.891 Personal history of nicotine dependence | CPT/HCPCS: 99214 ==

== ENCOUNTER 2024-10-31 17:56 | Emergency (ER) | payer MEDICARE, MEDICAID, SELFPAY ==
[2024-10-31 17:57] VITALS: BP 139/96; PULSE 97; RESP 20; TEMP 36.7; O2SAT 93; BMI 27.4
--- NOTE | 2024-10-31 18:11 | CTR_ITS ---
PROCEDURE INFORMATION: Exam: CTA Chest With Contrast Exam date and time: 10/31/2024 7:33 PM Age: 59 years old Clinical indication: Cough and shortness of breath; Prior surgery; Surgery date: 6+ months; Surgery type: Pacer; Cough with SOB upon exertion. History of chf. ; Additional info: Sudden onset sob/lightheaded TECHNIQUE: Imaging protocol: Computed tomographic angiography of the chest with contrast. Exam focused on the arteries. 3D rendering (Not supervised by radiologist): MIP and/or 3D reconstructed images were created by the technologist. Radiation optimization: All CT scans at this facility use at least one of these dose optimization techniques: automated exposure control; mA and/or kV adjustment per patient size (includes targeted exams where dose is matched to clinical indication); or iterative reconstruction. Contrast material: OMNI 350; Contrast volume: 81 ml; Contrast route: INTRAVENOUS (IV); COMPARISON: CT angio chest PE protcl 07/18/2024 4:57 PM RADIATION DOSE METRICS: Total DLP (mGy-cm): 419.36 FINDINGS: Tubes, catheters and devices: Left anterior chest wall cardiac pacemaker. Pulmonary arteries: No pulmonary emboli identified. Aorta: No thoracic aortic aneurysm. Lungs: Mild bibasilar atelectasis. Small calcified granuloma in the right middle lobe. Pleural spaces: Trace bilateral pleural effusions, [id number]-left. Heart: Stable cardiomegaly. No pericardial effusion. Coronary arteries: Moderate coronary artery calcifications. Lymph nodes: Persistent mild bilateral hilar and mediastinal adenopathy, slightly increased from 07/18/2024. Bones/joints: No acute osseous abnormality or evidence of osseous metastatic disease. Soft tissues: Unremarkable. CT/CT angio chest PE protcl [id number] IMPRESSION: 1. No pulmonary emboli identified. 2. Mild bibasilar atelectasis. 3. Trace bilateral pleural effusions, [id number]-left. 4. Persistent mild bilateral hilar and mediastinal adenopathy, slightly increased from 07/18/2024.
--- NOTE | 2024-10-31 18:12 | ECG_ITS ---
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 Right Of Way: : 1965 Requested By: Mu Rush Order Number: [id number] Hussein MD: KIMBERLEY ROPER Measurements Intervals [place] Rate: 87 P: 42 TX: 141 QRS: 223 QRSD: 143 T: 56 QT: 406 QTc: 491 Interpretive Statements ELECTRONIC VENTRICULAR PACEMAKER ABNORMAL RHYTHM ECG Compared to ECG 07/19/2024 00:03:17 Sinus rhythm no longer present Short TX interval no longer present Atrial abnormality no longer present Right-axis deviation no longer present Intraventricular conduction delay no longer present Electronically Signed On 11-02-2024 23:33:19 CDT by KIMBERLEY ROPER [email or web address]
[2024-10-31 18:23] LABS: Basophils # 0.1 10^3/uL (0.0-0.1); Basophils % 0.5 %; Eosinophils # 0.1 10^3/uL (0.0-0.8); Eosinophils % 1.2 %; Hematocrit 42.5 % (36-47); Lymphocytes # 1.2 10^3/uL (0.8-4.8); Lymphocytes % 13.4 %; Mean Corpuscular HGB Conc 29.9 g/dL (30-55); Mean Corpuscular Hemoglobin 25.5 pg (27-33); Mean Corpuscular Volume 85.3 fl (85-98); Mean Platelet Volume 10.5 fL (7.4-10.4); Monocytes # 0.3 10^3/uL (0.2-0.9); Monocytes % 3.4 %; Neutrophils % 81.1 %; Nucleated Red Blood Cells % 0 %; Platelet Count 220 10^3/cmm (157-399); Red Blood Count 4.98 10^6/uL (3.85-5.65); Red Cell Distribution Width 22.4 % (12.1-15.1); White Blood Count 9.13 10^3/uL (3.29-11.43)
[2024-10-31 18:28] VITALS: BP 139/96; PULSE 104; O2SAT 93
[2024-10-31 18:48] LABS: Troponin(5th) Baseline 21 ng/L (0-10)
[2024-10-31 18:57] LABS: Alanine Aminotransferase 18 U/L (0-33); Albumin Level 4.7 g/dL (3.5-5.2); Alkaline Phosphatase 96 U/L (35-105); Anion Gap 18.7 (5-19); Aspartate Amino Transferase 24 U/L (0-32); Blood Urea Nitrogen 14 mg/dL (6-20); Calcium 9.5 mg/dL (8.5-10.5); Carbon Dioxide 25 mmol/L (22-29); Chloride 104 mmol/L (98-107); Creatinine Clr Calc Pharmacy 88.6977; Globulin 2.7 g/dL (1.3-4.6); Glomerular Filtration Rate 85.9 mL/min (90-130); Glucose 116 mg/dL (65-115); NT Pro B Type Natriuretic Pept 16295 pg/mL (0-125); Osmolality Calculated 297 mOsm/kg (285-295); Potassium 4.7 mmol/L (3.5-5.1); Sodium 143 mmol/L (136-145); Total Bilirubin 1.2 mg/dL (0.15-1.2); Total Protein 7.4 g/dL (6.6-8.7)
[2024-10-31 19:14] VITALS: BP 142/90; PULSE 108; RESP 19; O2SAT 94
[2024-10-31] MEDS: iohexol 350 mg/mL 500 mL Btl (per mL) IV (19:41)
[2024-10-31 20:00] VITALS: BP 132/96; PULSE 104; O2SAT 95
--- NOTE | 2024-10-31 20:33 | W.ED.SOB ---
HPI - SOB/Dyspnea General: Chief Complaint: Shortness of Breath/Dyspnea Stated Complaint: SOB Time Seen by Provider: 10/31/24 18:11 History of Present Illness: HPI Narrative: Patient is a generally well-appearing 51-year-old female seen for shortness of breath. She states that she has known congestive heart failure for which she takes 40 mg of Lasix every morning and that she woke this morning feeling more short of breath than usual. She also felt somewhat lightheaded with exertion. Shortness of breath was worse with exertion and better with rest. She does not have oxygen at home and has never taken it. She has not been checking her weight so she does not know if she is up on her water weight or not. She does not recall any recent sickness, fever, cough, congestion, or other exacerbating factor. There was no chest pain associated with the shortness of breath. She states that throughout the day symptoms have gotten better spontaneously. Related Data Previous Rx's ?Medication ?Instructions ?Recorded hydrocortisone 0.5 % topical 1 applic topical BID #56 grams 07/25/24 ointment furosemide 40 mg tablet (Lasix) 40 mg PO DAILY #90 tabs 08/03/24 metoprolol tartrate 25 mg tablet 12.5 mg (1/2 x 25 mg) PO 08/03/24 BID@0900,2100 #90 tabs metolazone 5 mg tablet 5 mg PO .q AM #30 tabs 09/04/24 Held on 10/10/24. Instructions: Patient No Longer Taking gabapentin 300 mg capsule 300 mg PO BID #180 caps 09/11/24 potassium chloride 10 mEq 10 meq PO DAILY #90 tabs 10/10/24 tablet,extended release (Klor-Con) Allergies Allergy/AdvReac Type Severity Reaction Status Date / Time adhesive Allergy ALGY-Redness Verified 10/31/24 18:03 of Skin [facility] ED [facility]: Medical History Lower extremity edema Hospital discharge follow-up Second hand smoke exposure Former smoker, stopped smoking many years ago Allergic reaction caused by a drug Acute kidney injury Sepsis Heart failure Pain of left lower extremity Colon polyp Acid reflux Gastritis Congestive heart failure 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 Encounter to establish care Arthritis Sciatic nerve pain Neuropathy Diarrhea Avascular necrosis of femur Radiculopathy, site unspecified Cardiomyopathy Atherosclerosis of coronary artery NSTEMI (non-ST elevated myocardial infarction) Chronic back pain Surgical History H/O total hip arthroplasty bilateral Status post abdominal hysterectomy and salpingo-oophorectomy Hx laparoscopic cholecystectomy Family History Mother Diabetes CAD (coronary artery disease) Father Diabetes CAD (coronary artery disease) Social History Smoking and tobacco/nicotine status: former use of tobacco/nicotine Quit status (tobacco/nicotine): has quit using Year quit tobacco: 1993 Second hand smoke exposure: No Alcohol intake: former Year of sobriety/quit date alcohol: 2001 Substance/Drug Use: current Substance/Drug use frequency: daily Additional social history: smoked 1/2 ppd from age 17 to 27. Snorted cocaine as a teenager until her 20s. Physical Exam Const: COMMON NORMALS: no acute distress, patient oriented x3 and alert HENMT: COMMON NORMALS: normocephalic and atraumatic HEAD & SCALP: normocephalic and atraumatic Eye: COMMON NORMALS: Equal, round and reactive pupils present, EOMs intact bilaterally and no scleral icterus PUPIL: Yes Equal, round and reactive pupils present Resp: OTHER: Mild crackles in both lung bases. Mild tachypnea, mild increased work of breathing but no distress. Cardio: COMMON NORMALS: regular rate, regular rhythm and No murmurs present (Cardio) RATE: regular rate RHYTHM: regular rhythm GI: COMMON NORMALS: Normal to inspection, nondistended, normoactive bowel sounds present, Soft to palpation and non-tender PALPATION: Yes Soft to palpation Neuro: COMMON NORMALS: patient oriented x3 SENSORIUM/ORIENTATION: Yes alert Skin: COMMON NORMALS: no rashes or lesions noted GENERAL SKIN EXAM: no rashes or lesions noted Course Vital Signs: Vital signs: Vital Signs Temperature 98.1 F 10/31/24 17:57 Pulse Rate 108 H 10/31/24 19:14 Respiratory Rate 19 H 10/31/24 19:14 Blood Pressure 142/90 10/31/24 19:14 Pulse Oximetry 94 10/31/24 19:14 MDM - SOB/Dyspnea Medical Decision Making Patient remained hemodynamically stable throughout ED course. Given her sudden onset shortness of breath CTA was performed to rule out PE and fortunately does not show anything other than mild fluid overload. This is consistent with her clinical picture. Troponin is not elevated. BNP is significantly elevated from before. I offered her admission to the hospital and IV Lasix but she prefers to go home as she states she has a friend in town from far away and feels that she can manage this at home. I think this is reasonable. Oxygen saturation remains 94% with only very minimally increased work of breathing. She would take an extra dose of Lasix tonight and also an extra 40 mg every day for the next 4 days and will be very careful about her fluid and salt intake. She knows that she is always welcome back to the emergency department if symptoms get worse before then. Lab Data 10/31/24 18:11 10/31/24 18:11 Labs/Radiology: Radiology Impressions Chest CTA 10/31/24 18:11 IMPRESSION: 1. No pulmonary emboli identified. 2. Mild bibasilar atelectasis. 3. Trace bilateral pleural effusions, rfzsw-[id number]-[id number]-left. 4. Persistent mild bilateral hilar and mediastinal adenopathy, slightly increased from 07/18/2024. Laboratory Results WBC 9.13 10^3/uL (3.29-11.43) 10/31/24 18:11 RBC 4.98 10^6/uL (3.85-5.65) 10/31/24 18:11 Hgb 12.70 g/dL (11.27-16.99) 10/31/24 18:11 Hct 42.5 % (36-47) 10/31/24 18:11 MCV 85.3 fl (85-98) 10/31/24 18:11 MCH 25.5 pg (27-33) L 10/31/24 18:11 MCHC 29.9 g/dL (30-55) L 10/31/24 18:11 RDW 22.4 % (12.1-15.1) H 10/31/24 18:11 Plt Count 220 10^3/cmm (157-399) 10/31/24 18:11 MPV 10.5 fL (7.4-10.4) H 10/31/24 18:11 Neut % (Auto) 81.1 % 10/31/24 18:11 Lymph % (Auto) 13.4 % 10/31/24 18:11 [place] % (Auto) 3.4 % 10/31/24 18:11 Eos % (Auto) 1.2 % 10/31/24 18:11 Baso % (Auto) 0.5 % 10/31/24 18:11 Neut # (Auto) 7.40 10^3/uL (1.8-7.7) 10/31/24 18:11 Lymph # (Auto) 1.2 10^3/uL (0.8-4.8) 10/31/24 18:11 [place] # (Auto) 0.3 10^3/uL (0.2-0.9) 10/31/24 18:11 Eos # (Auto) 0.1 10^3/uL (0.0-0.8) 10/31/24 18:11 Baso # (Auto) 0.1 10^3/uL (0.0-0.1) 10/31/24 18:11 Nucleated RBC % (auto) 0 % 10/31/24 18:11 Nucleated RBCs # 0.0 /100WBC 10/31/24 18:11 Sodium 143 mmol/L (136-145) 10/31/24 18:11 Potassium 4.7 mmol/L (3.5-5.1) 10/31/24 18:11 Chloride 104 mmol/L (98-107) 10/31/24 18:11 Carbon Dioxide 25 mmol/L (22-29) 10/31/24 18:11 Anion Gap 18.7 (5-19) 10/31/24 18:11 BUN 14 mg/dL (6-20) 10/31/24 18:11 Creatinine 0.7 mg/dL (0.5-0.9) 10/31/24 18:11 GFR Calculation 85.9 mL/min (90-130) L 10/31/24 18:11 Glucose 116 mg/dL (65-115) H 10/31/24 18:11 Calculated Osmolality 297 mOsm/kg (285-295) H 10/31/24 18:11 Calcium 9.5 mg/dL (8.5-10.5) 10/31/24 18:11 Total Bilirubin 1.2 mg/dL (0.15-1.2) 10/31/24 18:11 AST 24 U/L (0-32) 10/31/24 18:11 ALT 18 U/L (0-33) 10/31/24 18:11 Alkaline Phosphatase 96 U/L (35-105) 10/31/24 18:11 Troponin T Baseline 21 ng/L (0-10) H 10/31/24 18:11 Troponin T 120 Minute 18.50 ng/L (0-10) H 10/31/24 19:59 Delta Troponin T -2.50 ABS# (0-10) L 10/31/24 19:59 NT-Pro-B Natriuret Pep 38512 pg/mL (0-125) H 10/31/24 18:11 Total Protein 7.4 g/dL (6.6-8.7) 10/31/24 18:11 Albumin 4.7 g/dL (3.5-5.2) 10/31/24 18:11 Globulin 2.7 g/dL (1.3-4.6) 10/31/24 18:11 All radiology interpretation(s) finalized by discharge EKG Data EKG 1: Interpretation: Time?1803?ventricularly paced rhythm, rate of 87, negative Sgarbossa criteria, QTc = 451 Discharge Plan Discharge Patient Disposition: Home Clinical Impression: Acute exacerbation of CHF (congestive heart failure) Condition: Stable Prescriptions: No Action furosemide [Lasix] 40 mg tablet 40 mg PO DAILY Qty: 90 1RF metoprolol tartrate 25 mg tablet 12.5 mg PO BID@0900,2100 Qty: 90 3RF metolazone 5 mg tablet 5 mg PO .q AM Qty: 30 0RF potassium chloride [Klor-Con 10] 10 mEq tablet extended release 10 meq PO DAILY Qty: 90 1RF gabapentin 300 mg capsule 300 mg PO BID Qty: 180 0RF Rx Instructions: Take 1 capsule by mouth twice daily hydrocortisone 0.5 % ointment 1 applic topical BID Qty: 56 0RF Discharge Orders: Discharge ED (Routine); Ordered 10/31/24 Ordered By: Mu Puente Referrals: Alberta Hudson NP [Primary Care Provider, Family Practice] Discharge Diet: As Directed Discharge Activity: Increase activity as tolerated Patient Instructions: Heart Failure (DC) Activity Restrictions/Additional Instructions: As we discussed, please take an extra dose of Lasix at night for the next 4 days essentially doubling your daily dose and be very mindful of how much fluid you drink and how much salt you intake so that some of the fluid comes off. If symptoms or not better you are always welcome back in the emergency department. Print Language: Djiboutian Coding Level of Care Code ED Whipped Topping Finisher for Alexandre Webb
[2024-10-31 21:01] VITALS: BP 135/101; PULSE 101; O2SAT 94
== END 2024-10-31 20:51 | disposition home or self-care (01) ==
PROVIDERS: Emergency Provider Student in an Organized Health Care Education/Training Program
DX: I50.9 Heart failure, unspecified (principal); Z87.891 Personal history of nicotine dependence
CPT/HCPCS: 36415; 71275; 80053; 83880; 84484; 85025; 93005; 99285

== ENCOUNTER 2024-11-27 02:39 | Inpatient (IN) | payer MEDICARE, MEDICAID, SELFPAY ==
[2024-11-27] VITALS (126 sets, daily range): BP systolic 94–141; BP diastolic 53–108; PULSE 81–120; RESP 18–38; TEMP 36.2–36.4; O2SAT 75–100; BMI 27.4
--- NOTE | 2024-11-27 02:48 | XRR_ITS ---
PROCEDURE INFORMATION: Exam: XR Chest Exam date and time: 11/27/2024 2:47 AM Age: 59 years old Clinical indication: Dyspnea and shortness of breath; Prior surgery; Surgery date: 6+ months; Surgery type: Defibrillator; Severe SOB with dyspnea. History of chf. TECHNIQUE: Imaging protocol: Radiologic exam of the chest. Views: 1 view. COMPARISON: CT angio chest PE protcl [id number] 10/31/2024 7:33 PM FINDINGS: Tubes, catheters and devices: Left chest AICD in stable position. Lungs: Faint bilateral lower lung stranding. Pleural spaces: Slight blunting of the bilateral costophrenic angles. Heart/Mediastinum: Moderate cardiomegaly, unchanged. Bones/joints: Unremarkable. XR/XR chest 1V portable [id number] IMPRESSION: Moderate cardiomegaly, with faint bilateral lower lung stranding and trace/small volume bilateral pleural effusions. Findings favored to represent early CHF.
--- NOTE | 2024-11-27 02:49 | ED_ITS ---
HPI - SOB/Dyspnea 2 General: Chief Complaint: ER Hold Stated Complaint: SOB\Conjestive Heart Failure Time Seen by Provider: 11/27/24 02:44 History of Present Illness: HPI Narrative: Patient comes in with acute shortness of breath. States that she has a history of CHF with an ejection fraction of 20%. States that she woke up with severe shortness of breath dyspnea. Upon arrival here the patient is in moderate respiratory distress with accessory muscle use and poor air movement throughout. Will place her on BiPAP, check labs, check x-ray, give 40 mg of IV Lasix, and reassess. Associated symptoms: Deny abdominal pain, chest pain, fever(s), nausea, palpitations or vomiting Related Data Previous Rx's ?Medication ?Instructions ?Recorded hydrocortisone 0.5 % topical 1 applic topical BID #56 grams 07/25/24 ointment furosemide 40 mg tablet (Lasix) 40 mg PO DAILY #90 tab s 08/03/24 metoprolol tartrate 25 mg tablet 12.5 mg (1/2 x 25 mg) PO 08/03/24 BID@0900,2100 #90 tabs metolazone 5 mg tablet 5 mg PO .q AM #30 tabs 09/04 Held on 10/10/24. Instructions: Patient No Longer Taking gabapentin 300 mg capsule 300 mg PO BID #180 caps 08/20 10/13 potassium chloride 10 mEq 10 meq PO DAILY #90 tabs tablet,extended release (Klor-Con) Allergies Allergy/AdvReac Type Severity Reaction Status Date / Time adhesive Allergy ALGY-Redness Verified 10/31/24 18:03 of Skin Review of Systems 2 Const: Denies: fever(s) Card: Denies: chest pain or palpitations Resp: Reports: dyspnea GI: Denies: abdominal pain, nausea or vomiting PFSH ED 2 PFSH: Medical History Lower extremity edema Hospital discharge follow-up Second hand smoke exposure Former smoker, stopped smoking many years ago Allergic reaction caused by a drug Acute kidney injury Sepsis Heart failure Pain of left lower extremity Colon polyp Acid reflux Gastritis Congestive heart failure 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 Encounter to establish care Arthritis Sciatic nerve pain Neuropathy Diarrhea Avascular necrosis of femur Radiculopathy, site unspecified Cardiomyopathy Atherosclerosis of coronary artery NSTEMI (non-ST elevated myocardial infarction) Chronic back pain Surgical History H/O total hip arthroplasty bilateral Status post abdominal hysterectomy and salpingo-oophorectomy Hx laparoscopic cholecystectomy Family History Mother Diabetes CAD (coronary artery disease) Father Diabetes CAD (coronary artery disease) Social History Smoking and tobacco/nicotine status: former use of tobacco/nicotine Quit status (tobacco/nicotine): has quit using Year quit tobacco: 1993 Second hand smoke exposure: No Alcohol intake: former Year of sobriety/quit date alcohol: 2001 Substance/Drug Use: current Substance/Drug use frequency: daily Additional social history: smoked 1/2 ppd from age 17 to 27. Snorted cocaine as a teenager until her 20s. Physical Exam 2 Const: OTHER: Patient in moderate respiratory distress HENMT: COMMON NORMALS: normocephalic and atraumatic HEAD & SCALP: n ormocephalic and atraumatic Resp: OTHER: Poor air movement throughout with accessory muscle use Cardio: COMMON NORMALS: regular rhythm RATE: tachycardic RHYTHM: regular rhythm GI: COMMON NORMALS: Normal to inspection, nondistended, normoactive bowel sounds present, Soft to palpation and non-tender PALPATION: Yes Soft to palpation Skin: COMMON NORMALS: no rashes or lesions noted and no wounds GENERAL SKIN EXAM: no rashes or lesions noted Course 2 Vital Signs: Vital signs: Vital Signs Temperature 97.5 F L 11/27/24 02:42 Pulse Rate 108 H 11/27/24 03:35 Respiratory Rate 21 H 11/27/24 03:35 Blood Pressure 141/107 11/27/24 03:35 Pulse Oximetry 100 11/27/24 03:11 Oxygen Delivery Me thod BiPAP 11/27/24 03:35 Fraction of Inspir ed Oxygen 40 11/27/24 03:35 MDM - SOB/Dyspnea Medical Decision Making Stat chest x-ray is concerning for moderate to large pleural effusion on the right. Patient does not have a history of COPD. Patient is doing much better on the BiPAP. She does have a white blood cell count is elevated at 14.68. Her troponin also came back at 57. She denies any chest pain. She denies any cough, congestion, fever. Will continue with diuresis. I discussed the case with the hospitalist we will admit for further workup and treatment of her congestive heart failure exacerbation and respiratory failure. Lab Data 11/27/24 03:09 11/27/24 03:09 Labs/Radiology: Radiology Impressions Chest X-Ray 11/27/24 02:48 IMPRESSION: Moderate cardiomegaly, with faint bilateral lower lung stranding and trace/small volume bilateral pleural effusions. Findings favored to represent early CHF. Laboratory Results WBC 14.68 10^3/uL (3.29-11.43) H 11/27/24 03:09 RBC 4.79 10^6/uL (3.85-5.65) 11/27/24 03:09 Hgb 11.70 g/dL (11.27-16.99) 11/27/24 03:09 Hct 40.4 % (36-47) 11/27/24 03:09 MCV 84.3 fl (85-98) L 11/27/24 03:09 MCH 24.4 pg (27-33) L 11/27/24 03:09 MCHC 29.0 g/dL (30-55) L 11/27/24 03:09 RDW 20.1 % (12.1-15.1) H 11/27/24 03:09 Plt Count 353 10^3/cmm (157-399) 11/27/24 03:09 MPV 11.0 fL (7.4-10.4) H 11/27/24 03:09 Neut % (Auto) 80.4 % 11/27/24 03:09 Lymph % (Auto) 12.4 % 11/27/24 03:09 [place] % (Auto) 5.6 % 11/27/24 03:09 Eos % (Auto) 0.5 % 11/27/24 03:09 Baso % (Auto) 0.6 % 11/27/24 03:09 Neut # (Auto) 11.79 10^3/uL (1.8-7.7) H 11/27/24 03:09 Lymph # (Auto) 1.8 10^3/uL (0.8-4.8) 11/27/24 03:09 [place] # (Auto) 0.8 10^3/uL (0.2-0.9) 11/27/24 03:09 Eos # (Auto) 0.1 10^3/uL (0.0-0.8) 11/27/24 03:09 Baso # (Auto) 0.1 10^3/uL (0.0-0.1) 11/27/24 03:09 Nucleated RBC % (auto) 0 % 11/27/24 03:09 Nucleated RBCs # 0.0 /100WBC 11/27/24 03:09 Specimen Type Arterial 11/27/24 02:48 Sample Site Radial, right 11/27/24 02:48 ABG pH 7.35 (7.35-7.45) 11/27/24 02:48 ABG pCO2 46.3 mmHg (35-45) H 11/27/24 02:48 ABG pO2 115.0 mmHg (80.0-100.0) H 11/27/24 02:48 ABG HCO3 25.8 mmol/L (22-26) 11/27/24 02:48 ABG Base Excess -0.1 mmol/L (-2.0-2.0) 11/27/24 02:48 Joseph Test Pos 11/27/24 02:48 Hematocrit 36.9 % (37-47) L 11/27/24 02:48 Hgb O2 Saturation 96.0 % (95-100) 11/27/24 02:48 Carboxyhemoglobin 2.3 %THgb (0.4-20.1) 11/27/24 02:48 Methemoglobin 0.7 % (0.4-1.5) 11/27/24 02:48 Total Hemoglobin 12.0 g/dL (12-16) 11/27/24 02:48 O2 Delivery Device Nc 11/27/24 02:48 O2 Liters/Min 3.0 % 11/27/24 02:48 Hogshead Filler ID [id number] 11/27/24 02:48 Sodium 137 mmol/L (136-145) 11/27/24 03:09 Potassium 4.4 mmol/L (3.5-5.1) 11/27/24 03:09 Chloride 99 mmol/L (98-107) 11/27/24 03:09 Carbon Dioxide 27 mmol/L (22-29) 11/27/24 03:09 Anion Gap 15.4 (5-19) 11/27/24 03:09 BUN 27 mg/dL (6-20) H 11/27/24 03:09 Creatinine 1.0 mg/dL (0.5-0.9) H 11/27/24 03:09 GFR Calculation 56.9 mL/min (90-130) L 11/27/24 03:09 Glucose 148 mg/dL (65-115) H 11/27/24 03:09 Calculated Osmolality 292 mOsm/kg (285-295) 11/27/24 03:09 Calcium 9.5 mg/dL (8.5-10.5) 11/27/24 03:09 Total Bilirubin 1.4 mg/dL (0.15-1.2) H 11/27/24 03:09 AST 32 U/L (0-32) 11/27/24 03:09 ALT 20 U/L (0-33) 11/27/24 03:09 Alkaline Phosphatase 109 U/L (35-105) H 11/27/24 03:09 Troponin T Baseline 57 ng/L (0-10) H 11/27/24 03:09 NT-Pro-B Natriuret Pep 99084 pg/mL (0-125) H 11/27/24 03:09 Total Protein 7.2 g/dL (6.6-8.7) 11/27/24 03:09 Albumin 4.2 g/dL (3.5-5.2) 11/27/24 03:09 Globulin 3.0 g/dL (1.3-4.6) 11/27/24 03:09 All radiology interpretation(s) finalized by discharge Critical Care Time 2 Critical Care Time: Critical Care Time: Yes Total Critical Care Time: 35 Attestation: This case had a high probability of a clinically significant, sudden, or life threatening deterioration of this patient's condition which required my full and direct attention, intervention and personal management. Discharge Plan Discharge Patient Disposition: Admitted As Inpatient Clinical Impression: Acute exacerbation of CHF (congestive heart failure), Acute respiratory distress Condition: Stable Coding Level of Care Code ED Professor Of Industrial Technology for Alexandre Webb
[2024-11-27 03:02] LABS: ABG PCO2 46.3 mmHg (35-45); ABG PH Result 7.35 (7.35-7.45); Arterial Blood Gas Hematocrit 36.9 % (37-47); Base Excess ABG -0.1 mmol/L (-2.0-2.0); Blood Gas Allen Test Pos; Blood Gas Operator Identificat JDB; Blood Gas Sample Site Radial, right; Blood Gas Sample Type Arterial; Carboxyhemoglobin 2.3 %THgb (0.4-20.1); HCO3 ABG 25.8 mmol/L (22-26); Methemoglobin 0.7 % (0.4-1.5); Oxygen Device NC
--- NOTE | 2024-11-27 03:05 | ECG_ITS ---
[facility] Test Date: 2024-11-27 Pat Name: Alberta Valdez Department: Room: Gender: Female Homicide Investigator: : 1965 Requested By: Joseph Miller Order Number: [id number] Savage MD: Niraj Bowman M.D. Measurements Intervals [place] Rate: 110 P: 69 NV: 138 QRS: 151 QRSD: 145 T: 53 QT: 358 QTc: 486 Interpretive Statements ELECTRONIC VENTRICULAR PACEMAKER Compared to ECG 10/31/2024 18:03:52 No significant changes Electronically Signed On 11-27-2024 08:52:30 CDT by Niraj Bowman M.D. [id number]
[2024-11-27] MEDS: ipratropium-albuterol 3 mL Neb INHALATION (03:06)
[2024-11-27] MEDS: FUROsemide 10 mg/mL SDV 4mL 40 MG IVP ×3 (03:12→21:12)
[2024-11-27 03:21] LABS: Basophils # 0.1 10^3/uL (0.0-0.1); Basophils % 0.6 %; Eosinophils # 0.1 10^3/uL (0.0-0.8); Eosinophils % 0.5 %; Hematocrit 40.4 % (36-47); Lymphocytes # 1.8 10^3/uL (0.8-4.8); Lymphocytes % 12.4 %; Mean Corpuscular Hemoglobin 24.4 pg (27-33); Mean Corpuscular Volume 84.3 fl (85-98); Monocytes # 0.8 10^3/uL (0.2-0.9); Monocytes % 5.6 %; Neutrophils # 11.79 10^3/uL (1.8-7.7); Neutrophils % 80.4 %; Nucleated Red Blood Cells % 0 %; Platelet Count 353 10^3/cmm (157-399); Red Blood Count 4.79 10^6/uL (3.85-5.65); Red Cell Distribution Width 20.1 % (12.1-15.1); White Blood Count 14.68 10^3/uL (3.29-11.43)
[2024-11-27 03:45] LABS: Troponin(5th) Baseline 57 ng/L (0-10)
[2024-11-27 03:54] LABS: Alanine Aminotransferase 20 U/L (0-33); Albumin Level 4.2 g/dL (3.5-5.2); Alkaline Phosphatase 109 U/L (35-105); Anion Gap 15.4 (5-19); Aspartate Amino Transferase 32 U/L (0-32); Blood Urea Nitrogen 27 mg/dL (6-20); Calcium 9.5 mg/dL (8.5-10.5); Carbon Dioxide 27 mmol/L (22-29); Chloride 99 mmol/L (98-107); Creatinine Clr Calc Pharmacy 62.0884; Glomerular Filtration Rate 56.9 mL/min (90-130); Glucose 148 mg/dL (65-115); NT Pro B Type Natriuretic Pept 21857 pg/mL (0-125); Osmolality Calculated 292 mOsm/kg (285-295); Potassium 4.4 mmol/L (3.5-5.1); Sodium 137 mmol/L (136-145); Total Bilirubin 1.4 mg/dL (0.15-1.2); Total Protein 7.2 g/dL (6.6-8.7)
--- NOTE | 2024-11-27 04:50 | ECG_ITS ---
[facility]: 2024-11-27 Pat Name: Alberta Valdez Department: Room: Gender: Female Broadcast Operations Manager: : 1965 Requested By: Joseph Miller Order Number: [id number] Savage MD: Niraj Bowman M.D. Measurements Intervals [place] Rate: 94 P: -6 MS: 143 QRS: 231 QRSD: 148 T: 3 QT: 401 QTc: 503 Interpretive Statements ELECTRONIC VENTRICULAR PACEMAKER Compared to ECG 11/27/2024 02:46:16 No significant changes Electronically Signed On 11-27-2024 08:52:22 CDT by Niraj Bowman M.D. [email or web address] [id number]
[2024-11-27 05:24] LABS: Troponin 5 2HR 46.14 ng/L (0-10)
[2024-11-27 05:27] LABS: Troponin 5 2HR Delta -10.86 ABS# (0-10)
--- NOTE | 2024-11-27 05:32 | USCV_ITS ---
Alberta Valdez Age: 59 Gender: F : 1965 Exam Date: 11/27/2024 10:03 Ordering Phys: Lizeth Song MD Technologist: NA [place] [facility] [place]: CHF BP: 128 / 93 HR: 91 Rhythm: Sinus Technical Quality: Adequate MEASUREMENTS (Male / Female) Normal Values 2D ECHO LV Diastolic Diameter PLAX 6.0 cm 4.2 - 5.9 / 3.9 - 5.3 cm IVS Diastolic Thickness 1.0 cm 0.6 - 1.0 / 0.6 - 0.9 cm IVS Systolic Thickness 1.3 cm LVPW Diastolic Thickness 2.0 cm 0.6 - 1.0 / 0.6 - 0.9 cm LVPW Systolic Thickness 2.0 cm LVOT Diameter 2.1 cm LV Ejection Fraction 2D Teich 27.4 % LV Ejection Fraction MOD 4C 25.8 % LV Ejection Fraction MOD 2C 36.2 % LV Ejection Fraction 2C AL 36.7 % LA Diameter 3.9 cm RA Systolic Volume 4C AL 83.8 ml RA Systolic Volume 4C MOD 81.1 ml LA Sys Volume AL 57.5 cm cubed LA Sys Volume Index AL 30.8 cm cubed/m squared Aorta at Sinotubular Diameter 2.5 cm IVC Diameter 2.1 cm M-MODE LA Ao Ratio MM 1.5 AV Cusp Separation MM 1.3 cm DOPPLER AV Peak Velocity 276.3 cm/s LVOT Peak Velocity 61.0 cm/s AV Area Cont Eq vti 0.4 cm squared AV Area Cont Eq pk 0.7 cm squared MV Peak Velocity 113.0 cm/s MV Area PHT 4.5 cm squared Mitral E to A Ratio 2.0 TR Peak Velocity 338.0 cm/s TR Peak Gradient 45.7 mmHg TV Peak E Velocity 113.0 cm/s PV Peak Velocity 64.0 cm/s FINDINGS Left Ventricle Severe diffuse hypokinesia of the left ventricle with an ejection fraction of around 26%. Mildly increased left ventricular cavity size. Right Ventricle Moderately increased right ventricular size. Moderately decreased right ventricular systolic function. Pacemaker/defibrillator wire in the right ventricle . Right Atrium Moderately increased right atrial size. Pacemaker wire in the right atrium Left Atrium Mildly increased left atrial size. Mitral Valve Thickened mitral valve. Moderate mitral valve regurgitation. Aortic Valve Thickened aortic valve. The aortic valve area evaluation could be misleading because of poor Doppler signal s Tricuspid Valve Moderate tricuspid valve regurgitation. Pulmonic Valve Mild pulmonary valve regurgitation. Pericardium No pericardial effusion. Aorta Normal aortic annulus size. IVC Normal inferior vena cava. CONCLUSIONS Severe diffuse hypokinesia of the left ventricle with an ejection fraction of around 26%.mildly increased left ventricular cavity size. Moderately increased right ventricular size. Moderately decreased right ventricular systolic function. Pacemaker/defibrillator wire in the right ventricle Moderately increased right atrial size. Pacemaker wire in the right atrium. Mildly increased left atrial size. Thickened mitral valve. Moderate mitral valve regurgitation. Thickened aortic valve. The area calculation could be misleading because of the poor Doppler signals Moderate tricuspid valve regurgitation. Estimated pulmonary artery peak systolic pressure 50 mmHg Pacemaker /defibrillator wire on the right side. There is no pericardial effusion. The aortic valve Doppler studies need to be repeated. Compared to the study from 07/18/2024 may not be a significant change. Dr Marvin Newby MD [facility] (Electronically Signed) Final Date: 27 November 2024 17:24 S
--- NOTE | 2024-11-27 05:36 | PM.HP ---
Providers/Chief Complaint Admitting Physician: Lizeth Song MD--- patient seen after 12 midnight Primary Care Provider: Alberta Hudson NP Chief Complaint: SOB\Conjestive Heart Failure History of Present Illness Alberta Valdez is a 59 year old female with medical history significant for CHF exacerbation and cardiomyopathy with an ejection fraction of 20%. Patient is a patient of Dr. Woody Simeon and she has seen Woody Simeon, had a cardiology just 3 months ago and is due to go back to see him next month December. Patient had been experiencing shortness of breath over the past few days and had been increasingly worsening. Patient takes 40 mg of oral Lasix daily and metaxalone 5 mg daily. She does take beta-gilson as well 12.5 mg extended release of metoprolol. She was not so much shortness of breath room air hypoxemia upon arriving to the emergency room. She was found to be in an acute exacerbation of CHF. Immediately was given 40 mg IV Lasix and was placed on IPAP of 18/ BiPAP EPAP of 8 and FiO2 of 40% On BiPAP patient is doing remarkably better and is tolerating BiPAP pulse oxing at 99%. Pulse is 96 and blood pressure 102/68 Patient is with respiratory failure secondary to acute CHF exacerbation requiring BiPAP and need to go to ICU at this time. Patient meets inpatient criteria because of an acute illness with respiratory failure. Patient needs at least a minimum of 2 midnights. Review of Systems Narrative: System review upon 10 organ review we admitted to be unremarkable except for respiratory failure due to heart failure. Medications/Allergies Home Medications ?Medication ?Instructions ?Recorded ?Confirmed ?Last Taken ?Type hydrocortisone 0.5 % topical 1 applic topical BID #56 grams 07/25/24 10/10/24 Unknown Rx ointment furosemide 40 mg tablet (Lasix) 40 mg PO DAILY #90 tabs 08/03/24 10/10/24 Unknown Rx metoprolol tartrate 25 mg tablet 12.5 mg (1/2 x 25 mg) PO 08/03/24 10/10/24 Unknown Rx BID@0900,2100 #90 tabs metolazone 5 mg tablet 5 mg PO .q AM #30 tabs 09/04/24 10/10/24 Unknown Rx Held on 10/10/24. Instructions: Patient No Longer Taking gabapentin 300 mg capsule 300 mg PO BID #180 caps 09/11/24 10/10/24 Unknown Rx potassium chloride 10 mEq 10 meq PO DAILY #90 tabs 10/10/24 10/10/24 Unknown Rx tablet,extended release (Klor-Con) Allergies Allergy/AdvReac Type Severity Reaction Status Date / Time adhesive Allergy ALGY-Redness Verified 10/31/24 18:03 of Skin PFSH Acute PFSH: Medical History Lower extremity edema Hospital discharge follow-up Second hand smoke exposure Former smoker, stopped smoking many years ago Allergic reaction caused by a drug Acute kidney injury Sepsis Heart failure Pain of left lower extremity Colon polyp Acid reflux Gastritis Congestive heart failure 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 Encounter to establish care Arthritis Sciatic nerve pain Neuropathy Diarrhea Avascular necrosis of femur Radiculopathy, site unspecified Cardiomyopathy Atherosclerosis of coronary artery NSTEMI (non-ST elevated myocardial infarction) Chronic back pain Surgical History H/O total hip arthroplasty bilateral Status post abdominal hysterectomy and salpingo-oophorectomy Hx laparoscopic cholecystectomy Family History Mother Diabetes CAD (coronary artery disease) Father Diabetes CAD (coronary artery disease) Social History Smoking and tobacco/nicotine status: former use of tobacco/nicotine Quit status (tobacco/nicotine): has quit using Year quit tobacco: 1993 Second hand smoke exposure: No Alcohol intake: former Year of sobriety/quit date alcohol: 2001 Substance/Drug Use: current Substance/Drug use frequency: daily Additional social history: smoked 1/2 ppd from age 17 to 27. Snorted cocaine as a teenager until her 20s. Vitals/I&O/Wt Last Vital Signs Temp 97.5 F L 11/27/24 02:42 Pulse 95 11/27/24 05:05 Resp 20 H 11/27/24 05:05 BP 102/68 11/27/24 05:05 Pulse Ox 100 11/27/24 03:11 O2 Del Method BiPAP 11/27/24 05:05 FiO2 40 11/27/24 05:05 11/26/24 11/26/24 11/27/24 14:59 22:59 06:59 Output Total 900 / 900 Balance -900 / -900 Weight last 48 hrs Weight 74.843 kg Physical Exam Narrative: Generally patient seem to have slight conversational dyspnea on BiPAP otherwise fairly comfortable HEENT normocephalic/atraumatic neck neck is supple cardiovascular heart rate is regular in the 90s lungs coarse breath sound abdomen soft nontender nondistended unremarkable extremities intact no edema has good pulses neurology has no focality lab studies lab studies reviewed and noted. Urinalysis pending white count 8 elevated at 14.68. Please for follow-up on urinalysis if there is any infection please treat. UA has not resulted yet. Data 11/27/24 03:09 11/27/24 03:09 A&P Assessment and plan (1) Acute exacerbation of CHF (congestive heart failure): Patient is in CHF exacerbation secondary to acute heart failure - Admit to ICU on BiPAP - Continue diuresis with Lasix 40 mg IV every 12 - Continue with metolazone 5 mg daily - Fluid restriction to 1500 for 24 hours - Daily weight - Cardiology consultation with [place] cardiology Dr. 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 Coding Level of Care Code 56692 Diagnoses Acute exacerbation of CHF (congestive heart failure) I50.9 Acute respiratory distress R06.03 S/P ICD (internal cardiac defibrillator) procedure Z95.810 Time Spent (min) 60
--- NOTE | 2024-11-27 08:12 | P.PN_ITS ---
Subjective 2 Subjective: She feels things have improved a little bit. She has been on BiPAP until just now. Denies chest pain or pressure. Has not ran out of her medications. Feels maybe humidity has contributed to her decompensation. Vitals/I&O/Wt Last Vital Signs Temp 97.5 F L 11/27/24 02:42 Pulse 91 11/27/24 08:11 Resp 24 H 11/27/24 08:08 BP 131/89 11/27/24 08:11 Pulse Ox 98 11/27/24 08:11 O2 Del Method BiPAP 11/27/24 08:08 FiO2 35 11/27/24 08:09 11/26/24 11/27/24 11/27/24 22:59 06:59 14:59 Output Total 900 / 900 Balance -900 / -900 Weight last 48 hrs Weight 74.843 kg Physical Exam 2 Const: COMMON NORMALS: patient oriented x3 and alert GENERAL APPEARANCE: c ooperative ORIENTATION/CONSCIOUSNESS: Yes awake HENMT: COMMON NORMALS: oropharynx normal Neck/C-Spine: COMMON NORMALS: no JVD Resp: COMMON NORMALS: normal respiratory effort and clear to auscultation bilaterally AUSCULTATION: clear to auscultation bilaterally OTHER: There are mild wheezes, coarse breath sounds left lower lung. Cardio: COMMON NORMALS: no JVD, regular rhythm, S1 normal heart sound present, S2 normal heart sound present and No murmurs present (Cardio) RHYTHM: regular rhythm HEART SOUNDS: S1 normal heart sound present and S2 normal heart sound present GI: COMMON NORMALS: Normal to inspection, nondistended, normoactive bowel sounds present, Soft to palpation and non-tender PALPATION: Yes Soft to palpation Extremity: COMMON NORMALS: no joint enlargement and no pedal edema OTHER: Cool extremities Neuro: COMMON NORMALS: patient oriented x3 and moves all extremities S ENSORIUM/ORIENTATION: Yes alert Skin: COMMON NORMALS: no rashes or lesions noted GENERAL SKIN EXAM: no rashes or lesions noted Data 11/27/24 03:09 11/27/24 03:09 A&P Assessment and plan (1) Acute exacerbation of CHF (congestive heart failure): Patient is in acute systolic and diastolic CHF. Reviewed vitals, CBC, ABG, CMP, troponin, NT proBNP, chest x-ray, echocardiogram from June. Previously EF 20-30%. Status post ICD. Currently with cool extremities, no peripheral edema. NT proBNP severely elevated in the setting of renal function only slightly worse than usual. With leukocytosis. So far responded to initial diuresis noted -900 mL. So far able to wean down on BiPAP to nasal cannula, reassess. If continues to do well may not have to stay in the ICU. However, concern regarding possibility of further decrease in ejection fraction, echocardiogram is pending. Follow-up. Complete troponin EKG series, so far not suggestive of acute VA. Noted mild troponin elevation so far. - Continue diuresis with Lasix 40 mg IV every 12. monitor for risk of electrolyte deficiency, reviewed potassium, check magnesium. Repeat chemistry. Monitor for risk of SELMA. Monitor intake and output. - Continue with metolazone 5 mg daily - Fluid restriction to 1500 for 24 hours. Discussed with her fluid restriction, limiting sodium intake here and at home - Daily weight - Cardiology consultation pending, appreciate. Discussed with cardiology. Dr. Newby will be taking over the case. - manager monitoring - Placed on cardiac diet Discussed with nursing, correctional casework specialist. Has not previously had oxygen at home. (2) Acute respiratory distress: On presentation with acute respiratory failure, with hypoxia, requiring BiPAP support. With leukocytosis, no cough, her, does have mild wheezing, coarse breath sounds in the left lower lung. Some possible infiltration bilateral lower lungs, somewhat worse on the left. May be secondary to CHF, however, cannot exclude pneumonia. For now we will empirically start her on ceftriaxone and doxycycline. Add bacterial antigens. Breathing treatments. She denies history of COPD, but discussed with her possible bronchitis/COPD exacerbation. - Patient is with underlining COPD, former cigarette smoker - Continue DuoNeb for this patient - Do not need any steroid as patient does not have bronchospasm at the moment - Continue BiPAP as ordered (3) S/P ICD (internal cardiac defibrillator) procedure: Systolic cardiomyopathy with an EF of 20%. Pending repeat TTE. Follow-up. - Patient has been status post ICD because of cardiomyopathy - Was continue to monitor closely Plan GI and DVT prophylaxis in place PDMP PDMP Reviewed: Not Reviewed Attestations 2 Medical Necessity Statement*: Continue admission for assessment of management of acute systolic and diastolic CHF, respiratory failure. and High MDM includes amount and/or complexity of data reviewed/ordered [ resulted lab(s)/test(s), ordered lab(s)/test(s) and other healthcare professional discussion] and described risk of complication, morbidity or mortality of management as documented Diagnoses Acute exacerbation of CHF (congestive heart failure) I50.9 Acute respiratory distress R06.03 S/P ICD (internal cardiac defibrillator) procedure Z95.810
[2024-11-27 08:13] LABS: Bilirubin Urine Negative (Negative); Blood Urine Negative (Negative); Glucose Urine UA Negative (Normal); Ketones Urine Negative (Negative); Leukocyte Esterase Urine Negative (Negative); Nitrate Urine Negative (Negative); Protein Urine Negative (Negative); Specific Gravity, Urine 1.007 (1.005-1.030); Urine Appearance Clear (CLEAR); Urine Color Yellow (Yellow); Urobilinogen Urine 0.2 mg/dL (Negative); pH Urine 5.5 (5-7)
[2024-11-27 08:16] LABS: Bacteria Urine None Seen /hpf; Hyaline Casts Urine 1.65 /lpf; RBC Urine 0-2 /hpf (0-2); Squamous Epithelial Cell Urine 0-5 /hpf (0-5); WBC Urine 0-5 /hpf (0-5)
--- NOTE | 2024-11-27 08:16 | PC.NURSE ---
Arrived from ed, AO x4
[2024-11-27 09:29] LABS: Troponin 5 6HR 46.91 ng/L (0-10)
[2024-11-27 09:33] LABS: Troponin 5 6HR Delta -10.09 ng/L (0-12)
[2024-11-27] MEDS: doxycycline 100 MG in sodium chloride 0.9% (plus) 100 ML IV ×2 (10:12→21:12)
[2024-11-27] MEDS: heparin 5,000 unit/mL INJ 1 mL 5000 UNIT SUBCUT ×2 (10:12→21:12)
[2024-11-27] MEDS: cefTRIAXone 1,000 mg SDV 1000 MG IVP (10:12)
[2024-11-27] MEDS: metoprolol succinate ER (24 HR) 25 mg Tablet 12.5 MG PO (10:13)
[2024-11-27] MEDS: metOLazone 5 MG Tablet PO (10:13)
[2024-11-27] MEDS: pantoprazole DR 40 mg Tablet PO (10:14)
--- NOTE | 2024-11-27 12:41 | PM.CONSULT ---
Providers/Reason For Consult Consulting Physician/Specialty*: MARY Newby MD/ cardiology Reason for Consult*: patient with recurrent decompensated heart failure Requesting Physician: Dr. Olivares Attending Physician: Agapito Olivares Primary Care Provider: Alberta Hudson NP History of Present Illness History of Present Illness Alberta Valdez is a 59 year old female with a history of a nonischemic cardiomyopathy and recurrent decompensated heart failure, is presenting with complaints of progressive shortness of breath. According to her, she has been short of breath for a while and seems to be getting worse. Every time when she get up and move around, she gets short of breath and finding it difficult to navigate. She also has a lot of anxiety and nervousness. She is wondering whether that might be playing a role as well. She has no chest pain. She may have some palpitations. No dizziness or syncopal episodes. The functional status seems to be deteriorating. She has no fever, chills or cough. Denies any leg swelling. No abdominal pain or dysuria. She had a cardiac catheterization 2021 and was found to have no significant obstructive coronary artery disease. She had an echocardiogram in June of this year and was found to have an ejection fraction of 20%. She had a an ICD implanted in [place] in the beginning of this year. There is no interrogation report in the chart yet. According to the patient, she was expecting that the AICD might make her feel better. However so far the things are getting really worse. The patient not on any Entresto or afterload reducing agents. The exact reasons are not known. She has a history of ventricular arrhythmia and was on amiodarone for a while. But currently she is not on any antiarrhythmic drugs Review of Systems Narrative: CONSTITUTIONAL: No fever or chills. EYES: No blurring of vision or other visual disturbances lately. ENT: No hoarseness of voice, auditory disturbances or sore throat. CARDIOVASCULAR: As mentioned above. RESPIRATORY: No significant cough. GASTROINTESTINAL: No hematemesis or melena. GENITOURINARY: No dysuria or hematuria. INTEGUMENTARY: No skin rashes or history of skin cancer. NEURO: No transient ischemic attacks or amaurosis. PSYCHIATRIC: No history of psychosis or major depression. HEMATOLOGIC: No bleeding disorders or significant anemia. ENDOCRINE: No history of polyuria or polydipsia. MUSCULOSKELETAL: No recent joint pain or swelling. ALLERGY/IMMUNOLOGY: As mentioned above. Medications/Allergies Home Medications ?Medication ?Instructions ?Recorded ?Confirmed ?Last Taken ?Type furosemide 40 mg tablet (Lasix) 40 mg PO DAILY #90 tabs 08/03/24 11/27/24 11/26/24 Rx gabapentin 300 mg capsule 300 mg PO BID #180 caps 09/11/24 11/27/24 Unknown Rx potassium chloride 10 mEq 10 meq PO DAILY #90 tabs 10/10/24 11/27/24 11/26/24 Rx tablet,extended release (Klor-Con) albuterol sulfate 90 mcg/actuation 2 puff inhalation Q4H PRN 11/27/24 11/27/24 Unknown History aerosol inhaler Shortness Of Breath Or Wheezing Allergies Allergy/AdvReac Type Severity Reaction Status Date / Time adhesive Allergy ALGY-Redness Verified 10/31/24 18:03 of Skin Current Medications Generic Name Dose Route Start Last Admin Trade Name Freq PRN Reason Stop Dose Admin Ceftriaxone Sodium 1,000 mg 11/27/24 08:30 11/27/24 10:12 Ceftriaxone 1,000 Mg Sdv IVP 1,000 mg Q24H SHAUN Administration Protocol Docusate Sodium 100 mg 11/27/24 09:00 11/27/24 10:13 Docusate Sodium 100 Mg Capsule PO Not Given BID SHAUN Furosemide 40 mg 11/27/24 08:08 11/27/24 10:11 Furosemide 10 Mg/Ml Sdv 4ml IVP 40 mg Q12H SHAUN Administration Heparin Sodium (Porcine) 5,000 unit 11/27/24 08:08 11/27/24 10:12 Heparin 5,000 Unit/Ml Inj 1 Ml SUBCUT 5,000 unit Q12H SHAUN Administration Doxycycline Hyclate 100 mg/ 100 mls @ 100 mls/hr 11/27/24 08:30 11/27/24 10:12 Sodium Chloride IV 100 mls/hr Q12H SHAUN Administration Protocol Metolazone 5 mg 11/27/24 09:00 11/27/24 10:13 Metolazone 5 Mg Tablet PO 5 mg DAILY SHAUN Administration Metoprolol Succinate 12.5 mg 11/27/24 09:00 11/27/24 10:13 Metoprolol Succinate Er (24 Hr) 25 Mg Tablet PO 12.5 mg DAILY SHAUN Administration Pantoprazole Sodium 40 mg 11/27/24 09:00 11/27/24 10:[address] 40 Mg Tablet PO 40 mg DAILY SHAUN Administration PFSH Acute PFSH: Medical History Lower extremity edema Hospital discharge follow-up Second hand smoke exposure Former smoker, stopped smoking many years ago Allergic reaction caused by a drug Acute kidney injury Sepsis Heart failure Pain of left lower extremity Colon polyp Acid reflux Gastritis Congestive heart failure 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 Encounter to establish care Arthritis Sciatic nerve pain Neuropathy Diarrhea Avascular necrosis of femur Radiculopathy, site unspecified Cardiomyopathy Atherosclerosis of coronary artery NSTEMI (non-ST elevated myocardial infarction) Chronic back pain Surgical History H/O total hip arthroplasty bilateral Status post abdominal hysterectomy and salpingo-oophorectomy Hx laparoscopic cholecystectomy Family History Mother Diabetes CAD (coronary artery disease) Father Diabetes CAD (coronary artery disease) Social History Smoking and tobacco/nicotine status: former use of tobacco/nicotine Quit status (tobacco/nicotine): has quit using Year quit tobacco: 1993 Second hand smoke exposure: No Alcohol intake: former Year of sobriety/quit date alcohol: 2001 Substance/Drug Use: current Substance/Drug use frequency: daily Additional social history: smoked 1/2 ppd from age 17 to 27. Snorted cocaine as a teenager until her 20s. Vitals/I&O/Wt Last Vital Signs Temp 97.5 F L 11/27/24 02:42 Pulse 94 11/27/24 08:25 Resp 21 H 11/27/24 08:25 BP 116/76 11/27/24 08:25 Pulse Ox 92 11/27/24 08:25 O2 Del Method Room Air 11/27/24 08:24 FiO2 35 11/27/24 08:09 11/26/24 11/27/24 11/27/24 22:59 06:59 14:59 Output Total 900 / 900 Balance -900 / -900 Weight last 48 hrs Weight 165 lb Physical Exam Narrative: GENERAL: The patient is alert and oriented times three. Not in any acute distress. HEENT: No significant pallor, icterus or lymphadenopathy.Oral cavity: There are no mucous membrane lesions. NECK: Trachea appears to be central. No masses noted. No JVD or thyromegaly appreciated. RESPIRATORY: Chest is symmetrical. No intercostals muscle retraction or any accessory muscle activation. There is no chest wall tenderness. Breath sounds are heard bilaterally. No rales or rhonchi heard. No evidence of any consolidation. BREASTS: Deferred. HEART: The heart sounds are normal. No S3 or S4. Short systolic murmur at the left sternal border. No pericardial rub ABDOMEN: No vessel pulsations or distention. No tenderness. No organomegaly appreciated. Bowel sounds are normally heard. : Deferred. RECTAL: Deferred. LYMPHATIC: No lymphadenopathy noted in the neck. EXTREMITIES: No edema or cyanosis. No clubbing. Spider veins around the ankles and the feet MUSCULOSKELETAL: No acute joint deformities or swelling SKIN: There are no significant rashes or ecchymosis NEUROPSYCHIATRIC: The patient is alert and oriented x3. Appears to be in a good mood. No tremors or rigidity noted. Data 11/27/24 03:09 11/27/24 03:09 Other Labs: Laboratory Last Values WBC 14.68 10^3/uL (3.29-11.43) H 11/27/24 03:09 RBC 4.79 10^6/uL (3.85-5.65) 11/27/24 03:09 Hgb 11.70 g/dL (11.27-16.99) 11/27/24 03:09 Hct 40.4 % (36-47) 11/27/24 03:09 MCV 84.3 fl (85-98) L 11/27/24 03:09 MCH 24.4 pg (27-33) L 11/27/24 03:09 MCHC 29.0 g/dL (30-55) L 11/27/24 03:09 RDW 20.1 % (12.1-15.1) H 11/27/24 03:09 Plt Count 353 10^3/cmm (157-399) 11/27/24 03:09 MPV 11.0 fL (7.4-10.4) H 11/27/24 03:09 Neut % (Auto) 80.4 % 11/27/24 03:09 Lymph % (Auto) 12.4 % 11/27/24 03:09 [place] % (Auto) 5.6 % 11/27/24 03:09 Eos % (Auto) 0.5 % 11/27/24 03:09 Baso % (Auto) 0.6 % 11/27/24 03:09 Neut # (Auto) 11.79 10^3/uL (1.8-7.7) H 11/27/24 03:09 Lymph # (Auto) 1.8 10^3/uL (0.8-4.8) 11/27/24 03:09 [place] # (Auto) 0.8 10^3/uL (0.2-0.9) 11/27/24 03:09 Eos # (Auto) 0.1 10^3/uL (0.0-0.8) 11/27/24 03:09 Baso # (Auto) 0.1 10^3/uL (0.0-0.1) 11/27/24 03:09 Nucleated RBC % (auto) 0 % 11/27/24 03:09 Nucleated RBCs # 0.0 /100WBC 11/27/24 03:09 Specimen Type Arterial 11/27/24 02:48 Sample Site Radial, right 11/27/24 02:48 ABG pH 7.35 (7.35-7.45) 11/27/24 02:48 ABG pCO2 46.3 mmHg (35-45) H 11/27/24 02:48 ABG pO2 115.0 mmHg (80.0-100.0) H 11/27/24 02:48 ABG HCO3 25.8 mmol/L (22-26) 11/27/24 02:48 ABG Base Excess -0.1 mmol/L (-2.0-2.0) 11/27/24 02:48 Joseph Test Pos 11/27/24 02:48 Hematocrit 36.9 % (37-47) L 11/27/24 02:48 Hgb O2 Saturation 96.0 % (95-100) 11/27/24 02:48 Carboxyhemoglobin 2.3 %THgb (0.4-20.1) 11/27/24 02:48 Methemoglobin 0.7 % (0.4-1.5) 11/27/24 02:48 Total Hemoglobin 12.0 g/dL (12-16) 11/27/24 02:48 O2 Delivery Device Nc 11/27/24 02:48 O2 Liters/Min 3.0 % 11/27/24 02:48 Migratory Worker ID Jdb 11/27/24 02:48 Sodium 137 mmol/L (136-145) 11/27/24 03:09 Potassium 4.4 mmol/L (3.5-5.1) 11/27/24 03:09 Chloride 99 mmol/L (98-107) 11/27/24 03:09 Carbon Dioxide 27 mmol/L (22-29) 11/27/24 03:09 Anion Gap 15.4 (5-19) 11/27/24 03:09 BUN 27 mg/dL (6-20) H 11/27/24 03:09 Creatinine 1.0 mg/dL (0.5-0.9) H 11/27/24 03:09 GFR Calculation 56.9 mL/min (90-130) L 11/27/24 03:09 Glucose 148 mg/dL (65-115) H 11/27/24 03:09 Calculated Osmolality 292 mOsm/kg (285-295) 11/27/24 03:09 Calcium 9.5 mg/dL (8.5-10.5) 11/27/24 03:09 Total Bilirubin 1.4 mg/dL (0.15-1.2) H 11/27/24 03:09 AST 32 U/L (0-32) 11/27/24 03:09 ALT 20 U/L (0-33) 11/27/24 03:09 Alkaline Phosphatase 109 U/L (35-105) H 11/27/24 03:09 Troponin T Baseline 57 ng/L (0-10) H 11/27/24 03:09 Troponin T 120 Minute 46.14 ng/L (0-10) H 11/27/24 04:53 Delta Troponin T -10.86 ABS# (0-10) L 11/27/24 04:53 Troponin T Hi Sens 6Hr 46.91 ng/L (0-10) H 11/27/24 08:58 Troponin T Hi Sens 6Hr Delta -10.09 ng/L (0-12) L 11/27/24 08:58 NT-Pro-B Natriuret Pep 97421 pg/mL (0-125) H 11/27/24 03:09 Total Protein 7.2 g/dL (6.6-8.7) 11/27/24 03:09 Albumin 4.2 g/dL (3.5-5.2) 11/27/24 03:09 Globulin 3.0 g/dL (1.3-4.6) 11/27/24 03:09 Urine Color Yellow (Yellow) 11/27/24 07:30 Urine Appearance Clear (CLEAR) 11/27/24 07:30 Urine pH 5.5 (5-7) 11/27/24 07:30 Ur Specific [place] 1.007 (1.005-1.030) 11/27/24 07:30 Urine Protein Negative (Negative) 11/27/24 07:30 Urine Glucose (UA) Negative (Normal) 11/27/24 07:30 Urine Ketones Negative (Negative) 11/27/24 07:30 Urine Blood Negative (Negative) 11/27/24 07:30 Urine Nitrate Negative (Negative) 11/27/24 07:30 Urine Bilirubin Negative (Negative) 11/27/24 07:30 Urine Urobilinogen 0.2 mg/dL (Negative) 11/27/24 07:30 Ur Leukocyte Esterase Negative (Negative) 11/27/24 07:30 Urine RBC 0-2 /hpf (0-2) 11/27/24 07:30 Urine WBC 0-5 /hpf (0-5) 11/27/24 07:30 Ur Squamous Epith Cells 0-5 /hpf (0-5) 11/27/24 07:30 Amorphous Sediment Not Reportable 11/27/24 07:30 Urine Bacteria None seen /hpf (NONE) 11/27/24 07:30 Hyaline Casts 1.65 /lpf 11/27/24 07:30 Micro: Microbiology 11/27/24 07:30 Bacterial Antigens - Final Urine,Clean Catch 11/27/24 07:30 Legionella Urinary Antigen - Final Urine,Clean Catch Other data: EKG from today revealed 100% a sensed V paced rhythm. Echocardiogram from June 2024 Moderately increased left ventricular cavity size. Severely decreased left ventricular systolic function. Left ventricular ejection fraction is estimated at 20 %. Global left ventricular hypokinesis. Moderate aortic valve calcification. Moderate aortic valve sclerosis, mean gradient 2.8 mmHg, TAY 2.6 cm squared. Trace aortic valve regurgitation. [id number] tricuspid valve regurgitation. There is no pericardial effusion. Right atrial pressure is around 10 mm of mercury. . The EF was 20 to 25% in December 2023 Cardiac catheterization 2021 No significant obstructive coronary disease A&P Assessment and plan (1) Heart failure with reduced ejection fraction: Patient may be currently treated with IV diuretics. The progressive worsening of the LV systolic function could be a contributing factor. Whether the ventricular pacing is playing a role or not is not clear. (2) Non-ischemic cardiomyopathy: Patient was found diagnosed with obstructive coronary disease by angiogram. Because of worsening LV systolic function it may be appropriate to start her on a low-dose of Entresto. The vital signs need to be watched closely. Patient was on losartan and lisinopril in the past at least for some time. For some unknown reason, it was discontinued. The reasons are not known. Patient does not recall having had any adverse reactions to medications. (3) Ventricular arrhythmia: Since the patient is off the amiodarone, I may hold off on any medication at this point. Depending on the clinical progress, further recommendations will be made. (4) Elevated white blood cell count: The patient seems to have a chronically elevated white cell count. She is being treated for possible respiratory infection. Management as per the primary. Plan Other problems are Chronic kidney disease Anemia Continue careful IV diuresis. I will go ahead and do an ICD interrogation today. May consider reprogramming the pacemaker for the maximum AV delay, to minimize RV pacing. Also may go ahead and start her on Entresto 1 tablet p.o. twice daily. Vital signs need to be closely monitored on telemetry. She had an echocardiogram this morning. I will be reviewing the echocardiogram. After the review of the echo and also based on the completion of the clinical progress, further recommendations will be made. Thank you for the opportunity to evaluate this patient and make these recommendations PDMP PDMP Reviewed: Not Reviewed Coding Level of Care Code 14996 Diagnoses Heart failure with reduced ejection fraction I50.20 Non-ischemic cardiomyopathy I42.8 Ventricular arrhythmia I49.9 Leukocytosis, unspecified type D72.829 Leukocytosis type: unspecified
[2024-11-27] MEDS: sacubitril/valsartan 24-26 mg Tablet 1 EACH PO (17:14)
[2024-11-27] MEDS: sennosides 8.6 mg Tablet 17.2 MG PO (21:12)
[2024-11-28] VITALS (97 sets, daily range): BP systolic 89–140; BP diastolic 62–95; PULSE 70–102; RESP 16–20; TEMP 36.2–36.9; O2SAT 80–99; BMI 26.6
[2024-11-28 04:43] LABS: Basophils # 0.1 10^3/uL (0.0-0.1); Basophils % 0.6 %; Eosinophils # 0.3 10^3/uL (0.0-0.8); Eosinophils % 2.5 %; Hematocrit 41.4 % (36-47); Lymphocytes # 1.6 10^3/uL (0.8-4.8); Lymphocytes % 14.4 %; Mean Corpuscular HGB Conc 30.4 g/dL (30-55); Mean Corpuscular Hemoglobin 24.8 pg (27-33); Mean Corpuscular Volume 81.3 fl (85-98); Mean Platelet Volume 10.4 fL (7.4-10.4); Monocytes # 0.7 10^3/uL (0.2-0.9); Monocytes % 5.9 %; Neutrophils # 8.36 10^3/uL (1.8-7.7); Neutrophils % 75.9 %; Nucleated Red Blood Cells % 0 %; Platelet Count 253 10^3/cmm (157-399); Red Blood Count 5.09 10^6/uL (3.85-5.65); Red Cell Distribution Width 20.6 % (12.1-15.1); White Blood Count 11.02 10^3/uL (3.29-11.43)
[2024-11-28 04:55] LABS: Albumin Level 3.7 g/dL (3.5-5.2); Alkaline Phosphatase 82 U/L (35-105); Anion Gap 12.8 (5-19); Aspartate Amino Transferase 29 U/L (0-32); Blood Urea Nitrogen 21 mg/dL (6-20); Calcium 8.9 mg/dL (8.5-10.5); Carbon Dioxide 38 mmol/L (22-29); Chloride 91 mmol/L (98-107); Creatinine Clr Calc Pharmacy 69.0546; Globulin 2.8 g/dL (1.3-4.6); Glomerular Filtration Rate 64.3 mL/min (90-130); Glucose 122 mg/dL (65-115); Magnesium 2.1 mg/dL (1.7-2.3); Osmolality Calculated 290 mOsm/kg (285-295); Phosphorus 4.6 mg/dL (2.5-4.5); Potassium 3.8 mmol/L (3.5-5.1); Sodium 138 mmol/L (136-145); Total Bilirubin 1.3 mg/dL (0.15-1.2); Total Protein 6.5 g/dL (6.6-8.7)
[2024-11-28 05:09] LABS: Alanine Aminotransferase 18 U/L (0-33)
[2024-11-28 05:14] LABS: NT Pro B Type Natriuretic Pept 11613 pg/mL (0-125)
[2024-11-28] MEDS: heparin 5,000 unit/mL INJ 1 mL 5000 UNIT SUBCUT ×2 (08:41→20:22)
[2024-11-28] MEDS: FUROsemide 10 mg/mL SDV 4mL 40 MG IVP ×2 (08:41→20:22)
[2024-11-28] MEDS: doxycycline 100 MG in sodium chloride 0.9% (plus) 100 ML IV ×2 (08:46→20:21)
[2024-11-28] MEDS: cefTRIAXone 1,000 mg SDV 1000 MG IVP (08:53)
[2024-11-28] MEDS: sacubitril/valsartan 24-26 mg Tablet 1 EACH PO ×2 (09:01→18:28)
[2024-11-28] MEDS: metoprolol succinate ER (24 HR) 25 mg Tablet 12.5 MG PO (09:01)
[2024-11-28] MEDS: pantoprazole DR 40 mg Tablet PO (09:03)
[2024-11-28] MEDS: metOLazone 5 MG Tablet PO (09:03)
[2024-11-28] MEDS: water for injection-sterile 10 ML 100 ML (09:12)
--- NOTE | 2024-11-28 11:41 | P.PN_ITS ---
Subjective 2 Subjective: She has overall been improving. No chest pain or pressure. Breathing has been getting better. Developed an attack of anxiety today after post discharge considerations. Vitals/I&O/Wt Last Vital Signs Temp 98.4 F 11/28/24 08:00 Pulse 86 11/28/24 08:18 Resp 16 11/28/24 08:18 BP 108/67 11/28/24 07:30 Pulse Ox 94 11/28/24 08:18 O2 Del Method Room Air 11/28/24 08:18 FiO2 35 11/27/24 08:09 11/27/24 11/28/24 11/28/24 22:59 06:59 14:59 Intake Total 300 / 600 240 / 840 240 / 240 Output Total 2500 / 2500 Balance 300 / 600 -2260 / -1660 240 / 240 Weight last 48 hrs Weight 72.5 kg Weight 75 kg Weight 74.843 kg Physical Exam 2 Const: COMMON NORMALS: patient oriented x3 and alert GENERAL APPEARANCE: c ooperative ORIENTATION/CONSCIOUSNESS: Yes awake HENMT: COMMON NORMALS: oropharynx normal Neck/C-Spine: COMMON NORMALS: no JVD Resp: COMMON NORMALS: normal respiratory effort and clear to auscultation bilaterally AUSCULTATION: clear to auscultation bilaterally OTHER: There are mild wheezes, coarse breath sounds left lower lung. Cardio: COMMON NORMALS: no JVD, regular rhythm, S1 normal heart sound present, S2 normal heart sound present and No murmurs present (Cardio) RHYTHM: regular rhythm HEART SOUNDS: S1 normal heart sound present and S2 normal heart sound present GI: COMMON NORMALS: Normal to inspection, nondistended, normoactive bowel sounds present, Soft to palpation and non-tender PALPATION: Yes Soft to palpation Extremity: COMMON NORMALS: no joint enlargement and no pedal edema OTHER: Cool extremities Neuro: COMMON NORMALS: patient oriented x3 and moves all extremities S ENSORIUM/ORIENTATION: Yes alert Skin: COMMON NORMALS: no rashes or lesions noted GENERAL SKIN EXAM: no rashes or lesions noted Data 11/28/24 04:09 11/28/24 04:09 Micro: Microbiology 11/27/24 07:30 Bacterial Antigens - Final Urine,Clean Catch 11/27/24 07:30 Legionella Urinary Antigen - Final Urine,Clean Catch A&P Assessment and plan (1) Acute exacerbation of CHF (congestive heart failure): Reviewed vitals, intake and output. And negative balance. Reviewed CBC, chemistry, magnesium. Potassium noted okay. Magnesium okay. Continue diuretic, monitor intake and output. Monitor for risk of electro deficiency, dehydration, SELMA. Will reassess chemistry. Discussed with nursing, assistant case manager. Obtain home oxygen study. Reviewed cardiology note, appreciate assessment. Consideration of right ventricular pacing delay setting adjustment. Started on Entresto, needing blood pressure monitoring due to low blood pressure, risk of hypotension. Reviewed echocardiogram, discussed with her, EF 26%. Not significantly changed from prior. Can move out of ICU. (2) Acute respiratory distress: Respiratory distress has resolved. Has been weaning down on oxygen requirement. Obtain home O2 evaluation. Wean down oxygen as tolerating. Noted afebrile, without leukocytosis. Will check procalcitonin. Reviewed bacterial antigens. Breathing treatments. She denies history of COPD, but discussed with her possible bronchitis/COPD exacerbation. Empirically on ceftriaxone, doxycycline. May be will discontinue antibiotics tomorrow. (3) S/P ICD (internal cardiac defibrillator) procedure: Systolic cardiomyopathy with an EF of 20%. Reviewed repeat TTE. Cardiology considering setting adjustment on pacemaker. Requested ICD interrogation. - Patient has been status post ICD because of cardiomyopathy - Was continue to monitor closely Plan GI and DVT prophylaxis in place PDMP PDMP Reviewed: Not Reviewed Attestations 2 Medical Necessity Statement*: Continue admission for assessment and management of acute congestive heart failure, possible pneumonia, recovering after respiratory failure. and High MDM includes amount and/or complexity of data reviewed/ordered [ previous or external records, resulted lab(s)/test(s), ordered lab(s)/test(s) and other healthcare professional discussion] and described risk of complication, morbidity or mortality of management as documented Diagnoses Acute exacerbation of CHF (congestive heart failure) I50.9 Acute respiratory distress R06.03 S/P ICD (internal cardiac defibrillator) procedure Z95.810
[2024-11-28] MEDS: ALPRAZolam 0.5 mg Tablet PO (12:08)
--- NOTE | 2024-11-28 13:30 | PC.NURSE ---
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 Spoke with her for a good while, about how to contact folks about finding someone that won't take advantage of her that would stay with her at night for free room and board. Left a message with the pastors office for them to come talk with her when they can. She has no family or friends in town. Spoke with about something to help relax her. Got a 1x xanax order, gave it and continued talking with her, til she seems to be not as upset.
--- NOTE | 2024-11-28 14:50 | PC.NURSE ---
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 Patient awake and alert. Sophia welcomed patient in 111-2. No c/o's.
--- NOTE | 2024-11-28 16:18 | P.PN_ITS ---
<Statement entered by Niraj Bowman M.D - 12/01/24 12:24> Patient was cared for in conjunction with an advanced practice practitioner.? I reviewed the chart and all pertinent data including imaging, telemetry, and laboratory results.? I discussed the patient in detail with the advanced practice practitioner.? Please see?their note for progress note, testing results and agreed upon plan of care for the patient. Subjective 2 Subjective: Patient is doing okay. Still has shortness of breath on exertion but overall clinically looks good. Creatinine normal at 0.9. She is -1370 L over 24 hours. Vitals/I&O/Wt Last Vital Signs Temp 97.1 F L 11/28/24 14:30 Pulse 95 11/28/24 14:30 Resp 16 11/28/24 14:30 BP 95/64 11/28/24 14:30 Pulse Ox 95 11/28/24 14:30 O2 Del Method Room Air 11/28/24 14:30 FiO2 35 11/27/24 08:09 11/28/24 11/28/24 11/28/24 06:59 14:59 22:59 Intake Total 240 / 840 590 / 590 Output Total 2500 / 2500 Balance -2260 / -1660 590 / 590 Weight last 48 hrs Weight 159 lb 13.362 oz Weight 165 lb 5.547 oz Weight 165 lb Physical Exam 2 Narrative: General: No apparent distress, healthy appearing, well nourished HENMT: normoceophalic Muskuloskeletal: Full ROM Respiratory: Normal respiratory effort, clear except mild fine crackles bilateral lower lobes, no use of accessory muscles Cardio: No JVD, regular rate, regular rhythm, S1 S2 normal, no murmurs, peripheral pulses 2+ radial palpated bilaterally GI: Normal to inspection, nondistended Extremities: Full ROM, normal, normal capillary refill, no cyanosis or edema Neuro: Alert and oriented x4, no focal motor deficits Psych: Affect normal, denies suicidal ideation, mental status grossly normal Skin: No rashes or lesions noted, no wounds Data 11/28/24 04:09 11/28/24 04:09 A&P Assessment and plan (1) Heart failure with reduced ejection fraction: (2) Non-ischemic cardiomyopathy: (3) Ventricular arrhythmia: (4) Elevated white blood cell count: Plan At this time, patient still symptomatic, but clinically improving. BP is tolerating Entresto. Would continue. She has an O2 sat of 95% on room air. Agree with lasix 40 q12 and Metolazone. In a day or two, may transition to oral depending on patient's response. Continue metoprolol. PDMP PDMP Reviewed: Not Reviewed Attestations 2 Medical Necessity Statement*: Deferred to primary Coding Level of Care Code Acute Code for [facility] Fwd Diagnoses Heart failure with reduced ejection fraction I50.20 Non-ischemic cardiomyopathy I42.8 Ventricular arrhythmia I49.9 Leukocytosis, unspecified type D72.829 Leukocytosis type: unspecified
[2024-11-28] MEDS: sennosides 8.6 mg Tablet 17.2 MG PO (20:21)
[2024-11-28] MEDS: diphenhydrAMINE 50 mg Capsule PO (20:22)
[2024-11-29] VITALS (8 sets, daily range): BP systolic 90–132; BP diastolic 65–88; PULSE 84–98; RESP 16–20; TEMP 36.2–36.9; O2SAT 91–96
[2024-11-29 03:39] LABS: Basophils # 0.1 10^3/uL (0.0-0.1); Basophils % 0.5 %; Eosinophils # 0.3 10^3/uL (0.0-0.8); Eosinophils % 2.3 %; Hematocrit 42.1 % (36-47); Lymphocytes # 2.3 10^3/uL (0.8-4.8); Lymphocytes % 18.6 %; Mean Corpuscular HGB Conc 30.9 g/dL (30-55); Mean Corpuscular Hemoglobin 24.3 pg (27-33); Mean Corpuscular Volume 78.5 fl (85-98); Mean Platelet Volume 10.5 fL (7.4-10.4); Monocytes # 0.8 10^3/uL (0.2-0.9); Monocytes % 6.7 %; Neutrophils % 71.5 %; Nucleated Red Blood Cells % 0 %; Platelet Count 268 10^3/cmm (157-399); Red Blood Count 5.36 10^6/uL (3.85-5.65); Red Cell Distribution Width 20.3 % (12.1-15.1); White Blood Count 12.18 10^3/uL (3.29-11.43)
[2024-11-29 04:03] LABS: Blood Urea Nitrogen 27 mg/dL (6-20); Calcium 9.2 mg/dL (8.5-10.5); Carbon Dioxide 35 mmol/L (22-29); Chloride 88 mmol/L (98-107); Creatinine Clr Calc Pharmacy 61.1811; Glomerular Filtration Rate 56.9 mL/min (90-130); Glucose 141 mg/dL (65-115); Osmolality Calculated 285 mOsm/kg (285-295); Sodium 134 mmol/L (136-145)
[2024-11-29 04:04] LABS: Anion Gap 14.2 (5-19); Potassium 3.2 mmol/L (3.5-5.1)
[2024-11-29 04:06] LABS: Procalcitonin 0.04 ng/mL (0-0.5)
[2024-11-29] MEDS: metOLazone 5 MG Tablet PO (08:19)
[2024-11-29] MEDS: sacubitril/valsartan 24-26 mg Tablet 1 EACH PO (08:20)
[2024-11-29] MEDS: docusate sodium 100 mg Capsule PO (08:20)
[2024-11-29] MEDS: metoprolol succinate ER (24 HR) 25 mg Tablet 12.5 MG PO (08:20)
[2024-11-29] MEDS: pantoprazole DR 40 mg Tablet PO (08:20)
[2024-11-29] MEDS: FUROsemide 10 mg/mL SDV 4mL 40 MG IVP (08:23)
[2024-11-29] MEDS: potassium chloride ER 20 mEq Tablet PO (08:23)
[2024-11-29] MEDS: heparin 5,000 unit/mL INJ 1 mL 5000 UNIT SUBCUT (08:24)
[2024-11-29] MEDS: cefTRIAXone 1,000 mg SDV 1000 MG IVP (08:24)
[2024-11-29] MEDS: doxycycline 100 MG in sodium chloride 0.9% (plus) 100 ML IV (08:24)
--- NOTE | 2024-11-29 09:21 | PC.CHAP ---
Pastoral Care Encounter/Spiritual Assessment Type of Contact [] Declined foreign banknote teller visit [] Patient/Family/Request visit [] Outpatient visit [] Follow-up visit [] Physician referral [] Code/Alert [x] Routine visit [] Staff referral [] Actively dying [] Patient sleeping [] Family support [] [] Out of room [] Palliative care [] [] Receiving care in room [] Pre-surgical visit [] Trauma [] Long length of stay [] ICU visit [] Other: Relational/Emotional Strength [] Patient feels connected with others/family/visitors/staff [x] Distress [] Loneliness/isolation [] Abandonment Spirituality of Patient [x] Person of Shirin [] Attends Orthodoxy of their Shirin [x] Believes in Prayer [] Reads Bible or Muslim materials [] There are Spiritual issues to be addressed Dry Kiln Operator Interventions [x] Prayer [x] Active listening [x] Non-anxious presence [x] Spiritual/emotional support [] Crisis/trauma care [] Spiritual counseling [] Bereavement support [] Provided bereavement packet [] Provided Bible/devotional materials [] Provided toy/stuffed animal, coloring book to patient or family member [] Provided Communion [] Anointing/Steele [] Salvation [x] Completed spiritual assessment [] Other: Impact on Illness or Injury [] Angry [] Fearful [] Anxious [] Often cries [] Exhaustion [] Unable to work [] Unable to attend scientology [] Unable to walk/stand [] Unable to read [] Unable to drive [] Unable to eat/drink [] Unable to sleep [] Unable to be with family [] Patient intubated [] Other: Summary Time spent with patient 5 min
--- NOTE | 2024-11-29 09:34 | P.DS_ITS ---
Discharge Providers Date of Admission: 11/27/24 04:08 Date of Discharge: November 29, 2024 Attending Provider at Admission: Lizeth Song MD Attending Provider at Discharge: Agapito Olivares Primary Care Provider: Alberta Hudson NP Diagnoses at Discharge Discharge Diagnosis (1) Heart failure with reduced ejection fraction: Status: Acute (2) Non-ischemic cardiomyopathy: Status: Acute (3) Ventricular arrhythmia: Status: Acute (4) Elevated white blood cell count: Status: Acute Qualifiers: Leukocytosis type: unspecified Qualified Code(s): D72.829 - Elevated white blood cell count, unspecified Reason for Visit Reason for Visit: SOB\Conjestive Heart Failure Brief History: Alberta Valdez is a 59 year old female with medical history significant for CHF exacerbation and cardiomyopathy with an ejection fraction of 20%. Patient is a patient of Dr. Woody Simeon and she has seen Woody Simeon, had a cardiology just 3 months ago and is due to go back to see him next month December. Patient had been experiencing shortness of breath over the past few days and had been increasingly worsening. Patient takes 40 mg of oral Lasix daily and metaxalone 5 mg daily. She does take beta-gilson as well 12.5 mg extended release of metoprolol. She was not so much shortness of breath room air hypoxemia upon arriving to the emergency room. She was found to be in an acute exacerbation of CHF. Immediately was given 40 mg IV Lasix and was placed on IPAP of 18/ BiPAP EPAP of 8 and FiO2 of 40% On BiPAP patient is doing remarkably better and is tolerating BiPAP pulse oxing at 99%. Pulse is 96 and blood pressure 102/68 Patient is with respiratory failure secondary to acute CHF exacerbation requiring BiPAP and need to go to ICU Hospital Course Hospital Course She was initially started on treatment with IV antibiotics in addition to IV diuresis with concern for possible concomitant pneumonia in addition to acute congestive heart failure. Echocardiogram was obtained and was similar to prior, although with concerned that mitral regurgitation may be progressing to severe. She was seen by cardiology, ICD was interrogated. She was started on Entresto. She did well with diuresis, with improvement in dyspnea, weaning off oxygen to room air. Subjectively she is feeling better. Procalcitonin was rechecked and was not elevated. With lower suspicion of ongoing pneumonia she is not continued on antibiotics after discharge. She is asked to follow-up with cardiology in office for additional assessment and arrangements for further as sessment of valvular heart disease with JEFF. She received potassium supplementation during hospitalization, please reassess potassium levels. Physical Exam Const: COMMON NORMALS: patient oriented x3 and alert GENERAL APPEARANCE: cooperative ORIENTATION/CONSCIOUSNESS: Yes awake HENMT: COMMON NORMALS: oropharynx normal Neck/C-Spine: COMMON NORMALS: no JVD Resp: COMMON NORMALS: normal respiratory effort and clear to auscultation bilaterally AUSCULTATION: clear to auscultation bilaterally Cardio: COMMON NORMALS: no JVD, regular rhythm, S1 normal heart sound present, S2 normal heart sound present and No murmurs present (Cardio) RHYTHM: regular rhythm HEART SOUNDS: S1 normal heart sound present and S2 normal heart sound present GI: COMMON NORMALS: Normal to inspection, nondistended, normoactive bowel sounds present, Soft to palpation and non-tender PALPATION: Yes Soft to palpation Extremity: COMMON NORMALS: no joint enlargement and no pedal edema Neuro: COMMON NORMALS: patient oriented x3 and moves all extremities SENSORIUM/ORIENTATION: Yes alert Skin: COMMON NORMALS: no rashes or lesions noted GENERAL SKIN EXAM: no rashes or lesions noted Discharge Data Studies Completed and Pending Completed Studies During Hospitalization Category Date Time Status XR chest 1V portable [id number] Stat Exams 11/27/24 02:48 Completed CV. echo complete* [id number] Routine Ultrasound 11/27/24 05:32 Completed Radiology Impressions Chest X-Ray 11/27/24 02:48 IMPRESSION: Moderate cardiomegaly, with faint bilateral lower lung stranding and trace/small volume bilateral pleural effusions. Findings favored to represent early CHF. Laboratory Results WBC 12.18 10^3/uL (3.29-11.43) H 11/29/24 03:25 RBC 5.36 10^6/uL (3.85-5.65) 11/29/24 03:25 Hgb 13.00 g/dL (11.27-16.99) 11/29/24 03:25 Hct 42.1 % (36-47) 11/29/24 03:25 MCV 78.5 fl (85-98) L 11/29/24 03:25 MCH 24.3 pg (27-33) L 11/29/24 03:25 MCHC 30.9 g/dL (30-55) 11/29/24 03:25 RDW 20.3 % (12.1-15.1) H 11/29/24 03:25 Plt Count 268 10^3/cmm (157-399) 11/29/24 03:25 MPV 10.5 fL (7.4-10.4) H 11/29/24 03:25 Neut % (Auto) 71.5 % 11/29/24 03:25 Lymph % (Auto) 18.6 % 11/29/24 03:25 [place] % (Auto) 6.7 % 11/29/24 03:25 Eos % (Auto) 2.3 % 11/29/24 03:25 Baso % (Auto) 0.5 % 11/29/24 03:25 Neut # (Auto) 8.70 10^3/uL (1.8-7.7) H 11/29/24 03:25 Lymph # (Auto) 2.3 10^3/uL (0.8-4.8) 11/29/24 03:25 [place] # (Auto) 0.8 10^3/uL (0.2-0.9) 11/29/24 03:25 Eos # (Auto) 0.3 10^3/uL (0.0-0.8) 11/29/24 03:25 Baso # (Auto) 0.1 10^3/uL (0.0-0.1) 11/29/24 03:25 Nucleated RBC % (auto) 0 % 11/29/24 03:25 Nucleated RBCs # 0.0 /100WBC 11/29/24 03:25 Specimen Type Arterial 11/27/24 02:48 Sample Site Radial, right 11/27/24 02:48 ABG pH 7.35 (7.35-7.45) 11/27/24 02:48 ABG pCO2 46.3 mmHg (35-45) H 11/27/24 02:48 ABG pO2 115.0 mmHg (80.0-100.0) H 11/27/24 02:48 ABG HCO3 25.8 mmol/L (22-26) 11/27/24 02:48 ABG Base Excess -0.1 mmol/L (-2.0-2.0) 11/27/24 02:48 Joseph Test Pos 11/27/24 02:48 Hematocrit 36.9 % (37-47) L 11/27/24 02:48 Hgb O2 Saturation 96.0 % (95-100) 11/27/24 02:48 Carboxyhemoglobin 2.3 %THgb (0.4-20.1) 11/27/24 02:48 Methemoglobin 0.7 % (0.4-1.5) 11/27/24 02:48 Total Hemoglobin 12.0 g/dL (12-16) 11/27/24 02:48 O2 Delivery Device Nc 11/27/24 02:48 O2 Liters/Min 3.0 % 11/27/24 02:48 Security Shift Supervisor ID [id number] 11/27/24 02:48 Sodium 134 mmol/L (136-145) L 11/29/24 03:25 Potassium 3.2 mmol/L (3.5-5.1) L 11/29/24 03:25 Chloride 88 mmol/L (98-107) L 11/29/24 03:25 Carbon Dioxide 35 mmol/L (22-29) H 11/29/24 03:25 Anion Gap 14.2 (5-19) 11/29/24 03:25 BUN 27 mg/dL (6-20) H 11/29/24 03:25 Creatinine 1.0 mg/dL (0.5-0.9) H 11/29/24 03:25 GFR Calculation 56.9 mL/min (90-130) L 11/29/24 03:25 Glucose 141 mg/dL (65-115) H 11/29/24 03:25 Calculated Osmolality 285 mOsm/kg (285-295) 11/29/24 03:25 Calcium 9.2 mg/dL (8.5-10.5) 11/29/24 03:25 Phosphorus 4.6 mg/dL (2.5-4.5) H 11/28/24 04:09 Magnesium 2.1 mg/dL (1.7-2.3) 11/28/24 04:09 Total Bilirubin 1.3 mg/dL (0.15-1.2) H 11/28/24 04:09 AST 29 U/L (0-32) 11/28/24 04:09 ALT 18 U/L (0-33) 11/28/24 04:09 Alkaline Phosphatase 82 U/L (35-105) 11/28/24 04:09 Troponin T Baseline 57 ng/L (0-10) H 11/27/24 03:09 Troponin T 120 Minute 46.14 ng/L (0-10) H 11/27/24 04:53 Delta Troponin T -10.86 ABS# (0-10) L 11/27/24 04:53 Troponin T Hi Sens 6Hr 46.91 ng/L (0-10) H 11/27/24 08:58 Troponin T Hi Sens 6Hr Delta -10.09 ng/L (0-12) L 11/27/24 08:58 NT-Pro-B Natriuret Pep 31331 pg/mL (0-125) H 11/28/24 04:09 Total Protein 6.5 g/dL (6.6-8.7) L 11/28/24 04:09 Albumin 3.7 g/dL (3.5-5.2) 11/28/24 04:09 Globulin 2.8 g/dL (1.3-4.6) 11/28/24 04:09 Procalcitonin 0.04 ng/mL (0-0.5) 11/29/24 03:25 Urine Color Yellow (Yellow) 11/27/24 07:30 Urine Appearance Clear (CLEAR) 11/27/24 07:30 Urine pH 5.5 (5-7) 11/27/24 07:30 Ur Specific [place] 1.007 (1.005-1.030) 11/27/24 07:30 Urine Protein Negative (Negative) 11/27/24 07:30 Urine Glucose (UA) Negative (Normal) 11/27/24 07:30 Urine Ketones Negative (Negative) 11/27/24 07:30 Urine Blood Negative (Negative) 11/27/24 07:30 Urine Nitrate Negative (Negative) 11/27/24 07:30 Urine Bilirubin Negative (Negative) 11/27/24 07:30 Urine Urobilinogen 0.2 mg/dL (Negative) 11/27/24 07:30 Ur Leukocyte Esterase Negative (Negative) 11/27/24 07:30 Urine RBC 0-2 /hpf (0-2) 11/27/24 07:30 Urine WBC 0-5 /hpf (0-5) 11/27/24 07:30 Ur Squamous Epith Cells 0-5 /hpf (0-5) 11/27/24 07:30 Amorphous Sediment Not Reportable 11/27/24 07:30 Urine Bacteria None seen /hpf (NONE) 11/27/24 07:30 Hyaline Casts 1.65 /lpf 11/27/24 07:30 Vitals Last Vital Signs Temp 98.5 F 11/29/24 04:00 Pulse 89 11/29/24 08:03 Resp 16 11/29/24 08:03 BP 132/88 11/29/24 04:00 Pulse Ox 91 11/29/24 08:03 O2 Del Method Room Air 11/29/24 08:03 FiO2 35 11/27/24 08:09 Discharge Plan Discharge Patient Disposition: Home Condition: Stable Prescriptions: New metoprolol succinate 25 mg Tablet Extended Release 24 Hr 12.5 mg PO DAILY Qty: 90 0RF Entresto 24-26 mg Tablet 0.5 tab PO BID Qty: 45 0RF Continued furosemide [Lasix] 40 mg tablet 40 mg PO DAILY Qty: 90 1RF potassium chloride [Klor-Con 10] 10 mEq tablet extended release 10 meq PO DAILY Qty: 90 1RF gabapentin 300 mg capsule 300 mg PO BID Qty: 180 0RF Rx Instructions: Take 1 capsule by mouth twice daily albuterol sulfate 90 mcg/actuation HFA aerosol inhaler 2 puff INHALATION Q4H PRN (Reason: Shortness Of Breath Or Wheezing) Discharge Orders: Discharge Order (Routine); Ordered 11/29/24 Ordered By: Agapito Olivares Referrals: Kristen Wesley NP [Nurse Practitioner, Cardiology] - 12/11/24 3:00 pm Alberta Hudson NP [Primary Care Provider, Family Practice] - 12/04/24 10:40 am Discharge Diet: Cardiac Discharge Activity: Increase activity as tolerated Patient Instructions: Metoprolol (By mouth), Sacubitril/Valsartan (By mouth), Heart Failure (DC), Shortness of Breath (DC), Opioid Safety Activity Restrictions/Additional Instructions: Please follow-up with your primary doctor and with cardiology for reassessment after congestive heart failure exacerbation and speak with cardiology as a discussed with you for arrangements of additional ultrasounds of your heart to get a closer assessment of heart valve abnormality and consideration of further referral for repair. Please monitor your blood pressure 2-3 times daily, write down values to bring to her appointment. In case your blood pressure is 100 or less top number or 50 or less bottom number, please skip Entresto and hold metoprolol. Recheck again in the afternoon, and if blood pressure is improving, take metoprolol at that point. Please follow-up with your primary doctor for reassessment of potassium. Discharge Attestations Time Spent in Discharge Care*: greater than 30 min Quality Metrics Clinical Quality Measures [ No reported AMI, CVA or VTE this stay] Coding Level of Care Code 11506 Total time (in minutes) for Discharge: 40 Diagnoses Heart failure with reduced ejection fraction I50.20 Non-ischemic cardiomyopathy I42.8 Ventricular arrhythmia I49.9 Leukocytosis, unspecified type D72.829 Leukocytosis type: unspecified
--- NOTE | 2024-11-29 10:17 | P.PN_ITS ---
<Statement entered by Niraj Bowman M.D - 12/01/24 12:34> Patient was cared for in conjunction with an advanced practice practitioner.? I reviewed the chart and all pertinent data including imaging, telemetry, and laboratory results.? I discussed the patient in detail with the advanced practice practitioner.? Please see?their note for progress note, testing results and agreed upon plan of care for the patient. Patient is stable to be discharged from cardiology standpoint. Please call with questions Subjective 2 Subjective: Patient is doing well. Appears euvolemic. Creatinine stable at 1. Blood pressure 132/88. She has diuresed well. Vitals/I&O/Wt Last Vital Signs Temp 98.5 F 11/29/24 04:00 Pulse 89 11/29/24 08:03 Resp 16 11/29/24 08:03 BP 132/88 11/29/24 04:00 Pulse Ox 91 11/29/24 08:03 O2 Del Method Room Air 11/29/24 08:03 FiO2 35 11/27/24 08:09 11/28/24 11/29/24 11/29/24 22:59 06:59 14:59 Intake Total 340 / 930 Output Total 600 / 600 750 / 1350 Balance -260 / 330 -750 / -420 Weight last 48 hrs Weight 158 lb Weight 159 lb 13.362 oz Weight 165 lb 5.547 oz Physical Exam 2 Narrative: General: No apparent distress, healthy appearing, well nourished HENMT: normoceophalic Muskuloskeletal: Full ROM Respiratory: Normal respiratory effort, clear bilateral lung dee anterior and posteriorly, no use of accessory muscles Cardio: No JVD, regular rate, regular rhythm, S1 S2 normal, no murmurs, peripheral pulses 2+ radial palpated bilaterally GI: Normal to inspection, nondistended Extremities: Full ROM, normal, normal capillary refill, no cyanosis or edema Neuro: Alert and oriented x4, no focal motor deficits Psych: Affect normal, denies suicidal ideation, mental status grossly normal Skin: No rashes or lesions noted, no wounds Data 11/29/24 03:25 11/29/24 03:25 A&P Assessment and plan (1) Heart failure with reduced ejection fraction: (2) Non-ischemic cardiomyopathy: (3) Ventricular arrhythmia: (4) Elevated white blood cell count: Plan BP is tolerating Entresto. Creatinine is stable. Would recommend transitioning to oral Lasix. Continue metoprolol. From a cardiology standpoint once patient's pacemaker is interrogated and this has been reviewed she may be discharged. F/U in the clinic in 1 week. PDMP PDMP Reviewed: Not Reviewed Attestations 2 Medical Necessity Statement*: Deferred to primary Coding Level of Care Code Acute Code for Chg Fwd Diagnoses Heart failure with reduced ejection fraction I50.20 Non-ischemic cardiomyopathy I42.8 Ventricular arrhythmia I49.9 Leukocytosis, unspecified type D72.829 Leukocytosis type: unspecified
--- NOTE | 2024-11-29 11:48 | PC.SOCIAL ---
IMM Update pg 2 of IMM Updated and reviewed w/ patient. Copy provided. Copy dated, initialed and placed in chart.
--- NOTE | 2024-11-29 14:17 | PC.NURSE ---
Patients discharge was delayed waiting on pacemaker interrogation printout and meds to beds were delivered at 1418.
== END 2024-11-29 14:37 | disposition home or self-care (01) | DRG 291 ==
LOC: ER 04:32 → ER IP 05:05 → ICU 06:46 → CSU 11-28 14:19
PROVIDERS: Admitting Provider Internal Medicine; Emergency Provider Emergency Medicine; Visit Provider Internal Medicine
DX: I50.43 Acute on chronic combined systolic (congestive) and diastolic (congestive) heart failure (principal); J96.01 Acute respiratory failure with hypoxia; I42.8 Other cardiomyopathies; I49.8 Other specified cardiac arrhythmias; I34.0 Nonrheumatic mitral (valve) insufficiency; I25.10 Atherosclerotic heart disease of native coronary artery without angina pectoris; G62.9 Polyneuropathy, unspecified; J44.9 Chronic obstructive pulmonary disease, unspecified; N18.9 Chronic kidney disease, unspecified; D64.9 Anemia, unspecified; F41.8 Other specified anxiety disorders; I25.2 Old myocardial infarction; Z87.891 Personal history of nicotine dependence; Z95.810 Presence of automatic (implantable) cardiac defibrillator
CPT/HCPCS: 36415; 71045; 80048; 80053; 81001; 82805; 83735; 83880; 84100; 84145; 84484; 85025; 86403; 87449; 93005; 93306; 94640; 94660; 94760; 96372; 96374; 96376; 99285; J0696; J1644; J1938; J3490; J9999; Q0163

== ENCOUNTER → 2024-12-11 15:00 | Outpatient (BNVA) | payer MEDICARE, MEDICAID, SELFPAY | PROVIDERS: Visit Provider Nurse Practitioner Family | DX: I50.23 Acute on chronic systolic (congestive) heart failure (principal); I34.0 Nonrheumatic mitral (valve) insufficiency; Z87.898 Personal history of other specified conditions; Z87.891 Personal history of nicotine dependence | CPT/HCPCS: 36415; 80048; 99214 ==

== ENCOUNTER → 2024-12-21 13:07 | Outpatient (BNVA) | payer OTHER, SELFPAY | PROVIDERS: Visit Provider Psychiatry & Neurology Psychiatry | DX: Z79.899 Other long term (current) drug therapy (principal) | CPT/HCPCS: 80061; 83036 ==

== ENCOUNTER 2024-12-26 01:57 | Emergency (ER) | payer OTHER, MEDICARE, MEDICAID, SELFPAY ==
[2024-12-25 11:36] VITALS: BP 103/69; BMI 28.1
[2024-12-26] VITALS (12 sets, daily range): BP systolic 100–132; BP diastolic 74–91; PULSE 72–100; RESP 17–23; TEMP 35.9; O2SAT 87–99; BMI 27.9
--- NOTE | 2024-12-26 02:05 | ECG_ITS ---
[facility]: 2024-12[facility]26 Pat Name: Alberta Valdez Department: Room: Gender: Female Timers Inspector: MATT: 1965 Requested By: Brayden Rudolph Order Number: [id number] Savage MD: Niraj Bowman M.D. Measurements Intervals [place] Rate: 90 P: 66 MN: 143 QRS: 152 QRSD: 162 T: 38 QT: 426 QTc: 522 Interpretive Statements ELECTRONIC VENTRICULAR PACEMAKER Compared to ECG 11/27/2024 04:56:19 No significant changes Electronically Signed On 12-26-2024 08:17:44 CDT by Niraj Bowman M.D. [email or web address]
--- OUTSIDE RECORDS SUMMARY | 2024-12-26 02:12 | XMS_ITS | Clinical Summary ---
Author Organization [facility] Address [address] [place] [address] Phone Care Team Providers Care Telesales Agent Name Role Phone Unavailable Primary Care Provider Unavailabl e Allergies No known active allergies Medications potassium chloride (KLOR-CON) 20 mEq Extended Release tablet Take 20 mEq by mouth 2 times daily. 2 Active metoprolol tartrate (LOPRESSOR) 25 mg tablet TAKE 1/2 TABLET BY MOUTH TWICE DAILY AT 9AM AND 9 PM 2 Active losartan (COZAAR) 25 mg tablet Take 25 mg by mouth daily. 2 Active Aerochamber Plus Flow-Vu,L Msk Spacer USE DIRECTED 2 Active furosemide (LASIX) 40 mg tablet Take 40 mg by mouth daily. 2 Active ProAir HFA 90 mcg/actuation inhaler INHALE 1 PUFF BY MOUTH EVERY 6 HOURS NEEDED FOR SHORTNESS OF BREATH OR WHEEZING 2 Active gabapentin (NEURONTIN) 300 mg capsule Take 300 mg by mouth 2 times daily. Active aspirin-acetamin ophen-caffeine (EXCEDRIN EXTRA STRENGTH) 250-250-65 mg Tablet Take 1 Tablet by mouth every 4 hours as needed for Headaches. Active calcium as carbonate (TUMS) 500 mg (200 mg elemental) Tablet, Chewable Take 400 mg by mouth daily. Active escitalopram oxalate (LEXAPRO) 10 mg tablet Take 10 mg by mouth daily. 3 Active docusate sodium (COLACE) 100 mg capsule Take 1 Capsule (100 mg) by mouth 2 times daily. 60 Capsule 03/23/2023 5:02 PM CDT 3 Active Additional Information Patient not taking.Reported on 10/21/2023 docusate sodium (COLACE) 100 mg capsule Take 1 Capsule (100 mg) by mouth 2 times daily. 60 Capsule 10/26/2023 10:24 AM CDT 4 Active polyethylene glycol 3350 (MIRALAX) 17 gram/dose Powder Take 1 Scoop (17 Grams) by mouth daily. Dissolve as directed on package 510 Gram 10/26/2023 10:24 AM CDT 4 Active acetaminophen (TYLENOL) 500 mg tablet Take 1 Tablet (500 mg) by mouth every 8 hours. 90 Tablet 4 Active promethazine (PHENERGAN) 25 mg tablet Take 1 Tablet (25 mg) by mouth every 6 hours as needed for Nausea/Emesis. 30 Tablet 10/26/2023 10:24 AM CDT 4 Active morphine (MS IR) 15 mg tabletIndication s:S/P total right hip arthroplasty Take 1 Tablet (15 mg) by mouth every 6 hours as needed for Pain. Max Daily Amount: 60 mg 28 Tablet Active apixaban (Eliquis) 2.5 mg tablet Active Active Problems Problem Noted Date Diagnosed Date Primary osteoarthritis of right hip 10/25/2023 HFrEF (heart failure with reduced ejection fract ion) 10/25/2023 CAD (coronary atherosclerotic disease) 4 Anemia 10/25/2023 Hypokalemia 10/25/2023 Nonischemic cardiomyopathy 03/03/2023 Hepatitis C 03/02/2023 Preoperative general physical examination 2022 Primary osteoarthritis of left hip 03/02/2023 Primary hypertension 03/02/2023 Dyslipidemia 03/02/2023 Obesity (BMI 30.0-34.9) 03/02/2023 Encounters Date Type Department Care Team Description 12/06/2024 External Device Data [facility]STRACTION Provider, Abstract 12/05/2024 External Device Data [facility]STRACTION Provider, Abstract 11/14/2024 External Device Data [facility]STRACTION Provider, Abstract 11/09/2024 External Device Data [facility] ABSTRACTION Provider, Abstract 11/08/2024 External Device Data [facility] ABSTRACTION Provider, Abstract 11/07/2024 External Device Data [facility] ABSTRACTION Provider, Abstract 10/03/2024 External Device Data [facility] ABSTRACTION Provider, Abstract from Last 3 Months Family History Medical History Relation Name Comments Heart Disease Father chf Stroke Father Heart Disease Mother chf, multiple heart attacks Relation Name Status Comments Father Mother Alive Sister 1 Alive Sister 2 Alive Sister 3 Social History Tobacco Use Types Packs/Day Years Used Date Smoking Tobacco: Former Cigarettes 0.5 12 1 983 - 1994 Passive Smoke Exposure: Past Smokeless Tobacco: Never Tobacco Cessation:Counseling Given: Not Answered Alcohol Use Standard Drinks/Week Comments Yes 0 (1 standard drink = 0.6 oz pur e alcohol) rarely Feeling Safe Answer Date Recorded Are you in a relationship wi th someone who hurts you emotionally and/or physically? No 10/25/2023 Food Insecurity Answer Date Recorded Social/Environmental Concerns No concerns Transportation Needs Answer Date Record ed Social/Environmental Concerns No concerns Housing Stability Answer Date Recorded Social/Environmental Concerns No concerns Utility Needs Answer Date Recorded Social/Environmental Concerns No concerns Comments No Sex and Gender Information Value Date Recorded Sex Assigned at Not on file Legal Sex Female 2:39 PM CDT Gender Identity Not on file Sexual Orientation Not on file Last Filed Vital Signs Vital Sign Reading Time Taken Comments Blood Pressure 112/80 06/08/2024 1:11 PM BAND LEADER Pulse 63 10/26/2023 10:02 AM CDT Temperature 37 C (98.6 F) 10/26/2023 10:02 AM CDT Respiratory Rate 16 10/26/2023 10:02 AM CDT Oxygen Saturation 97% 10/26/2023 10:02 AM CDT Inhaled Oxygen Concentration - - Weight 80.4 kg (177 lb 4.8 oz) 06/08/2024 1:11 P M BAND LEADER Height 165.1 cm (5' 5 ) 06/08/2024 1:11 PM BAND LEADER Body Mass Index 29.5 06/08/2024 1:11 PM BAND LEADER Plan of Treatment Health Maintenance Due Date Last Done Comments Pre-Diabetes and Diabetes Screening 1965 DTAP/TDAP/TD VACCINES (1 - Tdap) 1985 HEPATITIS B VACCINES (1 of 3 - 19+ 3-dose series) 06/1985 HPV/Cotest (21-29) 10/20/1987 CERVICAL CANCER SCREENING 1996 HPV/Cotest (30-65) 1996 PAP SMEAR 1996 BREAST CANCER SCREENING 2006 COLORECTAL SCREENING 10/20/2011 Colorectal Cancer Screening 10/20/2011 FIT-DNA Q 3 years 10/20/2011 FIT/FOBT Q 1 year 10/20/2011 Flex Sig/CT Colonography Q 5 years 10/20/2011 ZOSTER VACCINE (1 of 2) 2016 INFLUENZA VACCINE (#1) 2025 Medical Devices Implanted Type Area Materials Assistant Device Identifier Shelf Expiration Date Model / Serial / Lot Cup Lindsay Gription Acet Shell 54mm 1217-32-054 - [id number] Implanted:Qty: 1 on 03/22/2023 by Kaya Bro MD at [facility] Hip Left: Hip [employer] [id number] 07/21/2032 1217-32-054 / / [id number] Liner Lindsay Altrx [id number] Nutrl 1221-36-054 - [id number] Implanted:Qty: 1 on 03/22/2023 by Kaya Bro MD at [facility] Hip Left: Hip [employer] [id number] 01/19/2028 [id number] / / [id number] Head Fem Art/Han Cer Sz36 1363-08-124 - [id number] Implanted:Qty: 1 on 03/22/2023 by Kaya Bro MD at [facility] Hip Left: Hip [employer] [id number] 01/19/2028 1369-36330 / / [id number] Stem Fem Actis Colr Std Sz6 1010-11-060 - [id number] Implanted:Qty: 1 on 03/22/2023 by Kaya Bro MD at [facility] Hip Left: Hip [employer] [id number] 12/18/2032 1010-11-060 / / [id number] Cup Lindsay Gription Acet Shell 54mm 1217-32-054 - [id number] Implanted:Qty: 1 on 10/25/2023 by Kaya Bro MD at [facility] Hip Right: Hip [employer] [id number] 09/18/2033 1217-32-054 / / [id number] Liner Lindsay Altrx [id number] Nutrl 1221-36-054 - [id number] Implanted:Qty: 1 on 10/25/2023 by Kaya Bro MD at [facility] Hip Right: Hip [employer] [id number] 08/18/2028 [id number] / / [id number] Stem Fem Actis Hi Colr Sz6 1010-05-260 - [id number] Implanted:Qty: 1 on 10/25/2023 by Kaya Bro MD at [facility] Hip Right: Hip [employer] [id number] 08/18/20330-05-260 / / [id number] Head Fem Art/Han Cer Sz36 1365-36-320 - [id number] Implanted:Qty: 1 on 10/25/2023 by Kaya Bro MD at [facility] Hip Right: Hip [employer] [id number] 08/18/2028 [id number] / / [id number] Screw Canc Lindsay 6.5x30mm 121-500 - [id number] Implanted:Qty: 1 on 03/22/2023 by Kaya Bro MD at [facility] Screw Left: Hip [employer] [id number] 12/18/2032 1217-30-500 / / [id number] Screw Canc Lindsay 6.5x30mm 500 - [id number] Implanted:Qty: 1 on 10/25/2023 by Kaya Bro MD at [facility] Screw Right: Hip [employer] [id number] 04/20/2033 121500 / / [id number] Insurance [facility] [employer] Medicare Part D [place] Medicaid Advance Directives For more information, please contact: [phone] * Default Full Code - Needs Discussion (Latest Code Status on File) Date Activated Date Inactivated Comments 10/25/2023 1:26 PM 10/26/2023 12:37 PM * Full Code Date Activated Date Inactivated Comments 10/25/2023 9:05 AM 10/25/2023 1:26 PM * Full Code Date Activated Date Inactivated Comments 03/22/2023 2:54 PM 03/23/2023 7:55 PM * Full Code Date Activated Date Inactivated Comments 03/22/2023 8:46 AM 03/22/2023 2:54 PM * Full Code Date Activated Date Inactivated Comments 03/22/2023 8:42 AM 03/22/2023 8:45 AM
--- OUTSIDE RECORDS SUMMARY | 2024-12-26 02:12 | XMS_ITS | Data Portability ---
Author Organization PETER Gregory Arceo [facility] Gia Martinez [facility] Address [address] [facility] [facility] [address] [place] [address] Care Team Providers Care Director Process Engineering Name Role Phone [place] Primary Care Provider Unavailabl e Assessment No assessment recorded. Plan of Treatment Reminders Order Date Submit Date Provider Last Modified By Organization Details Last Modified Time Details Appointments None recorded. Lab BNP (B-type natriuretic peptide), serum or plasma 2022 023 [place] [address] [address] [place] [address], [facility] [address] [place], [address], 3 13:12:13 CMP, serum or plasma [address] ([facility]), [address] [place] [address], [address], 5 10:14:57 urinalysis, complete [address] [facility] ([facility]), [address] [place] [address], [address], 3 15:43:40 culture, urine 2022 023 [employer] [place] [address], [facility] [address], [place], [address], 3 21:40:22 hepatitis C virus RNA, quant, PCR, serum or plasma 2022 023 [place] [address] [employer] [facility], [address] [place] [address], [address], [place], [address], 3 13:12:13 afp (alpha-feto protein) tumor marker, serum or plasma 2022 023 [email or web address] [facility], [address], [address], [place], [address], 3 13:12:13 Referral orthopedic surgeon referral - Dr. Dieudonne levi. She did her L hip. Now R is hurting. 2023 024 [email or web address] [facility], [address] [place], [address], 4 13:11:24 orthopedic surgeon referral 2022 023 [facility], [address] [place], [address], 3 16:22:44 gastroenter ologist referral 2022 023 [email or web address] Justin Diaz MD, [address] [place] [address], [address], 3 12:49:14 Procedures None recorded. Surgeries None recorded. Imaging US, abdomen, limited - 95029 liver and r/o ascitis. Hx of Hep C 2022 023 [facility] (Scheduling Orders), [address] [place], [address], 3 11:43:28 Medication Orders gabapentin 300 mg capsule 2023 024 [facility], [address], [place], [address], 4 14:06:27 Lexapro 10 mg tablet 2023 024 [email or web address] [facility], [address], [place], [address], 4 14:06:27 Lexapro 10 mg tablet 2022 023 [facility], [address], [place], [address], 3 15:25:38 gabapentin 300 mg capsule 2022 023 [facility], [address], [place], [address], 3 15:25:41 spironolact one 50 mg tablet [email or web address] [facility], [address], [place], [address], 4 12:30:13 furosemide 80 mg tablet 2022 023 [facility], [address], [place], [address], 3 15:25:34 Patient TargetsNo targets recorded. Patient InstructionsNo instructions recorded. 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 Dieudonne levi. She did her L hip. Now R is hurting. Referring Physician: [facility], Encounter Date: 09/14/2023 Results Created Date Observation Date Name Description Value Unit Range Abnormal Flag Note LastModifiedBy Organization Detail LastModifiedTime 01/06/20 23 01/06/2023 CULTU RE, URINE , ROUTI NE culture, urine, routine SEE NOTE CULTU RE, URINE , ROUTI NE Micro Numbe r: [id number] Test Statu s: Final Speci men Sourc e: Urine , clean catch Speci men Quali ty: Adequ ate Resul t: Mixed genit al lili isola rochelle. These super ficia l bacte mita are not indic ative of a urina ry tract infec tion. No furth er organ ism ident ifica tion is warra nted on this speci men. If clini edyta indic ated, recol lect clean -catc h, mid-s tream urine and trans mandi immed iatel y to Urine Cultu re Trans port Tube. Not Available [facility] [address] [place], [address], 01/06/2023 21:40:21 01/06/20 23 01/05/2023 urina lysis , compl ete color light yellow Not Available [facility] ([facility]) [address] [place] [address], [address], 01/05/2023 14:25:04 01/06/20 23 01/05/2023 urina lysis , compl ete clarity clear clear normal Not Available [facility] ([facility]) [address] [place] [address], [address], 01/05/2023 14:25:04 01/06/20 23 01/05/2023 urina lysis , compl ete glucose negati ve negati ve normal Not Available [facility] ([facility]) [address] [place] [address], [address], 01/05/2023 14:25:04 01/06/20 23 01/05/2023 urina lysis , compl ete bilirubin negati ve negati ve normal Not Available [facility] ([facility]) [address] [place] [address], [address], 01/05/2023 14:25:04 01/06/20 23 01/05/2023 urina lysis , compl ete ketones negati ve negati ve normal Not Available [facility] ([facility]) [address] [place], [address], 01/05/2023 14:25:04 01/06/20 23 01/05/2023 urina lysis , compl ete specific gravity 1.020 1.005- 1.025 normal Not Available [facility] ([facility]) [address] [place], [address], 01/05/2023 14:25:04 01/06/20 23 01/05/2023 urina lysis , compl ete pH 6.0 5.0-7. 0 normal Not Available [facility] ([facility]) [address] [place], [address], 01/05/2023 14:25:04 01/06/20 23 01/05/2023 urina lysis , compl ete protein negati ve Not Available [facility] ([facility]) [address] [place], [address], 01/05/2023 14:25:04 01/06/20 23 01/05/2023 urina lysis , compl ete uro 0.2 Not Available [facility] ([facility]) [address] [place], [address], 01/05/2023 14:25:04 01/06/20 23 01/05/2023 urina lysis , compl ete nitrate negati ve negati ve normal Not Available [facility] ([facility]) [address] [place], [address], 01/05/2023 14:25:04 01/06/20 23 01/05/2023 urina lysis , compl ete blood negati ve negati ve normal Not Available [facility] ([facility]) [address] [place], [address], 01/05/2023 14:25:04 01/06/20 23 01/05/2023 urina lysis , compl ete leukocytes negati ve negati ve normal Not Available [facility] ([facility]) [address] [place], [address], 01/05/2023 14:25:04 01/06/20 23 01/05/2023 urina lysis , compl ete WBC 1-2 0 high Not Available [facility] ([facility]) [address] [place], [address], 01/05/2023 14:25:04 01/06/20 23 01/05/2023 urina lysis , compl ete RBC 0 0 normal Not Available [facility] ([facility]) [address] [place], [address], 01/05/2023 14:25:04 01/06/20 23 01/05/2023 urina lysis , compl ete epi cells 0-1 0 normal Not Available [facility] ([facility]) [address] [place], [address], 01/05/2023 14:25:04 01/06/20 23 01/05/2023 urina lysis , compl ete bacteria 0 Not Available [facility] ([facility]) [address] [place], [address], 01/05/2023 14:25:04 01/06/20 23 01/05/2023 urina lysis , compl ete other Not Available [facility] ([facility]) [address] [place], [address], 01/05/2023 14:25:04 02/06/20 23 02/04/2023 US, abdom en, limit ed No observ ation record ed. [email or web address] [place] [address], [place], [address], 02/05/2023 15:30:58 02/06/20 23 02/04/2023 US, abdom en, limit ed No observ ation record ed. [email or web address] [facility] [address] [facility] [address], [place], [address], 02/05/2023 15:30:58 02/25/20 23 02/24/2023 MRI, wrist , w/o contr ast No observ ation record ed. [email or web address] [facility] [address] [place], [address], 02/25/2023 13:26:19 Result Notes None recorded. Problems Name Problem SNOMED Code Status Onset Date Resolution Date Notes Provider Name and Address Organization Details Recorded Time Pain of right wrist 45383767041 9100 Active 2022 AYDE morris, [facility] 3 16:32:54 Chronic congestiv e heart failure 75738242 Active 2022 VIRGINIA CAIN PA-C [address] [place], [address] , [facility] 3 15:21:55 Generaliz ed anxiety disorder 43393589 Active 2023 VIRGINIA CAIN PA-C [address] [place], [address] , [facility] 4 18:21:09 Chronic hepatitis C 005712554 Active 2023 VIRGINIA CAIN PA-C [address] [place], [address] , [facility] 4 18:21:12 Osteonecr osis of head of femur 234065341 Active 2023 VIRGINIA CAIN PA-C [address] [place], [address] , [facility] 4 18:21:14 Depressiv e disorder 67059616 Active 2023 VIRGINIA CAIN PA-C [address] [place], [address] , [facility] 4 18:21:16 Chronic systolic heart failure 695134820 Active 2023 VIRGINIA CAIN PA-C [address] [place], [address] , [facility] 4 18:21:17 Chronic obstructi ve pulmonary disease 62165249 Active 2023 VIRGINIA CAIN PA-C [address] [place], [address] , [facility] 4 18:21:20 Lumbosacr al radiculop athy 1394199 Active 2022 LUMBOSACR AL RADICULOP ATHY AT L5; Recorded 3 7:16AM by Ayde Martins LPN, Office Visit; Promoted; acuity set as *; Not Available [facility] 3 03:07:52 Viral hepatitis C 30372611 Active 2022 HEPATITIS C; Recorded 3 7:16AM by Ayde Martins LPN, Office Visit; Promoted; acuity set as *; Not Available [facility] 3 03:07:52 Acute subendoca rdial infarctio n 29112738 Active 2021 NON-STEMI (NON-ST ELEVATED MYOCARDIA L INFARCTIO N); Story: EF 40%; Date: 2; Recorded 3 7:16AM by Ayde Martins LPN, Office Visit; Promoted; acuity set as *; Not Available [facility] 3 03:07:53 Problem Notes None recorded. Procedures Surgical History Date Name Laterality Status Provider Name and Address Organization Details Recorded Time total replacement of hip completed VIRGINIA CAIN PA-C [address] [place], [address], [facility] 09/14/[facility] 18:20:57 Imaging Results None recorded. Procedure Notes None recorded. Medical Equipment None Reported. Allergies No known drug allergies Medications Name Sig Start Date Stop Date Status Note LastModified by Organization Details LastModified Time amoxicill in 500 mg capsule TAKE 1 CAPSULE BY MOUTH THREE TIMES DAILY UNTIL GONE 09/13 completed Not Available Not Available Not Available furosemid e 40 mg tablet TAKE 1 TABLET BY MOUTH ONCE DAILY 09/13 completed Not Available Not Available Not Available atorvasta tin 40 mg tablet daily active Not Available Not Available Not Available bupropion HCl SR 150 mg tablet,12 hr sustained -release 09/13 completed Not Available Not Available Not Available tizanidin e 2 mg tablet 09/13 completed Not Available Not Available Not Available trazodone 50 mg tablet TAKE 2 TABLETS BY MOUTH AT BEDTIME NEEDED FOR INSOMNIA 01/05 completed Not Available Not Available Not Available hydrocodo ne 5 mg-acetam inophen 325 mg tablet TAKE 1 TABLET BY MOUTH EVERY 6 HOURS NEEDED FOR MODERATE PAIN . DO NOT EXCEED 4 PER 24 HOURS active Not Available Not Available No t Available isosorbid e mononitra te ER 30 mg tablet,ex tended release 24 hr TAKE ONE TABLET BY MOUTH DAILY active Not Available Not Available No t Available prochlorp erazine maleate 10 mg tablet 09/13 completed Not Available Not Available Not Available hydrocodo ne 10 mg-acetam inophen 325 mg tablet TAKE 1 TABLET BY MOUTH EVERY 6 HOURS NEEDED FOR MODERATE PAIN . DO NOT EXCEED 4 PER 24 HOURS active Not Available Not Available No t Available potassium chloride ER 20 mEq tablet,ex tended release(p art/cryst ) TAKE 1 TABLET BY MOUTH TWICE DAILY active Not Available Not Available No t Available furosemid e 80 mg tablet Take 1 tablet every day by oral route. active Not Available Not Available No t Available cephalexi n 500 mg capsule TAKE 1 CAPSULE BY MOUTH THREE TIMES DAILY 12/25 completed Not Available Not Available Not Available pantopraz ole 40 mg tablet,de layed release TAKE 1 TABLET BY MOUTH ONCE DAILY 01/05 completed Not Available Not Available Not Available losartan 25 mg tablet TAKE 1 TABLET BY MOUTH ONCE DAILY active Not Available Not Available No t Available gabapenti n 300 mg capsule Take 1 capsule twice a day by oral route. 2023 active Not Available Not Available Not Avai lable levofloxa constantine 500 mg tablet 09/13 completed Not Available Not Available Not Available levofloxa constantine 750 mg tablet TAKE 1 TABLET BY MOUTH ONCE DAILY FOR 7 DAYS 12/25 completed Not Available Not Available Not Available sertralin e 50 mg tablet TAKE 1 TABLET BY MOUTH ONCE DAILY 01/05 completed Not Available Not Available Not Available spironola ctone 50 mg tablet Take 1 tablet every day by oral route. 09/13 completed Not Available Not Available Not Available amoxicill in 875 mg-potass ium clavulana te 125 mg tablet TAKE 1 TABLET BY MOUTH TWICE DAILY FOR 8 DAYS 12/25 completed Not Available Not Available Not Available oxycodone 5 mg tablet 09/13 completed Not Available Not Available Not Available escitalop donavan 10 mg tablet TAKE 1 TABLET EVERY DAY 2023 active Not Available Not Available Not Avai lable metoprolo l tartrate 25 mg tablet 2023 active Not Available Not Available Not Avai lable aspirin daily active 0; Recorded 08/06/19 23 11:14AM by Ayde Martins LPN, Office Visit; Not Available Not Available Not Available Lasix daily 02/18 completed Recorded 06/25/19 23 7:10AM by Ayde Martins LPN, Office Visit; Refill Quantity : 0; Not Available Not Available Not Available Klor-Con daily 02/18 completed Recorded 06/25/19 23 7:10AM by Ayde Martins LPN, Office Visit; Refill Quantity : 0; Not Available Not Available Not Available Aerochamb er as directed 02/18 completed Recorded 06/25/19 23 7:10AM by Ayde Martins LPN, Office Visit; Refill Quantity : 0; Not Available Not Available Not Available ProAir HFA 90 mcg/actua tion aerosol inhaler four times daily, as needed 2021 active vo KM/dh; 73087; Recorded 06/25/19 7:10AM by Ayde Martins LPN (Authori franky through Virginia Cain PA-C), Office Visit; Refill Quantity : 1; Applicat or; Not Available Not Available Not Available Eliquis 2.5 mg tablet 09/13 completed Not Available Not Available Not Available Epclusa 400 mg-100 mg tablet 1 tablet Orally ONCE A DAY 84 DAYS 09/13 completed Not Available Not Available Not Available losartan potassium (bulk) daily 02/18 completed 0; Recorded 08/06/19 11:14AM by Ayde aMrtins LPN, Office Visit; Not Available Not Available Not Available Vitals Date Recorded Body height Body mass index (BMI) Body weight Oxygen saturation Oxygen saturation in Arterial blood by Pulse oximetry Heart rate Respiratory rate Body temperature Systolic And Diastolic Provider Name and Address Organization Details Last Updated DateTime 4 165.1 cm 29.6 kg/m2 29698 g 96 % 96 % 96 /min 26 /min 97.9 [degF] 158/98 mm[Hg] Kvng Lopez [facility] 4 11:28:18 Date Recorded Body height Body mass index (BMI) Body weight Oxygen saturation Oxygen saturation in Arterial blood by Pulse oximetry Heart rate Respiratory rate Body temperature Systolic And Diastolic Provider Name and Address Organization Details Last Updated DateTime 4 165.1 cm 28.3 kg/m2 85191.7 g 97 % 97 % 76 /min 20 /min 98 [degF] 138/80 mm[Hg] AYDE MARTINS [facility] 4 12:24:59 Date Recorded Body height Body mass index (BMI) Body weight Oxygen saturation Oxygen saturation in Arterial blood by Pulse oximetry Heart rate Respiratory rate Body temperature Systolic And Diastolic Provider Name and Address Organization Details Last Updated DateTime 3 165.1 cm 31.6 kg/m2 25743.5 5 g 98 % 98 % 73 /min 20 /min 98.7 [degF] 120/80 mm[Hg] AYDE SYEDJUAN JOSE [facility] 3 13:58:52 Date Recorded Body height Body mass index (BMI) Body weight Oxygen saturation Oxygen saturation in Arterial blood by Pulse oximetry Heart rate Respiratory rate Body temperature Systolic And Diastolic Provider Name and Address Organization Details Last Updated DateTime 3 165.1 cm 32.6 kg/m2 82458.1 g 97 % 97 % 78 /min 20 /min 98.7 [degF] 140/70 mm[Hg] AYDE VIRAMONTESJUAN JOSE [facility] 3 14:20:33 Social History None recorded. Functional Status None recorded. Mental Status None recorded. Family History Nothing Reported. Medical History No medical history recorded. Gynecological HistoryNo gynecological history recorded. Obstetrics History GPAL:G 0 P 0 0 0 0 Past Encounters Encounter ID Performer Location Encounter Start Date Encounter Closed Date Diagnosis/Indication Diagnosis SNOMED-CT Code Diagnosis ICD10 Code Diagnosis Note [id number] VIRGINIA CAIN PA-C [facility] ([facility]) [address] [place] [id number] 10/01/2022 14:17:59 10/07/2022 14:31:26 Pain of right wrist 9913682045 28008 M25.531 trauma 6 months ago. fallThumb spica splint. rx written to take [facility] Pre-surger y evaluation 523822935 Z01.818 Per calcbibtiman ns of risk low AHA cardiac risk and respirator y failure riskPt is cleared from my standpoint for hip replacemen t surgery. She has ECHO next week and then will have cardiac clearance as well Osteonecro sis of head of femur 996368090 M87.859 Right side. [id number] VIRGINIA CAIN PA-C [facility] ([facility]) [address] [place] [id number] 12/25/2022 15:19:32 12/25/2022 17:01:34 Pain of right wrist 3364593909 93785 M25.531 trauma 6 months ago. fallxray negative for fx. Osteonecrosis of hip 444 501669 M87.859 Screening mammography 24 784746 Z12.31 Chronic hepatitis C 1283 77540 B18.2 Type 1A Chronic sy stolic heart failure 769562913 I50.22 CCA form filled out during today's office visit Chronic ob structive pulmonary disease 11030415 J44.9 [id number] VIRGINIA CAIN PA-C [facility] ([facility]) [address] [place] [id number] 01/05/2023 13:52:14 01/05/2023 14:46:18 Edema of lower extremity 988934000 R60.0 increase lasix to 40 mg bid x 7 days then back to the 40 qd Increased frequency of urination 441339853 R35.0 Right uppe r quadrant pain 320152563 R10.11 Chronic hepatitis C 1283 29698 B18.2 Type 1A [id number] VIRGINIA CAIN PA-C [facility] ([facility]) [address] [place] [id number] 02/04/2023 11:05:49 02/04/2023 19:18:23 [id number] VIRGINIA CAIN PA-C [facility] ([facility]) [address] [place] [id number] 02/18/2023 14:04:08 02/28/2023 17:43:06 Chronic systolic heart failure 029472968 I50.22 Osteonecro sis of head of femur 112152824 M87.859 Right side.FACE to FACE for hospital bed. Pt in need of hospital bed. Needed for positionin g and breathing. Not accomplish ed with wedges or pillows. Has the space to accomidate . Generalize d anxiety disorder 30113914 F41.1 Lumbago with sciatica 20 0311139 M54.40 Pain of right wrist 3169 121606 29876 M25.531 Addendum MRI of wrist is in 02/24/23 tear to TFCC and scapholuna te ligament with shifting of carpal bones. swelling but no fx around the scaphiod possibe osteonecro sis. [id number] DANYEL JUAN [facility] ([facility]) [address] [place] [id number] 08/11/2023 10:39:34 08/11/2023 13:08:34 Panic attack 698086677 F41.0 Pt having moderate to severe anxiety right now with no SI/HI. [facility] crisis center called and can evaluate patient immediatel y. Transporte d pt to [facility]. [id number] VIRGINIA CAIN PA-C [facility] ([facility]) [address] [place] [address] 09/14/2023 11:34:44 09/15/2023 16:44:21 Pain of right hip joint 2565765922 63122 M25.551 Generalize d anxiety disorder 81355793 F41.1 Ulnar nerv e entrapment at elbow 861917024 G56.22 Dr. Hernandez sees for her wrist. will discuss at next appt. Lumbago with sciatica 20 5998799 M54.40 Chronic hepatitis C 12[address] Diaz was managing. Osteonecro sis of head of femur 865070714 M87.859 M87.851 Depressive disorder 3548 9007 F33.2 pt has been missing appt due to debilitati ng depression and anxiety. Chronic sy stolic heart failure 704083130 I50.22 CCA form filled out during today's office visitEF 44% Chronic ob structive pulmonary disease 25411401 J44.9 Health Concerns Section Related Observation LastModified by Organization Detai ls LastModified Time None Recorded Concern Status LastModified by Organization Details LastModified Time None Recorded Advance Directives Directive None Recorded Payers Insurance Date Sequence Insurance Name Policy Number Policy Ley Covered Member ID Ley Member ID Guarantor Name 08/13/2023 [id number] Alberta Valdez [id number] Alberta Valdez 03/13/2024 [place] [facility] ([place]ITUTION[facility] L) [id number] Alberta Valdez [id number] Alberta Valdez 03/13/2024 1 [employer] (MEDICARE REPLACEMENT/A DVANTAGE - PPO) [id number] Alberta Valdez [id number] Alberta Valdez 08/13/2023 2 [place] Valdez [id number] Alberta Valdez 03/13/2024 2 [place] Valdez [id number] Alberta Valdez 08/11/2023 2 [employer] [place]AC[place] - [place]) [id number] Alberta Valdez [id number] Alberta Valdez 09/07/2024 1 [employer] (MEDICARE REPLACEMENT/A DVANTAGE - PPO) Alberta Valdez [id number] Alberta Valdez Notes Date Note Type Note Provider Name and Address Organization Details Recorded Time 3 text/html EdemaReported bypatient.Location:feet Quality:legs swell equally Severity:moderate Duration:constant Onset/Timing:started 5 days ago Modifying Factors:nothing gives relief; nothing makes it worse; prescription medication; diuretic medication Associated Symptoms:shortness of breath;shortness of breath with exertion;coughLUTSReporte d bypatient.Location:bladde r Quality:pressure Timing:intermittent Context:cardiovascular disease; not sexually active Associated Symptoms:no flank pain; no pain with urination; no hematuria;feelings of urgency;urge incontinence worse x 1 week. more abd fullness/bloating. RUQ pain. GB out in 06/11. Hx of Hep C not treated yet.Hx of CHF but no CP. VIRGINIA CAIN PA-C [address] [place] [address], [phone], [facility] 01/05/2023 14:37:05 3 text/html EdemaReported bypatient.Location:BLE; feet Quality:legs swell equally Severity:moderate Duration:constant Onset/Timing:started 1 months ago Context:no prior history of deep vein thrombosis; no new medications Modifying Factors:nothing gives relief; nothing makes it worseMusculoskeletal PainReported bypatient.Location:right wrist; Quality:dull Severity:worsening;interf eres with sleep;interferes with work/school Duration:present for 1-6 months Timing:constant Context:trauma; normal xray in September has an MRI approved Alleviating Factors:rest Aggravating factors:movement/position ing ADLs Affected:dressing; eating Prior Tests/Treatmentsnormal xray in september I went to er on 02-05-23 for edema and sob they started the isosorbide 30mg, I have been taking 2 of the lasix 40mg since 02-05-23 VIRGINIA CAIN PA-C [address] [place], [address], [facility], [place]. 02/25/2023 14:23:42 4 text/html Anxiety/DepressionReporte d bypatient.Severity:denies suicidal ideations;increased anxiety;interference with activities of daily living;interference with sleep;interference with work Duration:symptoms lasting: (3 days); acute Onset/Timing:frequent; started: (3 days ago) Context:no major life stressors Associated Symptoms:eating less;high irritability;anxiety;depr ession;loneliness;sleep disturbances;low self-esteem;despair/hopel essness;flushing;shortnes s of breath;functional impairment;panic symptoms;unable to concentrateNotes:denies HI or SI. No weapons at home or hx of suicide attempts. Denies drug or alcohol use. Called [facility] [place] yesterday and has an intake appt on Wednesday. DANYEL JUAN [address] [place], [address], [facility], [place] 08/11/2023 12:58:31 4 text/html Musculoskeletal PainReported bypatient.Location:pain radiating to the legs right;pain radiating to the foot; right hand; right hip Quality:sharp;tingling;du ll Severity:driving impairment;worsening;inte rferes with sleep;interferes with work/school Duration:present for 1-6 months Timing:constant; pain at night; gradual Aggravating factors:movement/position ing; bending over; twisting Associated Symptoms:no numbness of the legs/feet ADLs Affected:walking; mopping; bathing; dressing; climbing stairs Prior Tests/Treatmentsprevious surgery my right hip hurts down to my knee. had L hip replacement and has done great. Now past month the Right hip hurting. my right 2 small fingers are numb. Seeing ortho for wrist pain and getting shots in the joint. has appt in September for f/u I would like to discuss bupropion (started in ER 2.24 and only took one week) and escitalopram took for few months but has not taken in over 6 months. Having debilitating anxiety and depression. Hard for her to leave the house . very irritable. VIRGINIA CAIN PA-C [address] [place], [address], [facility], [place] 09/14/2023 18:25:32 OBGyn Episode No OBEpisode recorded.
--- OUTSIDE RECORDS SUMMARY | 2024-12-26 02:12 | XMS_ITS | Patient Health Record ---
Author Organization [facility] Address [address] [place] [address] Care Team Providers Care Manager Java Name Role Phone Justin Diaz Primary Care Provider [phone] Allergies No Known Allergies Reason For Referral No Information Medications Medication SIG (Take, Route, Frequency, Duration) [...] Problem Status W/U Status Risk Notes Problem 608981007 Chronic hepatitis C without hepatic coma (B18.2) Active confirmed Plan Of Treatment No Information Insurance Providers Payer Name Payer Address Payer Phone Subscriber Number Group Number Insured Name Patient Relationship to Insured Coverage Start Date Coverage End Date [employer] Medicare Replacement [address] [address] [place] [address] [phone] [id number] NAINA MAI Self - patient is the insured [place] Medicaid [address] [place] [address] [id number] MAI NAINA Self - patient is the insured [place] Medicare [address] [address] [place] [address] [id number] NAINA MAI Self - patient is the insured Medical (General) History Medical History History ICD Code CHF hepatitis C Surgical History Surgery Date(Month/Year) R knee surgery 2017 colectomy 2021 partial hysterectomy 2001 Hospitalization History Reason Date(Month/Year) heart attack 12/10 & 03/12
--- NOTE | 2024-12-26 03:09 | XRR_ITS ---
PROCEDURE INFORMATION: Exam: XR Chest Exam date and time: 12/26/2024 3:27 AM Age: 59 years old Clinical indication: Shortness of breath; Prior surgery; Surgery date: 6+ months; Surgery type: Pacemaker; Additional info: Shortness of breathe TECHNIQUE: Imaging protocol: Radiologic exam of the chest. Views: 1 view. COMPARISON: CR (CHEST, ) 11/27/2024 2:47 AM FINDINGS: Tubes, catheters and devices: Cardiac pacing device is again seen projecting over the left chest. Lungs: See Pleural spaces finding. Pleural spaces: Small bilateral pleural effusions with adjacent atelectasis noted, [id number]. Pneumonia should be considered in the adequate clinical setting. Heart/Mediastinum: Stable cardiomediastinal silhouette. Bones/joints: Unremarkable. XR/XR chest 1V portable [id number] IMPRESSION: Imaging findings of mild pulmonary edema. Pneumonia can have this appearance. Clinical correlation recommended.
[2024-12-26 03:18] LABS: Hematocrit 50.5 % (36-47); Hemoglobin 14.80 g/dL (11.27-16.99); Mean Corpuscular HGB Conc 29.3 g/dL (30-55); Mean Corpuscular Hemoglobin 25.0 pg (27-33); Mean Corpuscular Volume 85.4 fl (85-98); Nucleated Red Blood Cells % 0 %; Platelet Count 382 10^3/cmm (157-399); Red Blood Count 5.91 10^6/uL (3.85-5.65); White Blood Count 15.33 10^3/uL (3.29-11.43)
[2024-12-26 03:35] LABS: Alanine Aminotransferase 14 U/L (0-33); Albumin Level 4.8 g/dL (3.5-5.2); Alkaline Phosphatase 117 U/L (35-105); Anion Gap 24.2 (5-19); Aspartate Amino Transferase 22 U/L (0-32); Blood Urea Nitrogen 12 mg/dL (6-20); Calcium 9.3 mg/dL (8.5-10.5); Carbon Dioxide 23 mmol/L (22-29); Chloride 96 mmol/L (98-107); Creatinine Clr Calc Pharmacy 62.6154; Globulin 3.6 g/dL (1.3-4.6); Glucose 254 mg/dL (65-115); NT Pro B Type Natriuretic Pept 9402 pg/mL (0-125); Osmolality Calculated 298 mOsm/kg (285-295); Potassium 3.2 mmol/L (3.5-5.1); Sodium 140 mmol/L (136-145); Total Protein 8.4 g/dL (6.6-8.7)
[2024-12-26 03:36] LABS: Lactic Sepsis W/Reflex 8.8 mmol/L (0.5-2.2)
--- NOTE | 2024-12-26 03:58 | ED_ITS ---
HPI - SOB/Dyspnea 2 General: Chief Complaint: Shortness of Breath/Dyspnea Stated Complaint: SOB Time Seen by Provider: 12/26/24 03:02 History of Present Illness: HPI Narrative: Patient presents with acute respiratory distress that began approximately 2 hours prior to arrival. 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 Denies increased swelling. Patient has a history of both COPD and heart failure. Reports using CPAP/BiPAP at home with a mask. Patient acknowledges having similar episodes in the past, with the most recent episode occurring approximately 2 weeks ago. Patient mentions receiving treatment for the previous episode but details are unclear. Patient denies current smoking but has a history of smoking in the past. Patient appears to be referring to medication but communication is somewhat limited due to respiratory distress. Related Data Home Medications ?Medication ?Instructions ?Recorded ?Confirmed albuterol sulfate 90 mcg/actuation 2 puff inhalation Q 4H PRN 11/27/24 12/21/24 aerosol inhaler Shortness Of Breath Or Wheez ing Previous Rx's ?Medication ?Instructions ?Recorded furosemide 40 mg tablet (Lasix) 40 mg PO DAILY #90 tab s 08/03/24 potassium chloride 10 mEq 10 meq PO DAILY #90 tabs tablet,extended release (Klor-Con) metoprolol succinate 25 mg 12.5 mg (1/2 x 25 mg) PO DA CHRISTIAN #90 11/29/24 tablet,extended release 24 hr tabs escitalopram oxalate 10 mg tablet 10 mg PO DAILY #30 t abs 12/04/24 (Lexapro) gabapentin 300 mg capsule 300 mg PO BID #180 caps 11/19 12/13 sacubitril 24 mg-valsartan 26 mg 1 tab PO BID #60 tabs 12/11/24 tablet (Entresto) Allergies Allergy/AdvReac Type Severity Reaction Status Date / Time adhesive Allergy ALGY-Redness Verified 12/21/24 12:31 of Skin Review of Systems 2 General: Reports: 10 or more systems reviewed and unremarkable except in HPI and below PFSH ED 2 PFSH: Medical History (Updated 12/26/24 @ 05:47 by Brayden Rudolph DO) Psychiatric care Lower extremity edema Hospital discharge follow-up Second hand smoke exposure Former smoker, stopped smoking many years ago Allergic reaction caused by a drug Acute kidney injury Sepsis Heart failure Pain of left lower extremity Colon polyp Acid reflux Gastritis Congestive heart failure 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 Encounter to establish care Arthritis Sciatic nerve pain Neuropathy Diarrhea Avascular necrosis of femur Radiculopathy, site unspecified Cardiomyopathy Atherosclerosis of coronary artery NSTEMI (non-ST elevated myocardial infarction) Chronic back pain Surgical History Hx of knee surgery right knee Hx of colonoscopy H/O total hip arthroplasty bilateral Status post abdominal hysterectomy and salpingo-oophorectomy Hx laparoscopic cholecystectomy Family History Mother Diabetes CAD (coronary artery disease) Father Diabetes CAD (coronary artery disease) Social History (Updated 12/21/24 @ 13:36 by Clair Lopez LPN) Smoking and tobacco/nicotine status: former use of tobacco/nicotine Quit status (tobacco/nicotine): has quit using Year quit tobacco: 1993 Second hand smoke exposure: No Alcohol intake: former Year of sobriety/quit date alcohol: 2001 Substance/Drug Use: former Additional social history: smoked 1/2 ppd from age 17 to 27. Snorted cocaine as a teenager until her 20s. Adopted: No Caregiver/support person: No Lives independently: Yes Household members: none Housing: House Marital status: Single Number of children: 0 Number of grandchildren: 0 Highest education level completed: Associate Degree: Academic Program Current occupational status: disabled Pets and animals: Yes Pets & animals: cat(s) and dog(s) Leisure activites: other Leisure activities details: watch TV Sexually active: No Do you think of yourself as: Straight/Heterosexual Current gender identity: Female Special romaine needs: No Agree to transfusion: Yes Female Reproductive History: Para: 0 Physical Exam 2 Const: COMMON NORMALS: no acute distress, patient oriented x3, alert and well nourished HENMT: COMMON NORMALS: normocephalic HEAD & SCALP: normocephalic Eye: COMMON NORMALS: Equal, round and reactive pupils present, EOMs intact bilaterally and conjunctivae normal CONJUNCTIVA: Yes conjunctivae normal P UPIL: Yes Equal, round and reactive pupils present Neck/C-Spine: COMMON NORMALS: full ROM, no lymphadenopathy, supple, no meningeal signs, no JVD and Thyroid normal THYROID: Thyroid normal Resp: EFFORT & INSPECTION: Yes abnormal respiratory pattern and Yes tachypneic AUSCULTATION: rhonchi and diminished lung sounds Cardio: COMMON NORMALS: no JVD GI: COMMON NORMALS: Normal to inspection, nondistended, normoactive bowel sounds present, Soft to palpation, non-tender, No hepatosplenomegaly present, no masses and no bruits PALPATION: Yes Soft to palpation and Yes No hepatosplenomegaly present Extremity: COMMON NORMALS: normal to inspection, full ROM, capillary refill normal, no joint enlargement, no clubbing, cyanosis or edema, no calf tenderness and no pedal edema Neuro: COMMON NORMALS: patient oriented x3 SENSORIUM/ORIENTATION: Yes alert MENINGEAL SIGNS: Yes no meningeal signs Skin: COMMON NORMALS: no rashes or lesions noted, turgor normal and no jaundice GENERAL SKIN EXAM: no rashes or lesions noted and turgor normal Course 2 ED course: The patient responded BiPAP quite readily. She stayed on this for a period of time while her workup was being complete the chest x-ray was consistent with pulmonary edema less likely pneumonia clinically she does not have pneumonia this all abruptly onset is more like a flash pulmonary edema and some anxiety where she became very short of breath this happened to her before. We kept her on the BiPAP for a little while took it off she maintained her oxygen saturations that she felt back to normal did not desire any further workup or evaluation I think her lactic acid is probably spurious if she wants to go home and is going to talk with her primary care physician about evaluation for sleep apnea and whether she qualifies for home oxygen or CPAP. Return precautions follow-up instructions given. Vital Signs: Vital signs: Vital Signs Temperature 96.6 F L 12/26/24 01:57 Pulse Rate 100 12/26/24 02:05 Respiratory Rate 22 H 12/26/24 01:57 Blood Pressure 122/91 12/26/24 01:57 Pulse Oximetry 97 12/26/24 02:05 Oxygen Delivery Me thod BiPAP 12/26/24 01:57 Oxygen Flow Rate 50 12/26/24 01:57 Fraction of Inspir ed Oxygen 50 12/26/24 02:05 MDM - SOB/Dyspnea Medical Decision Making 1. Acute Respiratory Distress: - Likely exacerbation of underlying COPD and/or heart failure - Continue supplemental oxygen therapy - Laboratory tests ordered to evaluate current status - Will assess need for bronchodilators, steroids, and/or diuretics based on test results 2. COPD: - Chronic condition with history of exacerbations - Will review current maintenance medications - Consider pulmonary function testing if not recently performed 3. Congestive Heart Failure: - Assess volume status and cardiac function - Consider BNP, chest X-ray, and possibly echocardiogram - Review current cardiac medications 4. Sleep Apnea: - Patient uses CPAP/BiPAP at home - Ensure compliance with therapy - Consider sleep medicine consultation if needed 5. Disposition: - Pending laboratory and diagnostic results to determine whether hospitalization is necessary - Will reassess after completion of workup Lab Data 12/26/24 01:45 12/26/24 01:45 Labs/Radiology: Radiology Impressions Chest X-Ray 12/26/24 03:09 IMPRESSION: Imaging findings of mild pulmonary edema. Pneumonia can have this appearance. Clinical correlation recommended. Laboratory Results WBC 15.33 10^3/uL (3.29-11.43) H 12/26/24 01:45 RBC 5.91 10^6/uL (3.85-5.65) H 12/26/24 01:45 Hgb 14.80 g/dL (11.27-16.99) 12/26/24 01:45 Hct 50.5 % (36-47) H 12/26/24 01:45 MCV 85.4 fl (85-98) 12/26/24 01:45 MCH 25.0 pg (27-33) L 12/26/24 01:45 MCHC 29.3 g/dL (30-55) L 12/26/24 01:45 RDW 20.2 % (12.1-15.1) H 12/26/24 01:45 Plt Count 382 10^3/cmm (157-399) 12/26/24 01:45 MPV 10.8 fL (7.4-10.4) H 12/26/24 01:45 Neut % (Auto) 61.6 % 12/26/24 01:45 Lymph % (Auto) 29.9 % 12/26/24 01:45 Avery % (Auto) 5.4 % 12/26/24 01:45 Eos % (Auto) 1.8 % 12/26/24 01:45 Baso % (Auto) 0.8 % 12/26/24 01:45 Neut # (Auto) 9.43 10^3/uL (1.8-7.7) H 12/26/24 01:45 Lymph # (Auto) 4.6 10^3/uL (0.8-4.8) 12/26/24 01:45 Avery # (Auto) 0.8 10^3/uL (0.2-0.9) 12/26/24 01:45 Eos # (Auto) 0.3 10^3/uL (0.0-0.8) 12/26/24 01:45 Baso # (Auto) 0.1 10^3/uL (0.0-0.1) 12/26/24 01:45 Nucleated RBC % (auto) 0 % 12/26/24 01:45 Nucleated RBCs # 0.0 /100WBC 12/26/24 01:45 Sodium 140 mmol/L (136-145) 12/26/24 01:45 Potassium 3.2 mmol/L (3.5-5.1) L 12/26/24 01:45 Chloride 96 mmol/L (98-107) L 12/26/24 01:45 Carbon Dioxide 23 mmol/L (22-29) 12/26/24 01:45 Anion Gap 24.2 (5-19) H 12/26/24 01:45 BUN 12 mg/dL (6-20) 12/26/24 01:45 Creatinine 1.0 mg/dL (0.5-0.9) H 12/26/24 01:45 GFR Calculation 56.9 mL/min (90-130) L 12/26/24 01:45 Glucose 254 mg/dL (65-115) H 12/26/24 01:45 Calculated Osmolality 298 mOsm/kg (285-295) H 12/26/24 01:45 Lactic Acid 8.8 mmol/L (0.5-2.2) H* 12/26/24 01:45 Calcium 9.3 mg/dL (8.5-10.5) 12/26/24 01:45 Total Bilirubin 0.6 mg/dL (0.15-1.2) 12/26/24 01:45 AST 22 U/L (0-32) 12/26/24 01:45 ALT 14 U/L (0-33) 12/26/24 01:45 Alkaline Phosphatase 117 U/L (35-105) H 12/26/24 01:45 NT-Pro-B Natriuret Pep 9402 pg/mL (0-125) H 12/26/24 01:45 Total Protein 8.4 g/dL (6.6-8.7) 12/26/24 01:45 Albumin 4.8 g/dL (3.5-5.2) 12/26/24 01:45 Globulin 3.6 g/dL (1.3-4.6) 12/26/24 01:45 All radiology interpretation(s) finalized by discharge Discharge Plan Discharge Patient Disposition: Home Clinical Impression: Non-ischemic cardiomyopathy, Flash pulmonary edema Condition: Stable Prescriptions: No Action furosemide [Lasix] 40 mg tablet 40 mg PO DAILY Qty: 90 1RF potassium chloride [Klor-Con 10] 10 mEq tablet extended release 10 meq PO DAILY Qty: 90 1RF escitalopram oxalate [Lexapro] 10 mg tablet 10 mg PO DAILY Qty: 30 0RF gabapentin 300 mg capsule 300 mg PO BID Qty: 180 0RF Rx Instructions: Take 1 capsule by mouth twice daily Entresto 24-26 mg tablet 1 tab PO BID Qty: 60 0RF albuterol sulfate 90 mcg/actuation HFA aerosol inhaler 2 puff INHALATION Q4H PRN (Reason: Shortness Of Breath Or Wheezing) metoprolol succinate 25 mg Tablet Extended Release 24 Hr 12.5 mg PO DAILY Qty: 90 0RF Discharge Orders: Discharge ED (Routine); Ordered 12/26/24 Ordered By: Brayden Rudolph Referrals: Alberta Hudson NP [Primary Care Provider, Family Practice] Discharge Diet: Low Salt Discharge Activity: Limit activity as instructed Patient Instructions: Opioid Safety, Pain Management, Patient Portal & Saul Instructions Activity Restrictions/Additional Instructions: 1. Call primary care for follow-up and further evaluation. 2. Take a increased dose of Lasix 2 pills for the next 2 days. 3. Return to the emergency department for new or worsening symptoms. Print Language: Burundian Coding Level of Care Code ED Instrumentation Technologist for Alexandre Webb
[2024-12-26 04:59] LABS: Reflex Lactate Order REFLEX LACTIC ORDERD
[2024-12-26 05:56] LABS: Lactic Acid level (Lactate) 1.7 mmol/L (0.5-2.2)
--- NOTE | 2024-12-26 06:27 | PC.NURSE ---
patient noted to be spo2 of 86-88% room air . pt placed on 2 L NC with improvement to 94% pt with even unlabored respirations. pt able to talk in full sentences.
--- NOTE | 2024-12-27 16:30 | PC.SOCIAL ---
Pre-Cert Patient was DC'd from ER w/ O2. Clive w/ HOME contacts CM requesting Pre-Cert. Pre-Cert completed confirmation # [id number]. Faxed to HOME.
== END 2024-12-26 09:18 | disposition home or self-care (01) ==
PROVIDERS: Emergency Provider Family Medicine
DX: I42.8 Other cardiomyopathies (principal); J81.0 Acute pulmonary edema; Z87.891 Personal history of nicotine dependence
CPT/HCPCS: 71045; 80053; 83605; 83880; 85025; 93005; 94760; 99284

== ENCOUNTER → 2025-01-09 12:45 | Outpatient (BNVA) | payer MEDICAID, SELFPAY ==
[2024-12-25 11:36] VITALS: BP 103/69; BMI 28.1
== END ==
PROVIDERS: Visit Provider Internal Medicine
DX: I42.8 Other cardiomyopathies (principal); I50.9 Heart failure, unspecified
CPT/HCPCS: 99214

== ENCOUNTER 2025-01-12 10:19 | Outpatient (CLI) | payer MEDICARE, MEDICAID, SELFPAY ==
[2024-12-25 11:36] VITALS: BP 103/69; BMI 28.1
--- NOTE | 2025-01-12 10:24 | XR_ITS ---
WS: [id number] Left hand, 3 views, 01/12/2025 Clinical Data: left hand pain Comparison: None. Findings: No fractures or dislocations are seen. The soft tissues are unremarkable. The joint spaces are normal XR/XR hand LT min 3V* [id number] Impression: Negative left hand.
== END 2025-01-12 10:20 | disposition home or self-care (01) ==
DX: M79.642 Pain in left hand (principal)
CPT/HCPCS: 73130

== ENCOUNTER 2025-01-22 10:29 | Outpatient (CLI) | payer MEDICARE, MEDICAID, SELFPAY ==
[2024-12-25 11:36] VITALS: BP 103/69; BMI 28.1
--- NOTE | 2025-01-22 10:40 | MM_ITS ---
WS: [id number] BILATERAL 3D TOMOSYNTHESIS DIGITAL SCREENING MAMMOGRAPHY WITH CAD CLINICAL INFORMATION: screening HISTORY: Screening mammogram. No current complaints. COMPARISON: None. TECHNIQUE: Bilateral CC and MLO views. FINDINGS: Scattered fibroglandular densities bilaterally. No suspicious focal mass, asymmetry, calcifications, or architectural distortion. No evidence of malignancy. MM/MM scr BI tomosynthesis [id number] IMPRESSION: DENSITY: There are scattered areas of fibroglandular density. BI-RADS: 1 - Negative. FOLLOW UP: 1 Year Follow-up Recommend return to annual screening mammography.
== END 2025-01-22 10:30 | disposition home or self-care (01) ==
LOC: RAD 10:31
DX: Z12.31 Encounter for screening mammogram for malignant neoplasm of breast (principal); R92.323 Mammographic fibroglandular density, bilateral breasts
CPT/HCPCS: 77063; 77067

== ENCOUNTER → 2025-03-16 10:49 | Outpatient (BNVA) | payer MEDICAID, SELFPAY ==
[2024-12-25 11:36] VITALS: BP 103/69; BMI 28.1
== END ==
DX: F41.9 Anxiety disorder, unspecified (principal)
CPT/HCPCS: 80053; 80061; 85025

== ENCOUNTER 2025-04-11 09:40 | Outpatient (CLI) | payer MEDICARE, MEDICAID, SELFPAY ==
[2024-12-25 11:36] VITALS: BP 103/69; BMI 28.1
[2025-04-11 10:12] VITALS: PULSE 63; RESP 18; O2SAT 96
== END 2025-04-11 09:41 | disposition home or self-care (01) ==
DX: Z77.22 Contact with and (suspected) exposure to environmental tobacco smoke (acute) (chronic) (principal); Z87.891 Personal history of nicotine dependence
CPT/HCPCS: 94060; 94726; 94729; J7613

== ENCOUNTER → 2025-05-30 10:06 | Outpatient (BNVA) | payer OTHER, MEDICARE, SELFPAY ==
[2024-12-25 11:36] VITALS: BP 103/69; BMI 28.1
== END ==
DX: R13.10 Dysphagia, unspecified (principal); I50.20 Unspecified systolic (congestive) heart failure
CPT/HCPCS: 80053; 84443; 85379

== ENCOUNTER 2025-06-01 09:46 | Outpatient (CLI) | payer MEDICARE, OTHER, SELFPAY ==
[2024-12-25 11:36] VITALS: BP 103/69; BMI 28.1
[2025-06-01 11:15] LABS: Thyroid Stimulating Hormone 0.88 uIU/mL (0.27-4.20)
[2025-06-01 11:44] LABS: Alanine Aminotransferase 10 U/L (0-33); Albumin Level 4.1 g/dL (3.5-5.2); Alkaline Phosphatase 106 U/L (35-105); Anion Gap 18.0 (5-19); Aspartate Amino Transferase 14 U/L (0-32); Blood Urea Nitrogen 13 mg/dL (6-20); Calcium 8.6 mg/dL (8.5-10.5); Carbon Dioxide 26 mmol/L (22-29); Chloride 101 mmol/L (98-107); Globulin 2.7 g/dL (1.3-4.6); Glucose 132 mg/dL (65-115); Osmolality Calculated 294 mOsm/kg (285-295); Potassium 4.0 mmol/L (3.5-5.1); Sodium 141 mmol/L (136-145); Total Protein 6.8 g/dL (6.6-8.7)
== END 2025-06-01 09:47 | disposition home or self-care (01) ==
DX: R13.10 Dysphagia, unspecified (principal); I50.20 Unspecified systolic (congestive) heart failure
CPT/HCPCS: 36415; 80053; 84443; 85378

== ENCOUNTER 2025-06-18 10:11 | Outpatient (CLI) | payer OTHER, MEDICAID, SELFPAY ==
[2024-12-25 11:36] VITALS: BP 103/69; BMI 28.1
--- NOTE | 2025-06-18 11:00 | FL_ITS ---
WS: [id number] Modified barium swallow, 06/18/2025 Clinical Data: Food and liquid real stick in upper esophagus and mid esophagus in the recent months. Comparison: None. Fluoroscopy time: 2min [id number] # of spot films: Findings: There is premature spillage with fluid. There is minimal residue but it cleared with multiple swallows. There is a trace penetration with thin liquids but no aspiration. The barium tablet moved normally from the oropharynx into the hypopharynx then the esophagus and finally the stomach. FL/FL barium swallow modifd [id number] Impression: Trace penetration with thin liquids but no aspiration.
== END 2025-06-18 10:12 | disposition home or self-care (01) ==
LOC: RAD 10:11
DX: R13.10 Dysphagia, unspecified (principal)
CPT/HCPCS: 74230; 92611

== ENCOUNTER 2025-06-20 10:40 | Outpatient (CLI) | payer MEDICARE, MEDICAID, SELFPAY ==
[2024-12-25 11:36] VITALS: BP 103/69; BMI 28.1
--- NOTE | 2025-06-20 11:00 | CT_ITS ---
WS: [id number] CTA OF THE CHEST WITH PULMONARY EMBOLISM PROTOCOL TECHNIQUE: High-resolution contrast enhanced CTA of the chest with coronal and sagittal reformatted images with pulmonary embolism protocol. MIP images are also reviewed. CLINICAL INFORMATION: elevated d-dimer COMPARISON: 10/31/2024 DLP: 466.[address] scans at [facility] use at least one of these dose optimization techniques: automated exposure control; mA and/or kV adjustment per patient size (includes targeted exams where dose is matched to clinical indication); or iterative reconstruction. FINDINGS: Proximal pulmonary arteries are normal. Few tiny filling defects in the subsegmental LEFT upper lobe pulmonary arteries suspicious for tiny distal pulmonary emboli. No other visualized filling defects. Normal caliber thoracic aorta. Aortic calcification. Coronary calcification. No mediastinal or hilar lymphadenopathy. Tiny esophageal hiatal hernia. No axillary lymphadenopathy. Lungs are well aerated. No acute pulmonary infiltrates. Subsegmental atelectasis LEFT lower lobe. Adrenal glands are normal. Cholecystectomy clips. Cardiomegaly. Enlarged LEFT ventricle. Mild thoracic kyphosis. AICD. CT/CT angio chest PE protcl [id number] IMPRESSION: 1. A few tiny filling defects in the LEFT upper lobe subsegmental pulmonary ar ruby suspicious for pulmonary embolus. No other filling defects. 2. Lungs are well aerated. No acute pulmonary infiltrates. 3. Tiny esophageal hiatal hernia. 4. Prior cholecystectomy. 5. Cardiomegaly with enlarged LEFT ventricle.
[2025-06-20] MEDS: iohexol 350 mg/mL 500 mL Btl (per mL) IV (11:02)
== END 2025-06-20 10:41 | disposition home or self-care (01) ==
LOC: RAD 10:41
DX: R79.89 Other specified abnormal findings of blood chemistry (principal); Z90.49 Acquired absence of other specified parts of digestive tract; I51.7 Cardiomegaly; M40.204 Unspecified kyphosis, thoracic region; I25.10 Atherosclerotic heart disease of native coronary artery without angina pectoris
CPT/HCPCS: 71275